=== PATIENT | male | born 1955 | race Caucasian/White ===

== ENCOUNTER 2017-02-07 09:54 | Emergency (ER) | payer OTHER ==
[2017-02-07 10:11] VITALS: BP 131/81; PULSE 57; TEMP 98.5; BMI 36.8
--- NOTE | 2017-02-07 11:38 | PDOC ---
History of Present Illness - General Chief Complaint: Ear Problem Stated Complaint: EAR PROBLEM, ABSCESS BOIL Time Seen by Provider: 02/07/17 11:00 History Source: Patient Exam Limitations: No Limitations - History of Present Illness Initial Comments: 02/07/17 11:31 Patient is a [61-year-old male with history of hypertension and high cholesterol presents for evaluation of left ear pain and abscess to upper back. Patient reports pain to the left ear for 1 week. No fever. Attempted to get appointment with his PMD but states they could not fit him in and told him to come to ER.] Past Medical History: [Denies]. Allergies: No known allergies Medications: [See medication list.] Family History: Non-contributory Social History: Denies smoking, alcohol use, or IVDU Review of Systems GENERAL/CONSTITUTIONAL: [No fever or chills. No weakness. No weight change.] HEAD, EYES, EARS, NOSE AND THROAT: [No change in vision. Left ear pain. No sore throat. ] CARDIOVASCULAR: [No chest pain or shortness of breath.] RESPIRATORY: [No cough, wheezing, or hemoptysis.] GASTROINTESTINAL: [No nausea, vomiting, diarrhea or constipation. No rectal bleeding.] GENITOURINARY: [No dysuria, frequency, or change in urination.] MUSCULOSKELETAL: [No joint or muscle swelling or pain. No neck or back pain.] SKIN : [Spontaneously draining lesion to upper right back] NEUROLOGIC: [No headache, vertigo, loss of consciousness, or loss of sensation.] PSYCHIATRIC: [No depression or anxiety.] ENDOCRINE: [No increased thirst. No abnormal weight change.] HEMATOLOGIC/LYMPHATIC: [No anemia, easy bleeding, or history of blood clots.] ALLERGIC/IMMUNOLOGIC: [No hives or skin allergy. No latex allergy.] Physical Exam: GENERAL: [The patient is awake, alert, and fully oriented, in no acute distress. ] HEAD: [Normal with no signs of trauma.] EYES: [Pupils equal, round and reactive to light, extraocular movements intact, sclera anicteric, conjunctiva clear.] ENT: [Left ear inflamed with cloudy white drainage right TM is normal, nares patent, oropharynx clear without exudates. Moist mucous membranes. No uvula deviation] NECK: [Normal range of motion, supple without lymphadenopathy, JVD, or masses.] LUNGS: [Breath sounds equal, clear to auscultation bilaterally. No wheezes, and no crackles.] HEART: [Regular rate and rhythm, normal S1 and S2 without murmur, rub or gallop. ] ABDOMEN: [Soft, nontender, normoactive bowel sounds. No guarding, no rebound. No masses. No bruising or abrasions] MUSCULOSKELETAL: [Normal range of motion, no edema. No clubbing or cyanosis. No cords, erythema, or tenderness. No CVA Tenderness with fist.] NEUROLOGICAL: [Cranial nerves II through XII grossly intact. Normal speech, normal gait.] SKIN: [Draining lesion to right upper back, area is erythematous with multiple opening spontaneously draining pustulant drainage] Past History - Past Medical History Allergies/Adverse Reactions: Allergies Allergy/AdvReac Type Severity Reaction Status Date / Time No Known Allergies Allergy Verified 02/07/17 10:08 Home Medications: Ambulatory Orders Ranitidine [Zantac -] 150 mg PO DAILY 07/06/12 Atorvastatin Ca [Lipitor] 20 mg PO HS 10/10/13 Amlodipine Besylate [Norvasc -] 5 mg PO DAILY #30 tablet 10/14/13 Lisinopril [Prinivil] 40 mg PO DAILY #60 tablet 10/14/13 Warfarin Na [Coumadin -] 5 mg PO DAILY@1800 #10 tablet 12/09/13 Metoprolol Succinate [Toprol XL -] 100 mg PO DAILY 10/09/15 Thiamine HCl [Vitamin B1 -] 100 mg PO DAILY tablet 10/13/15 Aspirin [ASA -] 81 mg PO DAILY 02/07/17 Clindamycin [Cleocin -] 300 mg PO Q8H #30 capsule 02/07/17 Gabapentin 100 mg PO ASDIR 02/07/17 Hydroxyzine HCl [Atarax -] 25 mg PO TID 02/07/17 Neomycin/Polymyxin B Sulf/Hc [Ffsdswri-Qpysxxwws-Cr Ear Susp] 4 ml OS QID #1 drops.susp 02/07/17 Anemia: No Asthma: No Cancer: No Cardiac Disorders: Yes (A-FIB) CVA: No COPD: No CHF: No DVT: No Dementia: No Diabetes: No GI Disorders: Yes (GERD) Disorders: No HTN: Yes Hypercholesterolemia: Yes Liver Disease: No Seizures: No Thyroid Disease: No - Surgical History Abdominal Surgery: No Appendectomy: No Cardiac Surgery: Yes (CABG,ICD) Cholecystectomy: No Lung Surgery: No Neurologic Surgery: No Orthopedic Surgery: No - Immunization History Immunization Up to Date: Yes - Suicide/Smoking/Psychosocial Hx Smoking Status: No Smoking History: Never smoked Have you smoked in the past 12 months: No Number of Cigarettes Smoked Daily: 0 Information on smoking cessation initiated: No Hx Alcohol Use: Yes (10/10/15) Drug/Substance Use Hx: No Substance Use Type: None Hx Substance Use Treatment: No *Physical Exam - Vital Signs Last Vital Signs Temp Pulse Resp BP Pulse Ox 98.5 F 57 L 18 131/81 100 02/07/17 10:08 02/07/17 10:08 02/07/17 10:08 02/07/17 10:08 02/07/17 10:08 Medical Decision Making - Medical Decision Making 02/07/17 11:33 A/P: Patient here for evaluation of abscess to back which is spontaneously draining with no fluctuance mild surrounding erythema, also with left otitis media. We'll DC patient on clindamycin and polymyxin, follow-up with PMD. Recommend follow-up with dermatology for back wound I discussed the physical exam findings, ancillary test results and final diagnoses with the patient. I answered all of the patient's questions. The patient was satisfied with the care received and felt comfortable with the discharge plan and treatment plan. The patient will call to arrange follow-up and will return to the Emergency Department with any new, persistant or worsening symptoms. *DC/Admit/Observation/Transfer Diagnosis at time of Disposition: Abscess Otitis media Qualifiers: Otitis media type: suppurative Chronicity: acute Laterality: left Recurrence: not specified as recurrent Spontaneous tympanic membrane rupture: without spontaneous rupture Qualified Code(s): H66.002 - Acute suppurative otitis media without spontaneous rupture of ear drum, left ear - Discharge Dispostion Disposition: HOME Condition at time of disposition: Good Admit: No - Prescriptions Prescriptions: Clindamycin [Cleocin -] 300 mg PO Q8H #30 capsule Neomycin/Polymyxin B Sulf/Hc [Abfafxjf-Pdpkxjxkt-Vz Ear Susp] 4 ml OS QID #1 drops.susp - Referrals Referrals: Tripp Tapia [Primary Care Provider] - Diego Modi [Non Staff, Medical] - - Patient Instructions Printed Discharge Instructions: Middle Ear Infection, DI for Skin Abscess Additional Instructions: recommend follow up with dermatology. Warm soaks to the back Antibiotics as ordered Follow up with PMD if pain persists to the left ear. Tylenol for pain - Post Discharge Activity
--- NOTE | 2017-02-09 08:57 | PDOC ---
Patient Follow-up (Call Back) - Post ED Follow - Up Chief Complaint: abscess Condition at time of discharge: Good Disposition at time of original discharge: HOME Reason for Call Back: Abnwl. Microbiology (wound culture preliminary, need to follow up sensitivity)
== END 2017-02-07 11:46 | disposition home or self-care (01) ==
LOC: JERFT 09:54
DX: H66.002 Acute suppurative otitis media without spontaneous rupture of ear drum, left ear (principal); L02.212 Cutaneous abscess of back [any part, except buttock and flank]; I10 Essential (primary) hypertension; E78.00 Pure hypercholesterolemia, unspecified
CPT/HCPCS: 87070; 87186; 87205; 99281-25

== ENCOUNTER 2017-05-29 09:10 | Observation (INO) | payer OTHER ==
--- NOTE | 2017-05-29 09:22 | PDOC ---
History of Present Illness - General History Source: Patient, Family Exam Limitations: No Limitations <Rigo Nayak - Last Filed: 05/29/17 12:12> - General History Source: Patient Exam Limitations: No Limitations <Evelina Quick - Last Filed: 05/29/17 14:12> - General Chief Complaint: Chest Pain Stated Complaint: CHEST PAIN Time Seen by Provider: 05/29/17 09:21 - History of Present Illness Initial Comments: 05/29/17 10:22 The patient is a 61 year old male with a past medical history of acute/chronic ETOH abuse, A-Fib, CABG(x3, 2005), diastolic CHF ( s/p ICD 2010 for [place]), hypertension, hyperlipidemia, and constipation, presents to the emergency department with a complaint of chest pain since earlier today. As per son, patient woke up feeling fine this morning. Patient states he took his medications at 06:00 today, and at 07:00 he felt a shock from his defibrillator. Son reports taking the patients pressure, and states it was 200/ 160 at the time. Patient reports he has been shocked, several times over the past month before going to bed, but not as bad as this time. Patient reports associated chest pain and tingling in his face, but denies any shortness of breath, diaphoresis, palpitations, or lower extremity edema. He denies any headache, dizziness, LOC, lightheadedness, weakness, neck or back pain. He denies any abdominal pain, nausea, or vomiting. He denies any fever or chills. Patient states he returned from [place] 1 week ago. Patient states his last drink was about 1 month ago. Allergies: NKDA Past surgical history: AICD(2009), CABG(2005) Social history: He reports alcohol use (1/2 liter of vodka). 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 Carlos Retana (Rigo Nayak) Past History <Rigo Nayak - Last Filed: 05/29/17 12:12> - Past Medical History Anemia: No Asthma: No Cancer: No Cardiac Disorders: Yes (CAD, afib) CVA: No COPD: No CHF: No DVT: No Dementia: No Diabetes: No GI Disorders: Yes (GERD) Disorders: No HTN: Yes Hypercholesterolemia: Yes Liver Disease: No Seizures: No Thyroid Disease: No - Surgical History Abdominal Surgery: No Appendectomy: No Cardiac Surgery: Yes (CABG X3, AICD/PPM) Cholecystectomy: No Lung Surgery: No Neurologic Surgery: No Orthopedic Surgery: No - Immunization History Immunization Up to Date: Yes - Suicide/Smoking/Psychosocial Hx Smoking Status: No Smoking History: Never smoked Have you smoked in the past 12 months: No Number of Cigarettes Smoked Daily: 0 Information on smoking cessation initiated: No Hx Alcohol Use: Yes (social) Drug/Substance Use Hx: No Substance Use Type: None, Alcohol Hx Substance Use Treatment: No <Evelina Quick - Last Filed: 05/29/17 14:12> - Past Medical History Allergies/Adverse Reactions: Allergies Allergy/AdvReac Type Severity Reaction Status Date / Time No Known Allergies Allergy Verified 05/29/17 09:18 Home Medications: Ambulatory Orders Atorvastatin Ca [Lipitor] 20 mg PO HS 10/10/13 Warfarin Na [Coumadin -] 5 mg PO DAILY@1800 #10 tablet 12/09/13 Metoprolol Succinate [Toprol XL -] 100 mg PO DAILY 10/09/15 Amlodipine Besylate 5 mg PO DAILY 11/23/16 Aspirin [ASA -] 81 mg PO DAILY 11/23/16 Folic Acid 1 mg PO DAILY 11/23/16 Gabapentin 100 mg PO BID 11/23/16 Lisinopril [Prinivil -] 40 mg PO DAILY 11/23/16 Ranitidine [Zantac -] 150 mg PO BID 11/23/16 Thiamine HCl [Vitamin B1 -] 100 mg PO DAILY tablet 11/25/16 Cardiac Specific PMH - Complaint Specific PMHX Pacemaker: Yes <Evelina Quick - Last Filed: 05/29/17 14:12> Review of Systems - Review of Systems Able to Perform ROS?: Yes <Rigo Nayak - Last Filed: 05/29/17 12:12> <Evelina Quick - Last Filed: 05/29/17 14:12> - Review of Systems Comments:: 05/29/17 10:22 GENERAL/CONSTITUTIONAL: No: fever, chills, weakness, loss of appetite. HEAD, EYES, EARS, NOSE AND THROAT: Yes: facial tingling. No: change in vision, ear pain, discharge, sore throat, throat swelling. CARDIOVASCULAR: Yes chest pain, defibrillator shock. No: lightheadedness, palpitations, syncope RESPIRATORY: No: cough, shortness of breath, wheezing, hemoptysis, stridor. GASTROINTESTINAL: No: nausea, vomiting, abdominal cramping, diarrhea, rectal bleeding, constipation. GENITOURINARY: No: dysuria, hematuria, frequency, urgency, flank pain. MUSCULOSKELETAL: No: back pain, neck pain, joint pain, muscle swelling or pain SKIN AND BREASTS: No: lesions, pallor, rash or easy bruising. NEUROLOGIC: No: headache, vertigo, paresthesias, weakness ENDOCRINE: No: unexplained weight gain or loss HEMATOLOGIC/LYMPHATIC: No: anemia, easy bleeding, swelling nodes (Nayak,Giomilsy) *Physical Exam <Nael,Giomilsy - Last Filed: 05/29/17 12:12> <Evelina Quick - Last Filed: 05/29/17 14:12> - Vital Signs Last Vital Signs Temp Pulse Resp BP Pulse Ox 98.3 F 50 L 17 128/71 97 05/29/17 09:14 05/29/17 11:49 05/29/17 11:49 05/29/17 11:49 05/29/17 11:49 - Physical Exam Comments: 05/29/17 10:22 GENERAL: The patient is in no acute distress. HEAD: Normal with no signs of trauma. EYES: PERRLA, EOMI, sclera anicteric, conjunctiva clear. ENT: Ears normal, nares patent, oropharynx clear without exudates. Moist mucous membranes. NECK: Normal range of motion, supple without lymphadenopathy, JVD, or masses. LUNGS: Breath sounds equal, clear to auscultation bilaterally. No wheezes, and no crackles. HEART: Paced. Regular rate and rhythm, normal S1 and S2 without murmur, rub or gallop. ABDOMEN: Obese. Soft, nontender, normoactive bowel sounds. No guarding, no rebound. EXTREMITIES: Normal range of motion, no edema. No clubbing or cyanosis. No erythema, or tenderness. NEUROLOGICAL: Cranial nerves II through XII grossly intact. Normal speech. No focal neurological deficits. MUSCULOSKELETAL: Back non-tender to palpation, no CVA tenderness SKIN: Warm, Dry, normal turgor, no rashes or lesions noted. (Nayak,Giomilsy) ED Treatment Course - LABORATORY CBC & Chemistry Diagram: 05/29/17 09:43 05/29/17 09:43 <Rigo Nayak - Last Filed: 05/29/17 12:12> - LABORATORY CBC & Chemistry Diagram: 05/29/17 09:43 05/29/17 09:43 <Evelina Quick - Last Filed: 05/29/17 14:12> - ADDITIONAL ORDERS Additional order review: Laboratory Results 05/29/17 05/29/17 09:43 09:43 PT with INR 12.30 H INR 1.09 Sodium 141 Potassium 4.8 D Chloride 105 Carbon Dioxide 28 Anion Gap 8 BUN 16 Creatinine 0.9 Creat Clearance w eGFR > 60 Random Glucose 109 H Calcium 8.9 Magnesium 2.1 Total Bilirubin 0.6 D AST 48 H ALT 105 H D Alkaline Phosphatase 79 Creatine Kinase 88 Troponin I < 0.02 D B-Natriuretic Peptide 452 H Total Protein 7.4 Albumin 3.9 D 05/29/17 09:43 RBC 4.32 MCV 94.0 MCHC 33.9 RDW 14.9 MPV 7.6 Neutrophils % 53.6 Lymphocytes % 30.2 D Monocytes % 14.2 H Eosinophils % 1.1 Basophils % 0.9 - RADIOLOGY Radiology Studies Ordered: Category Date Time Status CHEST X-RAY PORTABLE* [RAD] Stat Radiology 05/29/17 09:22 Completed Radiograph Interpretation: 05/29/17 11:19 EXAM: CXR INTERPRETED BY: Dr. Parson REVIEWED BY: Dr. Quick IMPRESSION: No evidence of active pulmonary disease. (Rigo Nayak) Medical Decision Making <Rigo Nayak - Last Filed: 05/29/17 12:12> <Evelina Quick - Last Filed: 05/29/17 14:12> - Medical Decision Making 05/29/17 12:12 First call placed to Dr. Retana at 12:18. Awaiting call back from Dr. Maurer (Rigo Nayak) 05/29/17 09:35 Mr Gerardo is a 61 yo M who presents to the ER with a complaint of Chest pain. Patient's has a history of atrial fibrillation on Coumadin, hypertension, hyperlipidemia, coronary artery disease status post 3 vessel CABG. Patient presents emergency department stating he was in his usual state of health. Awoke at approximately 6 AM. Possibly one hour later, at 7 AM he felt a very painful shock in his left chest. This was his defibrillator firing. Denies short of breath. Denies current chest pain. No nausea, vomiting, diphoresis EKG: Sinus rhythm rate of 54 bpm, axis is normal, intervals are normal, no ST elevations or depressions, T-wave inversion V4- V6 05/29/17 10:47 Laboratory Tests 05/29/17 05/29/17 05/29/17 09:43 09:43 09:43 WBC 4.8 Hgb 13.7 Hct 40.6 Plt Count 250 D PT with INR 12.30 H INR 1.09 Sodium 141 Potassium 4.8 D Chloride 105 Carbon Dioxide 28 BUN 16 Creatinine 0.9 Random Glucose 109 H Creatine Kinase 88 Troponin I < 0.02 D 05/29/17 10:47 Call placed to [facility] 05/29/17 10:57 Interrogation performed Demonstrates NSVT and AICD firing on May 07 Nothing today 05/29/17 14:10 Case reviewed with [facility] Will place on Tele Obs (Evelina Quick) *DC/Admit/Observation/Transfer <Rigo Nayak - Last Filed: 05/29/17 12:12> - Discharge Dispostion Admit: Yes <Evelina Quick - Last Filed: 05/29/17 14:12> Diagnosis at time of Disposition: Chest pain Qualifiers: Chest pain type: unspecified Qualified Code(s): R07.9 - Chest pain, unspecified - Discharge Dispostion Condition at time of disposition: Stable - Referrals Referrals: Tripp Tapia [Primary Care Provider] - - Patient Instructions - Post Discharge Activity - Attestations Scribe Attestion: 05/29/17 10:22 Documentation prepared by Rigo Nayak, acting as medical assisting instructor for Evelina Quick MD. (Rigo Nayak)
[2017-05-29 09:53] LABS: BASO % 0.9 % (0-2.0); EOS % 1.1 % (0-4.5); HEMATOCRIT 40.6 % (35.4-49); HEMOGLOBIN 13.7 GM/dL (11.7-16.9); LYMPH % 30.2 % (8-40); MCH 31.8 pg (25.7-33.7); MCHC 33.9 g/dl (32.0-35.9); MEAN PLT VOLUME 7.6 fl (7.5-11.1); MONO % 14.2 % (3.8-10.2); NEUT % 53.6 % (42.8-82.8); PLATELET COUNT 250 K/MM3 (134-434); RBC 4.32 M/mm3 (4.00-5.60); RDW 14.9 % (11.9-15.9); WHITE BLOOD COUNT 4.8 K/mm3 (4.0-10.0)
[2017-05-29 10:15] LABS: INR 1.09 (0.82-1.09); PROTHROMBIN TIME (PATIENT) 12.3 SEC (9.98-11.88)
[2017-05-29 10:16] LABS: ALBUMIN 3.9 g/dl (3.4-5.0); ANION GAP 8 (8-16); BLOOD UREA NITROGEN 16 mg/dL (7-18); CALCIUM 8.9 mg/dL (8.5-10.1); CHLORIDE 105 mmol/L (98-107); CO2 28 mmol/L (21-32); CREATININE 0.9 mg/dL (0.7-1.3); GLUCOSE,RANDOM 109 mg/dL (74-106); MAGNESIUM 2.1 mg/dL (1.8-2.4); POTASSIUM 4.8 mmol/L (3.5-5.1); SGOT/AST 48 U/L (15-37); SGPT/ALT 105 U/L (12-78); SODIUM 141 mmol/L (136-145)
[2017-05-29 10:20] LABS: ALK PHOS 79 U/L (45-117); BILIRUBIN,TOTAL 0.6 mg/dL (0.2-1.0); TOT PROT 7.4 g/dl (6.4-8.2)
[2017-05-29 10:57] LABS: N-TERMINAL BNP 452 pg/ml (5-125)
--- NOTE | 2017-05-29 12:21 | CON.CARD ---
Consult - History of Present Illness History of Present Illness: The patient is a 61 year old male with a past medical history of acute/chronic ETOH abuse, A-Fib, CABG(x3, 2005), diastolic CHF ( s/p ICD 2009 for [place]), hypertension, hyperlipidemia, and constipation, presents to the emergency department with a complaint of chest pain since earlier today. As per son, patient woke up feeling fine this morning. Patient states he took his medications at 06:00 today, and at 07:00 he felt a shock from his defibrillator. Son reports taking the patients pressure, and states it was 200/ 160 at the time. Patient reports he has been shocked, several times over the past month before going to bed, but not as bad as this time. Patient reports associated chest pain and tingling in his face, but denies any shortness of breath, diaphoresis, palpitations, or lower extremity edema. He denies any headache, dizziness, LOC, lightheadedness, weakness, neck or back pain. He denies any abdominal pain, nausea, or vomiting. He denies any fever or chills. Patient states he returned from [place] 1 week ago. Patient states his last drink was about 1 month ago. Allergies: NKDA Past surgical history: AICD(2009), CABG(2005) Social history: He reports alcohol use (1/2 liter of vodka). 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 [facility] CABG 2005 2006 s/p ICD Ongoing medical problems ASHD; CABG (no hx AR) CHF: diastolic (was systolic, leading to ICD; most recent ECHO showed normal LVEF) Paroxysmal AF CMP hyperlipidemia s/p ICD 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 History of Recent Travel: No Home Medications - Allergies Allergies/Adverse Reactions: Allergies Allergy/AdvReac Type Severity Reaction Status Date / Time No Known Allergies Allergy Verified 05/29/17 09:18 - Home Medications Home Medications: Ambulatory Orders Atorvastatin Ca [Lipitor] 20 mg PO HS 10/10/13 Warfarin Na [Coumadin -] 5 mg PO DAILY@1800 #10 tablet 12/09/13 Metoprolol Succinate [Toprol XL -] 100 mg PO DAILY 10/09/15 Amlodipine Besylate 5 mg PO DAILY 11/23/16 Aspirin [ASA -] 81 mg PO DAILY 11/23/16 Folic Acid 1 mg PO DAILY 11/23/16 Gabapentin 100 mg PO BID 11/23/16 Lisinopril [Prinivil -] 40 mg PO DAILY 11/23/16 Ranitidine [Zantac -] 150 mg PO BID 11/23/16 Thiamine HCl [Vitamin B1 -] 100 mg PO DAILY tablet 11/25/16 Review of Systems - Review of Systems Constitutional: reports: No Symptoms Eyes: reports: No Symptoms HENT: reports: No Symptoms Neck: reports: No Symptoms Cardiovascular: reports: Chest Pain Gastrointestinal: reports: No Symptoms Genitourinary: reports: No Symptoms Breasts: reports: No Symptoms Reported Musculoskeletal: reports: No Symptoms Integumentary: reports: No Symptoms Neurological: reports: No Symptoms Endocrine: reports: No Symptoms Hematology/Lymphatic: reports: No Symptoms Psychiatric: reports: No Symptoms Vital Signs: Vital Signs Temperature 98.3 F 05/29/17 09:14 Pulse Rate 50 L 05/29/17 11:49 Respiratory Rate 17 05/29/17 11:49 Blood Pressure 128/71 05/29/17 11:49 O2 Sat by Pulse Oximetry (%) 97 05/29/17 11:49 Constitutional: Yes: Well Nourished, No Distress, Calm Eyes: Yes: WNL, Conjunctiva Clear, EOM Intact HENT: Yes: WNL, Atraumatic, Normocephalic Neck: Yes: WNL, Supple, Trachea Midline Respiratory: Yes: WNL, Regular, CTA Bilaterally Gastrointestinal: Yes: WNL, Normal Bowel Sounds Renal/: Yes: WNL Cardiovascular: Yes: WNL, Regular Rate and Rhythm Musculoskeletal: Yes: WNL Extremities: Yes: WNL Integumentary: Yes: WNL Neurological: Yes: WNL, Alert, Oriented ...Motor Strength: WNL Psychiatric: Yes: WNL, Alert, Oriented - Other Data Labs, Other Data: CBC, BMP 05/29/17 09:43 05/29/17 09:43 INR, PTT INR 1.09 (0.82-1.09) 05/29/17 09:43 Troponin, BNP 05/29/17 09:43 Troponin I < 0.02 D B-Natriuretic Peptide 452 H Troponin, BNP 05/29/17 09:43 Troponin I < 0.02 D B-Natriuretic Peptide 452 H Laboratory Tests 05/29/17 05/29/17 05/29/17 09:43 09:43 09:43 WBC 4.8 RBC 4.32 Hgb 13.7 Hct 40.6 MCV 94.0 MCH 31.8 MCHC 33.9 RDW 14.9 Plt Count 250 D MPV 7.6 Neutrophils % 53.6 Lymphocytes % 30.2 D Monocytes % 14.2 H Eosinophils % 1.1 Basophils % 0.9 PT with INR 12.30 H INR 1.09 Sodium 141 Potassium 4.8 D Chloride 105 Carbon Dioxide 28 Anion Gap 8 BUN 16 Creatinine 0.9 Creat Clearance w eGFR > 60 Random Glucose 109 H Calcium 8.9 Magnesium 2.1 Total Bilirubin 0.6 D AST 48 H ALT 105 H D Alkaline Phosphatase 79 Creatine Kinase 88 Troponin I < 0.02 D B-Natriuretic Peptide 452 H Total Protein 7.4 Albumin 3.9 D Imaging - Results Chest X-ray: Image Reviewed (no i/e) EKG: Image Reviewed (s shin rep abn) Problem List - Problems (1) AICD discharge Code(s): Z45.02 - ENCNTR FOR ADJUST AND MGMT OF AUTOMATIC IMPLNTBL CARD DEFIB (2) AICD discharge Code(s): Z45.02 - ENCNTR FOR ADJUST AND MGMT OF AUTOMATIC IMPLNTBL CARD DEFIB (3) ASHD (arteriosclerotic heart disease) Code(s): I25.10 - ATHSCL HEART DISEASE OF [place] CORONARY ARTERY W/O ANG PCTRS (4) Abscess Code(s): L02.91 - CUTANEOUS ABSCESS, UNSPECIFIED (5) Alcohol abuse Code(s): F10.10 - ALCOHOL ABUSE, UNCOMPLICATED (6) Alcohol abuse counseling and surveillance Code(s): Z71.41 - ALCOHOL ABUSE COUNSELING AND SURVEILLANCE OF ALCOHOLIC (7) Alcohol dependence Code(s): F10.20 - ALCOHOL DEPENDENCE, UNCOMPLICATED Qualifiers: Substance use status: with intoxication (8) Alcohol withdrawal Code(s): F10.239 - ALCOHOL DEPENDENCE WITH WITHDRAWAL, UNSPECIFIED (9) Alcoholism /alcohol abuse Code(s): F10.20 - ALCOHOL DEPENDENCE, UNCOMPLICATED (10) Atrial fibrillation Code(s): I48.91 - UNSPECIFIED ATRIAL FIBRILLATION (11) Chest pain at rest Code(s): R07.9 - CHEST PAIN, UNSPECIFIED (12) DVT prophylaxis Code(s): [id number] - (13) Dyspnea Code(s): R06.00 - DYSPNEA, UNSPECIFIED (14) GERD (gastroesophageal reflux disease) Code(s): K21.9 - GASTRO-ESOPHAGEAL REFLUX DISEASE WITHOUT ESOPHAGITIS (15) Hx of CABG Code(s): Z95.1 - PRESENCE OF AORTOCORONARY BYPASS GRAFT (16) Hypertension Code(s): I10 - ESSENTIAL (PRIMARY) HYPERTENSION (17) Hypomagnesemia Code(s): E83.42 - HYPOMAGNESEMIA (18) Nasal bone fracture Code(s): S02.2XXA - FRACTURE OF NASAL BONES, INIT ENCNTR FOR CLOSED FRACTURE (19) Nontraumatic subdural hygroma Code(s): D18.1 - LYMPHANGIOMA, ANY SITE (20) Otitis media Code(s): H66.90 - OTITIS MEDIA, UNSPECIFIED, UNSPECIFIED EAR Qualifiers: Otitis media type: suppurative Chronicity: acute Laterality: left Recurrence: not specified as recurrent Spontaneous tympanic membrane rupture: without spontaneous rupture Qualified Code(s): H66.002 - Acute suppurative otitis media without spontaneous rupture of ear drum, left ear (21) Palpitations Code(s): R00.2 - PALPITATIONS (22) Pneumonia Code(s): J18.9 - PNEUMONIA, UNSPECIFIED ORGANISM (23) Preseptal cellulitis of right eye Code(s): H00.033 - ABSCESS OF EYELID RIGHT EYE, UNSPECIFIED EYELID (25) Status post fall Code(s): Z91.81 - HISTORY OF FALLING (26) Subtherapeutic international normalized ratio (INR) Code(s): R79.1 - ABNORMAL COAGULATION PROFILE (27) Systolic CHF Code(s): I50.20 - UNSPECIFIED SYSTOLIC (CONGESTIVE) HEART FAILURE (28) Ventricular tachycardia Code(s): I47.2 - VENTRICULAR TACHYCARDIA (29) Ventricular tachycardia Code(s): I47.2 - VENTRICULAR TACHYCARDIA (30) Alcohol abuse Code(s): F10.10 - ALCOHOL ABUSE, UNCOMPLICATED (31) HTN (hypertension) Code(s): I10 - ESSENTIAL (PRIMARY) HYPERTENSION (32) Hyperlipidemia Code(s): E78.5 - HYPERLIPIDEMIA, UNSPECIFIED (33) ICD (implantable cardioverter-defibrillator) in place Code(s): Z95.810 - PRESENCE OF AUTOMATIC (IMPLANTABLE) CARDIAC DEFIBRILLATOR (34) Obesity (BMI 30-39.9) Code(s): E66.9 - OBESITY, UNSPECIFIED Assessment/Plan ASHD; CABG (no hx AR) CHF: diastolic (was systolic, leading to ICD; most recent ECHO showed normal LVEF) Paroxysmal AF CMP hyperlipidemia ETOH abuse noncomplience s/p ICD s/p ICD interrogation no schocks today last ICD francois May 06, 2017 Plan r/o mi telemerty restart meds
--- NOTE | 2017-05-29 12:22 | EKG ---
Test Reason : Blood Pressure : / mmHG Vent. Rate : 054 BPM Atrial Rate : 054 BPM P-R Int : 166 ms QRS Dur : 098 ms QT Int : 408 ms P-R-T Axes : 048 037 056 degrees QTc Int : 386 ms SINUS BRADYCARDIA NONSPECIFIC T WAVE ABNORMALITY ABNORMAL ECG WHEN COMPARED WITH ECG OF 10-OCT-2015 02:27, NONSPECIFIC T WAVE ABNORMALITY NOW EVIDENT IN INFERIOR LEADS T WAVE INVERSION NO LONGER EVIDENT IN ANTERIOR LEADS QT HAS SHORTENED Confirmed by PAPITO MCCARTY, DENISE ([id number]) on 05/29/2017 12:21:42 PM Referred By: Confirmed By:DENISE COBOS MD
--- NOTE | 2017-05-29 14:10 | HP ---
CHIEF COMPLAINT: Chest pain Director Of Casework Department: Dr. Retana HISTORY OF PRESENT ILLNESS: 61 year-old male with a PMH significant for HTN, HLD, CAD s/p CABG x 3 s/p PPM s /p AICD, afib, diastolic heart failure and ETOH abuse. Presented to the ED today with a complaint that his AICD fired this morning. Patient woke up at 6: 00am and at 7:00am he felt a shock from his AICD. He felt chest pain and tingling in his face. His BP at home was reportedly 200/160. Patient's son brought him to the hospital. By the time he arrived, patient's symptoms had resolved. Patient denies any shortness of breath, diaphoresis, palpitations, or lower extremity edema. He denies any headache, dizziness, LOC, lightheadedness, weakness, neck or back pain. He denies any abdominal pain, nausea, or vomiting. He denies any fever or chills. ER course was notable for: (1) BP 180/95, p58 (2) INR 1.09 (3) AICD interrogation: NSVT and most recent AICD firing 05/07/17 (3) 05/29 Echo: LV function grossly normal; BLAE; trace to mild MR; mild to moderate TR; mild pHTN; mild PI Recent Travel: [place], returned one week ago PAST MEDICAL HISTORY: Hypertension Hyperlipidemia Coronary artery disease Atrial fibrillation Diastolic heart failure ETOH abuse PAST SURGICAL HISTORY: CABG x 3 PPM/AICD Social History: Smoking: no Alcohol: last drink one month ago Drugs: no Family History: Allergies No Known Allergies Allergy (Verified 05/29/17 09:18) HOME MEDICATIONS: Home Medications Medication Instructions Recorded Atorvastatin Ca [Lipitor] 20 mg PO HS 10/10/13 Warfarin Na [Coumadin -] 5 mg PO DAILY@1800 #10 tablet 12/09/13 Metoprolol Succinate [Toprol XL -] 100 mg PO DAILY 10/09/15 Amlodipine Besylate 5 mg PO DAILY 11/23/16 Aspirin [ASA -] 81 mg PO DAILY 11/23/16 Folic Acid 1 mg PO DAILY 11/23/16 Gabapentin 100 mg PO BID 11/23/16 Lisinopril [Prinivil -] 40 mg PO DAILY 11/23/16 Ranitidine [Zantac -] 150 mg PO BID 11/23/16 Thiamine HCl [Vitamin B1 -] 100 mg PO DAILY tablet 11/25/16 REVIEW OF SYSTEMS CONSTITUTIONAL: Absent: fever, chills, diaphoresis, generalized weakness, malaise, loss of appetite, weight change HEENT: Absent: rhinorrhea, nasal congestion, throat pain, throat swelling, difficulty swallowing, mouth swelling, ear pain, eye pain, visual changes CARDIOVASCULAR: +one shock from AICD with associated chest pain and face tingling x 1 episode Absent: chest pain, syncope, palpitations, irregular heart rate, lightheadedness , peripheral edema RESPIRATORY: Absent: cough, shortness of breath, dyspnea with exertion, orthopnea, wheezing, stridor, hemoptysis GASTROINTESTINAL: Absent: abdominal pain, abdominal distension, nausea, vomiting, diarrhea, constipation, melena, hematochezia GENITOURINARY: Absent: dysuria, frequency, urgency, hesitancy, hematuria, flank pain, genital pain MUSCULOSKELETAL: Absent: myalgia, arthralgia, joint swelling, back pain, neck pain SKIN: Absent: rash, itching, pallor HEMATOLOGIC/IMMUNOLOGIC: Absent: easy bleeding, easy bruising, lymphadenopathy, frequent infections ENDOCRINE: Absent: unexplained weight gain, unexplained weight loss, heat intolerance, cold intolerance NEUROLOGIC: Absent: headache, focal weakness or paresthesias, dizziness, unsteady gait, seizure, mental status changes, bladder or bowel incontinence PSYCHIATRIC: Absent: anxiety, depression, suicidal or homicidal ideation, hallucinations. PHYSICAL EXAMINATION Vital Signs - 24 hr 05/29/17 05/29/17 05/29/17 09:14 09:43 09:48 Temperature 98.3 F Pulse Rate 56 L Pulse Rate [ 58 L Apical] Respiratory 20 17 Rate Blood Pressure 180/95 Blood Pressure 146/91 [Right Arm] O2 Sat by Pulse 98 100 100 Oximetry (%) 05/29/17 11:49 Temperature Pulse Rate Pulse Rate [ 50 L Apical] Respiratory 17 Rate Blood Pressure Blood Pressure 128/71 [Right Arm] O2 Sat by Pulse 97 Oximetry (%) GENERAL: Awake, alert, and fully oriented, in no acute distress. HEAD: Normal with no signs of trauma. EYES: Pupils equal, round and reactive to light, extraocular movements intact, sclera anicteric, conjunctiva clear. No lid lag. EARS, NOSE, THROAT: Ears normal, nares patent, oropharynx clear without exudates. Moist mucous membranes. NECK: Normal range of motion, supple without lymphadenopathy, JVD, or masses. LUNGS: Breath sounds equal, clear to auscultation bilaterally. No wheezes, and no crackles. No accessory muscle use. HEART: Regular rate and rhythm, normal S1 and S2 ABDOMEN: Soft, nontender, not distended, normoactive bowel sounds, no guarding, no rebound, no masses. MUSCULOSKELETAL: Normal range of motion at all joints. No bony deformities or tenderness. No CVA tenderness. UPPER EXTREMITIES: 2+ pulses, warm, well-perfused. No cyanosis. No clubbing. No peripheral edema. LOWER EXTREMITIES: 2+ pulses, warm, well-perfused. No calf tenderness. No peripheral edema. NEUROLOGICAL: Cranial nerves II-XII intact. Normal speech. Normal gait. SKIN: Warm, dry, normal turgor, no rashes or lesions noted, normal capillary refill. Laboratory Results - last 24 hr 05/29/17 05/29/17 05/29/17 09:43 09:43 09:43 WBC 4.8 RBC 4.32 Hgb 13.7 Hct 40.6 MCV 94.0 MCH 31.8 MCHC 33.9 RDW 14.9 Plt Count 250 D MPV 7.6 Neutrophils % 53.6 Lymphocytes % 30.2 D Monocytes % 14.2 H Eosinophils % 1.1 Basophils % 0.9 PT with INR 12.30 H INR 1.09 Sodium 141 Potassium 4.8 D Chloride 105 Carbon Dioxide 28 Anion Gap 8 BUN 16 Creatinine 0.9 Creat Clearance w eGFR > 60 Random Glucose 109 H Calcium 8.9 Magnesium 2.1 Total Bilirubin 0.6 D AST 48 H ALT 105 H D Alkaline Phosphatase 79 Creatine Kinase 88 Troponin I < 0.02 D B-Natriuretic Peptide 452 H Total Protein 7.4 Albumin 3.9 D ASSESSMENT/PLAN: 61 year-old male with a PMH significant for HTN, HLD, CAD s/p CABG x 3 s/p PPM s /p AICD, afib, diastolic heart failure and ETOH abuse. Presented to the ED today with a complaint that his AICD fired this morning. Coronary artery disease Diastolic heart failure s/p AICD --AICD interrogated in ED, last time fired was 05/07/17; did not fire today --electrolytes normal; keep K>5, Mg >2 --seen and evaluated by cardiology, will r/o ACS --ECG sinus shin @ 54bpm; not suggestive of acute ischemic event --first troponin negative; two pending --Echo: LV function grossly normal; BLAE; trace to mild MR; mild to moderate TR; mild pHTN; mild PI --continue ASA, Lipitor, metoprolol, lisinopril Atrial fibrillation --checked with Dr. Retana's office, patient is supposed to be taking coumadin and INR goal is 2-3 --INR today 1.09 --start lovenox 120mg BID --dose coumadin 5mg tonight --HR 50s'; lower metoprolol from 100mg daily to 37.5 mg BID Hypertension --initial BP 180/95, improved in ED 128/83 --continue amlodipine, lisinopril, lower metoprolol dose Hyperlipidemia --continue Lipitor ETOH abuse --monitor for s/s of withdrawal; last drink reportedly a month ago --continue folic acid and thiamine FEN Fluids: PO intake adequate Electrolytes: replete as indicated Nutrition: low sodium DVT prophylaxis: on therapeutic lovenox, oob, ambulation Dispo: continues to require observation. Full code. Visit type - Emergency Visit Emergency Visit: Yes ED Registration Date: 05/29/17 Care time: The patient presented to the Emergency Department on the above date and was hospitalized for further evaluation of their emergent condition. - New Patient This patient is new to me today: Yes Date on this admission: 05/29/17 - Critical Care Critical Care patient: No Hospitalist Screening - Colonoscopy Questionnaire Colonoscopy Questionnaire: Colonoscopy Questionnaire - Patient: 50 - 75 years old and never had a screening colonoscopy: Unknown History of colon or rectal polyps, or CA: Unknown History of IBD, Crohn's disease or UC: Unknown History of abdominal radiation therapy as a child: Unknown - Relative: 1 with colon or rectal CA, or polyps at age 60 or younger: Unknown Colon or rectal CA diagnosed at age 45 or younger: Unknown Multiple relatives with colon or rectal CA: Unknown - Outcome: Screening Result: Negative Screen
[2017-05-29 16:49] VITALS: BMI 38.4
[2017-05-29] MEDS ORDERED: WARFARIN NA 5 MG TABLET (UD) PO SCH (18:00)
[2017-05-29] MEDS ORDERED: WARFARIN NA 5 MG TABLET (UD) ONE (18:16)
[2017-05-29] MEDS ORDERED: ENOXAPARIN NA (PORCINE) 40 MG/0.4 ML DISP.SYRIN SQ ONE (18:17)
[2017-05-29] MEDS ORDERED: ENOXAPARIN NA (PORCINE) 80 MG/0.8 ML DISP.SYRIN SQ ONE (18:17)
[2017-05-29] MEDS: ENOXAPARIN NA (PORCINE) 120 MG/0.8 ML DISP.SYRIN SQ SCH ×2 (18:26→21:57)
[2017-05-29] MEDS: RANITIDINE HCL 150 MG TABLET (FP) PO SCH (21:56)
[2017-05-29] MEDS: GABAPENTIN 100 MG CAPSULE (FP) PO SCH (21:57)
[2017-05-29] MEDS ORDERED: ATORVASTATIN CA 20 MG TABLET (FP) PO SCH (22:00)
[2017-05-30] MEDS: metoPROLOL SUCCINATE 25 MG TAB.SR.24H (FP) PO SCH ×2 (04:05→11:15)
[2017-05-30 06:35] LABS: BASO % 0.7 % (0-2.0); HEMATOCRIT 39.6 % (35.4-49); HEMOGLOBIN 13.7 GM/dL (11.7-16.9); LYMPH % 35.7 % (8-40); MCH 32.4 pg (25.7-33.7); MCHC 34.6 g/dl (32.0-35.9); MEAN CELL VOLUME 93.6 fl (80-96); MONO % 15.4 % (3.8-10.2); NEUT % 47.2 % (42.8-82.8); PLATELET COUNT 267 K/MM3 (134-434); RBC 4.22 M/mm3 (4.00-5.60); RDW 15.2 % (11.9-15.9); WHITE BLOOD COUNT 5.9 K/mm3 (4.0-10.0)
[2017-05-30 06:43] VITALS: TEMP 98.4
[2017-05-30 06:58] LABS: INR 1.11 (0.82-1.09); PROTHROMBIN TIME (PATIENT) 12.5 SEC (9.98-11.88)
[2017-05-30 07:15] LABS: ALBUMIN 3.5 g/dl (3.4-5.0); ANION GAP 9 (8-16); BILIRUBIN,TOTAL 0.6 mg/dL (0.2-1.0); BLOOD UREA NITROGEN 15 mg/dL (7-18); CALCIUM 8.6 mg/dL (8.5-10.1); CHLORIDE 103 mmol/L (98-107); CO2 29 mmol/L (21-32); CREATININE 0.8 mg/dL (0.7-1.3); GLUCOSE,RANDOM 99 mg/dL (74-106); MAGNESIUM 2.1 mg/dL (1.8-2.4); POTASSIUM 4.3 mmol/L (3.5-5.1); SGOT/AST 43 U/L (15-37); SGPT/ALT 105 U/L (12-78); SODIUM 141 mmol/L (136-145); TOT PROT 6.9 g/dl (6.4-8.2)
[2017-05-30 07:16] LABS: ALK PHOS 71 U/L (45-117)
[2017-05-30] MEDS ORDERED: amLODIPine BESYLATE 5 MG TABLET (FP) PO SCH (10:00)
[2017-05-30] MEDS ORDERED: PATIENT'S OWN MEDICATION (NON-FORMULARY) (Lisinopril [Prinivil -] 40 MG) PO SCH (10:00)
[2017-05-30] MEDS ORDERED: LISINOPRIL 20 MG TABLET (FP) PO SCH (10:00)
[2017-05-30] MEDS ORDERED: FOLIC ACID 1 MG TABLET (FP) PO SCH (10:00)
[2017-05-30] MEDS ORDERED: THIAMINE HCL 100 MG TABLET (FP) PO SCH (10:00)
[2017-05-30] MEDS ORDERED: ASPIRIN 81 MG CHEWABLE TABLETS PO SCH (10:00)
[2017-05-30] MEDS: ENOXAPARIN NA (PORCINE) 120 MG/0.8 ML DISP.SYRIN SQ SCH (11:16)
[2017-05-30] MEDS: GABAPENTIN 100 MG CAPSULE (FP) PO SCH (11:16)
[2017-05-30] MEDS: RANITIDINE HCL 150 MG TABLET (FP) PO SCH (11:18)
--- NOTE | 2017-05-30 13:08 | PN ---
Progress Note, Physician Chief Complaint: Pt Alert; ambulatory. History of Present Illness: The patient is a 61 year old male with a past medical history of acute/chronic ETOH abuse, A-Fib, CABG(x3, 2006), diastolic CHF ( s/p ICD 2010 for [place]), hypertension, hyperlipidemia, and constipation, presents to the emergency department with a complaint of chest pain since earlier today. As per son, patient woke up feeling fine this morning. Patient states he took his medications at 06:00 today, and at 07:00 he felt a shock from his defibrillator. Son reports taking the patients pressure, and states it was 200/ 160 at the time. Patient reports he has been shocked, several times over the past month before going to bed, but not as bad as this time. Patient reports associated chest pain and tingling in his face, but denies any shortness of breath, diaphoresis, palpitations, or lower extremity edema. He denies any headache, dizziness, LOC, lightheadedness, weakness, neck or back pain. He denies any abdominal pain, nausea, or vomiting. He denies any fever or chills. Patient states he returned from [place] 1 week ago. Patient states his last drink was about 1 month ago. 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 - Current Medication List Current Medications: Active Medications Amlodipine Besylate (Norvasc -) 5 mg PO DAILY [facility] Last Admin: 05/30/17 11:15 Dose: 5 mg Aspirin (Asa -) 81 mg PO DAILY [facility] Last Admin: 05/30/17 11:15 Dose: 81 mg Atorvastatin Calcium (Lipitor -) 20 mg PO HS [facility] Last Admin: 05/29/17 21:56 Dose: 20 mg Enoxaparin Sodium (Lovenox -) 120 mg SQ BID [facility] Last Admin: 05/30/17 11:16 Dose: 120 mg Folic Acid (Folic Acid -) 1 mg PO DAILY [facility] Last Admin: 05/30/17 11:16 Dose: 1 mg Gabapentin (Neurontin -) 100 mg PO BID [facility] Last Admin: 05/30/17 11:16 Dose: 100 mg Lisinopril (Prinivil) 40 mg PO DAILY [facility] Last Admin: 05/30/17 11:16 Dose: 40 mg Metoprolol Succinate (Toprol Xl -) 37.5 mg PO BID [facility] Last Admin: 05/30/17 11:15 Dose: 37.5 mg Ranitidine HCl (Zantac -) 150 mg PO BID [facility] Last Admin: 05/30/17 11:18 Dose: 150 mg Thiamine HCl (Vitamin B1 -) 100 mg PO DAILY [facility] Last Admin: 05/30/17 11:16 Dose: 100 mg Warfarin Sodium (Coumadin -) 5 mg PO DAILY@1800 [facility] Last Admin: 05/29/17 18:26 Dose: 5 mg - Objective Vital Signs: Vital Signs Temperature 98.4 F 05/30/17 06:00 Pulse Rate 51 L 05/30/17 10:00 Respiratory Rate 20 05/30/17 11:52 Blood Pressure 132/79 05/30/17 10:00 O2 Sat by Pulse Oximetry (%) 95 05/30/17 11:52 Constitutional: Yes: Calm Eyes: Yes: WNL HENT: Yes: WNL Neck: Yes: WNL Cardiovascular: Yes: Regular Rate and Rhythm. No: JVD Respiratory: Yes: WNL Gastrointestinal: Yes: Soft, Abdomen, Obese ...Rectal Exam: Yes: Deferred Genitourinary: No: Anuria Musculoskeletal: Yes: WNL Extremities: Yes: WNL Edema: No Peripheral Pulses WNL: Yes Integumentary: Yes: WNL Neurological: Yes: WNL Psychiatric: Yes: Other (alcoholism) Labs: CBC, BMP 05/30/17 05:55 05/30/17 05:55 INR, PTT INR 1.11 (0.82-1.09) 05/30/17 05:55 Problem List - Problems (1) AICD discharge Assessment/Plan: AICK interrogation: no shocks since early April. No prolonged VT. For metoprolol ER 100 mg mishalhy for easier compliance. His daughter is frustrated that he has little or no control over alcohol. Code(s): Z45.02 - ENCNTR FOR ADJUST AND MGMT OF AUTOMATIC IMPLNTBL CARD DEFIB (2) Alcohol abuse Code(s): F10.10 - ALCOHOL ABUSE, UNCOMPLICATED (3) Status post fall Code(s): Z91.81 - HISTORY OF FALLING (4) Ventricular tachycardia Code(s): I47.2 - VENTRICULAR TACHYCARDIA (5) ICD (implantable cardioverter-defibrillator) in place Code(s): Z95.810 - PRESENCE OF AUTOMATIC (IMPLANTABLE) CARDIAC DEFIBRILLATOR (6) Obesity (BMI 30-39.9) Code(s): E66.9 - OBESITY, UNSPECIFIED (7) Diastolic CHF Code(s): I50.30 - UNSPECIFIED DIASTOLIC (CONGESTIVE) HEART FAILURE (8) Hx of CABG Code(s): Z95.1 - PRESENCE OF AORTOCORONARY BYPASS GRAFT (9) Hypertension Code(s): I10 - ESSENTIAL (PRIMARY) HYPERTENSION (10) Subdural hematoma Assessment/Plan: 10/10 CT head: no acute pahtlolgy; lesion: ?subdural hematoma; MRI suggested ( if not done by his PMD, it will be ordered as outpatient). As discussed with daughter today, pt was on warfarin years ago for ?DVT/PAF, but this was discontinued due to falls when he drinks (as recently as last month he was visting [place], and drank heavily for 2 weeks straight; he has reportedly not had a drink for over a week). He has been on ASA 81 mg dailoy since. Code(s): I62.00 - NONTRAUMATIC SUBDURAL HEMORRHAGE, UNSPECIFIED (11) AICD discharge Assessment/Plan: no discharges or prolonged arrhytymias on AICD interrogation; last shock was 2017. Code(s): Z45.02 - ENCNTR FOR ADJUST AND MGMT OF AUTOMATIC IMPLNTBL CARD DEFIB (12) Alcoholism /alcohol abuse Code(s): F10.20 - ALCOHOL DEPENDENCE, UNCOMPLICATED (13) HTN (hypertension) Code(s): I10 - ESSENTIAL (PRIMARY) HYPERTENSION (14) Hyperlipidemia Code(s): E78.5 - HYPERLIPIDEMIA, UNSPECIFIED
--- NOTE | 2017-05-30 13:50 | DS ---
Physical Exam: SUBJECTIVE: Patient seen and examined. Armenian speaking. States no pain, no palpitations. Per daughter stopped drinking over a week ago. OBJECTIVE: Vital Signs Period Temp Pulse Resp BP Sys/Peterson Pulse Ox Last 24 Hr 98 F-98.4 F 48-56 17-20 109-136/55-83 95-99 PE Neuro: alert, awake, cn 2-12intact Pulm: CTAB CV: s1 s2 rrr no mrg Abd: s nt nd + bs Ext: warm, no le edema Laboratory Results - last 24 hr 05/29/17 05/29/17 05/30/17 18:00 23:30 05:55 WBC 5.9 RBC 4.22 Hgb 13.7 Hct 39.6 MCV 93.6 MCH 32.4 MCHC 34.6 RDW 15.2 Plt Count 267 MPV 8.0 Neutrophils % 47.2 Lymphocytes % 35.7 Monocytes % 15.4 H Eosinophils % 1.0 Basophils % 0.7 PT with INR INR Sodium Potassium Chloride Carbon Dioxide Anion Gap BUN Creatinine Creat Clearance w eGFR Random Glucose Calcium Magnesium Total Bilirubin AST ALT Alkaline Phosphatase Troponin I < 0.02 < 0.02 Total Protein Albumin 05/30/17 05/30/17 05:55 05:55 WBC RBC Hgb Hct MCV MCH MCHC RDW Plt Count MPV Neutrophils % Lymphocytes % Monocytes % Eosinophils % Basophils % PT with INR 12.50 H INR 1.11 Sodium 141 Potassium 4.3 Chloride 103 Carbon Dioxide 29 Anion Gap 9 BUN 15 Creatinine 0.8 Creat Clearance w eGFR > 60 Random Glucose 99 Calcium 8.6 Magnesium 2.1 Total Bilirubin 0.6 AST 43 H ALT 105 H Alkaline Phosphatase 71 Troponin I Total Protein 6.9 Albumin 3.5 HOSPITAL COURSE: Date of Admission:05/29/17 Date of Discharge: 05/30/17 Minutes to complete discharge: 37 Discharge Summary Reason For Visit: CHEST PAIN AT REST Current Active Problems Chest pain (Acute) Hospital Course: Hospital Course: Briefly, this 61 year old male with a PMH significant for HTN, HLD, CAD s/p CABG x 3 s/p PPM s/p AICD, afib, diastolic heart failure and ETOH abuse presented with c/o AICD fired in the morning. He awoke at 6:00am and 7:00am feeling a shock from his AICD. He felt chest pain and tingling in his face. His BP at home was reportedly 200/160. Patient's son brought him to the hospital. By the time he arrived, patient's symptoms had resolved. Plan: 1. CAD - ASA 2. 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 Retana will f/u with daughter - Will stop coumadin/ lovenox - Home with ASA - Pt for office follow up 3. Palpitations, Diastolic heart failure s/p AICD - AICD interrogation: NSVT and most recent AICD firing 05/07/17 - 05/29 Echo: LV function grossly normal; BLAE; trace to mild MR; mild to moderate TR; mild pHTN; mild PI - Trops x3 neg 4. HTN - Controlled on home meds - Restarted home meds 5. ETOH abuse - Has not had ad drink in 1 week per daughter, did drink heavily while visiting [place] - Home with cessation counseling Dispo: -Home with above meds and follow up Condition: Stable - Instructions Diet, Activity, Other Instructions: Please return the ED for any new, persistent, or worsening symptoms. Follow up with your PCP in 1 week Take home medications as directed on discharge home med list Referrals: Tripp Tapia [Primary Care Provider] - Carlos Retana MD [Staff Physician] - 2 Weeks Disposition: HOME - Home Medications Comprehensive Discharge Medication List: Ambulatory Orders Atorvastatin Ca [Lipitor] 20 mg PO HS 10/10/13 Amlodipine Besylate 5 mg PO DAILY 11/23/16 Aspirin [ASA -] 81 mg PO DAILY 11/23/16 Folic Acid 1 mg PO DAILY 11/23/16 Gabapentin 100 mg PO BID 11/23/16 Lisinopril [Prinivil -] 40 mg PO DAILY 11/23/16 Ranitidine [Zantac -] 150 mg PO BID 11/23/16 Thiamine HCl [Vitamin B1 -] 100 mg PO DAILY tablet 11/25/16 Metoprolol Succinate [Toprol XL -] 100 mg PO DAILY #30 tab.sr.24h 05/30/17 This patient is new to me today: Yes Date on this admission: 05/30/17 Emergency Visit: Yes ED Registration Date: 05/29/17 Care time: The patient presented to the Emergency Department on the above date and was hospitalized for further evaluation of their emergent condition. Critical Care patient: No - Discharge Referral Referred to [facility] No
[2017-05-30 14:02] VITALS: BP 130/81; PULSE 61
[2017-05-30 16:44] LABS: CHOLESTEROL 128 mg/dL (50-200); HDL CHOLESTEROL 47 mg/dL (40-60); LDL CHOLESTEROL (ONLY SJRH) 69 mg/dL (5-100); TRIGLYCERIDES 147 mg/dL (35-160)
== END 2017-05-30 14:24 | disposition home or self-care (01) ==
LOC: JER 09:10 → JERBED 14:12 → J2W 18:37
PROVIDERS: ADMIT Hospitalist; ATTEND Nurse Practitioner Acute Care
PROC: 3E033GC Introduction of Other Therapeutic Substance into Peripheral Vein, Percutaneous Approach (ICD-10-PCS; principal; 2017-05-29)
DX: R07.9 Chest pain, unspecified (principal); I10 Essential (primary) hypertension; I25.10 Atherosclerotic heart disease of native coronary artery without angina pectoris; I48.91 Unspecified atrial fibrillation; I50.30 Unspecified diastolic (congestive) heart failure; R00.2 Palpitations; F10.20 Alcohol dependence, uncomplicated; E78.5 Hyperlipidemia, unspecified; K21.9 Gastro-esophageal reflux disease without esophagitis; Z95.1 Presence of aortocoronary bypass graft; Z95.810 Presence of automatic (implantable) cardiac defibrillator; Z45.02 Encounter for adjustment and management of automatic implantable cardiac defibrillator; Z91.81 History of falling; E66.9 Obesity, unspecified; Z68.41 Body mass index [BMI] 40.0-44.9, adult
CPT/HCPCS: 36415; 71045-TC-FY; 80053; 80061; 82550; 83721; 83735; 83880; 84484; 85025; 85610; 93005; 93010; 93306-TC; 99285-25; G0378

== ENCOUNTER 2017-06-20 09:51 | Inpatient (IN) | payer OTHER ==
--- NOTE | 2017-06-20 10:01 | PDOC ---
History of Present Illness - General Chief Complaint: Irregular Heart Beat Stated Complaint: DEFIBRILLATOR SHOCK History Source: Family, Unavil. due to pt. cond. (Confused (drunk) with imited Korean proficiency) Exam Limitations: No Limitations - History of Present Illness Initial Comments: 06/20/17 10:30 Pt is a 61 yo M with a PMHx significant for HTN, HLD, CAD s/p CABG x 3 s/p PPM s /p AICD, afib, diastolic heart failure and ETOH abuse presented with c/o AICD fired in the morning. Patient was BIBEMS this am, after he called his son at work to let him know about is AICD firing. He had 4-5 episodes of the firing within a 2 hour period. The daughter by his side does not live with him, so did not have a lot of details, but pt was confused and unreliable. Pt denies chest pain (just the firing sensation), no fevers, cough. No dysuria, no abdominal pain. Said to have had up to one pint of Vodka yesterday and up to 5 beers today. It is not known what he was doing before the shock, but no hx of falls or traumas. 06/20/17 11:06 Timing/Duration: 4-6 hours Severity: moderate Associated Symptoms: denies: chest pain, cough, diaphoresis, fever/chills, nausea/vomiting, seizure, shortness of breath, syncope Past History - Past Medical History Allergies/Adverse Reactions: Allergies Allergy/AdvReac Type Severity Reaction Status Date / Time No Known Allergies Allergy Verified 06/20/17 09:56 Home Medications: Ambulatory Orders Atorvastatin Ca [Lipitor] 20 mg PO HS 10/10/13 Amlodipine Besylate 5 mg PO DAILY 11/23/16 Aspirin [ASA -] 81 mg PO DAILY 11/23/16 Folic Acid 1 mg PO DAILY 11/23/16 Gabapentin 100 mg PO BID 11/23/16 Lisinopril [Prinivil -] 40 mg PO DAILY 11/23/16 Ranitidine [Zantac -] 150 mg PO BID 11/23/16 Thiamine HCl [Vitamin B1 -] 100 mg PO DAILY tablet 11/25/16 Metoprolol Succinate [Toprol XL -] 100 mg PO DAILY #30 tab.sr.24h 05/30/17 Anemia: No Asthma: No Cancer: No Cardiac Disorders: Yes (CAD, afib) CVA: No COPD: No CHF: No DVT: No Dementia: No Diabetes: No GI Disorders: Yes (GERD) Disorders: No HTN: Yes Hypercholesterolemia: Yes Liver Disease: No Seizures: No Thyroid Disease: No - Surgical History Abdominal Surgery: No Appendectomy: No Cardiac Surgery: Yes (CABG X3, AICD/PPM) Cholecystectomy: No Lung Surgery: No Neurologic Surgery: No Orthopedic Surgery: No - Immunization History Immunization Up to Date: Yes - Suicide/Smoking/Psychosocial Hx Smoking Status: No Smoking History: Never smoked Have you smoked in the past 12 months: No Number of Cigarettes Smoked Daily: 0 Hx Alcohol Use: Yes (social) Drug/Substance Use Hx: No Substance Use Type: None, Alcohol Hx Substance Use Treatment: No Review of Systems - Review of Systems Able to Perform ROS?: Yes (Not sure of reliability) Is the patient limited Korean proficient: No Constitutional: No: Chills, Diaphoresis, Fever HEENTM: No: Double Vision, Nose Congestion, Throat Pain Respiratory: No: Cough, Orthopnea, Shortness of Breath, SOB with Exertion, SOB at Rest, Stridor, Wheezing, Productive cough Cardiac (ROS): No: Chest Pain, Edema, Palpitations, Syncope, Chest Tightness ABD/GI: No: Abdominal Distended, Vomiting : No: Burning, Dysuria Musculoskeletal: No: Muscle Weakness Neurological: No: Numbness, Paresthesia, Seizure, Tremors Hematologic/Lymphatic: No: Easy Bleeding *Physical Exam - Physical Exam General Appearance: Yes: Obese. No: Apparent Distress HEENT: positive: EOMI, ROXANE (appear misosed bilaterally), Other (dry mucus mebrane). negative: Scleral Icterus (L) Neck: positive: Supple Respiratory/Chest: positive: Lungs Clear, Normal Breath Sounds Cardiovascular: positive: S1, S2, Tachycardia. negative: JVD, Murmur Gastrointestinal/Abdominal: positive: Soft. negative: Tender Musculoskeletal: negative: CVA Tenderness Extremity: positive: Normal Inspection. negative: Coldness, Cyanosis Integumentary: positive: Dry, Warm Neurologic: positive: Motor Strength 5/5, Confused. negative: EOM Palsy, Facial Droop Heart Score/ECG Review - Age Age: 45-65 - Risk Factors Risk Factors Heart Score: Yes Hx Hypertension Based on the list above the patient has:: >/=3 risk factors or Hx atherosclerotic disease - ECG Intrepretation Rhythm: Regular Rhythm - [place] Brid[place]: Normal - P and FL Delta Wave(s) Present: No WPW: No - ST and T Early Repolarization: No Non Specific ST-T Wave changes: No Flattened T Waves: No Prolonged Q-T Interval: No - ECG Impressions Non-specific ST Elevation: No Ischemic Changes: No Tachycardia: Sinus Torsades karl Pointes: No WPW: No Comment:: 06/20/17 11:14 Sinus tachycardia Non specific T wave abnormality, Ventricular rate 112/min QT/QTc- 334/455 ED Treatment Course - LABORATORY CBC & Chemistry Diagram: 06/20/17 10:54 06/20/17 10:54 Medical Decision Making - Medical Decision Making 06/20/17 11:15 CBC, CMP, Mg, Trops, EKG, BNP, alcohol level, CXR Interrogation of the AICD using [employer] Mobile interrogator in the ED was done Pending fax of report from the office 06/20/17 11:17 CBC-no anemia, no leucocytosis, platelets wnl 06/20/17 11:18 CXR- no evidence of acute pathology 06/20/17 11:19 Pt received up to 11 shocks between 7.42am and 8.31am for Vfib today The longest episode lasted 1.07mins most on average lasted in the 40s. Plan is that we are pending electrolytes, following which we will consult cardiology and at least observe the patient for a while to identify etiology for multiple Vfibs today 06/20/17 11:33 Alcohol level 231mg/dl Banana bag given 06/20/17 11:44 Spoke with the rep for [employer] who confirmed the defibrillator is working appropriately. Patient was signed out to Dr Zayas for continuation of care. Hospitalist was microblogged and mid level business analyst call back was pending *DC/Admit/Observation/Transfer Diagnosis at time of Disposition: AICD discharge - Referrals Referrals: Tripp Tapia [Primary Care Provider] - - Patient Instructions - Post Discharge Activity
--- NOTE | 2017-06-20 10:13 | PDOC ---
Attending Attestation - Resident Resident Name: AlexusLilia I - ED Attending Attestation I have performed the following: I have examined & evaluated the patient, The case was reviewed & discussed with the resident, I agree w/resident's findings & plan, Exceptions are as noted - HPI HPI: 06/20/17 10:16 61y M hx of htn, cad s[p cabg, afib s/p AICD, ETOH abuse, presents with feeling like his defibrillator discharged 4-5x this morning. denies any cp, sob, dizziness, palpitation. history limtied due to pts intoxication, history attempted with pts daugther in south korean. GENERAL: The patient is awake, alert, and oriented, Nontoxic - in no acute distress. obese HEAD: Normocephalic, atraumatic. EYES: extraocular movements intact, sclera anicteric, conjunctiva clear. ENT: Normal voice, Moist mucous membranes. NECK: Normal range of motion, supple LUNGS/THORAX: PM in L chest, Breath sounds equal, clear to auscultation bilaterally. No wheezes, no rhonchi, no rales. HEART: Regular rate and rhythm, normal S1 and S2 without murmur, rub or gallop. ABDOMEN: Soft, nontender, normoactive bowel sounds. No guarding, no rebound. . No CVA tenderness EXTREMITIES: Normal range of motion, no edema. No clubbing or cyanosis. No cords, erythema, or tenderness. NEUROLOGICAL: No facial assymetry, Normal speech, PSYCH: Normal mood, normal affect. SKIN: Warm, Dry, normal turgor - Physicial Exam PE: 06/20/17 13:43 see above - Medical Decision Making 06/20/17 13:42 the pt was interrogated here [facility] ED noted for multiple runs of VF/VT, longest was 1:07, but multiple episodes in the 40 second range with appropitate firing of AICD will place in observation status for cardiology consult pt also noted intoxicated wtih etoh level in the 200s will admit to hospitalist service Heart Score/ECG Review - ECG Impressions Comment:: 06/20/17 10:15 Twelve-lead EKG was performed and reviewed by me. There is normal sinus rhythm with a rate of 112 axis normal normal r wave progression q wave in III tw flatening in lateral leads
[2017-06-20 11:00] LABS: BASO % 0.9 % (0-2.0); EOS % 0.4 % (0-4.5); HEMATOCRIT 41.4 % (35.4-49); HEMOGLOBIN 14.5 GM/dL (11.7-16.9); LYMPH % 20.7 % (8-40); MCH 32.1 pg (25.7-33.7); MCHC 35.1 g/dl (32.0-35.9); MEAN CELL VOLUME 91.5 fl (80-96); MEAN PLT VOLUME 7.3 fl (7.5-11.1); MONO % 7.1 % (3.8-10.2); NEUT % 70.9 % (42.8-82.8); PLATELET COUNT 153 K/MM3 (134-434); RBC 4.53 M/mm3 (4.00-5.60); RDW 14.9 % (11.9-15.9); WHITE BLOOD COUNT 5.2 K/mm3 (4.0-10.0)
[2017-06-20] MEDS ORDERED: FOLIC ACID INJECTION - 1 MG, THIAMINE HCL 100 MG, MULTIVIT INJECTION ADULT 10 ML in SOD... IVPB ONE (11:40)
[2017-06-20 11:42] LABS: ALBUMIN 3.7 g/dl (3.4-5.0); ANION GAP 17 (8-16); BILIRUBIN,TOTAL 1.3 mg/dL (0.2-1.0); BLOOD UREA NITROGEN 15 mg/dL (7-18); CALCIUM 7.6 mg/dL (8.5-10.1); CHLORIDE 100 mmol/L (98-107); CO2 22 mmol/L (21-32); CREATININE 0.9 mg/dL (0.7-1.3); GLUCOSE,RANDOM 109 mg/dL (74-106); POTASSIUM 3.6 mmol/L (3.5-5.1); SGOT/AST 57 U/L (15-37); SGPT/ALT 83 U/L (12-78); SODIUM 139 mmol/L (136-145); TOT PROT 7.2 g/dl (6.4-8.2)
[2017-06-20 11:45] LABS: ALK PHOS 84 U/L (45-117)
--- NOTE | 2017-06-20 12:13 | PDOC ---
*Physical Exam - Vital Signs Last Vital Signs Temp Pulse Resp BP Pulse Ox 98.1 F 102 H 24 134/96 96 06/20/17 09:57 06/20/17 10:41 06/20/17 10:41 06/20/17 10:41 06/20/17 10:41 - Physical Exam Comments: 06/20/17 12:[address] Vaughan. 61yo M with cardiac history not only limited to CAD s/ p CABG x3 and AICD/PPM placement. Pt received multiple shocks this morning with interrogation showing multiple episodes of VT, VF, and nonsustained VTach with max run of 50seconds. Pt also found to be acutely intoxicated with a 232 level of alcohol and in some pre-renal KENNETH at Cr 1.4 ED Treatment Course - LABORATORY CBC & Chemistry Diagram: 06/21/17 05:00 06/21/17 05:00 - ADDITIONAL ORDERS Additional order review: Laboratory Results 06/20/17 06/20/17 06/20/17 10:54 10:54 10:54 Sodium 139 Potassium 3.6 Chloride 100 Carbon Dioxide 22 D Anion Gap 17 H BUN 15 Creatinine 0.9 Creat Clearance w eGFR > 60 Random Glucose 109 H Calcium 7.6 L Magnesium 2.0 Total Bilirubin 1.3 H D AST 57 H D ALT 83 H D Alkaline Phosphatase 84 Creatine Kinase 292 Troponin I 0.04 0.04 D B-Natriuretic Peptide 53.00 Total Protein 7.2 Albumin 3.7 Alcohol, Quantitative 231.71 H* 06/20/17 10:54 RBC 4.53 MCV 91.5 MCHC 35.1 RDW 14.9 MPV 7.3 L Neutrophils % 70.9 D Lymphocytes % 20.7 D Monocytes % 7.1 Eosinophils % 0.4 Basophils % 0.9 Medical Decision Making - Medical Decision Making 06/20/17 12:[address] Maurer and STORM [place] --Tele obs --Banana bag, librium protocol --After banana bag will run gentle fluids --Pt without complaints currently *DC/Admit/Observation/Transfer Diagnosis at time of Disposition: AICD discharge - Discharge Dispostion Condition at time of disposition: Stable Decision to Admit order: Yes - Prescriptions - Referrals - Patient Instructions - Post Discharge Activity
--- NOTE | 2017-06-20 12:14 | CON.CARD ---
Consult Reason for Consultation:: multiple icd shocks - History of Present Illness History of Present Illness: 61y M hx of htn, cad s[p cabg, afib s/p AICD, ETOH abuse, presents with feeling like his defibrillator discharged 4-5x this morning. denies any cp, sob, dizziness, palpitation The patient is a 61 year old male, with a significant past medical history of ETOH abuse, A-Fib, CABG(x3, 2005), CAD( s/p pacemaker 2009), hypertension, hyperlipidemia, and constipation, who presents to the emergency department s/p 4 episodes of defibrillator schocks. The patient reports he was sitting on the toilet when he felt his defibrillator shock him. Patient reports getting up and walking, and then feeling his defibrillator shock him several more times within an hour. Patient denies any chest pain, shortness of breath, diaphoresis, or palpitations. Patient admits to intermittent ETOH abuse. Patient states during his episodes of consuming ETOH he does not take any medications. Patient reports his last drink was at approximately 16:00 today. As per family, the patient has been drinking liters of vodka in the past couple of days. Patient reports some tingling to his fingers, nausea, and vomiting but denies any abdominal pain, diarrhea, or constipation. He denies any dysuria, hematuria, frequency, or urgency. Patient reports his pacemaker has malfunctioned in the past and he has followed up with his cathead operator. He denies any fever, chills, recent travel or sick contacts. pmh CABG 2005 2005 s/p ICD Ongoing medical problems ASHD; CABG (no hx [place]) CHF: diastolic (was systolic, leading to ICD; most recent ECHO showed normal LVEF) Paroxysmal AF CMP hyperlipidemia s/p ICD 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 History of Recent Travel: No Home Medications - Allergies Allergies/Adverse Reactions: Allergies Allergy/AdvReac Type Severity Reaction Status Date / Time No Known Allergies Allergy Verified 06/20/17 09:56 - Home Medications Home Medications: Ambulatory Orders Atorvastatin Ca [Lipitor] 20 mg PO HS 10/10/13 Amlodipine Besylate 5 mg PO DAILY 11/23/16 Aspirin [ASA -] 81 mg PO DAILY 11/23/16 Folic Acid 1 mg PO DAILY 11/23/16 Gabapentin 100 mg PO BID 11/23/16 Lisinopril [Prinivil -] 40 mg PO DAILY 11/23/16 Ranitidine [Zantac -] 150 mg PO BID 11/23/16 Thiamine HCl [Vitamin B1 -] 100 mg PO DAILY tablet 11/25/16 Metoprolol Succinate [Toprol XL -] 100 mg PO DAILY #30 tab.sr.24h 05/30/17 Review of Systems Findings/Remarks: aicd shocks - Review of Systems Constitutional: reports: No Symptoms Eyes: reports: No Symptoms HENT: reports: No Symptoms Neck: reports: No Symptoms Cardiovascular: reports: No Symptoms Gastrointestinal: reports: No Symptoms Genitourinary: reports: No Symptoms Breasts: reports: No Symptoms Reported Musculoskeletal: reports: No Symptoms Integumentary: reports: No Symptoms Neurological: reports: No Symptoms Endocrine: reports: No Symptoms Hematology/Lymphatic: reports: No Symptoms Psychiatric: reports: No Symptoms Vital Signs: Vital Signs Temperature 98.1 F 06/20/17 09:57 Pulse Rate 102 H 06/20/17 10:41 Respiratory Rate 24 06/20/17 10:41 Blood Pressure 134/96 06/20/17 10:41 O2 Sat by Pulse Oximetry (%) 96 06/20/17 10:41 Constitutional: Yes: Well Nourished, No Distress, Calm Eyes: Yes: WNL, Conjunctiva Clear, EOM Intact HENT: Yes: WNL, Atraumatic, Normocephalic Neck: Yes: WNL, Supple, Trachea Midline Respiratory: Yes: WNL, Regular, CTA Bilaterally Gastrointestinal: Yes: WNL, Normal Bowel Sounds Renal/: Yes: WNL Cardiovascular: Yes: WNL, Regular Rate and Rhythm Musculoskeletal: Yes: WNL Extremities: Yes: WNL Integumentary: Yes: WNL Neurological: Yes: WNL, Alert, Oriented ...Motor Strength: WNL Psychiatric: Yes: WNL, Alert, Oriented - Other Data Labs, Other Data: CBC, BMP 06/20/17 10:54 06/20/17 10:54 Troponin, BNP 06/20/17 06/20/17 10:54 10:54 Troponin I 0.04 D 0.04 B-Natriuretic Peptide 53.00 Troponin, BNP 06/20/17 06/20/17 10:54 10:54 Troponin I 0.04 D 0.04 B-Natriuretic Peptide 53.00 Imaging - Results Chest X-ray: Image Reviewed (prominent mediastinum icd s/p ohs) Problem List - Problems (1) AICD discharge Code(s): Z45.02 - ENCNTR FOR ADJUST AND MGMT OF AUTOMATIC IMPLNTBL CARD DEFIB (2) AICD discharge Code(s): Z45.02 - ENCNTR FOR ADJUST AND MGMT OF AUTOMATIC IMPLNTBL CARD DEFIB (3) ASHD (arteriosclerotic heart disease) Code(s): I25.10 - ATHSCL HEART DISEASE OF [place] CORONARY ARTERY W/O ANG PCTRS (4) Abscess Code(s): L02.91 - CUTANEOUS ABSCESS, UNSPECIFIED (5) Alcohol abuse Code(s): F10.10 - ALCOHOL ABUSE, UNCOMPLICATED (6) Alcohol abuse counseling and surveillance Code(s): Z71.41 - ALCOHOL ABUSE COUNSELING AND SURVEILLANCE OF ALCOHOLIC (7) Alcohol dependence Code(s): F10.20 - ALCOHOL DEPENDENCE, UNCOMPLICATED Qualifiers: Substance use status: with intoxication (8) Alcohol withdrawal Code(s): F10.239 - ALCOHOL DEPENDENCE WITH WITHDRAWAL, UNSPECIFIED (9) Alcoholism /alcohol abuse Code(s): F10.20 - ALCOHOL DEPENDENCE, UNCOMPLICATED (10) Atrial fibrillation Code(s): I48.91 - UNSPECIFIED ATRIAL FIBRILLATION (11) Chest pain Code(s): R07.9 - CHEST PAIN, UNSPECIFIED Qualifiers: Chest pain type: unspecified Qualified Code(s): R07.9 - Chest pain, unspecified (12) Chest pain at rest Code(s): R07.9 - CHEST PAIN, UNSPECIFIED (13) DVT prophylaxis Code(s): [id number] - (14) Diastolic CHF Code(s): I50.30 - UNSPECIFIED DIASTOLIC (CONGESTIVE) HEART FAILURE (15) Dyspnea Code(s): R06.00 - DYSPNEA, UNSPECIFIED (16) GERD (gastroesophageal reflux disease) Code(s): K21.9 - GASTRO-ESOPHAGEAL REFLUX DISEASE WITHOUT ESOPHAGITIS (17) Hx of CABG Code(s): Z95.1 - PRESENCE OF AORTOCORONARY BYPASS GRAFT (18) Hypertension Code(s): I10 - ESSENTIAL (PRIMARY) HYPERTENSION (19) Hypomagnesemia Code(s): E83.42 - HYPOMAGNESEMIA (20) Nasal bone fracture Code(s): S02.2XXA - FRACTURE OF NASAL BONES, INIT ENCNTR FOR CLOSED FRACTURE (21) Nontraumatic subdural hygroma Code(s): D18.1 - LYMPHANGIOMA, ANY SITE (22) Otitis media Code(s): H66.90 - OTITIS MEDIA, UNSPECIFIED, UNSPECIFIED EAR Qualifiers: Otitis media type: suppurative Chronicity: acute Laterality: left Recurrence: not specified as recurrent Spontaneous tympanic membrane rupture: without spontaneous rupture Qualified Code(s): H66.002 - Acute suppurative otitis media without spontaneous rupture of ear drum, left ear (23) Palpitations Code(s): R00.2 - PALPITATIONS (24) Pneumonia Code(s): J18.9 - PNEUMONIA, UNSPECIFIED ORGANISM (25) Preseptal cellulitis of right eye Code(s): H00.033 - ABSCESS OF EYELID RIGHT EYE, UNSPECIFIED EYELID (27) Status post fall Code(s): Z91.81 - HISTORY OF FALLING (28) Subdural hematoma Code(s): I62.00 - NONTRAUMATIC SUBDURAL HEMORRHAGE, UNSPECIFIED (29) Subtherapeutic international normalized ratio (INR) Code(s): R79.1 - ABNORMAL COAGULATION PROFILE (30) Systolic CHF Code(s): I50.20 - UNSPECIFIED SYSTOLIC (CONGESTIVE) HEART FAILURE (31) Ventricular tachycardia Code(s): I47.2 - VENTRICULAR TACHYCARDIA (32) Ventricular tachycardia Code(s): I47.2 - VENTRICULAR TACHYCARDIA (33) Alcohol abuse Code(s): F10.10 - ALCOHOL ABUSE, UNCOMPLICATED (34) HTN (hypertension) Code(s): I10 - ESSENTIAL (PRIMARY) HYPERTENSION (35) Hyperlipidemia Code(s): E78.5 - HYPERLIPIDEMIA, UNSPECIFIED (36) ICD (implantable cardioverter-defibrillator) in place Code(s): Z95.810 - PRESENCE OF AUTOMATIC (IMPLANTABLE) CARDIAC DEFIBRILLATOR (37) Obesity (BMI 30-39.9) Code(s): E66.9 - OBESITY, UNSPECIFIED Assessment/Plan s/p appropriate icd shocks ? VT/AF CABG 2006 s/p ICD ASHD; CABG (no hx [place]) CHF: diastolic (was systolic, leading to ICD; most recent ECHO showed normal LVEF) Paroxysmal AF CMP hyperlipidemia etoh abuse noncomplience Plan bb telemetry will increase VF zone in aicd from 185 to 200 detox
[2017-06-20] MEDS ORDERED: chlordiazePOXIDE HCL 25 MG CAPSULE PO PRN (12:26)
[2017-06-20] MEDS ORDERED: chlordiazePOXIDE HCL 25 MG CAPSULE ONE ×2 (12:39→18:51)
--- NOTE | 2017-06-20 12:41 | HP ---
Admitting History and Physical - Admission Chief Complaint: AICD firing History of Present Illness: HPI: 61 year old male with a PMHx significant for HTN, HLD, CAD s/p CABG x 3 s/p PPM s/p AICD, A -fib, diastolic heart failure and ETOH abuse presented with c/o AICD fired in the morning after 4-5 episodes in 2 hour period. Per ED record pt had 1 pint of vodka and 5 beers today. Pt denies chest pain, sob, dizziness, COUCH. 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 History of Recent Travel: No Home Medications - Allergies Allergies/Adverse Reactions: Allergies Allergy/AdvReac Type Severity Reaction Status Date / Time No Known Allergies Allergy Verified 06/20/17 09:56 - Home Medications Home Medications: Ambulatory Orders Atorvastatin Ca [Lipitor] 20 mg PO HS 10/10/13 Amlodipine Besylate 5 mg PO DAILY 11/23/16 Aspirin [ASA -] 81 mg PO DAILY 11/23/16 Folic Acid 1 mg PO DAILY 11/23/16 Gabapentin 100 mg PO BID 11/23/16 Lisinopril [Prinivil -] 40 mg PO DAILY 11/23/16 Ranitidine [Zantac -] 150 mg PO BID 11/23/16 Thiamine HCl [Vitamin B1 -] 100 mg PO DAILY tablet 11/25/16 Metoprolol Succinate [Toprol XL -] 100 mg PO DAILY #30 tab.sr.24h 05/30/17 Physical Examination Vital Signs: Vital Signs Temperature 98.1 F 06/20/17 09:57 Pulse Rate 102 H 06/20/17 10:41 Respiratory Rate 24 06/20/17 10:41 Blood Pressure 134/96 06/20/17 10:41 O2 Sat by Pulse Oximetry (%) 96 06/20/17 10:41 Labs: CBC, BMP 06/20/17 10:54 06/20/17 10:54 Assessment/Plan Plan: 1. AICD firing - [employer] interrogation shows non sustained V tach 9 secs today - 05/29 Echo: LV function grossly normal; BLAE; trace to mild MR; mild to moderate TR; mild pHTN; mild PI - Telemetry monitoring - Cardiology aware, will see 2. A fib - During previous visit, coumadin was stopped in office after pt sustained fall with possible chronic sub dural hematoma 09/2015, pt was to follow up with Dr. Retana for outpt MRI - Off coumadin/ lovenox - Home with ASA 3. CAD - ASA daily 4. ETOH - Banana bag given in ED - Started librium taper - Start gentle fluids following banana bag 4. HTN - Amlodipine 5mg daily - Toprol 100mg daily 5. DVT - Heparin sq Visit type - Emergency Visit Emergency Visit: Yes ED Registration Date: 06/20/17 Care time: The patient presented to the Emergency Department on the above date and was hospitalized for further evaluation of their emergent condition. - New Patient This patient is new to me today: Yes Date on this admission: 06/20/17 - Critical Care Critical Care patient: No Hospitalist Screening - Colonoscopy Questionnaire Colonoscopy Questionnaire: Colonoscopy Questionnaire - Patient: 50 - 75 years old and never had a screening colonoscopy: Unknown History of colon or rectal polyps, or CA: Unknown History of IBD, Crohn's disease or UC: Unknown History of abdominal radiation therapy as a child: Unknown - Relative: 1 with colon or rectal CA, or polyps at age 60 or younger: Unknown Colon or rectal CA diagnosed at age 45 or younger: Unknown Multiple relatives with colon or rectal CA: Unknown - Outcome: Screening Result: Negative Screen
[2017-06-20] MEDS: chlordiazePOXIDE HCL 25 MG CAPSULE PO SCH ×3 (12:42→22:36)
--- NOTE | 2017-06-20 12:56 | EKG ---
Test Reason : Blood Pressure : / mmHG Vent. Rate : 112 BPM Atrial Rate : 112 BPM P-R Int : 156 ms QRS Dur : 104 ms QT Int : 334 ms P-R-T Axes : 059 029 052 degrees QTc Int : 455 ms SINUS TACHYCARDIA NONSPECIFIC T WAVE ABNORMALITY ABNORMAL ECG WHEN COMPARED WITH ECG OF 29-MAY-2017 09:19, VENT. RATE HAS INCREASED BY 58 BPM NONSPECIFIC T WAVE ABNORMALITY HAS REPLACED INVERTED T WAVES IN LATERAL LEADS Confirmed by LISA MCCARTY, ALEX ([id number]) on 06/20/2017 12:56:18 PM Referred By: Confirmed By:ALEX GONZALEZ MD
[2017-06-20] MEDS: HEPARIN NA (PORCINE) 5,000 UNITS/ML 1ML VIAL SQ SCH ×2 (18:52→22:35)
[2017-06-20 22:23] VITALS: BMI 40.5
[2017-06-20] MEDS: GABAPENTIN 100 MG CAPSULE (FP) PO SCH (22:36)
[2017-06-20] MEDS: RANITIDINE HCL 150 MG TABLET (FP) PO SCH (22:36)
[2017-06-20] MEDS: ATORVASTATIN CA 20 MG TABLET (FP) PO SCH (22:36)
[2017-06-21] MEDS: HEPARIN NA (PORCINE) 5,000 UNITS/ML 1ML VIAL SQ SCH ×3 (06:07→21:39)
[2017-06-21] MEDS: chlordiazePOXIDE HCL 25 MG CAPSULE PO SCH ×4 (06:07→22:14)
[2017-06-21 06:27] LABS: BASO % 0.5 % (0-2.0); HEMATOCRIT 40.9 % (35.4-49); HEMOGLOBIN 14.5 GM/dL (11.7-16.9); LYMPH % 32.5 % (8-40); MCH 32.4 pg (25.7-33.7); MCHC 35.4 g/dl (32.0-35.9); MEAN CELL VOLUME 91.7 fl (80-96); MEAN PLT VOLUME 8.6 fl (7.5-11.1); MONO % 10.1 % (3.8-10.2); NEUT % 53.9 % (42.8-82.8); PLATELET COUNT 138 K/MM3 (134-434); RBC 4.46 M/mm3 (4.00-5.60); RDW 14.7 % (11.9-15.9); WHITE BLOOD COUNT 5.6 K/mm3 (4.0-10.0)
[2017-06-21 06:57] LABS: ALBUMIN 3.4 g/dl (3.4-5.0); ANION GAP 7 (8-16); BLOOD UREA NITROGEN 16 mg/dL (7-18); CALCIUM 7.8 mg/dL (8.5-10.1); CHLORIDE 106 mmol/L (98-107); CO2 28 mmol/L (21-32); CREATININE 0.7 mg/dL (0.7-1.3); GLUCOSE,RANDOM 85 mg/dL (74-106); MAGNESIUM 2.2 mg/dL (1.8-2.4); PHOSPHOROUS 3.1 mg/dL (2.5-4.9); POTASSIUM 3.7 mmol/L (3.5-5.1); SGOT/AST 60 U/L (15-37); SGPT/ALT 77 U/L (12-78); SODIUM 141 mmol/L (136-145)
[2017-06-21 07:01] LABS: ALK PHOS 81 U/L (45-117); BILIRUBIN,TOTAL 2.2 mg/dL (0.2-1.0); TOT PROT 6.6 g/dl (6.4-8.2)
[2017-06-21] MEDS: GABAPENTIN 100 MG CAPSULE (FP) PO SCH ×2 (10:14→21:39)
[2017-06-21] MEDS: amLODIPine BESYLATE 5 MG TABLET (FP) PO SCH (10:14)
[2017-06-21] MEDS: ASPIRIN 81 MG CHEWABLE TABLETS PO SCH (10:14)
[2017-06-21] MEDS: FOLIC ACID 1 MG TABLET (FP) PO SCH (10:14)
[2017-06-21] MEDS: RANITIDINE HCL 150 MG TABLET (FP) PO SCH ×2 (10:15→21:39)
[2017-06-21] MEDS: LISINOPRIL 20 MG TABLET (FP) PO SCH (10:15)
[2017-06-21] MEDS: THIAMINE HCL 100 MG TABLET (FP) PO SCH (10:15)
--- NOTE | 2017-06-21 14:37 | PN ---
Progress Note, Physician History of Present Illness: 61y M hx of htn, cad s[p cabg, afib s/p AICD, ETOH abuse, presents with feeling like his defibrillator discharged 4-5x this morning. denies any cp, sob, dizziness, palpitation The patient is a 61 year old male, with a significant past medical history of ETOH abuse, A-Fib, CABG(x3, 2005), CAD( s/p pacemaker 2009), hypertension, hyperlipidemia, and constipation, who presents to the emergency department s/p 4 episodes of defibrillator schocks. The patient reports he was sitting on the toilet when he felt his defibrillator shock him. Patient reports getting up and walking, and then feeling his defibrillator shock him several more times within an hour. Patient denies any chest pain, shortness of breath, diaphoresis, or palpitations. Patient admits to intermittent ETOH abuse. Patient states during his episodes of consuming ETOH he does not take any medications. Patient reports his last drink was at approximately 16:00 today. As per family, the patient has been drinking liters of vodka in the past couple of days. Patient reports some tingling to his fingers, nausea, and vomiting but denies any abdominal pain, diarrhea, or constipation. He denies any dysuria, hematuria, frequency, or urgency. 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 He denies any fever, chills, recent travel or sick contacts. pmh CABG 2005 2005 s/p ICD Ongoing medical problems ASHD; CABG (no hx [place]) CHF: diastolic (was systolic, leading to ICD; most recent ECHO showed normal LVEF) Paroxysmal AF CMP hyperlipidemia s/p ICD - Current Medication List Current Medications: Active Medications Amlodipine Besylate (Norvasc -) 5 mg PO DAILY [facility] Last Admin: 06/21/17 10:14 Dose: 5 mg Aspirin (Asa -) 81 mg PO DAILY [facility] Last Admin: 06/21/17 10:14 Dose: 81 mg Atorvastatin Calcium (Lipitor -) 20 mg PO HS [facility] Last Admin: 06/20/17 22:36 Dose: 20 mg Chlordiazepoxide HCl (Librium -) 25 mg PO [id number] [facility] Stop: 06/22/17 05:01 Last Admin: 06/21/17 10:54 Dose: 25 mg Chlordiazepoxide HCl (Librium -) 15 mg PO [id number] [facility] Stop: 06/23/17 05:01 Chlordiazepoxide HCl (Librium -) 25 mg PO Q4H PRN PRN Reason: WITHDRAWAL(CONT SUBST) Stop: 06/23/17 12:25 Folic Acid (Folic Acid -) 1 mg PO DAILY [facility] Last Admin: 06/21/17 10:14 Dose: 1 mg Gabapentin (Neurontin -) 100 mg PO BID [facility] Last Admin: 06/21/17 10:14 Dose: 100 mg Heparin Sodium (Porcine) (Heparin -) 5,000 unit SQ TID [facility] Last Admin: 06/21/17 13:32 Dose: 5,000 unit Lisinopril (Prinivil) 40 mg PO DAILY [facility] Last Admin: 06/21/17 10:15 Dose: 40 mg Metoprolol Succinate (Toprol Xl -) 200 mg PO DAILY [facility] Ranitidine HCl (Zantac -) 150 mg PO BID [facility] Last Admin: 06/21/17 10:15 Dose: 150 mg Thiamine HCl (Vitamin B1 -) 100 mg PO DAILY [facility] Last Admin: 06/21/17 10:15 Dose: 100 mg - Objective Vital Signs: Vital Signs Temperature 98.5 F 06/21/17 12:05 Pulse Rate 77 06/21/17 12:05 Respiratory Rate 20 06/21/17 12:05 Blood Pressure 149/86 06/21/17 12:05 O2 Sat by Pulse Oximetry (%) 97 06/21/17 08:00 Eyes: Yes: WNL, Conjunctiva Clear, EOM Intact HENT: Yes: WNL, Atraumatic, Normocephalic Neck: Yes: WNL, Supple, Trachea Midline Cardiovascular: Yes: WNL, Regular Rate and Rhythm Respiratory: Yes: WNL, Regular, CTA Bilaterally Gastrointestinal: Yes: WNL, Normal Bowel Sounds Genitourinary: Yes: WNL Musculoskeletal: Yes: WNL Extremities: Yes: WNL Edema: No Integumentary: Yes: WNL Neurological: Yes: WNL, Alert, Oriented ...Motor Strength: WNL Psychiatric: Yes: WNL Labs: CBC, BMP 06/21/17 05:00 06/21/17 05:00 Problem List - Problems (1) AICD discharge Code(s): Z45.02 - ENCNTR FOR ADJUST AND MGMT OF AUTOMATIC IMPLNTBL CARD DEFIB (2) AICD discharge Code(s): Z45.02 - ENCNTR FOR ADJUST AND MGMT OF AUTOMATIC IMPLNTBL CARD DEFIB (3) ASHD (arteriosclerotic heart disease) Code(s): I25.10 - ATHSCL HEART DISEASE OF [place] CORONARY ARTERY W/O ANG PCTRS (4) Abscess Code(s): L02.91 - CUTANEOUS ABSCESS, UNSPECIFIED (5) Alcohol abuse Code(s): F10.10 - ALCOHOL ABUSE, UNCOMPLICATED (6) Alcohol abuse counseling and surveillance Code(s): Z71.41 - ALCOHOL ABUSE COUNSELING AND SURVEILLANCE OF ALCOHOLIC (7) Alcohol dependence Code(s): F10.20 - ALCOHOL DEPENDENCE, UNCOMPLICATED Qualifiers: Substance use status: with intoxication (8) Alcohol withdrawal Code(s): F10.239 - ALCOHOL DEPENDENCE WITH WITHDRAWAL, UNSPECIFIED (9) Alcoholism /alcohol abuse Code(s): F10.20 - ALCOHOL DEPENDENCE, UNCOMPLICATED (10) Atrial fibrillation Code(s): I48.91 - UNSPECIFIED ATRIAL FIBRILLATION (11) Chest pain Code(s): R07.9 - CHEST PAIN, UNSPECIFIED Qualifiers: Chest pain type: unspecified Qualified Code(s): R07.9 - Chest pain, unspecified (12) Chest pain at rest Code(s): R07.9 - CHEST PAIN, UNSPECIFIED (13) DVT prophylaxis Code(s): QMM5617 - (14) Diastolic CHF Code(s): I50.30 - UNSPECIFIED DIASTOLIC (CONGESTIVE) HEART FAILURE (15) Dyspnea Code(s): R06.00 - DYSPNEA, UNSPECIFIED (16) GERD (gastroesophageal reflux disease) Code(s): K21.9 - GASTRO-ESOPHAGEAL REFLUX DISEASE WITHOUT ESOPHAGITIS (17) Hx of CABG Code(s): Z95.1 - PRESENCE OF AORTOCORONARY BYPASS GRAFT (18) Hypertension Code(s): I10 - ESSENTIAL (PRIMARY) HYPERTENSION (19) Hypomagnesemia Code(s): E83.42 - HYPOMAGNESEMIA (20) Nasal bone fracture Code(s): S02.2XXA - FRACTURE OF NASAL BONES, INIT ENCNTR FOR CLOSED FRACTURE (21) Nontraumatic subdural hygroma Code(s): D18.1 - LYMPHANGIOMA, ANY SITE (22) Otitis media Code(s): H66.90 - OTITIS MEDIA, UNSPECIFIED, UNSPECIFIED EAR Qualifiers: Otitis media type: suppurative Chronicity: acute Laterality: left Recurrence: not specified as recurrent Spontaneous tympanic membrane rupture: without spontaneous rupture Qualified Code(s): H66.002 - Acute suppurative otitis media without spontaneous rupture of ear drum, left ear (23) Palpitations Code(s): R00.2 - PALPITATIONS (24) Pneumonia Code(s): J18.9 - PNEUMONIA, UNSPECIFIED ORGANISM (25) Preseptal cellulitis of right eye Code(s): H00.033 - ABSCESS OF EYELID RIGHT EYE, UNSPECIFIED EYELID (27) Status post fall Code(s): Z91.81 - HISTORY OF FALLING (28) Subdural hematoma Code(s): I62.00 - NONTRAUMATIC SUBDURAL HEMORRHAGE, UNSPECIFIED (29) Subtherapeutic international normalized ratio (INR) Code(s): R79.1 - ABNORMAL COAGULATION PROFILE (30) Systolic CHF Code(s): I50.20 - UNSPECIFIED SYSTOLIC (CONGESTIVE) HEART FAILURE (31) Ventricular tachycardia Code(s): I47.2 - VENTRICULAR TACHYCARDIA (32) Ventricular tachycardia Code(s): I47.2 - VENTRICULAR TACHYCARDIA (33) Alcohol abuse Code(s): F10.10 - ALCOHOL ABUSE, UNCOMPLICATED (34) HTN (hypertension) Code(s): I10 - ESSENTIAL (PRIMARY) HYPERTENSION (35) Hyperlipidemia Code(s): E78.5 - HYPERLIPIDEMIA, UNSPECIFIED (36) ICD (implantable cardioverter-defibrillator) in place Code(s): Z95.810 - PRESENCE OF AUTOMATIC (IMPLANTABLE) CARDIAC DEFIBRILLATOR (37) Obesity (BMI 30-39.9) Code(s): E66.9 - OBESITY, UNSPECIFIED Assessment/Plan s/p appropriate icd shocks ? VT/AF - patient says he had seizures /DT and got schocked CABG 2006 s/p ICD ASHD; CABG (no hx [place]) CHF: diastolic (was systolic, leading to ICD; most recent ECHO showed normal LVEF) Paroxysmal AF CMP hyperlipidemia etoh abuse noncomplience was taking med every other day or less often... [facility] Plan increase bb telemetry VF zone increased in aicd from 185 to 200 detox May be d/c from cardiac point of view and f/u as outpatient importance of compliance discussed. MRI brain to f/u [facility]H as the outpatient cc time spent 37 min
--- NOTE | 2017-06-21 15:26 | PN ---
Physical Exam: SUBJECTIVE: Patient seen and examined. He told cardiology his bp was high, he also is does not always take his meds. He denies further shocks. Unclear if shocks from day before were from AICD or tremors from ETOH. OBJECTIVE: Vital Signs Period Temp Pulse Resp BP Sys/Peterson Pulse Ox Last 24 Hr 98 F-98.8 F 64-84 16-21 128-172/62-103 97-98 PE Gen: clammy Neuro: alert, awake, cn 2-12intact, no termors, no tongue fasciculation Pulm:CTAB CV: s1 s2 irregular rhythm rate regular Abd: s nd nd + bs Ext: Warm, no le edema Laboratory Results - last 24 hr 06/21/17 06/21/17 05:00 05:00 WBC 5.6 RBC 4.46 Hgb 14.5 Hct 40.9 MCV 91.7 MCH 32.4 MCHC 35.4 RDW 14.7 Plt Count 138 MPV 8.6 D Neutrophils % 53.9 D Lymphocytes % 32.5 D Monocytes % 10.1 Eosinophils % 3.0 D Basophils % 0.5 Sodium 141 Potassium 3.7 Chloride 106 Carbon Dioxide 28 D Anion Gap 7 L BUN 16 Creatinine 0.7 D Creat Clearance w eGFR > 60 Random Glucose 85 D Calcium 7.8 L Phosphorus 3.1 Magnesium 2.2 Total Bilirubin 2.2 H D AST 60 H ALT 77 Alkaline Phosphatase 81 Total Protein 6.6 Albumin 3.4 Active Medications Generic Name Dose Route Start Last Admin Trade Name Freq PRN Reason Stop Dose Admin Amlodipine Besylate 5 mg 06/21/17 10:00 06/21/17 10:14 Norvasc - PO 5 mg DAILY [facility] Administration Aspirin 81 mg 06/21/17 10:00 06/21/17 10:14 Asa - PO 81 mg DAILY [facility] Administration Atorvastatin Calcium 20 mg 06/20/17 22:00 06/20/17 22:36 Lipitor - PO 20 mg HS [facility] Administration Chlordiazepoxide HCl 25 mg 06/21/17 11:00 06/21/17 10:54 Librium - PO 06/22/17 05:01 25 mg [id number] [facility] Administration Chlordiazepoxide HCl 15 mg 06/22/17 11:00 Librium - PO 06/23/17 05:01 [id number] [facility]IAN Chlordiazepoxide HCl 25 mg 06/20/17 12:26 Librium - PO 06/23/17 12:25 Q4H PRN WITHDRAWAL(CONT SUBST) Folic Acid 1 mg 06/21/17 10:00 06/21/17 10:14 Folic Acid - PO 1 mg DAILY [facility] Administration Gabapentin 100 mg 06/20/17 22:00 06/21/17 10:14 Neurontin - PO 100 mg BID [facility] Administration Heparin Sodium (Porcine) 5,000 unit 06/20/17 14:00 06/21/17 13:32 Heparin - SQ 5,000 unit TID [facility] Administration Lisinopril 40 mg 06/21/17 10:00 06/21/17 10:15 Prinivil PO 40 mg DAILY [facility] Administration Metoprolol Succinate 200 mg 06/22/17 10:00 Toprol Xl - PO DAILY [facility] Ranitidine HCl 150 mg 06/20/17 22:00 06/21/17 10:15 Zantac - PO 150 mg BID [facility] Administration Thiamine HCl 100 mg 06/21/17 10:00 06/21/17 10:15 Vitamin B1 - PO 100 mg DAILY [facility] Administration Assessment: 61 year old male with a PMHx significant for HTN, HLD, CAD s/p CABG x 3 s/p PPM s/p AICD, A-fib, diastolic heart failure and ETOH abuse presented with c/o AICD fired in the morning after 4-5 episodes in 2 hour period. Plan: 1. AICD firing - [employer] interrogation shows non sustained V tach 9 secs today - [employer] scientific tech increased VF from 185 to 200. - 05/29 Echo: LV function grossly normal; BLAE; trace to mild MR; mild to moderate TR; mild pHTN; mild PI - D/w cardiology 2. A fib - Rate controlled - Increase toprol 200mg daily - During previous visit, coumadin was stopped in office after pt sustained fall with possible chronic sub dural hematoma 09/2015, pt was to follow up with Dr. Retana for outpt MRI - Off coumadin/ lovenox - Home with ASA 3. CAD - ASA daily 4. ETOH - Continue librium taper 4. HTN - Improved with increase bb - Amlodipine 5mg daily - Increase Toprol 200mg daily 5. DVT - Heparin sq Dispo: - Can DC home tomorrow pending detox status, meds sent to pharmacy, will need close cardiology follow up Visit type - Emergency Visit Emergency Visit: Yes ED Registration Date: 06/20/17 Care time: The patient presented to the Emergency Department on the above date and was hospitalized for further evaluation of their emergent condition. - New Patient This patient is new to me today: No - Critical Care Critical Care patient: No
[2017-06-21] MEDS: ATORVASTATIN CA 20 MG TABLET (FP) PO SCH (21:39)
[2017-06-22] MEDS: HEPARIN NA (PORCINE) 5,000 UNITS/ML 1ML VIAL SQ SCH (05:53)
[2017-06-22] MEDS: chlordiazePOXIDE HCL 25 MG CAPSULE PO SCH (05:53)
[2017-06-22] MEDS: amLODIPine BESYLATE 5 MG TABLET (FP) PO SCH (09:25)
[2017-06-22] MEDS: THIAMINE HCL 100 MG TABLET (FP) PO SCH (09:25)
[2017-06-22] MEDS: RANITIDINE HCL 150 MG TABLET (FP) PO SCH (09:25)
[2017-06-22] MEDS: GABAPENTIN 100 MG CAPSULE (FP) PO SCH (09:25)
[2017-06-22] MEDS: LISINOPRIL 20 MG TABLET (FP) PO SCH (09:25)
[2017-06-22] MEDS: FOLIC ACID 1 MG TABLET (FP) PO SCH (09:25)
[2017-06-22] MEDS: ASPIRIN 81 MG CHEWABLE TABLETS PO SCH (09:25)
[2017-06-22] MEDS ORDERED: chlordiazePOXIDE 5 MG CAPSULE PO SCH (11:00)
--- NOTE | 2017-06-22 11:38 | PN ---
Progress Note (short form) - Note Progress Note: SUBJECTIVE: The patient was seen at the bedside, he does not want to stay in the hospital. He is threatening to leave AMA. F/u liver function Current Medications Generic Name Dose Route Start Last Admin Trade Name Freq PRN Reason Stop Dose Admin Amlodipine Besylate 5 mg 06/21/17 10:00 06/22/17 09:25 Norvasc - PO 5 mg DAILY [facility] Administration Aspirin 81 mg 06/21/17 10:00 06/22/17 09:25 Asa - PO 81 mg DAILY [facility] Administration Atorvastatin Calcium 20 mg 06/20/17 22:00 06/21/17 21:39 Lipitor - PO 20 mg HS [facility] Administration Chlordiazepoxide HCl 15 mg 06/22/17 11:00 06/22/17 10:52 Librium - PO 06/23/17 05:01 15 mg [id number] [facility] Administration Chlordiazepoxide HCl 25 mg 06/20/17 12:26 Librium - PO 06/23/17 12:25 Q4H PRN WITHDRAWAL(CONT SUBST) Folic Acid 1 mg 06/21/17 10:00 06/22/17 09:25 Folic Acid - PO 1 mg DAILY [facility] Administration Gabapentin 100 mg 06/20/17 22:00 06/22/17 09:25 Neurontin - PO 100 mg BID [facility] Administration Heparin Sodium (Porcine) 5,000 unit 06/20/17 14:00 06/22/17 05:53 Heparin - SQ 5,000 unit TID [facility] Administration Lisinopril 40 mg 06/21/17 10:00 06/22/17 09:25 Prinivil PO 40 mg DAILY [facility] Administration Metoprolol Succinate 200 mg 06/22/17 10:00 06/22/17 09:29 Toprol Xl - PO 200 mg DAILY [facility] Administration Ranitidine HCl 150 mg 06/20/17 22:00 06/22/17 09:25 Zantac - PO 150 mg BID [facility] Administration Thiamine HCl 100 mg 06/21/17 10:00 06/22/17 09:25 Vitamin B1 - PO 100 mg DAILY [facility] Administration OBJECTIVE: Vital Signs Period Temp Pulse Resp BP Sys/Peterson Pulse Ox Last 24 Hr 98.1 F-99.3 F 64-83 16-20 121-167/58-97 97-97 Physical Exam: Patient refused, appears agitated CBCD WBC 5.6 K/mm3 (4.0-10.0) 06/21/17 05:00 RBC 4.46 M/mm3 (4.00-5.60) 06/21/17 05:00 Hgb 14.5 GM/dL (11.7-16.9) 06/21/17 05:00 Hct 40.9 % (35.4-49) 06/21/17 05:00 MCV 91.7 fl (80-96) 06/21/17 05:00 MCHC 35.4 g/dl (32.0-35.9) 06/21/17 05:00 RDW 14.7 % (11.9-15.9) 06/21/17 05:00 Plt Count 138 K/MM3 (134-434) 06/21/17 05:00 MPV 8.6 fl (7.5-11.1) D 06/21/17 05:00 CMP Sodium 141 mmol/L (136-145) 06/21/17 05:00 Potassium 3.7 mmol/L (3.5-5.1) 06/21/17 05:00 Chloride 106 mmol/L (98-107) 06/21/17 05:00 Carbon Dioxide 28 mmol/L (21-32) D 06/21/17 05:00 Anion Gap 7 (8-16) L 06/21/17 05:00 BUN 16 mg/dL (7-18) 06/21/17 05:00 Creatinine 0.7 mg/dL (0.7-1.3) D 06/21/17 05:00 Creat Clearance w eGFR > 60 (>60) 06/21/17 05:00 Random Glucose 85 mg/dL (74-106) D 06/21/17 05:00 Calcium 7.8 mg/dL (8.5-10.1) L 06/21/17 05:00 Total Bilirubin 2.2 mg/dL (0.2-1.0) H D 06/21/17 05:00 AST 60 U/L (15-37) H 06/21/17 05:00 ALT 77 U/L (12-78) 06/21/17 05:00 Alkaline Phosphatase 81 U/L (45-117) 06/21/17 05:00 Total Protein 6.6 g/dl (6.4-8.2) 06/21/17 05:00 Albumin 3.4 g/dl (3.4-5.0) 06/21/17 05:00 CARDIAC ENZYMES Creatine Kinase 292 IU/L (39-308) 06/20/17 10:54 Troponin I 0.04 ng/ml (0.00-0.05) D 06/20/17 10:54 Assessment: 61 year old male with a PMHx significant for HTN, HLD, CAD s/p CABG x 3 s/p PPM s/p AICD, A-fib, diastolic heart failure and ETOH abuse presented with c/o AICD fired in the morning after 4-5 episodes in 2 hour period. Plan: 1. AICD firing - [employer] interrogation shows non sustained V tach 9 secs today - [employer] scientific tech increased VF from 185 to 200. - 05/29 Echo: LV function grossly normal; BLAE; trace to mild MR; mild to moderate TR; mild pHTN; mild PI - Appreciate cardiology consult 2. Elevated total bilirubin - F/u liver profile today - F/u liver ultrasound 3. A fib - Rate controlled - Increase toprol 200mg daily - During previous visit, coumadin was stopped in office after pt sustained fall with possible chronic sub dural hematoma 09/2015, pt was to follow up with Dr. Retana for outpt MRI - Off coumadin/ lovenox - Home with ASA 4. CAD - ASA daily 5. ETOH - Continue librium taper, will finish tomorrow AM 6. HTN - Improved with increase bb - Amlodipine 5mg daily - Increase Toprol 200mg daily 7. DVT - Heparin sq Dispo: - Patient is threatening to sign out AMA. Informed patient that we need to check his liver function and ultrasound, he will think about staying Visit type - Emergency Visit Emergency Visit: Yes ED Registration Date: 06/20/17 Care time: The patient presented to the Emergency Department on the above date and was hospitalized for further evaluation of their emergent condition. - New Patient This patient is new to me today: Yes Date on this admission: 06/22/17 - Critical Care Critical Care patient: No
[2017-06-22 12:03] VITALS: BP 134/77; PULSE 72; TEMP 98.6
== END 2017-06-22 12:20 | disposition left against medical advice (07) | DRG 315 ==
LOC: JER 09:51 → JERBED 13:22 → OBSVTOIN 15:18 → J2W 21:20
PROVIDERS: ADMIT Hospitalist; ATTEND Registered Nurse
DX: Z45.02 Encounter for adjustment and management of automatic implantable cardiac defibrillator (principal); I50.30 Unspecified diastolic (congestive) heart failure; I47.2 Ventricular tachycardia; Z68.41 Body mass index [BMI] 40.0-44.9, adult; I11.0 Hypertensive heart disease with heart failure; I25.10 Atherosclerotic heart disease of native coronary artery without angina pectoris; Z95.1 Presence of aortocoronary bypass graft; E78.5 Hyperlipidemia, unspecified; I48.0 Paroxysmal atrial fibrillation; K21.9 Gastro-esophageal reflux disease without esophagitis; E66.9 Obesity, unspecified; F10.10 Alcohol abuse, uncomplicated
CPT/HCPCS: 36415; 71045-TC-FY; 80053; 80307; 82550; 82553; 83735; 83880; 84100; 84484; 85025; 93005; 93010; 99285-25; G0378; J1644; J7030

== ENCOUNTER 2018-01-18 21:31 | Observation (INO) | payer OTHER ==
[2018-01-18 21:43] VITALS: BMI 36.9
[2018-01-18] MEDS ORDERED: ASPIRIN 81 MG CHEWABLE TABLETS PO ONE ×2 (21:54→22:05)
--- NOTE | 2018-01-18 21:59 | PDOC ---
History of Present Illness - General Chief Complaint: Weakness Stated Complaint: left arm weakness Time Seen by Provider: 01/18/18 21:43 History Source: Patient, Family Exam Limitations: No Limitations - History of Present Illness Initial Comments: 01/18/18 21:53 This is a 62 YOM with h/o HTN, HLD, CAD s/p CABG x 3 s/p PPM s/p AICD, A-fib, diastolic heart failure and ETOH abuse who p/w sudden onset of diaphoresis, impending doom sensation, SOB, left arm discomfort and weakness and tingling, all onset just DOGMAN/WOMAN at his home and witnessed by his son who is at bedside helping to translate. The patient states has not been feeling 100% well for weeks, has additionally had headaches, has not had these symptoms before. He explains there was about a 1 minute period in which his left arm felt weak and he was not able to use it as well as normal. This happened at about 9:30 pm and resolved quickly. Has been having mild headaches over the past few weeks but nothing he states is out of the ordinary. tPA Exclusion Checklist 0-3hr - Time Elapsed Date last known well: 01/18/18 Time last known well: 21:30 Elaspsed time: Day(s) and 7 Hour(s) and 16 Minutes - Thrombolytic Therapy Candidate Is the patient eligible for Thrombolytic Therapy?: No - Exclusion Criteria 0-3hr SBP greater than 185 or DBP greater than 110mmHg despite tx: No Recent IC/spinal surgery,head trauma or stroke w/in last 3mo: No Hx of previous IC hemorrhage, IC neoplasm, AVM or aneurysm: No Active internal bleeding: No Blding diathesis(low plt ct, inc PTT,INR>1.7 or use of NOAC): No Symptoms suggest subarachnoid hemorrhage: No CT demonstrates multilobar infarct(>1/3 cerebral hemiphere): No Arterial puncture at noncompressible site in previous 7 days: No Blood glucose concentration less than 50mg/dL (2.7mmol/L): No - Relative Exclusion Criteria 0-3h Life expectancy <1yr/severe co-morbid illness/CAREER DEVELOPMENT COUNSELOR on admit: No : No Patient/family refused: No Rapid improvement: Yes Stroke severity too mild: Yes Recent acute ID (w/in previous 3 months): No Seizure at onset with postictal residual neuro impairments: No Major surgery or serious trauma w/in previous 14 days: No Recent GI or hemorrhage (w/in previous 21 days): No - Ineligibility reason(s) Reasons No tPA given: See reason(s) noted above NIH Stroke Scale - Last Known Well Date/Time & Onset Date Last Known Well: 01/18/18 Time Last Known Well: 21:30 - Initial Evaluation Level of consciousness: Alert Ask patient the month and their age: Answers both correctly Ask patient to open & close eyes; make fist and let go: Obeys both correctly Best gaze (horizontal eye movement): Normal Visual field testing: No visual field loss Facial paresis (Show teeth/raise eyebrows/close eyes tight): Normal symmetrical movement Motor Function: Left Arm: Normal Motor Function: Right Arm: Normal (extends arm 90 (or 45) degrees for 10 seconds without drift Motor Function: Left Leg: Normal (extends leg 30 degrees for 5 seconds without drift) Motor Function: Right Leg: Normal (extends leg 30 degrees for 5 seconds without drift) Limb Ataxia: No ataxia Sensory(Use pinprick test arms,legs,trunk,face/side to side): Normal Best language (Describe picture, name items, read sentences): No Aphasia Dysarthria (read several words): Normal articulation Extinction and Inattention: No abnormality - Total Score NIH Stroke Scale Score: 0 Past History - Past Medical History Allergies/Adverse Reactions: Allergies Allergy/AdvReac Type Severity Reaction Status Date / Time No Known Allergies Allergy Verified 01/18/18 21:43 Home Medications: Ambulatory Orders Atorvastatin Ca [Lipitor] 20 mg PO HS 10/10/13 Amlodipine Besylate 5 mg PO DAILY 11/23/16 Aspirin [ASA -] 81 mg PO DAILY 11/23/16 Folic Acid 1 mg PO DAILY 11/23/16 Gabapentin 100 mg PO BID 11/23/16 Lisinopril [Prinivil -] 40 mg PO DAILY 11/23/16 Ranitidine [Zantac -] 150 mg PO HS 11/23/16 Diclofenac Sodium 50 mg PO BID PRN 01/18/18 Ergocalciferol [Vitamin D2] 50,000 unit PO Q7D@1000 01/18/18 Hydroxyzine HCl 25 mg PO BID 01/18/18 Metoprolol Succinate 100 mg PO DAILY 01/18/18 Vitamin B Complex [B Complex] 1 each PO DAILY 01/18/18 Anemia: No Asthma: No Cancer: No Cardiac Disorders: Yes (CAD, afib) CVA: No COPD: No CHF: No DVT: No Dementia: No Diabetes: No GI Disorders: Yes (GERD) Disorders: No HTN: Yes Hypercholesterolemia: Yes Liver Disease: No Seizures: No Thyroid Disease: No - Surgical History Abdominal Surgery: No Appendectomy: No Cardiac Surgery: Yes (CABG X3, AICD/PPM) Cholecystectomy: No Lung Surgery: No Neurologic Surgery: No Orthopedic Surgery: No - Immunization History Immunization Up to Date: Yes - Suicide/Smoking/Psychosocial Hx Smoking Status: No Smoking History: Never smoked Have you smoked in the past 12 months: No Number of Cigarettes Smoked Daily: 0 Information on smoking cessation initiated: No Hx Alcohol Use: No Drug/Substance Use Hx: No Substance Use Type: Alcohol Hx Substance Use Treatment: No Review of Systems - Review of Systems Able to Perform ROS?: Yes Comments:: GEN: sweats, no fever, chills, malaise, generalized weakness, or weight change HEENT: no ear pain, sore throat, vision change, or eye pain CV: chest pain, no palpitations, lightheadedness, syncope, or edema RESP: SOB, no cough, no wheezing GI: no abdominal pain, nausea, vomiting, diarrhea, constipation, or white/black/ bloody stool : no dysuria, hematuria, incontinence, retention, bleeding, or discharge MSK: LUE pain, LUE weakness/tingling (resolved), no neck/back pain, or joint swelling/pain NEURO: headache, no seizure, vertigo, numbness, tingling, or focal weakness PSYCH: no substance use, no behavior change SKIN: no jaundice, no rash ROS otherwise negative except as noted in HPI *Physical Exam - Vital Signs Last Vital Signs Temp Pulse Resp BP Pulse Ox 98.0 F 56 L 16 149/70 100 01/18/18 21:40 01/18/18 21:40 01/18/18 21:40 01/18/18 21:40 01/18/18 21:40 01/18/18 22:39 GENERAL: nontoxic and well-appearing adult male accompanied by son at bedside who aids in translation, A/Ox4, no distress, answers questions appropriately, appears comfortable, obese HEENT: PERRLA, EOMI, moist mucous membranes, strabismus noted to be chronic NECK/BACK: no midline ttp, no spinal stepoff or deformity, no hematoma, full ROM , neck supple CHEST WALL: pacemaker palpated in left upper chest wall with well-healed scar CARDIOVASCULAR: regular rate/rhythm, normal S1S2, no MGR, strong peripheral pulses, capillary refill <2 seconds, extremities wwp, no edema LUNGS/RESPIRATORY: no respiratory distress, CTAB GI/ABDOMEN: symmetric [id number], normoactive BS, soft, no ttp, no midline pulsatile masses : no CVA tenderness EXTREMITIES: no muscle atrophy, no acute deformity, no edema SKIN: warm and dry, no pallor, no jaundice, no rash, no bruising, no skin breakdown, no cuts, no lesions, LUE forearm scar which is well healed NEUROLOGICAL: NIHSS is 0, GCS 15, CN II-XII grossly intact, 5/5 strength proximally and distally, no facial droop, gait not tested Heart Score/ECG Review - History History: Moderately suspicious - Electrocardiogram EKG: Non specific repolarization disturbance - Age Age: 45-65 - Risk Factors Risk Factors Heart Score: Yes Hx Hypercholesterolemia, Yes Hx Hypertension, Yes Hx Obesity Based on the list above the patient has:: >/=3 risk factors or Hx atherosclerotic disease - Troponin Troponin: </= normal limit - Score Heart Score - Total: 5 #1 01/18/18 21:48 Sinus shin, rate of 56, normal axis/intervals, TWI in II, III, aVF, [id number]. These TWI do appear worse and more diffuse than his 05/2017 EKG. #2 01/19/18 03:32 Pacer spikes are now present, rate of 50, Sgarbossa negative ED Treatment Course - LABORATORY CBC & Chemistry Diagram: 01/18/18 22:00 01/18/18 22:00 Medical Decision Making - Medical Decision Making 01/18/18 22:35 Adult Pt p/w chest and LUE pain, SOB, LUE tingling. Initial Vital Signs Temp Pulse Resp BP Pulse Ox 98.0 F 56 L 16 149/70 100 01/18/18 21:40 01/18/18 21:40 01/18/18 21:40 01/18/18 21:40 01/18/18 21:40 Exam: As noted in Physical Exam section. DDX IBNLT: ACS, pericarditis, tamponade, aortic dissection, AAA, PTX, PE, esophageal tear, esophagitis (e.g. pill, infectious), esophageal stricture, esophageal FB, gastritis, PUD, pancreatitis, cholecystitis, cholangitis, colitis , bowel perforation, PNA/bronchitis, pleurisy, pleuritis, MVP, pulmonary HTN, musculoskeletal, panic/anxiety, etc. W/U ordered: CBCD CMP Mg Phos Lipase Troponin CK CKMB Coags T&S Blood gas UA UCx EKG CXR. TX ordered: monitor, ASA 324, NTG, O2 via NC if needed, statin, maybe metoprolol. EKG: Reviewed; results as noted in ECG Review section. CXR: Cardiomegaly unchanged from prior portable CXR, sternal wires, pacer in place Laboratory Tests 01/18/18 01/18/18 01/18/18 21:53 22:00 22:00 WBC 6.9 RBC 4.44 Hgb 14.7 Hct 40.8 MCV 92.0 MCH 33.1 MCHC 36.0 H RDW 14.0 Plt Count 202 D MPV 8.6 Absolute Neuts (auto) 3.3 Neutrophils % 48.0 Lymphocytes % 37.6 Monocytes % 12.1 H Eosinophils % 1.8 Basophils % 0.5 Nucleated RBC % 0 PT with INR 11.60 INR 0.98 PTT (Actin FS) 26.9 Sodium Potassium Chloride Carbon Dioxide Anion Gap BUN Creatinine Creat Clearance w eGFR POC Glucometer [id number] Random Glucose Calcium Magnesium Total Bilirubin AST ALT Alkaline Phosphatase Creatine Kinase Troponin I Total Protein Albumin Blood Type Antibody Screen 01/18/18 01/18/18 22:00 22:00 WBC RBC Hgb Hct MCV MCH MCHC RDW Plt Count MPV Absolute Neuts (auto) Neutrophils % Lymphocytes % Monocytes % Eosinophils % Basophils % Nucleated RBC % PT with INR INR PTT (Actin FS) Sodium 141 Potassium 4.7 Chloride 108 H Carbon Dioxide 23 Anion Gap 9 BUN 24 H Creatinine 1.1 Creat Clearance w eGFR > 60 POC Glucometer Random Glucose 102 Calcium 8.2 L Magnesium 1.9 Total Bilirubin 0.6 AST 27 ALT 39 Alkaline Phosphatase 86 Creatine Kinase 117 Troponin I < 0.02 Total Protein 7.3 Albumin 3.7 Blood Type A POSITIVE Antibody Screen Negative Reassessment: Patient appears comfortable, no repeat episodes of symptoms. Vital Signs Temperature 99.0 F 01/18/18 22:24 Pulse Rate 54 L 01/18/18 22:24 Respiratory Rate 16 01/18/18 22:24 Blood Pressure 133/69 01/18/18 22:24 O2 Sat by Pulse Oximetry (%) 100 01/18/18 22:[address]: encephalomalacia in cerebellum suggests prior infarct, but nothing acute. 01/18/18 22:36 Repeat cardiac enzymes ordered. HEART score indicated Pt is higher risk and should be managed in hospital with cardiology consult. The Pt is unsafe for discharge at this time. They require further hospital observation, workup, and treatment. Microblog sent to [facility] for admission. Blank Decision to Admit order is placed per ED protocol. 01/18/18 23:36 I spoke with Zana Aguilar, patient going to Tele Obs. Dr. Rangel's name added to Decision to Admit order. I have placed consult order to Dr. Retana. Vital Signs Temperature 99.0 F 01/18/18 22:24 Pulse Rate 54 L 01/18/18 22:24 Respiratory Rate 16 01/18/18 22:24 Blood Pressure 133/69 01/18/18 22:24 O2 Sat by Pulse Oximetry (%) 100 01/18/18 23:41 01/19/18 02:40 Repeat troponin is negative. 01/19/18 03:40 Repeat EKG has been done and documented in HEART Score/ECG section. *DC/Admit/Observation/Transfer Diagnosis at time of Disposition: Arm pain, left Chest pain Qualifiers: Chest pain type: unspecified Qualified Code(s): R07.9 - Chest pain, unspecified - Discharge Dispostion Condition at time of disposition: Guarded Decision to Admit order: Yes - Referrals - Patient Instructions - Post Discharge Activity
[2018-01-18 22:07] LABS: BASO % 0.5 % (0-2.0); EOS % 1.8 % (0-4.5); HEMATOCRIT 40.8 % (35.4-49); HEMOGLOBIN 14.7 GM/dL (11.7-16.9); LYMPH % 37.6 % (8-40); MCH 33.1 pg (25.7-33.7); MEAN PLT VOLUME 8.6 fl (7.5-11.1); MONO % 12.1 % (3.8-10.2); PLATELET COUNT 202 K/MM3 (134-434); RBC 4.44 M/mm3 (4.00-5.60); WHITE BLOOD COUNT 6.9 K/mm3 (4.0-10.0)
[2018-01-18] MEDS ORDERED: ASPIRIN 81 MG CHEWABLE TABLETS ONE (22:08)
--- NOTE | 2018-01-18 22:18 | PDOC ---
Attending Attestation - HPI HPI: 01/18/18 23:06 The patient is a 62-year-old male with past medical history significant for CAD stented coronary artery, HTN, Cardiac pacemaker, automatic (implantable) cardiac defibrillator, degenerative arthritis of the Lumbar Spine, Obesity (BMI 30-39.9), AFib, Pre-DM presents to the emergency department accompanied with son with chest tightness, shortness of breath and with left arm tingling. Per son, who assisted with translating, the patients been having 2 weeks of malaise and feeling unwell, thats been progressively worsening. The son reports earlier today, the patient had an episode of chest tightness with L. arm weakness and tingling, with diaphoresis. The son stats the patients been having a nonproductive cough for a week, thats been worsening. Denies fever, chills, urinary symptoms or changes in bowel habits. Allergies: NKA PCP: Dr. Allyson Swanson. Park Interpretive Ranger: Dr. Retana - Physicial Exam PE: 01/18/18 23:09 GENERAL: +Morbid Obese. Awake, alert, and fully oriented, in no acute distress HEAD: No signs of trauma EYES: PERRLA, EOMI, sclera anicteric, conjunctiva clear ENT: Auricles normal inspection, hearing grossly normal, nares patent, oropharynx clear without exudates. Moist mucosa NECK: Normal ROM, supple, no lymphadenopathy, JVD, or masses LUNGS: Breath sounds equal, clear to auscultation bilaterally. No wheezes, and no crackles HEART: Regular rate and rhythm, normal S1 and S2, no murmurs, rubs or gallops ABDOMEN: Soft, nontender. No guarding, no rebound. No masses EXTREMITIES: No pitting edema of the legs. Normal range of motion, no edema. No clubbing or cyanosis. No cords, erythema, or tenderness NEUROLOGICAL: Following all commands, answering questions appropriately. Cranial nerves II through XII grossly intact. Normal speech. SKIN: Warm, Dry, normal turgor, no rashes or lesions noted. - Medical Decision Making 01/18/18 23:07 Documentation prepared by Rosemarie Lincoln, acting as hospital medical assistant for Ashlee Barry MD. <Rosemarie Lincoln - Last Filed: 01/18/18 23:38> - Resident Resident Name: Marrufo,Sara - ED Attending Attestation I have performed the following: I have examined & evaluated the patient, The case was reviewed & discussed with the resident, I agree w/resident's findings & plan - HPI HPI: 01/18/18 22:15 Pt comes with malaise and feeling unwell x 2 weeks. Twinges of left sided arm pain. SOB and cough. Pt is complaint with all DM and HTN meds. He has a new PMD , Dr. Swanson. Pt sees Dr. Retana for cardiology. He has a pacemaker defbrillator and he has a hx of afib. Currently not in afib. He has no fever and no chills. - Physicial Exam PE: 01/18/18 22:18 Agree with resident exam. Pt's lungs are clear; HR normal, RRR. Abd soft NT ND No flank pain. - Medical Decision Making 01/18/18 22:29 Pt will be admitted as he has new EKG changes with flipped t waves throughout inferior anterior and lateral leads. 01/18/18 22:59 All of patient's labs are normal. Cardiomegaly on portable CXR; he has an AICD in the left chest. 01/18/18 23:00 Pt will be admitted to the telemetry unit. 01/19/18 00:56 Patient Name: BERNARDINO BARCENAS THIS IS A PRELIMINARY REPORT FROM [facility] [employer] [facility]AFET[employer] INSPECT[facility] DATE OF SERVICE: 2018-01-18 23:02:22 IMAGES: 156 EXAM: HEAD CT WITHOUT CONTRAST HISTORY: Left upper extremity tingling and headaches COMPARISON: None. FINDINGS: Brain parenchyma is normal in attenuation with no mass or hematoma. There is some focal encephalomalacia in the left cerebellum Ventricles are normal. Sulci and extra-axial CSF spaces are normal. Intracranial vascular structures are normal in attenuation. There is no calvarial fracture. There is a cortical step-off in the contour of the left nasal bone without overlying soft tissue edema Paranasal sinuses are normally aerated. 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 Age-indeterminate left nasal bone fracture THIS DOCUMENT HAS BEEN ELECTRONICALLY SIGNED <Ashlee Barry - Last Filed: 01/19/18 00:56>
[2018-01-18 22:24] LABS: INR 0.98 (0.83-1.09); PROTHROMBIN TIME (PATIENT) 11.6 SEC (9.7-13.0)
[2018-01-18 22:26] LABS: ACTIVATED PTT 26.9 SECONDS (25.2-36.5)
[2018-01-18 22:43] LABS: ALBUMIN 3.7 g/dl (3.4-5.0); ALK PHOS 86 U/L (45-117); ANION GAP 9 MMOL/L (8-16); BILIRUBIN,TOTAL 0.6 mg/dL (0.2-1); BLOOD UREA NITROGEN 24 mg/dL (7-18); CALCIUM 8.2 mg/dL (8.5-10.1); CHLORIDE 108 mmol/L (98-107); CO2 23 mmol/L (21-32); CREATININE 1.1 mg/dL (0.55-1.3); GLUCOSE,RANDOM 102 mg/dL (74-106); MAGNESIUM 1.9 mg/dL (1.8-2.4); POTASSIUM 4.7 mmol/L (3.5-5.1); SGOT/AST 27 U/L (15-37); SGPT/ALT 39 U/L (13-61); SODIUM 141 mmol/L (136-145); TOT PROT 7.3 g/dl (6.4-8.2)
--- NOTE | 2018-01-18 23:29 | PN ---
Teaching Attending Note Name of Resident: Zana Aguilar ATTENDING PHYSICIAN STATEMENT I saw and evaluated the patient. I reviewed the resident's note and discussed the case with the resident. I agree with the resident's findings and plan as documented. SUBJECTIVE: Patient is a 62 year old man with history of HTN, HLD, CAD s/p CABG x 3 s/p PPM s/p AICD, A-fib, diastolic heart failure and ETOH abuse who presents with sudden onset of diaphoresis, impending doom sensation, SOB, left arm discomfort and weakness and tingling, all onset just MEAT CARRIER at his home and witnessed by his son who is at bedside helping to translate. The patient states has not been feeling 100% well for weeks, has additionally had headaches, has not had these symptoms before. He explains there was about a 1 minute period in which his left arm felt weak and he was not able to use it as well as normal. This happened at about 9:30 pm and resolved quickly. Has been having mild headaches over the past few weeks but nothing he states is out of the ordinary. OBJECTIVE: Alert Vital Signs Period Temp Pulse Resp BP Sys/Peterson Pulse Ox Last 24 Hr 98.0 F-99.0 F 54-56 16-16 133-149/69-70 98-100 HEENT: No Jaundice, eye redness or discharge, PERRLA, EOMI. Normocephalic, atraumatic. External ears are normal and hearing is grossly intact. No nasal discharge. Neck: Supple, nontender. No palpable adenopathy or thyromegaly. No JVD Chest: Good effort. Clear to auscultation and percussion. Heart: Bradycardia. No S3, rub or murmur Abdomen: Not distended, soft, nontender and no HSM. No rebound or guarding. Normoactive bowel sounds. Ext: Peripheral pulses intact. No leg edema. Skin: Warm and dry. No petechiae, rash or ecchymosis. Neuro: Alert. Oriented x3. CN 2-12 grossly intact. Sensation grossly intact in all four extremities and DTR are symmetric. Home Medications Medication Instructions Recorded Atorvastatin Ca [Lipitor] 20 mg PO HS 10/10/13 Amlodipine Besylate 5 mg PO DAILY 11/23/16 Aspirin [ASA -] 81 mg PO DAILY 11/23/16 Folic Acid 1 mg PO DAILY 11/23/16 Gabapentin 100 mg PO BID 11/23/16 Lisinopril [Prinivil -] 40 mg PO DAILY 11/23/16 Ranitidine [Zantac -] 150 mg PO BID 11/23/16 Diclofenac Sodium 50 mg PO BID PRN 01/18/18 Ergocalciferol [Vitamin D2] 50,000 unit PO Q7D@1000 01/18/18 Hydroxyzine HCl 25 mg PO BID 01/18/18 Metoprolol Succinate 100 mg PO DAILY 01/18/18 Vitamin B Complex [B Complex] 1 each PO DAILY 01/18/18 Abnormal Lab Results 01/18/18 01/18/18 22:00 22:00 MCHC 36.0 H Monocytes % 12.1 H Chloride 108 H BUN 24 H Calcium 8.2 L ASSESSMENT AND PLAN: 1. Chest pain - Patient has CAD. Is now pain free. Initial troponin is negative but EKG shows bradycardia and T wave inversions in V4-6. Admit to telemetry to rule out ACS. Got Aspirin in the ER. Get ECHO, fasting lipids and consult cardiology. Head CT did not show any acute pathology - done because of left arm discomfort. As per patient, AICD was interrogated 2 weeks ago and it was okay. 2. Obesity - Will provide patient all the necessary assistance, counseling and positive reinforcement to facilitate weight loss. Consult pillowcase cleaner. 3. Alcohol abuse - He says he has not had a drink since May 2017. However, we will still monitor him closely and implement [facility] alcohol withdrawal protocol, fall and aspiration precautions. Treat with thiamine and folic acid and monitor electrolytes (Ca,Mg,K,P). Closing Machine Operator patient about abstaining from alcohol and refer to alcohol detox upon discharge. 4. DVT prophylaxis - Lovenox 40 mg SQ q 24 hours. 5. Advance directives - Full code
[2018-01-19] MEDS ORDERED: GABAPENTIN 100 MG CAPSULE (FP) PO PRN (02:11)
--- NOTE | 2018-01-19 02:40 | HP ---
CHIEF COMPLAINT: L arm tingling PCP: Lainey Swanson cardio HISTORY OF PRESENT ILLNESS: Note that sone was at bedside to help translate and provide history. Pt is a 62 y/o M with PMH HTN, HLD, CAD s/p CABG x 3, s/p AICD ([employer]), AF, dCHF, EtOH, GERD who presented to ED with complaint of L arm pain/tingling associated with sense of impending doom lasting 1 minute. Sensation has completely resolved at the time of my interview. Son witnessed pt during episode and states pt was diaphoretic. Denies CP, SOB, n/v/d. Pt states he can walk 5-10 blocks without any symptoms. ER course was notable for: (1) 56bpm (2)Trop neg, EKG with lat twi age unknown (3) Recent Travel: PAST MEDICAL HISTORY: HTN, HLD, CAD s/p CABG x 3, s/p AICD ([employer]), AF, dCHF, EtOH, GERD PAST SURGICAL HISTORY: CABG Social History: Smoking: former. quit 27 years ago Alcohol: stopped drinking in May. Was a "heavy" drinker Drugs: denies Family History: denies Allergies No Known Allergies Allergy (Verified 01/18/18 21:43) HOME MEDICATIONS: Home Medications Medication Instructions Recorded Atorvastatin Ca [Lipitor] 20 mg PO HS 10/10/13 Amlodipine Besylate 5 mg PO DAILY 11/23/16 Aspirin [ASA -] 81 mg PO DAILY 11/23/16 Folic Acid 1 mg PO DAILY 11/23/16 Gabapentin 100 mg PO BID 11/23/16 Lisinopril [Prinivil -] 40 mg PO DAILY 11/23/16 Ranitidine [Zantac -] 150 mg PO HS 11/23/16 Diclofenac Sodium 50 mg PO BID PRN 01/18/18 Ergocalciferol [Vitamin D2] 50,000 unit PO Q7D@1000 01/18/18 Hydroxyzine HCl 25 mg PO BID 01/18/18 Metoprolol Succinate 100 mg PO DAILY 01/18/18 Vitamin B Complex [B Complex] 1 each PO DAILY 01/18/18 REVIEW OF SYSTEMS CONSTITUTIONAL: Absent: fever, chills, diaphoresis, generalized weakness, malaise, loss of appetite, weight change HEENT: Absent: rhinorrhea, nasal congestion, throat pain, throat swelling, difficulty swallowing, mouth swelling, ear pain, eye pain, visual changes CARDIOVASCULAR: L arm pain/numbness/tingling Absent: chest pain, syncope, palpitations, irregular heart rate, lightheadedness , peripheral edema RESPIRATORY: Absent: cough, shortness of breath, dyspnea with exertion, orthopnea, wheezing, stridor, hemoptysis GASTROINTESTINAL: Absent: abdominal pain, abdominal distension, nausea, vomiting, diarrhea, constipation, melena, hematochezia GENITOURINARY: Absent: dysuria, frequency, urgency, hesitancy, hematuria, flank pain, genital pain MUSCULOSKELETAL: Absent: myalgia, arthralgia, joint swelling, back pain, neck pain SKIN: Absent: rash, itching, pallor HEMATOLOGIC/IMMUNOLOGIC: Absent: easy bleeding, easy bruising, lymphadenopathy, frequent infections ENDOCRINE: Absent: unexplained weight gain, unexplained weight loss, heat intolerance, cold intolerance NEUROLOGIC: Absent: headache, focal weakness or paresthesias, dizziness, unsteady gait, seizure, mental status changes, bladder or bowel incontinence PSYCHIATRIC: Absent: anxiety, depression, suicidal or homicidal ideation, hallucinations. PHYSICAL EXAMINATION Vital Signs - 24 hr 01/18/18 01/18/18 01/18/18 21:40 22:24 23:41 Temperature 98.0 F 99.0 F Pulse Rate 56 L 56 L Pulse Rate [ 54 L Right Radial] Respiratory 16 16 Rate Blood Pressure 149/70 Blood Pressure 133/69 [Right Arm] O2 Sat by Pulse 100 100 100 Oximetry (%) Gen: NAD, AAOx3 HEENT: NCAT, PERRL, EOMI, converg strabismus Neck: supple no jvd, no bruits Cardio: rrr, norm s1s2, no mrg appreciated Pulm: cta b/l Abd: obese, nondistended, soft, nontender Ext: 2+ pulses, no edema Neuro: CN2-12 intact, sensation/strength intact throughout Laboratory Results - last 24 hr 01/18/18 01/18/18 01/18/18 21:53 22:00 22:00 WBC 6.9 RBC 4.44 Hgb 14.7 Hct 40.8 MCV 92.0 MCH 33.1 MCHC 36.0 H RDW 14.0 Plt Count 202 D MPV 8.6 Absolute Neuts (auto) 3.3 Neutrophils % 48.0 Lymphocytes % 37.6 Monocytes % 12.1 H Eosinophils % 1.8 Basophils % 0.5 Nucleated RBC % 0 PT with INR 11.60 INR 0.98 PTT (Actin FS) 26.9 Sodium Potassium Chloride Carbon Dioxide Anion Gap BUN Creatinine Creat Clearance w eGFR POC Glucometer 114.58272 Random Glucose Calcium Magnesium Total Bilirubin AST ALT Alkaline Phosphatase Creatine Kinase Troponin I Total Protein Albumin Blood Type Antibody Screen 01/18/18 01/18/18 22:00 22:00 WBC RBC Hgb Hct MCV MCH MCHC RDW Plt Count MPV Absolute Neuts (auto) Neutrophils % Lymphocytes % Monocytes % Eosinophils % Basophils % Nucleated RBC % PT with INR INR PTT (Actin FS) Sodium 141 Potassium 4.7 Chloride 108 H Carbon Dioxide 23 Anion Gap 9 BUN 24 H Creatinine 1.1 Creat Clearance w eGFR > 60 POC Glucometer Random Glucose 102 Calcium 8.2 L Magnesium 1.9 Total Bilirubin 0.6 AST 27 ALT 39 Alkaline Phosphatase 86 Creatine Kinase 117 Troponin I < 0.02 Total Protein 7.3 Albumin 3.7 Blood Type A POSITIVE Antibody Screen Negative ASSESSMENT/PLAN: Pt is a 62 y/o gentleman with extensive cardiac history including CABG, CHF, AICD, HTN, HLD who presented to ED with complaint of L arm pain/numbness. Pt placed on tele obs for monitoring. #ACS r/o -symptoms resolved -trop neg x 1, EKG with lat twi age undetermined -Cardio consulted -ASA given in ED -note that pt had an appointment with Cardio 2 weeks ago and states everything was ok #HTN -c/w home Norvasc, Lisinopril, Toprol #HLD -c/w home lipitor #CAD -c/w lipitor #pAF -currently in sinus -f/u with cardio concerning AC #dCHF -currently stable. No exacerbation at this time -c/w Lisinopril, Toprol -AICD #FEN -not on fluids -lytes wnl -Na controlled diet #PPx -Hep SubQ #Dispo -Tele/Obs Zana Aguilar MD PGY-2 IM Son: Aron [phone] Visit type - Emergency Visit Emergency Visit: Yes ED Registration Date: 01/18/18 Care time: The patient presented to the Emergency Department on the above date and was hospitalized for further evaluation of their emergent condition. - New Patient This patient is new to me today: Yes Date on this admission: 01/19/18 - Critical Care Critical Care patient: No
[2018-01-19] MEDS ORDERED: HEPARIN NA (PORCINE) 5,000 UNITS/ML 1ML VIAL SQ SCH (06:00)
[2018-01-19 07:56] LABS: ANION GAP 9 MMOL/L (8-16); BLOOD UREA NITROGEN 22 mg/dL (7-18); CALCIUM 8.3 mg/dL (8.5-10.1); CHLORIDE 106 mmol/L (98-107); CO2 27 mmol/L (21-32); CREATININE 0.9 mg/dL (0.55-1.3); GLUCOSE,RANDOM 97 mg/dL (74-106); POTASSIUM 4.2 mmol/L (3.5-5.1); SODIUM 142 mmol/L (136-145)
[2018-01-19 08:20] LABS: HEMATOCRIT 42.2 % (35.4-49); HEMOGLOBIN 13.9 GM/dL (11.7-16.9); MCH 30.7 pg (25.7-33.7); MEAN PLT VOLUME 8.4 fl (7.5-11.1); PLATELET COUNT 165 K/MM3 (134-434); RBC 4.54 M/mm3 (4.00-5.60); RDW 13.9 % (11.9-15.9); WHITE BLOOD COUNT 6.2 K/mm3 (4.0-10.0)
--- NOTE | 2018-01-19 09:29 | PN ---
Progress Note, Physician Chief Complaint: Left arm pain History obtained with assistance of Indonesian psychologist social- Dr. Maurer assisted in obtaining history The patient is a 61 year old male with a past medical history of acute/chronic ETOH abuse, A-Fib, CABG(x3, 2005), diastolic CHF ( s/p ICD 2009 for [place]), hypertension, hyperlipidemia, bilateral carotid artery stenosis and constipation , presents to the emergency with left arm discomfort that he describes as " water moving down his arm." He denies SOB, palpitations, ICD discharges. Denies PND or orthopnea. No edema. Allergies: NKDA Past surgical history: AICD(2009), CABG(2005) Social history: He reports alcohol use (1/2 liter of vodka). He denies tobacco and drug use Power Checker: Dr. Carlos Retana [facility] CABG 2005 2005 s/p ICD Ongoing medical problems ASHD; CABG (no hx IA) CHF: diastolic (was systolic, leading to ICD; most recent ECHO showed normal LVEF) Paroxysmal AF CMP hyperlipidemia s/p ICD Bilateral carotid artery stenosis. 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 History of Recent Travel: No History of Present Illness: TELE: Sinus shin ECG: V-pacing 50bpm - Current Medication List Current Medications: Active Medications Amlodipine Besylate (Norvasc -) 5 mg PO DAILY [facility] Aspirin (Asa -) 81 mg PO DAILY [facility] Atorvastatin Calcium (Lipitor -) 20 mg PO HS [facility] Folic Acid (Folic Acid -) 1 mg PO DAILY [facility] Gabapentin (Neurontin -) 100 mg PO BID PRN PRN Reason: NEUROPATHIC PAIN 1-5 Heparin Sodium (Porcine) (Heparin -) 5,000 unit SQ TID [facility] Lisinopril (Prinivil) 40 mg PO DAILY [facility] Metoprolol Succinate (Toprol Xl -) 100 mg PO DAILY [facility] Multivitamins (Total B With C -) 1 each PO DAILY [facility] Ranitidine HCl (Zantac -) 150 mg PO HS [facility] - Objective Vital Signs: Vital Signs Temperature 98.4 F 01/19/18 07:09 Pulse Rate 56 L 01/19/18 07:09 Respiratory Rate 20 01/19/18 07:09 Blood Pressure 108/75 01/19/18 07:09 O2 Sat by Pulse Oximetry (%) 99 01/19/18 04:48 Constitutional: Yes: No Distress, Calm Eyes: Yes: Conjunctiva Clear Cardiovascular: Yes: Regular Rate and Rhythm Respiratory: Yes: CTA Bilaterally Gastrointestinal: Yes: Soft Edema: No Neurological: Yes: Alert, Oriented ...Motor Strength: WNL Labs: CBC, BMP 01/19/18 06:40 01/19/18 06:40 INR, PTT INR 0.98 (0.83-1.09) 01/18/18 22:00 Laboratory Tests 01/18/18 01/19/18 22:00 02:31 Creatine Kinase 117 Troponin I < 0.02 < 0.02 - ....Imaging Chest X-ray: Image Reviewed EKG: Image Reviewed Assessment/Plan IMP: Ischemic CM s/p ICD ASHD Bilateral carotid stenosis PAF History of alcohol abuse Atypical CP REC: 1. Continue home meds 2. Echo 3. Cardiac enzymes negative: doubt ACS. To consider repeating stress test, can be done as outpatient 4. Routine ICD interrogations can also be done in office. 5. To clarify with Dr. Retana previous history re AF and use of full AC- seems to be poor candidate for full AC due to ETOH and compliance issues. Continue ASA for now
[2018-01-19] MEDS ORDERED: LISINOPRIL 20 MG TABLET (FP) PO SCH (10:00)
[2018-01-19] MEDS ORDERED: FOLIC ACID 1 MG TABLET (FP) PO SCH (10:00)
[2018-01-19] MEDS ORDERED: amLODIPine BESYLATE 5 MG TABLET (FP) PO SCH (10:00)
[2018-01-19] MEDS ORDERED: ASPIRIN 81 MG CHEWABLE TABLETS PO SCH (10:00)
[2018-01-19] MEDS ORDERED: VITAMIN B COMPLEX W/C COMBO TABLET (FP) PO SCH (10:00)
[2018-01-19 10:52] VITALS: BP 115/68; PULSE 58; TEMP 98
--- NOTE | 2018-01-19 11:19 | DS ---
Physical Exam: SUBJECTIVE: Patient seen and examined, no complaints, denies any pain, dyspnea, tingling/numbness or concerns. Feel good and eager to go home. OBJECTIVE: Vital Signs Period Temp Pulse Resp BP Sys/Peterson Pulse Ox Last 24 Hr 98 F-99.0 F 50-58 16-20 108-149/68-75 98-100 PHYSICAL EXAM GENERAL: sitting in bed in no acute distress neck: soft, supple, no JVD Chest: CTAB, no rales or wheezing Abdomen:Soft, obese, NT throughout Extremities: no edema Neuro: AAOx3, power 5/5, sensation intact and symmetric to light touch, facial symmetry, tongue midline, EOMI, DTR bilaterally symmetric, toes downgoing, PERRL , non focal exam LABS Laboratory Results - last 24 hr 01/18/18 01/18/18 01/18/18 21:53 22:00 22:00 WBC 6.9 RBC 4.44 Hgb 14.7 Hct 40.8 MCV 92.0 MCH 33.1 MCHC 36.0 H RDW 14.0 Plt Count 202 D MPV 8.6 Absolute Neuts (auto) 3.3 Neutrophils % 48.0 Lymphocytes % 37.6 Monocytes % 12.1 H Eosinophils % 1.8 Basophils % 0.5 Nucleated RBC % 0 PT with INR 11.60 INR 0.98 PTT (Actin FS) 26.9 Sodium Potassium Chloride Carbon Dioxide Anion Gap BUN Creatinine Creat Clearance w eGFR POC Glucometer 114.87859 Random Glucose Calcium Magnesium Total Bilirubin AST ALT Alkaline Phosphatase Creatine Kinase Troponin I Total Protein Albumin Blood Type Antibody Screen 01/18/18 01/18/18 01/19/18 22:00 22:00 02:31 WBC RBC Hgb Hct MCV MCH MCHC RDW Plt Count MPV Absolute Neuts (auto) Neutrophils % Lymphocytes % Monocytes % Eosinophils % Basophils % Nucleated RBC % PT with INR INR PTT (Actin FS) Sodium 141 Potassium 4.7 Chloride 108 H Carbon Dioxide 23 Anion Gap 9 BUN 24 H Creatinine 1.1 Creat Clearance w eGFR > 60 POC Glucometer Random Glucose 102 Calcium 8.2 L Magnesium 1.9 Total Bilirubin 0.6 AST 27 ALT 39 Alkaline Phosphatase 86 Creatine Kinase 117 Troponin I < 0.02 < 0.02 Total Protein 7.3 Albumin 3.7 Blood Type A POSITIVE Antibody Screen Negative 01/19/18 01/19/18 06:40 06:40 WBC 6.2 RBC 4.54 Hgb 13.9 Hct 42.2 MCV 93.0 MCH 30.7 MCHC 33.0 RDW 13.9 Plt Count 165 MPV 8.4 Absolute Neuts (auto) Neutrophils % Lymphocytes % Monocytes % Eosinophils % Basophils % Nucleated RBC % PT with INR INR PTT (Actin FS) Sodium 142 Potassium 4.2 Chloride 106 Carbon Dioxide 27 Anion Gap 9 BUN 22 H Creatinine 0.9 Creat Clearance w eGFR > 60 POC Glucometer Random Glucose 97 Calcium 8.3 L Magnesium Total Bilirubin AST ALT Alkaline Phosphatase Creatine Kinase Troponin I Total Protein Albumin Blood Type Antibody Screen HOSPITAL COURSE: Date of Admission:01/18/18 Date of Discharge: 01/19/18 Minutes to complete discharge: 35 Discharge Summary Reason For Visit: PAIN OF LEFT UPPER EXTREMITY/CHEST PAIN AT REST Current Active Problems Arm pain, left (Acute) Chest pain (Acute) Hospital Course: Patient was watched on telemetry, with no events. ACS was ruled out. His CT brain was negative for acute concerns. He was completely asymptomatic since his admission with no concerns or symptoms. He was seen by cardiology and deemed stable for discharge with outpatient follow up with Dr. Retana to discuss outpatient stress test, ICD interrogation and further testing. Condition: Good - Instructions Diet, Activity, Other Instructions: Please follow up with your insurance policy issue clerk Dr. Retana in 1 week. You are advised to discuss outpatient stress test and ICD interrogation with him. FOllow up with your primary doctor in 1 week. Continue all your home medications as before. Call 911 or come to ED if any new chest pain, trouble breathing, weakness, tingling/numbness or new concerns noted. Referrals: Tripp Tapia [Primary Care Provider] - 1 Week Matti Maurer MD [Staff Physician] - 1 Week Disposition: HOME - Home Medications Comprehensive Discharge Medication List: Ambulatory Orders Atorvastatin Ca [Lipitor] 20 mg PO HS 10/10/13 Amlodipine Besylate 5 mg PO DAILY 11/23/16 Aspirin [ASA -] 81 mg PO DAILY 11/23/16 Folic Acid 1 mg PO DAILY 11/23/16 Gabapentin 100 mg PO BID 11/23/16 Lisinopril [Prinivil -] 40 mg PO DAILY 11/23/16 Ranitidine [Zantac -] 150 mg PO HS 11/23/16 Diclofenac Sodium 50 mg PO BID PRN 01/18/18 Ergocalciferol [Vitamin D2] 50,000 unit PO Q7D@1000 01/18/18 Hydroxyzine HCl 25 mg PO BID 01/18/18 Metoprolol Succinate 100 mg PO DAILY 01/18/18 Vitamin B Complex [B Complex] 1 each PO DAILY 01/18/18 This patient is new to me today: Yes Date on this admission: 01/19/18 Emergency Visit: Yes ED Registration Date: 01/18/18 Care time: The patient presented to the Emergency Department on the above date and was hospitalized for further evaluation of their emergent condition. Critical Care patient: No - Discharge Referral Referred to [facility] Med P.C.: No
--- NOTE | 2018-01-19 13:34 | EKG ---
Test Reason : Blood Pressure : / mmHG Vent. Rate : 050 BPM Atrial Rate : 036 BPM P-R Int : 000 ms QRS Dur : 194 ms QT Int : 552 ms P-R-T Axes : 000 -55 106 degrees QTc Int : 503 ms Ventricular-paced rhythm ABNORMAL ECG WHEN COMPARED WITH ECG OF 18-JAN-2018 21:48, ELECTRONIC VENTRICULAR PACEMAKER HAS REPLACED SINUS RHYTHM Confirmed by GOLDIE DE SANTIAGO MD ([id number]) on 01/19/2018 1:34:08 PM Referred By: Confirmed By:GOLDIE DE SANTIAGO MD
--- NOTE | 2018-01-19 13:38 | EKG ---
Test Reason : Blood Pressure : / mmHG Vent. Rate : 056 BPM Atrial Rate : 056 BPM P-R Int : 162 ms QRS Dur : 096 ms QT Int : 412 ms P-R-T Axes : 061 047 -05 degrees QTc Int : 397 ms SINUS BRADYCARDIA ABNORMAL ECG WHEN COMPARED WITH ECG OF 20-JUN-2017 10:01, VENT. RATE HAS DECREASED BY 56 BPM Confirmed by GOLDIE DE SANTIAGO MD ([id number]) on 01/19/2018 1:37:52 PM Referred By: Confirmed By:GOLDIE DE SANTIAGO MD
[2018-01-19] MEDS ORDERED: ATORVASTATIN CA 20 MG TABLET (FP) PO SCH (22:00)
[2018-01-19] MEDS ORDERED: RANITIDINE HCL 150 MG TABLET (FP) PO SCH (22:00)
== END 2018-01-19 13:05 | disposition home or self-care (01) ==
LOC: JER 21:31 → JERBED 23:14 → J4W 01-19 07:00
PROVIDERS: ADMIT Internal Medicine; ATTEND Hospitalist
DX: R07.9 Chest pain, unspecified (principal); M79.602 Pain in left arm; I11.0 Hypertensive heart disease with heart failure; E78.5 Hyperlipidemia, unspecified; I25.10 Atherosclerotic heart disease of native coronary artery without angina pectoris; I50.30 Unspecified diastolic (congestive) heart failure; F10.10 Alcohol abuse, uncomplicated; I48.0 Paroxysmal atrial fibrillation; K21.9 Gastro-esophageal reflux disease without esophagitis; R73.03 Prediabetes; M46.86 Other specified inflammatory spondylopathies, lumbar region; E66.9 Obesity, unspecified; Z68.37 Body mass index [BMI] 37.0-37.9, adult; Z95.810 Presence of automatic (implantable) cardiac defibrillator; Z95.1 Presence of aortocoronary bypass graft
CPT/HCPCS: 36415; 70450-TC; 71045-TC-FY; 80048; 80053; 82550; 82962; 83735; 84484; 85025; 85027; 85610; 85730; 86850; 86900; 86901; 93005; 93010; 99285-25; G0378

== ENCOUNTER 2018-02-12 07:44 | Inpatient (IN) | payer OTHER ==
[2018-02-12 07:52] VITALS: BMI 36.2
[2018-02-12] MEDS ORDERED: SODIUM CHLORIDE 1,000 ML IV SCH (09:15)
[2018-02-12 09:40] LABS: INR 1.01 (0.83-1.09); PROTHROMBIN TIME (PATIENT) 11.9 SEC (9.7-13.0)
--- NOTE | 2018-02-12 09:45 | EKG ---
Test Reason : Blood Pressure : / mmHG Vent. Rate : 052 BPM Atrial Rate : 052 BPM P-R Int : 164 ms QRS Dur : 098 ms QT Int : 444 ms P-R-T Axes : 043 028 041 degrees QTc Int : 412 ms SINUS BRADYCARDIA T WAVE ABNORMALITY, CONSIDER ANTEROLATERAL ISCHEMIA ABNORMAL ECG WHEN COMPARED WITH ECG OF 19-JAN-2018 03:32, SINUS RHYTHM HAS REPLACED ELECTRONIC VENTRICULAR PACEMAKER Confirmed by PAPITO MCCARTY, DENISE ([id number]) on 02/12/2018 9:45:04 AM Referred By: Confirmed By:DENISE COBOS MD
[2018-02-12 09:54] LABS: ALBUMIN 3.9 g/dl (3.4-5.0); ALK PHOS 85 U/L (45-117); ANION GAP 7 MMOL/L (8-16); BILIRUBIN,TOTAL 0.8 mg/dL (0.2-1); BLOOD UREA NITROGEN 18 mg/dL (7-18); CALCIUM 8.4 mg/dL (8.5-10.1); CHLORIDE 105 mmol/L (98-107); CHOLESTEROL 179 mg/dL (50-200); CO2 28 mmol/L (21-32); GLUCOSE,RANDOM 109 mg/dL (74-106); HDL CHOLESTEROL 36 mg/dL (40-60); POTASSIUM 4.3 mmol/L (3.5-5.1); SGOT/AST 19 U/L (15-37); SGPT/ALT 33 U/L (13-61); SODIUM 139 mmol/L (136-145); TOT PROT 7.4 g/dl (6.4-8.2); TRIGLYCERIDES 192 mg/dL (0-150)
--- NOTE | 2018-02-12 09:55 | PDOC ---
History of Present Illness - History of Present Illness Initial Comments: 02/12/18 10:34 According to Cardiology, The patient needs to be on Coumadin due to paroxysmal Atrial Fibrillation <Rosemarie Lincoln - Last Filed: 02/12/18 10:34> - General History Source: Patient, Family Exam Limitations: Language Barrier - History of Present Illness Initial Comments: 02/12/18 10:04 Patient is a 62-year-old male with history of hypertension, CAD (status post CABG 3 vessels), former smoker, presents to the ER with worsening left upper extremity weakness. Patient endorses that for the past month intermittently experienced weakness of the left upper extremity and to the lesser degree left lower extremity; however, the night prior to arrival, patient reports that his left upper extremity weakness has worsened significantly. Patient denies facial/ visual/speech disturbances; patient also reports that his gait has been affected by the left lower extremity weakness. Patient is poorly compliant with his medication regimen as per his house calls nurse practitioner. REVIEW OF SYSTEMS CONSTITUTIONAL: No fever, no chills, no fatigue EYES: No visual changes ENT: No ear pain, no sore throat CARDIOVASCULAR: No chest pain, no palpitations RESPIRATORY: No cough, no SOB GI: No abdominal pain, no nausea, no vomiting, no constipation, no diarrhea GENITOURINARY: No dysuria, no frequency, no hematuria MUSKULOSKELETAL: No backpain, no joint pain, no myalgias SKIN: No rash NEURO: Left upper/left lower extremity weakness EXAMINATION CONSTITUTIONAL: Awake and alert, obese, in no distress HEAD: Normocephalic; atraumatic EYES: PERRL; + strabismus on the right; limited abduction of the right eye ENMT: External appears normal; normal oropharynx NECK: Supple; non-tender; CARD: Normal S1, S2; no murmurs, rubs, or gallops RESP: Normal chest excursion with respiration; breath sounds clear and equal bilaterally; no wheezes, rhonchi, or rales ABD: Soft, non-distended; non-tender; no palpable organomegaly, no palpable hernias EXT: Normal ROM in all four extremities; non-tender to palpation; distal pulses intact SKIN: Warm, dry, no rash NEURO: Cranial nerves II through XII are grossly intact; + drift of the left upper extremity and weakness while shrugging on the left; Babinski is negative; gait is stable; motor is 5 of 5x4; <Al Loomis - Last Filed: 02/12/18 11:19> - General Chief Complaint: Head/Neck problem Stated Complaint: L SIDED NUMBNESS/HIGH BP Time Seen by Provider: 02/12/18 08:50 Past History <Rosemarie Lincoln - Last Filed: 02/12/18 10:34> - Past Medical History Anemia: No Asthma: No Cancer: No Cardiac Disorders: Yes (CAD, afib) CVA: No COPD: No CHF: No DVT: No Dementia: No Diabetes: No GI Disorders: Yes (GERD) Disorders: No HTN: Yes Hypercholesterolemia: Yes Liver Disease: No Seizures: No Thyroid Disease: No - Surgical History Abdominal Surgery: No Appendectomy: No Cardiac Surgery: Yes (CABG X3, AICD/PPM) Cholecystectomy: No Lung Surgery: No Neurologic Surgery: No Orthopedic Surgery: No - Immunization History Immunization Up to Date: Yes - Suicide/Smoking/Psychosocial Hx Smoking Status: No Smoking History: Never smoked Have you smoked in the past 12 months: No Number of Cigarettes Smoked Daily: 0 Information on smoking cessation initiated: No Hx Alcohol Use: No Drug/Substance Use Hx: No Substance Use Type: Alcohol Hx Substance Use Treatment: No <Al Loomis - Last Filed: 02/12/18 11:19> - Past Medical History Allergies/Adverse Reactions: Allergies Allergy/AdvReac Type Severity Reaction Status Date / Time No Known Allergies Allergy Verified 02/12/18 07:53 Home Medications: Ambulatory Orders Atorvastatin Ca [Lipitor] 20 mg PO HS 10/10/13 Amlodipine Besylate 5 mg PO DAILY 11/23/16 Aspirin [ASA -] 81 mg PO DAILY 11/23/16 Folic Acid 1 mg PO DAILY 11/23/16 Gabapentin 100 mg PO BID 11/23/16 Lisinopril [Prinivil -] 40 mg PO DAILY 11/23/16 Ranitidine [Zantac -] 150 mg PO HS 11/23/16 Diclofenac Sodium 50 mg PO BID PRN 01/18/18 Ergocalciferol [Vitamin D2] 50,000 unit PO Q7D@1000 01/18/18 Hydroxyzine HCl 25 mg PO BID 01/18/18 Metoprolol Succinate 100 mg PO DAILY 01/18/18 Vitamin B Complex [B Complex] 1 each PO DAILY 01/18/18 *Physical Exam - Vital Signs Last Vital Signs Temp Pulse Resp BP Pulse Ox 97.6 F 55 L 19 148/70 97 02/12/18 07:50 02/12/18 07:50 02/12/18 07:50 02/12/18 07:50 02/12/18 07:50 <Rosemarie Lincoln - Last Filed: 02/12/18 10:34> - Vital Signs Last Vital Signs Temp Pulse Resp BP Pulse Ox 97.6 F 55 L 19 148/70 97 02/12/18 07:50 02/12/18 07:50 02/12/18 07:50 02/12/18 07:50 02/12/18 07:50 <Al Loomis - Last Filed: 02/12/18 11:19> NIH Stroke Scale - Last Known Well Date/Time & Onset Date Last Known Well: 02/11/18 Time Last Known Well: 21:00 - Initial Evaluation Level of consciousness: Alert Ask patient the month and their age: Answers both correctly Ask patient to open & close eyes; make fist and let go: Obeys both correctly Best gaze (horizontal eye movement): Normal Visual field testing: No visual field loss Facial paresis (Show teeth/raise eyebrows/close eyes tight): Normal symmetrical movement Motor Function: Left Arm: Drift Motor Function: Right Arm: Normal (extends arm 90 (or 45) degrees for 10 seconds without drift Motor Function: Left Leg: Normal (extends leg 30 degrees for 5 seconds without drift) Motor Function: Right Leg: Normal (extends leg 30 degrees for 5 seconds without drift) Limb Ataxia: No ataxia Sensory(Use pinprick test arms,legs,trunk,face/side to side): Normal Best language (Describe picture, name items, read sentences): No Aphasia Dysarthria (read several words): Normal articulation Extinction and Inattention: No abnormality - Total Score NIH Stroke Scale Score: 1 <Al Loomis - Last Filed: 02/12/18 11:19> tPA Exclusion Checklist 0-3hr - Time Elapsed Date last known well: 02/11/18 Time last known well: 21:00 Elaspsed time: Day(s) and 14 Hour(s) and 19 Minutes - Thrombolytic Therapy Candidate Is the patient eligible for Thrombolytic Therapy?: No - Exclusion Criteria 0-3hr SBP greater than 185 or DBP greater than 110mmHg despite tx: No Recent IC/spinal surgery,head trauma or stroke w/in last 3mo: No Hx of previous IC hemorrhage, IC neoplasm, AVM or aneurysm: No Active internal bleeding: No Blding diathesis(low plt ct, inc PTT,INR>1.7 or use of NOAC): No Symptoms suggest subarachnoid hemorrhage: No CT demonstrates multilobar infarct(>1/3 cerebral hemiphere): No Arterial puncture at noncompressible site in previous 7 days: No Blood glucose concentration less than 50mg/dL (2.7mmol/L): No - Relative Exclusion Criteria 0-3h Life expectancy <1yr/severe co-morbid illness/EDUCATION FACULTY MEMBER on admit: No : No Patient/family refused: No Rapid improvement: No Stroke severity too mild: Yes Recent acute CA (w/in previous 3 months): No Seizure at onset with postictal residual neuro impairments: No Major surgery or serious trauma w/in previous 14 days: No Recent GI or hemorrhage (w/in previous 21 days): No - Ineligibility reason(s) Reasons No tPA given: Outside of window - delayed arrival <Al Loomis - Last Filed: 02/12/18 11:19> Moderate Sedation - Procedure Monitoring Vital Signs: Procedure Monitoring Vital Signs Temperature 97.6 F 02/12/18 07:50 Pulse Rate 55 L 02/12/18 07:50 Respiratory Rate 02/12/18 07:50 Blood Pressure 148/70 02/12/18 07:50 O2 Sat by Pulse Oximetry (%) 97 02/12/18 07:50 <Rosemarie Lincoln - Last Filed: 02/12/18 10:34> - Procedure Monitoring Vital Signs: Procedure Monitoring Vital Signs Temperature 97.6 F 02/12/18 07:50 Pulse Rate 55 L 02/12/18 07:50 Respiratory Rate 02/12/18 07:50 Blood Pressure 148/70 02/12/18 07:50 O2 Sat by Pulse Oximetry (%) 97 02/12/18 07:50 <Al Loomis - Last Filed: 02/12/18 11:19> Critical Care Time/MDM Note - Medical Decision Making Note: 02/12/18 10:12 Patient is a 62-year-old male with history of hypertension, CAD who presents with signs and symptoms of subacute CVA. CT of head shows previously noted lip or infarct and cerebellar and's formal ACS without evidence of acute pathology. Patient is not a TPA candidate given presentation outside of on a lot of 3 hour window. We'll administer aspirin and Lipitor. We'll consult neurology and cardiology. Will admit to stroke/telemetry further evaluation and treatment. <Al Loomis - Last Filed: 02/12/18 11:19> *DC/Admit/Observation/Transfer <Rosemarie Lincoln - Last Filed: 02/12/18 10:34> - Discharge Dispostion Decision to Admit order: Yes <Al Loomis - Last Filed: 02/12/18 11:19> Diagnosis at time of Disposition: CVA (cerebral vascular accident) Qualifiers: CVA mechanism: unspecified Qualified Code(s): I63.9 - Cerebral infarction, unspecified - Discharge Dispostion Condition at time of disposition: Fair - Referrals Referrals: Mirna Swanson MD [Primary Care Provider] - - Patient Instructions - Post Discharge Activity
[2018-02-12] MEDS ORDERED: ATORVASTATIN CA 80 MG TABLET (FP) PO ONE (10:03)
[2018-02-12] MEDS ORDERED: ASPIRIN 325 MG TABLET PO ONE (10:03)
--- NOTE | 2018-02-12 10:13 | CON.CARD ---
Consult Consult Specialty:: Cardiology Reason for Consultation:: l arm weakness - History of Present Illness Chief Complaint: l arm weakness History of Present Illness: Patient is a 62-year-old male with history of hypertension, CAD (status post CABG 3 vessels), former smoker, presents to the ER with worsening left upper extremity weakness. Patient endorses that for the past month intermittently experienced weakness of the left upper extremity and to the lesser degree left lower extremity; however, the night prior to arrival, patient reports that his left upper extremity weakness has worsened significantly. Patient denies facial/ visual/speech disturbances; patient also reports that his gait has been affected by the left lower extremity weakness. Patient is poorly compliant with his medication regimen as per his instructor ground services. Major events CABG 2005 2005 s/p ICD Ongoing medical problems ASHD; CABG (no hx MO) CHF: diastolic (was systolic, leading to ICD; most recent ECHO showed normal LVEF) Paroxysmal AF CMP hyperlipidemia s/p ICD - Past Medical History Cardio/Vascular: Yes: CAD, CHF, HTN, Hyperlipdemia, Other Gastrointestinal: Yes: GERD Psych: Yes: Addictions, Other - Past Surgical History Past Surgical History: Yes: AICD, CABG - Alcohol/Substance Use Hx Alcohol Use: No History of Substance Use: reports: None - Smoking History Smoking history: Never smoked Have you smoked in the past 12 months: No Aproximately how many cigarettes per day: 0 - Social History Usual Living Arrangement: With Spouse ADL: 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 History of Recent Travel: No Home Medications - Allergies Allergies/Adverse Reactions: Allergies Allergy/AdvReac Type Severity Reaction Status Date / Time No Known Allergies Allergy Verified 02/12/18 07:53 - Home Medications Home Medications: Ambulatory Orders Atorvastatin Ca [Lipitor] 20 mg PO HS 10/10/13 Amlodipine Besylate 5 mg PO DAILY 11/23/16 Aspirin [ASA -] 81 mg PO DAILY 11/23/16 Folic Acid 1 mg PO DAILY 11/23/16 Gabapentin 100 mg PO BID 11/23/16 Lisinopril [Prinivil -] 40 mg PO DAILY 11/23/16 Ranitidine [Zantac -] 150 mg PO HS 11/23/16 Diclofenac Sodium 50 mg PO BID PRN 01/18/18 Ergocalciferol [Vitamin D2] 50,000 unit PO Q7D@1000 01/18/18 Hydroxyzine HCl 25 mg PO BID 01/18/18 Metoprolol Succinate 100 mg PO DAILY 01/18/18 Vitamin B Complex [B Complex] 1 each PO DAILY 01/18/18 Review of Systems - Review of Systems Constitutional: reports: No Symptoms Eyes: reports: No Symptoms HENT: reports: No Symptoms Neck: reports: No Symptoms Cardiovascular: reports: Chest Pain Gastrointestinal: reports: No Symptoms Genitourinary: reports: No Symptoms Breasts: reports: No Symptoms Reported Musculoskeletal: reports: No Symptoms Integumentary: reports: No Symptoms Neurological: reports: Weakness Endocrine: reports: No Symptoms Hematology/Lymphatic: reports: No Symptoms Psychiatric: reports: No Symptoms Vital Signs: Vital Signs Temperature 97.6 F 02/12/18 07:50 Pulse Rate 55 L 02/12/18 07:50 Respiratory Rate 02/12/18 07:50 Blood Pressure 148/70 02/12/18 07:50 O2 Sat by Pulse Oximetry (%) 97 02/12/18 07:50 Constitutional: Yes: Well Nourished, No Distress, Calm Eyes: Yes: WNL, Conjunctiva Clear, EOM Intact HENT: Yes: WNL, Atraumatic, Normocephalic Neck: Yes: WNL, Supple, Trachea Midline Respiratory: Yes: WNL, Regular, CTA Bilaterally Gastrointestinal: Yes: WNL, Normal Bowel Sounds Renal/: Yes: WNL Cardiovascular: Yes: WNL, Regular Rate and Rhythm Musculoskeletal: Yes: WNL Extremities: Yes: WNL Integumentary: Yes: WNL Neurological: Yes: WNL, Alert, Oriented, Other (L upper ext drift) ...Motor Strength: WNL Psychiatric: Yes: WNL, Alert, Oriented - Other Data Labs, Other Data: CBC, BMP 02/12/18 09:10 INR, PTT INR 1.01 (0.83-1.09) 02/12/18 09:10 Troponin, BNP 02/12/18 09:10 Troponin I < 0.02 Troponin, BNP 02/12/18 09:10 Troponin I < 0.02 Imaging - Results Chest X-ray: Pending EKG: Image Reviewed (sr rep abn) Problem List - Problems (1) AICD discharge Code(s): Z45.02 - ENCNTR FOR ADJUST AND MGMT OF AUTOMATIC IMPLNTBL CARD DEFIB (2) AICD discharge Code(s): Z45.02 - ENCNTR FOR ADJUST AND MGMT OF AUTOMATIC IMPLNTBL CARD DEFIB (3) ASHD (arteriosclerotic heart disease) Code(s): I25.10 - ATHSCL HEART DISEASE OF [place] CORONARY ARTERY W/O ANG PCTRS (4) Abscess Code(s): L02.91 - CUTANEOUS ABSCESS, UNSPECIFIED (5) Alcohol abuse Code(s): F10.10 - ALCOHOL ABUSE, UNCOMPLICATED (6) Alcohol abuse counseling and surveillance Code(s): Z71.41 - ALCOHOL ABUSE COUNSELING AND SURVEILLANCE OF ALCOHOLIC (7) Alcohol dependence Code(s): F10.20 - ALCOHOL DEPENDENCE, UNCOMPLICATED Qualifiers: Substance use status: with intoxication (8) Alcohol withdrawal Code(s): F10.239 - ALCOHOL DEPENDENCE WITH WITHDRAWAL, UNSPECIFIED (9) Alcoholism /alcohol abuse Code(s): F10.20 - ALCOHOL DEPENDENCE, UNCOMPLICATED (10) Arm pain, left Code(s): M79.602 - PAIN IN LEFT ARM (11) Atrial fibrillation Code(s): I48.91 - UNSPECIFIED ATRIAL FIBRILLATION (12) Chest pain Code(s): R07.9 - CHEST PAIN, UNSPECIFIED Qualifiers: Chest pain type: unspecified Qualified Code(s): R07.9 - Chest pain, unspecified (13) Chest pain at rest Code(s): R07.9 - CHEST PAIN, UNSPECIFIED (14) DVT prophylaxis Code(s): NRZ4129 - (15) Diastolic CHF Code(s): I50.30 - UNSPECIFIED DIASTOLIC (CONGESTIVE) HEART FAILURE (16) Dyspnea Code(s): R06.00 - DYSPNEA, UNSPECIFIED (17) GERD (gastroesophageal reflux disease) Code(s): K21.9 - GASTRO-ESOPHAGEAL REFLUX DISEASE WITHOUT ESOPHAGITIS (18) Hx of CABG Code(s): Z95.1 - PRESENCE OF AORTOCORONARY BYPASS GRAFT (19) Hypertension Code(s): I10 - ESSENTIAL (PRIMARY) HYPERTENSION (20) Hypomagnesemia Code(s): E83.42 - HYPOMAGNESEMIA (21) Nasal bone fracture Code(s): S02.2XXA - FRACTURE OF NASAL BONES, INIT ENCNTR FOR CLOSED FRACTURE (22) Nontraumatic subdural hygroma Code(s): D18.1 - LYMPHANGIOMA, ANY SITE (23) Otitis media Code(s): H66.90 - OTITIS MEDIA, UNSPECIFIED, UNSPECIFIED EAR Qualifiers: Otitis media type: suppurative Chronicity: acute Laterality: left Recurrence: not specified as recurrent Spontaneous tympanic membrane rupture: without spontaneous rupture Qualified Code(s): H66.002 - Acute suppurative otitis media without spontaneous rupture of ear drum, left ear (24) Palpitations Code(s): R00.2 - PALPITATIONS (25) Pneumonia Code(s): J18.9 - PNEUMONIA, UNSPECIFIED ORGANISM (26) Preseptal cellulitis of right eye Code(s): H00.033 - ABSCESS OF EYELID RIGHT EYE, UNSPECIFIED EYELID (28) Status post fall Code(s): Z91.81 - HISTORY OF FALLING (29) Subdural hematoma Code(s): I62.00 - NONTRAUMATIC SUBDURAL HEMORRHAGE, UNSPECIFIED (30) Subtherapeutic international normalized ratio (INR) Code(s): R79.1 - ABNORMAL COAGULATION PROFILE (31) Systolic CHF Code(s): I50.20 - UNSPECIFIED SYSTOLIC (CONGESTIVE) HEART FAILURE (32) Ventricular tachycardia Code(s): I47.2 - VENTRICULAR TACHYCARDIA (33) Ventricular tachycardia Code(s): I47.2 - VENTRICULAR TACHYCARDIA (34) Alcohol abuse Code(s): F10.10 - ALCOHOL ABUSE, UNCOMPLICATED (35) HTN (hypertension) Code(s): I10 - ESSENTIAL (PRIMARY) HYPERTENSION (36) Hyperlipidemia Code(s): E78.5 - HYPERLIPIDEMIA, UNSPECIFIED (37) ICD (implantable cardioverter-defibrillator) in place Code(s): Z95.810 - PRESENCE OF AUTOMATIC (IMPLANTABLE) CARDIAC DEFIBRILLATOR (38) Obesity (BMI 30-39.9) Code(s): E66.9 - OBESITY, UNSPECIFIED Assessment/Plan l arm weaknessr/o CVA CABG 2005 2005 s/p ICD Ongoing medical problems ASHD; CABG (no hx MO) CHF: diastolic (was systolic, leading to ICD; most recent ECHO showed normal LVEF) Paroxysmal AF on Coumadin CMP hyperlipidemia s/p ICD Plan asa neuro eval AC if no contraindications
[2018-02-12 11:05] LABS: BASO % 0.4 % (0-2.0); EOS % 2.2 % (0-4.5); HEMATOCRIT 45.7 % (35.4-49); MCH 30.8 pg (25.7-33.7); MCHC 32.8 g/dl (32.0-35.9); MEAN CELL VOLUME 94.1 fl (80-96); MEAN PLT VOLUME 8.9 fl (7.5-11.1); MONO % 9.4 % (3.8-10.2); PLATELET COUNT 185 K/MM3 (134-434); RBC 4.86 M/mm3 (4.00-5.60); RDW 13.4 % (11.9-15.9); WHITE BLOOD COUNT 5.3 K/mm3 (4.0-10.0)
[2018-02-12] MEDS ORDERED: ATORVASTATIN CA 40 MG TABLET (FP) ONE (11:13)
[2018-02-12] MEDS ORDERED: ASPIRIN 325 MG TABLET ONE (11:13)
--- NOTE | 2018-02-12 12:22 | PN ---
Teaching Attending Note Name of Resident: Felicita Zamorano ATTENDING PHYSICIAN STATEMENT I saw and evaluated the patient. I reviewed the resident's note and discussed the case with the resident. I agree with the resident's findings and plan as documented. SUBJECTIVE: Patient is a 62yo martiniquais speaking male with PMHx HTN, CAD s/p CABG (2005; 3 vessel dz), former smoker, diastolic CHF , s/p ICD/pacemaker, paraoxysmal afib ( was on coumadin in the past ), former alcohol dependency stopped a year ago who presents to the ED c/o LUE weakness over the past month, worsened over the past day. As per patient had a similar episode over the last month. Patient takes 81mg aspirin per day. OBJECTIVE: Vital Signs Temperature 97.6 F 02/12/18 07:50 Pulse Rate 55 L 02/12/18 07:50 Respiratory Rate 02/12/18 07:50 Blood Pressure 148/70 02/12/18 07:50 O2 Sat by Pulse Oximetry (%) 97 02/12/18 07:50 GENERAL: Resting in bed. in no acute distress HEAD: Normal with no signs of trauma. +neck erythema EYES: right eye strabismus with limited lateral movement. reactive to light. EARS, NOSE, THROAT: Ears normal, oropharynx clear without exudates. NECK: Normal range of motion, supple LUNGS: Breath sounds equal, clear to auscultation bilaterally. No wheezes, and no crackles. HEART: Irregularly-irregular rate and rhythm, normal S1 and S2 . without murmur , rub or gallop ABDOMEN: Soft, large abdomen, nontender, not distended, normoactive bowel sounds , no guarding, no rebound, no masses. EXTREMITIES: 2+ pt pulses, warm, well-perfused. with chronic changes. No calf tenderness. No peripheral edema. NEUROLOGICAL: Cranial nerves II-XII intact. LUE weakness strength 3/5. RUE 5/ 5. LLE: 4/5, RLE: 5/5. sensation are intact , no facial droop. no dysarthria. PSYCHIATRIC: Cooperative. Good eye contact. SKIN: Warm, dry, normal turgor CBCD WBC 5.3 K/mm3 (4.0-10.0) 02/12/18 09:10 RBC 4.86 M/mm3 (4.00-5.60) 02/12/18 09:10 Hgb 15.0 GM/dL (11.7-16.9) 02/12/18 09:10 Hct 45.7 % (35.4-49) 02/12/18 09:10 MCV 94.1 fl (80-96) 02/12/18 09:10 MCHC 32.8 g/dl (32.0-35.9) 02/12/18 09:10 RDW 13.4 % (11.9-15.9) 02/12/18 09:10 Plt Count 185 K/MM3 (134-434) 02/12/18 09:10 MPV 8.9 fl (7.5-11.1) 02/12/18 09:10 CMP Sodium 139 mmol/L (136-145) 02/12/18 09:10 Potassium 4.3 mmol/L (3.5-5.1) 02/12/18 09:10 Chloride 105 mmol/L (98-107) 02/12/18 09:10 Carbon Dioxide 28 mmol/L (21-32) 02/12/18 09:10 Anion Gap 7 MMOL/L (8-16) L 02/12/18 09:10 BUN 18 mg/dL (7-18) 02/12/18 09:10 Creatinine 1.0 mg/dL (0.55-1.3) 02/12/18 09:10 Creat Clearance w eGFR > 60 (>60) 02/12/18 09:10 Random Glucose 109 mg/dL (74-106) H 02/12/18 09:10 Calcium 8.4 mg/dL (8.5-10.1) L 02/12/18 09:10 Total Bilirubin 0.8 mg/dL (0.2-1) 02/12/18 09:10 AST 19 U/L (15-37) 02/12/18 09:10 ALT 33 U/L (13-61) 02/12/18 09:10 Alkaline Phosphatase 85 U/L (45-117) 02/12/18 09:10 Total Protein 7.4 g/dl (6.4-8.2) 02/12/18 09:10 Albumin 3.9 g/dl (3.4-5.0) 02/12/18 09:10 CARDIAC ENZYMES Creatine Kinase 97 IU/L (26-308) 02/12/18 09:10 Troponin I < 0.02 ng/ml (0.00-0.05) 02/12/18 09:10 Current Medications Generic Name Dose Route Start Last Admin Trade Name Freq PRN Reason Stop Dose Admin Sodium Chloride 1,000 mls @ 42 mls/hr 02/12/18 09:15 02/12/18 09:51 Normal Saline - IV 42 mls/hr ASDIR DARIAN Administration Home Medications Medication Instructions Recorded Atorvastatin Ca [Lipitor] 20 mg PO HS 10/10/13 Amlodipine Besylate 5 mg PO DAILY 11/23/16 Aspirin [ASA -] 81 mg PO DAILY 11/23/16 Folic Acid 1 mg PO DAILY 11/23/16 Gabapentin 100 mg PO BID 11/23/16 Lisinopril [Prinivil -] 40 mg PO DAILY 11/23/16 Ranitidine [Zantac -] 150 mg PO HS 11/23/16 Diclofenac Sodium 50 mg PO BID PRN 01/18/18 Ergocalciferol [Vitamin D2] 50,000 unit PO Q7D@1000 01/18/18 Hydroxyzine HCl 25 mg PO BID 01/18/18 Metoprolol Succinate 100 mg PO DAILY 01/18/18 Vitamin B Complex [B Complex] 1 each PO DAILY 01/18/18 CTH: without acute changes, chronic lacunar infarcts, cerebellar encephalomelacia, calcification of cavernous carotid sinus ECHO: can't exclude wall motion abnormalities, mod concentric LVH, severe TR carotid dopp: mod stenosis 60-80% both internal carotids ASSESSMENT AND PLAN: This patient is a 62yo martiniquais speaking male with PMHx of HTN, CAD s/p CABG ( 2005; 3 vessel dz), former smoker and drinker , diastolic CHF (nl EF), paraoxysmal afib (was on coumadin) who presents to the ED c/o LUE weakness with a similar episode over a month ago , worsened over this past day. # TIA cannot r/o CVA - possible ischemic stroke . will continue aspirin 81mg and will add Lipitor 80mg daily Patient continues to have LUE weakness, decreased strength. was outside of tPA window >3 hrs upon arrival, neuro for consult #Hx of paraoxysmal afib ,has a pacemaker , will get cardio to see the patient, dr. Denny for consult #HTN-uncontrolled rivera start the BP meds. #hx ICD/pacemaker; not capturing on EKG, cardio consult # Carotid stenosis: 60-79% , will get to see the patient. #DVt px: heparin sq #Dispo stroke unit
--- NOTE | 2018-02-12 12:53 | HP ---
CHIEF COMPLAINT: LUE weakness PCP: Lainey Pritchett HISTORY OF PRESENT ILLNESS: 62 y/o burmese speaking M with PMH HTN, CAD s/p CABG (2005; 3 vessel dz), former smoker, diastolic CHF (nl EF), s/p ICD, paraoxysmal afib (on coumadin prior), who presents to the ED c/o LUE weakness over the past month, worsened over the past day. As per pt and daughter, over the last month, pt has endorsed intermittent LUE weakness lasting in 1 minute intervals. However, ever since 5pm last night, his weakness and numbness has worsened. During this time, pt also noticed weakness in his LLE, and had difficulty ambulating. At this time, pt and daughter deny slurred speech, facial droop, or other motor neurological deficits. At baseline, pt has a lazy eye on R. Denies other sx: without COUCH, fever, chills, SOB, chest pain or pressure, or changes in urinary or bowel function. As per daughter, pt had been on coumadin prior for paroxysmal afib. However, this was d/c due to his heavy drinking in the past, and since he was a fall risk , he was placed on asa 81mg PO qd for PPX. 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 Smoking: quit 15 yrs ago as per daughter; had smoked 1 ppd prior for "many years " Alcohol: "heavily in past" would not elaborate Drugs: denies Family History: grandma - asthma Allergies No Known Allergies Allergy (Verified 02/12/18 07:53) HOME MEDICATIONS: Home Medications Medication Instructions Recorded Atorvastatin Ca [Lipitor] 20 mg PO HS 10/10/13 Amlodipine Besylate 5 mg PO DAILY 11/23/16 Aspirin [ASA -] 81 mg PO DAILY 11/23/16 Folic Acid 1 mg PO DAILY 11/23/16 Gabapentin 100 mg PO BID 11/23/16 Lisinopril [Prinivil -] 40 mg PO DAILY 11/23/16 Ranitidine [Zantac -] 150 mg PO HS 11/23/16 Diclofenac Sodium 50 mg PO BID PRN 01/18/18 Ergocalciferol [Vitamin D2] 50,000 unit PO Q7D@1000 01/18/18 Hydroxyzine HCl 25 mg PO BID 01/18/18 Metoprolol Succinate 100 mg PO DAILY 01/18/18 Vitamin B Complex [B Complex] 1 each PO DAILY 01/18/18 Medications were confirmed with daughter's list at bedside, as well as with nurse. REVIEW OF SYSTEMS CONSTITUTIONAL: Absent: fever, chills, diaphoresis, generalized weakness, malaise, loss of appetite, weight change HEENT: Absent: rhinorrhea, nasal congestion, throat pain, throat swelling, difficulty swallowing, mouth swelling, ear pain, eye pain, visual changes CARDIOVASCULAR: Absent: chest pain, syncope, palpitations, irregular heart rate, lightheadedness , peripheral edema RESPIRATORY: Absent: cough, shortness of breath, dyspnea with exertion, orthopnea, wheezing, stridor, hemoptysis GASTROINTESTINAL: Absent: abdominal pain, abdominal distension, nausea, vomiting, diarrhea, constipation, melena, hematochezia GENITOURINARY: Absent: dysuria, frequency, urgency, hesitancy, hematuria, flank pain, genital pain MUSCULOSKELETAL: Absent: myalgia, arthralgia, joint swelling, back pain, neck pain SKIN: Absent: rash, itching, pallor HEMATOLOGIC/IMMUNOLOGIC: Absent: easy bleeding, easy bruising, lymphadenopathy, frequent infections ENDOCRINE: Absent: unexplained weight gain, unexplained weight loss, heat intolerance, cold intolerance NEUROLOGIC: +LUE weakness Absent: headache, focal weakness or paresthesias, dizziness, unsteady gait, seizure, mental status changes, bladder or bowel incontinence PSYCHIATRIC: Absent: anxiety, depression, suicidal or homicidal ideation, hallucinations. PHYSICAL EXAMINATION Vital Signs - 24 hr 02/12/18 07:50 Temperature 97.6 F Pulse Rate 55 L Respiratory 19 Rate Blood Pressure 148/70 O2 Sat by Pulse 97 Oximetry (%) GENERAL: Resting in bed. in no acute distress HEAD: Normal with no signs of trauma. +neck erythema EYES: + R eye strabismus with limited lateral movement. reactive to light. EARS, NOSE, THROAT: Ears normal, nares patent, oropharynx clear without exudates. NECK: Normal range of motion, supple LUNGS: Breath sounds equal, clear to auscultation bilaterally. No wheezes, and no crackles. HEART: +irregularly irregular rate and rhythm, normal S1 and S2 . without murmur , rub or gallop ABDOMEN: Soft, obese, nontender, not distended, normoactive bowel sounds, no guarding, no rebound, no masses. LOWER EXTREMITIES: 2+ pt pulses, warm, well-perfused. with chronic changes. No calf tenderness. No peripheral edema. NEUROLOGICAL: Cranial nerves II-XII intact. +R eye strabismus-chronic. +LUE weakness strength 3/5. RUE 5/5. LLE: 4/5, RLE: 5/5. sensation intact throughout. without facial droop. no dysarthria as per daughter. PSYCHIATRIC: Cooperative. Good eye contact. SKIN: Warm, dry, normal turgor Laboratory Results - last 24 hr 02/12/18 02/12/18 02/12/18 09:10 09:10 09:10 WBC 5.3 RBC 4.86 Hgb 15.0 Hct 45.7 MCV 94.1 MCH 30.8 MCHC 32.8 RDW 13.4 Plt Count 185 MPV 8.9 Absolute Neuts (auto) 3.0 Neutrophils % 57.0 Lymphocytes % 31.0 Monocytes % 9.4 Eosinophils % 2.2 Basophils % 0.4 Nucleated RBC % 0 PT with INR 11.90 INR 1.01 Sodium 139 Potassium 4.3 Chloride 105 Carbon Dioxide 28 Anion Gap 7 L BUN 18 Creatinine 1.0 Creat Clearance w eGFR > 60 POC Glucometer Random Glucose 109 H Calcium 8.4 L Total Bilirubin 0.8 AST 19 ALT 33 Alkaline Phosphatase 85 Creatine Kinase 97 Troponin I < 0.02 Total Protein 7.4 Albumin 3.9 Triglycerides 192 H Cholesterol 179 Total LDL Cholesterol 102 H HDL Cholesterol 36 L Vitamin B12 342 TSH 1.56 D Blood Type Antibody Screen ASSESSMENT/PLAN: 62 y/o burmese speaking M with PMH HTN, CAD s/p CABG (2005; 3 vessel dz), former smoker, diastolic CHF (nl EF), paraoxysmal afib (on coumadin prior), who presents to the ED c/o LUE weakness over the past month, worsened over the past day. #R/o CVA - possible ischemic stroke -continues to have LUE weakness, decreased strength. was outside of tPA window > 3 hrs upon arrival -CTH: without acute changes, chronic lacunar infarcts, cerebellar encephalomelacia, calcification of cavernous carotid sinus -as with CTH (-) acute changes, and hx paraoxysmal afib, may be ischemic 2/2 embolic source -permissive HTN x24hrs. ending tonight 5PM -continue asa 81mg, lipitor 80mg qd -TSH, B12 WNL -Brain MRI w/w/o contrast ordered -Neuro consult: Dr. Cueva -speech and swallow consult; currently NPO -carotid dopp: mod stenosis 60-80% both internal carotids -ECHO: can't exclude wall motion abnormalities, mod concentric LVH, severe TR -stroke unit monitoring #hx paraoxysmal afib -as per daughter, has been off coumadin and on asa for a/c due to past drinking hx -continue asa 81mg PO qd for a/c #HTN-uncontrolled -hold BP meds at this time to allow for permissive HTN x24hrs in case of ischemic stroke. (5pm) -can restart BP meds in PM (met succinate 100mg PO qd, amlodipine 5mg PO qd, lisinopril 40mg PO qd) use caution to not drop BP low or too high. unclear whether pt compliant or not , start slowly #hx ICD -not capturing on EKG -find out when last interrogation #F/E/N no IVF at this time; with hx CHF continue to follow lytes NPO until speech and swallow consult #PPX asa 81mg PO qd #Dispo stroke unit Visit type - Emergency Visit Emergency Visit: Yes ED Registration Date: 02/12/18 Care time: The patient presented to the Emergency Department on the above date and was hospitalized for further evaluation of their emergent condition. - New Patient This patient is new to me today: Yes Date on this admission: 02/12/18 - Critical Care Critical Care patient: No
--- NOTE | 2018-02-12 13:16 | ECHO ---
Name: BERNARDINO BARCENAS Exam:Adult Echocardiogram Study Date: 02/12/2018 11:39 AM Age: 62 yrs Reason For Study: CVA Height: 71 in Weight: 260 lb BSA: 2.4 m2 MMode/2D Measurements & Calculations IVSd: 1.0 cm Ao root diam: 3.7 cm LVIDd: 4.9 cm LA dimension: 4.7 cm LVIDs: 3.1 cm LVPWd: 1.2 cm EDV(Teich): 113.0 ml LAV (MOD-bp): 77.5 ml ESV(Teich): 37.5 ml Doppler Measurements & Calculations MV E max regis: 74.2 cm/sec MR max regis: 405.8 cm/sec MV dec time: 0.18 sec MR max P.0 mmHg TR max regis: 287.5 cm/sec PI end-d regis: 135.7 cm/sec TR max P.2 mmHg Med Peak E' Regis: 6.6 cm/sec Med E/e': 11.2 Lat Peak E' Regis: 9.1 cm/sec Lat E/e': 8.1 Procedure A two-dimensional transthoracic echocardiogram with color flow and Doppler was performed. The study w as technically difficult with many images being suboptimal in quality. Left Ventricle There is moderate concentric left ventricular hypertrophy. Left ventricular systolic function is bord fredy reduced. Regional wall motion abnormalities cannot be excluded due to limited visualization. Right Ventricle The right ventricle is grossly normal size. There is a pacemaker lead in the right ventricle. The rig ht ventricle is not well visualized. Atria The left atrium is moderately dilated. The right atrium is moderately dilated. Mitral Valve The mitral valve is not well visualized. Tricuspid Valve There is mild tricuspid valve thickening. There is no tricuspid stenosis. There is moderate to severe tricuspid regurgitation. Right ventricular systolic pressure is elevated at 40-50mmHg. Aortic Valve The aortic valve is trileaflet. There is mild to moderate aortic valve thickening. There is mild aort ic sclerosis.;. No hemodynamically significant valvular aortic stenosis. No aortic regurgitation is pres ent. Pulmonic Valve The pulmonic valve is not well visualized. There is no pulmonic valvular stenosis. Moderate pulmonic valvular regurgitation. Great Vessels The aortic root is normal size. Pericardium/Pleura There is no pericardial effusion. Interpretation Summary The left atrium is moderately dilated. The right atrium is moderately dilated. There is moderate concentric left ventricular hypertrophy. Regional wall motion abnormalities cannot be excluded due to limited visualization. There is moderate to severe tricuspid regurgitation. Right ventricular systolic pressure is elevated at 40-50mmHg. There is mild to moderate aortic valve thickening. There is mild aortic sclerosis.; Moderate pulmonic valvular regurgitation. Left ventricular systolic function is borderline reduced. There is a pacemaker lead in the right ventricle. The study was technically difficult with many images being suboptimal in quality. The mitral valve is not well visualized. MD Matti Maurer 02/12/2018 01:15 PM
[2018-02-12] MEDS: ASPIRIN 81 MG CHEWABLE TABLETS PO SCH (14:19)
[2018-02-12] MEDS ORDERED: RANITIDINE HCL 150 MG TABLET (FP) ONE (22:57)
[2018-02-12] MEDS ORDERED: GABAPENTIN 100 MG CAPSULE (FP) ONE (22:57)
[2018-02-12] MEDS: RANITIDINE HCL 150 MG TABLET (FP) PO SCH (22:59)
[2018-02-12] MEDS: GABAPENTIN 100 MG CAPSULE (FP) PO SCH (22:59)
[2018-02-13 07:02] LABS: BASO % 0.5 % (0-2.0); HEMATOCRIT 42.3 % (35.4-49); LYMPH % 32.4 % (8-40); MCH 32.6 pg (25.7-33.7); MCHC 35.3 g/dl (32.0-35.9); MEAN CELL VOLUME 92.5 fl (80-96); MEAN PLT VOLUME 8.6 fl (7.5-11.1); MONO % 9.7 % (3.8-10.2); NEUT % 55.4 % (42.8-82.8); PLATELET COUNT 186 K/MM3 (134-434); RBC 4.58 M/mm3 (4.00-5.60); RDW 13.8 % (11.9-15.9); WHITE BLOOD COUNT 6.5 K/mm3 (4.0-10.0)
[2018-02-13 07:33] LABS: ANION GAP 6 MMOL/L (8-16); BLOOD UREA NITROGEN 18 mg/dL (7-18); CALCIUM 8.5 mg/dL (8.5-10.1); CHLORIDE 107 mmol/L (98-107); CO2 25 mmol/L (21-32); CREATININE 0.8 mg/dL (0.55-1.3); GLUCOSE,RANDOM 103 mg/dL (74-106); MAGNESIUM 1.9 mg/dL (1.8-2.4); PHOSPHOROUS 3.7 mg/dL (2.5-4.9); POTASSIUM 4.3 mmol/L (3.5-5.1); SODIUM 138 mmol/L (136-145)
--- NOTE | 2018-02-13 09:47 | CONSULT ---
- Consultation REQUESTING PROVIDER: CONSULT REQUEST: We have been asked to surgically evaluate this patient for moderate b/l carotid stenosis. PCP:Sonia Lind HISTORY OF PRESENT ILLNESS: 62 y/o M w/ PMHx hypertension, CAD, s/p CABG x3 ( 2005), dCHF s/p ICD (normal EF on last Echo), paroxysmal Afib not on AC at this time, now presents to ED with progressive L sided weakness. Pt states he began having "attacks" a month ago which have worsened over the last few days. Describes attacks as headaches and LUE>LLE weakness. Initially LUE weakness lasted 1 minute, now reports persistent LUE weakness since 5pm last night. Also reports weakness in his LLE and difficulty ambulating since last night. Endorses episodes of blurry vision with flashes of light in his L eye. Denies slurred speech, facial droop, confusion, difficulty understanding speech or other motor neurological deficits. Denies fever, chills, SOB, chest pain or pressure, or changes in urinary or bowel function. Reports seeing his [facility] 2 weeks ago, had a full workup including a carotid duplex. At baseline, lives home with family, is able to ambulate unlimited blocks without assistance. Has a history of tobacco abuse, quit 27 years ago. PMHx: as above PSHx: as above Home Medications Medication Instructions Recorded Atorvastatin Ca [Lipitor] 20 mg PO HS 10/10/13 Amlodipine Besylate 5 mg PO DAILY 11/23/16 Aspirin [ASA -] 81 mg PO DAILY 11/23/16 Folic Acid 1 mg PO DAILY 11/23/16 Gabapentin 100 mg PO BID 11/23/16 Lisinopril [Prinivil -] 40 mg PO DAILY 11/23/16 Ranitidine [Zantac -] 150 mg PO HS 11/23/16 Diclofenac Sodium 50 mg PO BID PRN 01/18/18 Ergocalciferol [Vitamin D2] 50,000 unit PO Q7D@1000 01/18/18 Hydroxyzine HCl 25 mg PO BID 01/18/18 Metoprolol Succinate 100 mg PO DAILY 01/18/18 Vitamin B Complex [B Complex] 1 each PO DAILY 01/18/18 Allergies Allergy/AdvReac Type Severity Reaction Status Date / Time No Known Allergies Allergy Verified 02/12/18 07:53 REVIEW OF SYSTEMS: CONSTITUTIONAL: Absent: fever, chills, diaphoresis CARDIOVASCULAR: Absent: chest pain, syncope RESPIRATORY: Absent: cough, shortness of breath NEUROLOGIC: +headache, + weakness, PHYSICAL EXAM: GENERAL: Awake, alert, and fully oriented, in no acute distress. HEAD: Normal with no signs of trauma. No facial droop. Tongue protrudes midline. LUNGS: Clear to auscultation bilat anteriorly. No wheezes, and no crackles. No accessory muscle use. HEART: Regular rate and rhythm. Upper Extremities: RUE 5/5 biceps/triceps, LUE 4+/5 biceps/triceps. T[employer] Room Supervisor strength 5/5, equal b/l. SILT b/l ue LOWER EXTREMITIES: 5/5 b/l le's ehl/fhl/df/pf. SILT b/l. NEUROLOGICAL: Normal speech, gait not observed. PSYCH: Cooperative. Good eye contact. Appropriate mood and affect. SKIN: Warm, dry, normal turgor, no rashes or lesions noted. Vital Signs Temperature 98.4 F 02/13/18 09:11 Pulse Rate 61 02/13/18 09:11 Respiratory Rate 18 02/13/18 09:11 Blood Pressure 127/69 02/13/18 09:11 O2 Sat by Pulse Oximetry (%) 97 02/13/18 09:11 Lab Results WBC 6.5 K/mm3 (4.0-10.0) 02/13/18 06:40 RBC 4.58 M/mm3 (4.00-5.60) 02/13/18 06:40 Hgb 15.0 GM/dL (11.7-16.9) 02/13/18 06:40 Hct 42.3 % (35.4-49) 02/13/18 06:40 MCV 92.5 fl (80-96) 02/13/18 06:40 MCHC 35.3 g/dl (32.0-35.9) 02/13/18 06:40 RDW 13.8 % (11.9-15.9) 02/13/18 06:40 Plt Count 186 K/MM3 (134-434) 02/13/18 06:40 Sodium 138 mmol/L (136-145) 02/13/18 06:40 Potassium 4.3 mmol/L (3.5-5.1) 02/13/18 06:40 Chloride 107 mmol/L (98-107) 02/13/18 06:40 Carbon Dioxide 25 mmol/L (21-32) 02/13/18 06:40 Anion Gap 6 MMOL/L (8-16) L 02/13/18 06:40 BUN 18 mg/dL (7-18) 02/13/18 06:40 Creatinine 0.8 mg/dL (0.55-1.3) 02/13/18 06:40 Random Glucose 103 mg/dL (74-106) 02/13/18 06:40 Calcium 8.5 mg/dL (8.5-10.1) 02/13/18 06:40 Blood Type A POSITIVE 02/12/18 09:10 Antibody Screen Negative 02/12/18 09:10 INR 1.01 (0.83-1.09) 02/12/18 09:10 Carotid duplex 02/12/18: Moderate atherosclerotic disease with stenosis in the 60-79% range involving both internal carotid arteries. CTH (02/12/18): Small focal low attenuation density in the left and right lombardo radiata suggestive of lacunar infarcts, probably chronic. A/P: 62 y/o M w/ PMHx hypertension, CAD, s/p CABG x3 (2005), dCHF s/p ICD ( normal EF on last Echo), paroxysmal Afib not on AC at this time, now presents to ED with progressive L sided weakness. CTH with possible chronic lacunar infarcts. Carotid duplex with moderate atherosclerotic disease 60-79% bilaterally. -Recommend Neck CTA (ordered) -Continue asa 81mg -Care per primary team above d/w attending Dr Ramirez
--- NOTE | 2018-02-13 09:58 | PN ---
Teaching Attending Note Name of Resident: Chelo Yadav ATTENDING PHYSICIAN STATEMENT I saw and evaluated the patient. I reviewed the resident's note and discussed the case with the resident. I agree with the resident's findings and plan as documented. SUBJECTIVE: Patient is feeling better, no further numbness. OBJECTIVE: Vital Signs Temperature 98.4 F 02/13/18 09:11 Pulse Rate 61 02/13/18 09:11 Respiratory Rate 18 02/13/18 09:11 Blood Pressure 127/69 02/13/18 09:11 O2 Sat by Pulse Oximetry (%) 97 02/13/18 09:11 GENERAL: Resting in bed. in no acute distress HEAD: Normal with no signs of trauma. EYES: positive for strabismus . reactive to light. EARS, NOSE, THROAT: Ears normal, oropharynx clear without exudates. NECK: Normal range of motion, supple LUNGS: Breath sounds equal, clear to auscultation bilaterally. No wheezes, and no crackles. HEART: Irregularly-irregular rate and rhythm, normal S1 and S2 . without murmur , rub or gallop ABDOMEN: Soft, large abdomen, nontender, not distended, normoactive bowel sounds , no guarding, no rebound, no masses. EXTREMITIES: 2+ pt pulses, warm, well-perfused. with chronic changes. No calf tenderness. No peripheral edema. NEUROLOGICAL: Cranial nerves II-XII intact. LUE weakness strength 4/5. RUE 5/ 5. LLE: 4/5, RLE: 5/5. sensation are intact , no facial droop. no dysarthria. PSYCHIATRIC: Cooperative. Good eye contact. SKIN: Warm, dry, normal turgor CBCD WBC 6.5 K/mm3 (4.0-10.0) 02/13/18 06:40 RBC 4.58 M/mm3 (4.00-5.60) 02/13/18 06:40 Hgb 15.0 GM/dL (11.7-16.9) 02/13/18 06:40 Hct 42.3 % (35.4-49) 02/13/18 06:40 MCV 92.5 fl (80-96) 02/13/18 06:40 MCHC 35.3 g/dl (32.0-35.9) 02/13/18 06:40 RDW 13.8 % (11.9-15.9) 02/13/18 06:40 Plt Count 186 K/MM3 (134-434) 02/13/18 06:40 MPV 8.6 fl (7.5-11.1) 02/13/18 06:40 CMP Sodium 138 mmol/L (136-145) 02/13/18 06:40 Potassium 4.3 mmol/L (3.5-5.1) 02/13/18 06:40 Chloride 107 mmol/L (98-107) 02/13/18 06:40 Carbon Dioxide 25 mmol/L (21-32) 02/13/18 06:40 Anion Gap 6 MMOL/L (8-16) L 02/13/18 06:40 BUN 18 mg/dL (7-18) 02/13/18 06:40 Creatinine 0.8 mg/dL (0.55-1.3) 02/13/18 06:40 Creat Clearance w eGFR > 60 (>60) 02/13/18 06:40 Random Glucose 103 mg/dL (74-106) 02/13/18 06:40 Calcium 8.5 mg/dL (8.5-10.1) 02/13/18 06:40 Total Bilirubin 0.8 mg/dL (0.2-1) 02/12/18 09:10 AST 19 U/L (15-37) 02/12/18 09:10 ALT 33 U/L (13-61) 02/12/18 09:10 Alkaline Phosphatase 85 U/L (45-117) 02/12/18 09:10 Total Protein 7.4 g/dl (6.4-8.2) 02/12/18 09:10 Albumin 3.9 g/dl (3.4-5.0) 02/12/18 09:10 CARDIAC ENZYMES Creatine Kinase 97 IU/L (26-308) 02/12/18 09:10 Troponin I < 0.02 ng/ml (0.00-0.05) 02/12/18 09:10 Current Medications Generic Name Dose Route Start Last Admin Trade Name Freq PRN Reason Stop Dose Admin Amlodipine Besylate 5 mg 02/13/18 10:00 Norvasc - PO DAILY DARIAN Aspirin 81 mg 02/12/18 14:15 12/19/18 14:19 Asa - PO Not Given DAILY DARIAN Atorvastatin Calcium 80 mg 02/13/18 22:00 Lipitor - PO HS DARIAN Folic Acid 1 mg 02/13/18 10:00 Folic Acid - PO DAILY DARIAN Gabapentin 100 mg 02/12/18 22:00 02/12/18 22:59 Neurontin - PO 100 mg BID DARIAN Administration Metoprolol Succinate 100 mg 02/13/18 10:00 Toprol Xl - PO DAILY DARIAN Ranitidine HCl 150 mg 02/12/18 22:00 02/12/18 22:59 Zantac - PO 150 mg HS DARIAN Administration Home Medications Medication Instructions Recorded Atorvastatin Ca [Lipitor] 20 mg PO HS 10/10/13 Amlodipine Besylate 5 mg PO DAILY 11/23/16 Aspirin [ASA -] 81 mg PO DAILY 11/23/16 Folic Acid 1 mg PO DAILY 11/23/16 Gabapentin 100 mg PO BID 11/23/16 Lisinopril [Prinivil -] 40 mg PO DAILY 11/23/16 Ranitidine [Zantac -] 150 mg PO HS 11/23/16 Diclofenac Sodium 50 mg PO BID PRN 01/18/18 Ergocalciferol [Vitamin D2] 50,000 unit PO Q7D@1000 01/18/18 Hydroxyzine HCl 25 mg PO BID 01/18/18 Metoprolol Succinate 100 mg PO DAILY 01/18/18 Vitamin B Complex [B Complex] 1 each PO DAILY 01/18/18 CTH: without acute changes, chronic lacunar infarcts, cerebellar encephalomelacia, calcification of cavernous carotid sinus ECHO: can't exclude wall motion abnormalities, mod concentric LVH, severe TR carotid dopp: mod stenosis 60-80% both internal carotids ASSESSMENT AND PLAN: This patient is a 62yo australian speaking male with PMHx of HTN, CAD s/p CABG ( 2005; 3 vessel dz), former smoker and drinker , diastolic CHF (nl EF), paraoxysmal afib (was on coumadin) who presents to the ED c/o LUE weakness with a similar episode over a month ago , worsened over this past day. # TIA cannot r/o CVA - possible ischemic stroke . will continue aspirin 81mg and will add Lipitor 80mg daily , will wait neurology input. Patient improved. #Hx of paraoxysmal afib ,has a pacemaker , will get cardio to see the patient, dr. Denny for consult #HTN-uncontrolled rivera start the BP meds. #hx ICD/pacemaker; cardio consult appreciated, f/u interrogation, on metoprolol ER for HR, arrhythmias, CHF. # Carotid stenosis: 60-79% , will get to see the patient. #DVt px: heparin sq #Dispo stroke unit
[2018-02-13] MEDS ORDERED: amLODIPine BESYLATE 5 MG TABLET (FP) PO SCH (10:00)
[2018-02-13] MEDS ORDERED: PT OWN MED DRAWER 7, Y5N ONE (10:44)
[2018-02-13] MEDS ORDERED: FOLIC ACID 1 MG TABLET (FP) ONE (10:46)
[2018-02-13] MEDS ORDERED: amLODIPine BESYLATE 5 MG TABLET (FP) ONE (10:46)
[2018-02-13] MEDS ORDERED: ASPIRIN 81 MG CHEWABLE TABLETS ONE (10:46)
[2018-02-13] MEDS ORDERED: GABAPENTIN 100 MG CAPSULE (FP) ONE (10:46)
[2018-02-13] MEDS: GABAPENTIN 100 MG CAPSULE (FP) PO SCH ×2 (10:47→21:04)
[2018-02-13] MEDS: ASPIRIN 81 MG CHEWABLE TABLETS PO SCH (10:47)
[2018-02-13] MEDS: FOLIC ACID 1 MG TABLET (FP) PO SCH (10:47)
--- NOTE | 2018-02-13 12:43 | PN ---
Progress Note, Physician Chief Complaint: Pt alert; his daughter is present; anxious regarding weakness of left side; wants to know if he will regain full use ans strength of that side. History of Present Illness: Patient is a 62-year-old male (marcelo Rosa) with history of chronic alcoholism, hypertension, CAD (status post CABG 3 vessels), systolic CHF and VT-->ICD, PAF (had been on warfarin, but stopped because of repeated episodes of intoxication and falls; daughter had decided it was too dangerous for him to be on anticoagulation),,DM, HTN, hyperlipidemia, former smoker (quit many years ago; hx two brothers with throat cancer), presents to the ER with worsening left upper extremity weakness. Patient endorses that for the past month intermittently experienced weakness of the left upper extremity and to the lesser degree left lower extremity; however, the night prior to arrival, patient reports that his left upper extremity weakness has worsened significantly. Patient denies facial/visual/speech disturbances; patient also reports that his gait has been affected by the left lower extremity weakness. Patient is poorly compliant with his medication regimen as per his foreign exchange trader. - Current Medication List Current Medications: Active Medications Amlodipine Besylate (Norvasc -) 5 mg PO DAILY [facility] Last Admin: 02/13/18 10:47 Dose: 5 mg Aspirin (Asa -) 81 mg PO DAILY [facility] Last Admin: 02/13/18 10:47 Dose: 81 mg Atorvastatin Calcium (Lipitor -) 80 mg PO [facility] Folic Acid (Folic Acid -) 1 mg PO DAILY [facility] Last Admin: 02/13/18 10:47 Dose: 1 mg Gabapentin (Neurontin -) 100 mg PO BID [facility] Last Admin: 02/13/18 10:47 Dose: 100 mg Metoprolol Succinate (Toprol Xl -) 100 mg PO DAILY [facility] Last Admin: 02/13/18 10:47 Dose: 100 mg Ranitidine HCl (Zantac -) 150 mg PO [facility] Last Admin: 02/12/18 22:59 Dose: 150 mg - Objective Vital Signs: Vital Signs Temperature 98.0 F 02/13/18 10:49 Pulse Rate 56 L 02/13/18 10:49 Respiratory Rate 16 02/13/18 10:49 Blood Pressure 134/77 02/13/18 10:49 O2 Sat by Pulse Oximetry (%) 98 02/13/18 10:49 Constitutional: Yes: Anxious Eyes: Yes: WNL HENT: Yes: WNL Neck: Yes: Supple Cardiovascular: Yes: Bradycardia, S1, S2, S4 Respiratory: Yes: WNL Gastrointestinal: Yes: Soft ...Rectal Exam: Yes: Deferred Genitourinary: No: Anuria Breast(s): Yes: WNL Extremities: Yes: Other (mild weakness of left arm) Edema: No Peripheral Pulses WNL: Yes Integumentary: Yes: WNL Neurological: Yes: Alert, Oriented, Weakness Psychiatric: Yes: Other (anxiety; chronic alcoholixm) Labs: CBC, BMP 02/13/18 06:40 02/13/18 06:40 INR, PTT INR 1.01 (0.83-1.09) 02/12/18 09:10 - ....Imaging Cat Scan: Pending EKG: Image Reviewed (sinus bradycarida; nonspecific T wave changes) Problem List - Problems (1) Paroxysmal atrial fibrillation Assessment/Plan: On metoprolol ER for HR control.. Pt had been on warfarin, but it was discontinued after long discussions with pt and his daughter, Jeanette. 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 Today, with daughter present, Mr. Gerardo promises to never drink again; he has said this before, but now is frightened from the sudden weakness (DVA). His daughter says they will accept the risk of bleed for the benefit in further embolic stroke reduction. If cleared by neurologist, will restart anticoagulant (IV heparin or sc Lovenox if surgery of carotid artieries is to take place this admission; otherwise, will start a DOAC, e.g. apixaban). Code(s): I48.0 - PAROXYSMAL ATRIAL FIBRILLATION (2) CVA (cerebral vascular accident) Assessment/Plan: small bilateral lesions in lombardo radiata, likely chronic lacunar infarcts; no acute process noted. F/u cartid artery workup. F/u with neurologist. Code(s): I63.9 - CEREBRAL INFARCTION, UNSPECIFIED Qualifiers: CVA mechanism: unspecified Qualified Code(s): I63.9 - Cerebral infarction, unspecified (3) ASHD (arteriosclerotic heart disease) Assessment/Plan: Hx CABG Hx ICD. Code(s): I25.10 - ATHSCL HEART DISEASE OF [place] CORONARY ARTERY W/O ANG PCTRS (4) Alcohol abuse Code(s): F10.10 - ALCOHOL ABUSE, UNCOMPLICATED (5) Systolic CHF Assessment/Plan: see under "HTN". Code(s): I50.20 - UNSPECIFIED SYSTOLIC (CONGESTIVE) HEART FAILURE (6) Ventricular tachycardia Assessment/Plan: On metoprolol ER. F/u ICD interrogation. Code(s): I47.2 - VENTRICULAR TACHYCARDIA (7) HTN (hypertension) Assessment/Plan: On metoprolol ER (hx systolic LV dysfunction; most recent ECHO shows borderline reduction in LVER). Start ARG for CHF, HTN, DM; will stop amlodipine. Code(s): I10 - ESSENTIAL (PRIMARY) HYPERTENSION (8) Hyperlipidemia Assessment/Plan: Keep LDL cholester < 70 mg/dL; statin. Code(s): E78.5 - HYPERLIPIDEMIA, UNSPECIFIED (9) ICD (implantable cardioverter-defibrillator) in place Assessment/Plan: f/u interrogation On metoprolol ER for HR, arrhythmias, CHF. Code(s): Z95.810 - PRESENCE OF AUTOMATIC (IMPLANTABLE) CARDIAC DEFIBRILLATOR (10) Obesity (BMI 30-39.9) Code(s): E66.9 - OBESITY, UNSPECIFIED (11) Diabetes Code(s): E11.9 - TYPE 2 DIABETES MELLITUS WITHOUT COMPLICATIONS (12) Carotid artery disease Assessment/Plan: Evidence of significant disease by carotid artery US. F/u CTA of the neck. Code(s): I77.9 - DISORDER OF ARTERIES AND ARTERIOLES, UNSPECIFIED
--- NOTE | 2018-02-13 14:51 | CONSULT ---
Admitting History and Physical - Primary Care Physician PCP: Sonia Lind - Admission History of Present Illness: 62 y/o M w/ PMHx hypertension, CAD, s/p CABG x3 (2005), dCHF s/p ICD (normal EF on last Echo), paroxysmal Afib not on AC at this time, now presents to ED with progressive L sided weakness. CTH with possible chronic lacunar infarcts. Carotid duplex with moderate atherosclerotic disease 60-79% bilaterally. 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
[2018-02-13] MEDS ORDERED: LOSARTAN POTASSIUM 25 MG TABLET PO ONE (15:15)
--- NOTE | 2018-02-13 15:29 | CONSULT ---
Admitting History and Physical - Primary Care Physician PCP: Sonia Lind - Admission History of Present Illness: Previous consult signed out, before completed History Source: Patient, Family Member Limitations to Obtaining History: Language Barrier - Past Medical History Cardiovascular: Yes: CAD, CHF, HTN, Hyperlipdemia, Other Gastrointestinal: Yes: GERD Psych: Yes: Addictions, Other - Past Surgical History Past Surgical History: Yes: AICD, CABG - Smoking History Smoking history: Never smoked Have you smoked in the past 12 months: No Aproximately how many cigarettes per day: 0 - Alcohol/Substance Use Hx Alcohol Use: No History of Substance Use: reports: None - Social History 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: 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 History of Recent Travel: No History - Admission Reason For Visit: CVA - Diagnostics X-ray: Report Reviewed CT Scan: Report Reviewed - General Mental Status: Alert and Oriented, Awake and Alert, Able to Follow Commands Attention: Intact Ability to Follow Directions: Excellent Head/Neck Control: WFL - Hearing Hearing: Functional Speech Evaluation - Communication Primary Language: SYRIAC Communication: Yes: Within Normal Limits, Language Barrier Oral Expression Ability: Yes: No Impairment - Speech Production Able to Make Needs Known: Yes: WNL Intelligibility: Yes: WNL - Speech Characteristics Voice Loudness: Normal Voice Pitch: Yes: Normal Voice Phonatory-based Quality: Yes: Normal Speech Pattern: Normal Speech Clarity: < 100% Nasal Resonance: Normal Articulation: Yes: Precise Rate of Speech: Intact - Language/Auditory Comprehension Follows: Yes: 2 Stage Simple Commands Observation: Able to respond to yes/no queries: Yes, Yes/No Confusion: No, Comprehends Conversational Speech: Yes - Language/Verbal Expression Able to Respond to Simple Queries: Yes: WNL Able to Communicate Wants and Needs: Yes: WNL Functional Communication Status: Yes: WNL - Memory/Perception longterm Memory: Yes: WNL Short Term Memory: Yes: WNL - Swallow Evaluation/Bedside Assessment Current Nutritional Intake: Regular, Thin Liquids Oral Secretions: Yes: WFL Dentition: Yes: Adequate Facial Symmetry at Rest: Symmetrical Facial Symmetry on Retraction: Symmetrical Facial Movement: Controlled Sensation: Normal Against Resistance Opening: Normal Against Resistance Closing: Normal Pucker Lips: Normal Smile: Normal Lingual Movement: Normal, Symmetric Lingual Speed of Movement: Normal Lingual Movement Strgth Against Opposition: Normal Lingual Movement Characteristics: Normal Velopharyngeal Movement: Normal Laryngeal Movement: Able to Palpate Needs Assistance: No Rate of Intake: WFL Bolus Size: WFL Labial Seal: WFL Chewing: WFL Oral Prep Time: WFL A-P Transit: WFL Pocketing: None Timing of Swallow: WFL Coughing/Throat Clear: No Change in Voice: No Recommendations - Speech Evaluation, Impression/Plan Impression: Tajik speaking gentleman admitted r/o TIA/CVA. Presently, speech, production, language, cognition, swallowing are intact. - Dysphagia Impressions/Plan Swallowing Skills: [facility] Dysphagia Impressions: No Impairment *Silent aspiration: cannot be R/O at bedside - Recommendations Diet Consistency: Regular Medication Administration: Whole with water Liquids: Thin Liquids
--- NOTE | 2018-02-13 16:48 | PN ---
Physical Exam: SUBJECTIVE: Patient seen and examined at bedside this morning. No acute events overnight. Patient reported improvement of left arm weakness, and is now able to raise it without drifting down. He also reports headache, but otherwise denies fever, chills, nausea, vomiting, chest pain, SOB, palpitations, abdominal pain, diarrhea, constipation, urinary symptoms. OBJECTIVE: Vital Signs Period Temp Pulse Resp BP Sys/Peterson Pulse Ox Last 24 Hr 98.0 F-98.5 F 50-61 16-20 122-143/61-79 97-98 GENERAL: The patient is awake, alert, and fully oriented, in no acute distress. HEAD: Normal with no signs of trauma. EYES: PERRLA, EOMI, sclera anicteric, conjunctiva clear. ENT: Ears normal, nares patent, oropharynx clear without exudates, moist mucous membranes. NECK: Trachea midline, full range of motion, supple. LUNGS: Breath sounds equal, clear to auscultation bilaterally. HEART: irregularly irregular, S1, S2 without murmur, rub or gallop. ABDOMEN: Soft, nontender, nondistended, normoactive bowel sounds. EXTREMITIES: 2+ pulses, warm, well-perfused, no edema. NEUROLOGICAL: AAOx3, Cranial nerves II through XII grossly intact. LUE: 4/5 motor strength, RUE: 5/5 motor strength, LLE/RLE: 5/5 motor strength, sensation intact on all extremities, DTRs +2, Normal speech, gait not observed. PSYCH: Normal mood, normal affect. SKIN: Warm, dry, normal turgor, no rashes or lesions noted Laboratory Results - last 24 hr 02/13/18 02/13/18 02/13/18 06:40 06:40 06:40 WBC 6.5 RBC 4.58 Hgb 15.0 Hct 42.3 MCV 92.5 MCH 32.6 MCHC 35.3 RDW 13.8 Plt Count 186 MPV 8.6 Absolute Neuts (auto) 3.6 Neutrophils % 55.4 Lymphocytes % 32.4 Monocytes % 9.7 Eosinophils % 2.0 Basophils % 0.5 Nucleated RBC % 0 Sodium 138 Potassium 4.3 Chloride 107 Carbon Dioxide 25 Anion Gap 6 L BUN 18 Creatinine 0.8 Creat Clearance w eGFR > 60 Random Glucose 103 Hemoglobin A1c % 6.4 H Calcium 8.5 Phosphorus 3.7 Magnesium 1.9 Active Medications Generic Name Dose Route Start Last Admin Trade Name Jj PRN Reason Stop Dose Admin Aspirin 81 mg 02/12/18 14:15 02/13/18 10:47 Asa - PO 81 mg DAILY DARIAN Administration Atorvastatin Calcium 80 mg 02/13/18 22:00 Lipitor - PO HS DARIAN Folic Acid 1 mg 02/13/18 10:00 02/13/18 10:47 Folic Acid - PO 1 mg DAILY DARIAN Administration Gabapentin 100 mg 02/12/18 22:00 02/13/18 10:47 Neurontin - PO 100 mg BID DARIAN Administration Losartan Potassium 25 mg 02/14/18 10:00 Cozaar - PO DAILY DARIAN Metoprolol Succinate 100 mg 02/13/18 10:00 02/13/18 10:47 Toprol Xl - PO 100 mg DAILY DARIAN Administration Ranitidine HCl 150 mg 02/12/18 22:00 02/12/18 22:59 Zantac - PO 150 mg HS DARIAN Administration ASSESSMENT/PLAN: Patient is a 62 year old male with past medical history of HTN, CAD s/p CABG ( 2005, 3-vessel disease), systolic CHF, s/p ICD, paroxysmal AFib (on coumadin prior), presented with worsening left arm weakness that started a month ago, and left leg weakness that started 1 day ago. #LUE and LLE weakness: rule out CVA -Head CT: no acute intracranial pathology, chronic lacunar infarcts, cerebellar encephalomalacia, calcification of cavernous carotid sinus -Neurology (Dr. Cueva) consulted.Recommendations appreciated. -Suggest CT angiogram of intracranial circulation -Anticoagulation of paroxysmal AFib is well-documented. -Await Dr. Ramirez's consultation. Would consider b/l carotid artery stenting. -OT/PT for left arm and hand rehab -Continue aggressive treatment of BP and cholesterol. -Speech and swallow evaluation. -Continue ASA 81mg daily and Lipitor 80 mg daily -Brain MRI held as patient has ICD -Echo done. #Paroxysmal Atrial Fibrillation -Continue Metoprolol 100 mg daily for HR control -Previously on warfarin but was discontinued because patient has increased risk of falls, having had several episodes of alcoholic intoxication. -Cardiology (Dr. Retana) consulted. Recommendations appreciated. -Will start on anticoagulant, pending neuro recommendations -Would start on IV heparin or IV Lovenox if carotid artery surgery will be required this admission -DOAC like apixaban for long-term use. #HTN: controlled -On Metoprolol 100mg daily -Losartan 25mg daily -Will discontinue Amlodipine 5 mg #CAD s/p CABG -Carotid Doppler US: Moderate atherosclerotic disease with stenoses in the 60-79 % range involving both internal carotid arteries. -Vascular surgery (Dr. Ramirez) consulted. Recommendations appreciated. -Neck CTA: Comparison to prior neck CTA of the neck 08/07/17, no significant interval change in the degree of stenosis at the right and left common carotid bifurcation as well as in the proximal right ICA. Moderate size calcified plaque at the right common carotid bifurcation as well as a calcified plaque with focal significant narrowing of the proximal right ICA, approximately 8mm from its origin with 80-90% stenosis. Calcified plaque at the left common carotid bifurcation resulting in 80-90% stenosis at the origin of the left ICA. Hypoplastic left vertebral artery relative to the right with moderate atherosclerotic narrowing of its distal segment at C1 level. There is nonenhancement of the left vertebral artery from its origin up to C6 level. Retrograde enhancement of the left vertebral artery down to C6 level is unusual. Rule out severe stenosis/occlusion of the proximal left vertebral artery. -Will await neuro recommendations. #CHFrEF: not in exacerbation -will monitor for not -Cardiology (Dr. Retana) consulted. #FEN -Not on any standing fluids -Electrolytes wnl, routine bmp monitoring -Sodium-controlled diet #Prophylaxis -Aspirin 81 mg daily #Disposition -full code -admit to stroke unit Visit type - Emergency Visit Emergency Visit: Yes ED Registration Date: 02/12/18 Care time: The patient presented to the Emergency Department on the above date and was hospitalized for further evaluation of their emergent condition. - New Patient This patient is new to me today: Yes Date on this admission: 02/13/18 - Critical Care Critical Care patient: No
--- NOTE | 2018-02-13 21:02 | CONSULT ---
Consult - text type - Consultation Consultation Note: NEUROLOGY CONSULTATION is greatly appreciated: Events reviewed and discussed with his daughter, Matt who aides with history and translation. 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 S/P CABG x 3 and PPM/defibrillator placement. Paroxysmal AFib. Over the last month he has had multiple brief episodes of left arm weakness with increasing frequency. Initially a few per week, then daily. All lasted 1-5 mins and fully resolved until Saturday, on his way home from work when weakness recurred (Left arm > leg) and persisted. Pt notes some sensory change in the left arm but not the leg. CT of head shows mild atrophy and diffuse microvascular changes with B/L internal capsule lacunar infarcts. Carotid duplex shows 80% ICA stenosis Bilaterally CT Angio shows very irregular lumens of both carotid arteries from the aorta to the cranium with 90% ICA stenosis, B/L and occluded left vertebral. VUALDO: s/p Sternotomy. No bruits. Obese. Left radial artery harvested. NEURO: MS/speech: Normal CN II-XII: Right esotropia. Mild left Abduction deficit, otherwise full EOM's. Full rahman. Full EOM's. Gag-normal Motor: Left drift. left leg normal strength. Decreased JAH's left. Brisk reflexes on the left except absent AJ's B/L. Left Babinski. Coord: No obvious dystaxia Sensory: Decreased vib in feet. Gait: Mild left circumduction. IMP: Completed CVA. Probably a microvascular event (lacunar infarct) after crescendo TIA's. B/L carotid stenosis. SUGGEST: CT Angio of intracranial circulation. Anticoagulation if paroxysmal AFib is well-documented. Await Dr. Ramirez's consultation. Would consider B/L carotid artery stenting. OT/PT for left arm and hand rehab. Continue aggressive Rx of BP and Cholesterol. Thank you very much, Chalino Cueva MD
[2018-02-13] MEDS: RANITIDINE HCL 150 MG TABLET (FP) PO SCH (21:04)
[2018-02-13] MEDS: ATORVASTATIN CA 80 MG TABLET (FP) PO SCH (21:04)
[2018-02-14 07:21] LABS: HEMATOCRIT 42.6 % (35.4-49); MCH 32.3 pg (25.7-33.7); MCHC 35.1 g/dl (32.0-35.9); MEAN CELL VOLUME 92.1 fl (80-96); MEAN PLT VOLUME 8.8 fl (7.5-11.1); PLATELET COUNT 189 K/MM3 (134-434); RBC 4.63 M/mm3 (4.00-5.60); RDW 13.5 % (11.9-15.9); WHITE BLOOD COUNT 6.4 K/mm3 (4.0-10.0)
[2018-02-14 07:47] LABS: ANION GAP 10 MMOL/L (8-16); BLOOD UREA NITROGEN 15 mg/dL (7-18); CALCIUM 8.8 mg/dL (8.5-10.1); CHLORIDE 102 mmol/L (98-107); CO2 26 mmol/L (21-32); CREATININE 0.9 mg/dL (0.55-1.3); GLUCOSE,RANDOM 108 mg/dL (74-106); MAGNESIUM 2.3 mg/dL (1.8-2.4); PHOSPHOROUS 3.9 mg/dL (2.5-4.9); SODIUM 138 mmol/L (136-145)
--- NOTE | 2018-02-14 08:46 | PN ---
Progress Note, Physician Chief Complaint: Pt able to ambulate slowly in room; mild Left arm and leg weakness. History of Present Illness: Patient is a 62-year-old white male (marcelo Rosa) with history of chronic alcoholism, hypertension, CAD (status post CABG 3 vessels), systolic CHF and VT -->ICD, PAF (had been on warfarin, but stopped because of repeated episodes of intoxication and falls; daughter had decided it was too dangerous for him to be on anticoagulation),,DM, HTN, hyperlipidemia, former smoker (quit many years ago ; hx two brothers with throat cancer), presents to the ER with worsening left upper extremity weakness. Patient endorses that for the past month intermittently experienced weakness of the left upper extremity and to the lesser degree left lower extremity; however, the night prior to arrival, patient reports that his left upper extremity weakness has worsened significantly. Patient denies facial/visual/speech disturbances; patient also reports that his gait has been affected by the left lower extremity weakness. Patient is poorly compliant with his medication regimen as per his tie presser. - Current Medication List Current Medications: Active Medications Aspirin (Asa -) 81 mg PO DAILY [facility] Last Admin: 02/13/18 10:47 Dose: 81 mg Atorvastatin Calcium (Lipitor -) 80 mg PO HS [facility] Last Admin: 02/13/18 21:04 Dose: 80 mg Enoxaparin Sodium (Lovenox -) 120 mg SQ Q12H [facility] Folic Acid (Folic Acid -) 1 mg PO DAILY [facility] Last Admin: 02/13/18 10:47 Dose: 1 mg Gabapentin (Neurontin -) 100 mg PO BID [facility] Last Admin: 02/13/18 21:04 Dose: 100 mg Losartan Potassium (Cozaar -) 25 mg PO DAILY [facility] Metoprolol Succinate (Toprol Xl -) 100 mg PO DAILY [facility] Last Admin: 02/13/18 10:47 Dose: 100 mg Ranitidine HCl (Zantac -) 150 mg PO HS [facility] Last Admin: 02/13/18 21:04 Dose: 150 mg - Objective Vital Signs: Vital Signs Temperature 98.4 F 02/14/18 06:00 Pulse Rate 52 L 02/14/18 06:00 Respiratory Rate 20 02/14/18 06:00 Blood Pressure 107/73 02/14/18 06:00 O2 Sat by Pulse Oximetry (%) 96 02/13/18 21:00 Constitutional: Yes: Well Nourished Eyes: Yes: WNL HENT: Yes: WNL Neck: Yes: WNL Cardiovascular: Yes: Bradycardia, S1 (split), S2 Respiratory: Yes: WNL Gastrointestinal: Yes: WNL ...Rectal Exam: Yes: Deferred Genitourinary: No: Anuria Breast(s): Yes: WNL Musculoskeletal: Yes: WNL Extremities: Yes: Other (mild left arm and leg weakness) Edema: No Peripheral Pulses WNL: Yes Integumentary: Yes: WNL Neurological: Yes: WNL Psychiatric: Yes: WNL Labs: CBC, BMP 02/14/18 06:28 02/14/18 06:28 INR, PTT INR 1.01 (0.83-1.09) 02/12/18 09:10 Abnormal Lab Results 02/14/18 06:28 Random Glucose 108 H Problem List - Problems (1) Paroxysmal atrial fibrillation Assessment/Plan: On metoprolol ER for HR control.; complained of pulsation in head when he took metoprolol 100b mg; will change to 50 mg bid. Neurologist's input appreciated. Will start Lovenox 120 mg sc bid (pt weighs 119.2 kg). Code(s): I48.0 - PAROXYSMAL ATRIAL FIBRILLATION (2) CVA (cerebral vascular accident) Assessment/Plan: small bilateral lesions in lombardo radiata, likely chronic lacunar infarcts; no acute process noted. F/u carotid artery workup. F/u with neurologist. Code(s): I63.9 - CEREBRAL INFARCTION, UNSPECIFIED Qualifiers: CVA mechanism: unspecified Qualified Code(s): I63.9 - Cerebral infarction, unspecified (3) ASHD (arteriosclerotic heart disease) Assessment/Plan: Hx CABG Hx ICD. Code(s): I25.10 - ATHSCL HEART DISEASE OF [place] CORONARY ARTERY W/O ANG PCTRS (4) Alcohol abuse Code(s): F10.10 - ALCOHOL ABUSE, UNCOMPLICATED (5) Systolic CHF Code(s): I50.20 - UNSPECIFIED SYSTOLIC (CONGESTIVE) HEART FAILURE (6) Ventricular tachycardia Assessment/Plan: On metoprolol ER. F/u ICD interrogation. Code(s): I47.2 - VENTRICULAR TACHYCARDIA (7) HTN (hypertension) Assessment/Plan: On metoprolol ER (hx systolic LV dysfunction; most recent ECHO shows borderline reduction in LVEF). Start ARB for CHF, HTN, DM; will stop amlodipine. Code(s): I10 - ESSENTIAL (PRIMARY) HYPERTENSION (8) Hyperlipidemia Assessment/Plan: Keep LDL cholesterol < 70 mg/dL with statin, diet/weight loss, exercise. Code(s): E78.5 - HYPERLIPIDEMIA, UNSPECIFIED (9) ICD (implantable cardioverter-defibrillator) in place Assessment/Plan: f/u interrogation On metoprolol ER for HR, arrhythmias, CHF. Code(s): Z95.810 - PRESENCE OF AUTOMATIC (IMPLANTABLE) CARDIAC DEFIBRILLATOR (10) Obesity (BMI 30-39.9) Assessment/Plan: dietary consultation would be of benefit. Code(s): E66.9 - OBESITY, UNSPECIFIED (11) Diabetes Code(s): E11.9 - TYPE 2 DIABETES MELLITUS WITHOUT COMPLICATIONS (12) Carotid artery disease Assessment/Plan: Evidence of significant disease by carotid artery US and CTA; f/u with vascular surgeon.. Code(s): I77.9 - DISORDER OF ARTERIES AND ARTERIOLES, UNSPECIFIED
--- NOTE | 2018-02-14 09:55 | PN ---
Teaching Attending Note Name of Resident: Chelo Yadav ATTENDING PHYSICIAN STATEMENT I saw and evaluated the patient. I reviewed the resident's note and discussed the case with the resident. I agree with the resident's findings and plan as documented. SUBJECTIVE: Patient has no new complains. OBJECTIVE: Vital Signs Temperature 98.4 F 02/14/18 06:00 Pulse Rate 52 L 02/14/18 06:00 Respiratory Rate 20 02/14/18 06:00 Blood Pressure 107/73 02/14/18 06:00 O2 Sat by Pulse Oximetry (%) 96 02/13/18 21:00 GENERAL: Resting in bed. in no acute distress HEAD: Normal with no signs of trauma. EYES: positive for strabismus . reactive to light. EARS, NOSE, THROAT: Ears normal, oropharynx clear without exudates. NECK: Normal range of motion, supple LUNGS: Breath sounds equal, clear to auscultation bilaterally. No wheezes, and no crackles. HEART: Irregularly-irregular rate and rhythm, normal S1 and S2 . without murmur , rub or gallop ABDOMEN: Soft, large abdomen, nontender, not distended, normoactive bowel sounds , no guarding, no rebound, no masses. EXTREMITIES: 2+ pt pulses, warm, well-perfused. with chronic changes. No calf tenderness. No peripheral edema. NEUROLOGICAL: Cranial nerves II-XII intact. LUE weakness strength 4/5. RUE 5/ 5. LLE: 4/5, RLE: 5/5. sensation are intact , no facial droop. no dysarthria. PSYCHIATRIC: Cooperative. Good eye contact. SKIN: Warm, dry, normal turgor CBCD WBC 6.4 K/mm3 (4.0-10.0) 02/14/18 06:28 RBC 4.63 M/mm3 (4.00-5.60) 02/14/18 06:28 Hgb 15.0 GM/dL (11.7-16.9) 02/14/18 06:28 Hct 42.6 % (35.4-49) 02/14/18 06:28 MCV 92.1 fl (80-96) 02/14/18 06:28 MCHC 35.1 g/dl (32.0-35.9) 02/14/18 06:28 RDW 13.5 % (11.9-15.9) 02/14/18 06:28 Plt Count 189 K/MM3 (134-434) 02/14/18 06:28 MPV 8.8 fl (7.5-11.1) 02/14/18 06:28 CMP Sodium 138 mmol/L (136-145) 02/14/18 06:28 Potassium 4.0 mmol/L (3.5-5.1) 02/14/18 06:28 Chloride 102 mmol/L (98-107) 02/14/18 06:28 Carbon Dioxide 26 mmol/L (21-32) 02/14/18 06:28 Anion Gap 10 MMOL/L (8-16) 02/14/18 06:28 BUN 15 mg/dL (7-18) 02/14/18 06:28 Creatinine 0.9 mg/dL (0.55-1.3) 02/14/18 06:28 Creat Clearance w eGFR > 60 (>60) 02/14/18 06:28 Random Glucose 108 mg/dL (74-106) H 02/14/18 06:28 Calcium 8.8 mg/dL (8.5-10.1) 02/14/18 06:28 Total Bilirubin 0.8 mg/dL (0.2-1) 02/12/18 09:10 AST 19 U/L (15-37) 02/12/18 09:10 ALT 33 U/L (13-61) 02/12/18 09:10 Alkaline Phosphatase 85 U/L (45-117) 02/12/18 09:10 Total Protein 7.4 g/dl (6.4-8.2) 02/12/18 09:10 Albumin 3.9 g/dl (3.4-5.0) 02/12/18 09:10 CARDIAC ENZYMES Creatine Kinase 97 IU/L (26-308) 02/12/18 09:10 Troponin I < 0.02 ng/ml (0.00-0.05) 02/12/18 09:10 Current Medications Generic Name Dose Route Start Last Admin Trade Name Freq PRN Reason Stop Dose Admin Aspirin 81 mg 02/12/18 14:15 02/13/18 10:47 Asa - PO 81 mg DAILY DARIAN Administration Atorvastatin Calcium 80 mg 02/13/18 22:00 02/13/18 21:04 Lipitor - PO 80 mg HS DARIAN Administration Enoxaparin Sodium 120 mg 02/14/18 08:30 Lovenox - SQ Q12H DARIAN Folic Acid 1 mg 02/13/18 10:00 02/13/18 10:47 Folic Acid - PO 1 mg DAILY DARIAN Administration Gabapentin 100 mg 02/12/18 22:00 02/13/18 21:04 Neurontin - PO 100 mg BID DARIAN Administration Losartan Potassium 25 mg 02/14/18 10:00 Cozaar - PO DAILY DARIAN Metoprolol Succinate 100 mg 02/13/18 10:00 02/13/18 10:47 Toprol Xl - PO 100 mg DAILY DARIAN Administration Ranitidine HCl 150 mg 02/12/18 22:00 02/13/18 21:04 Zantac - PO 150 mg HS DARIAN Administration Home Medications Medication Instructions Recorded Atorvastatin Ca [Lipitor] 20 mg PO HS 10/10/13 Amlodipine Besylate 5 mg PO DAILY 11/23/16 Aspirin [ASA -] 81 mg PO DAILY 11/23/16 Folic Acid 1 mg PO DAILY 11/23/16 Gabapentin 100 mg PO BID 11/23/16 Lisinopril [Prinivil -] 40 mg PO DAILY 11/23/16 Ranitidine [Zantac -] 150 mg PO HS 11/23/16 Diclofenac Sodium 50 mg PO BID PRN 01/18/18 Ergocalciferol [Vitamin D2] 50,000 unit PO Q7D@1000 01/18/18 Hydroxyzine HCl 25 mg PO BID 01/18/18 Metoprolol Succinate 100 mg PO DAILY 01/18/18 Vitamin B Complex [B Complex] 1 each PO DAILY 01/18/18 IMPRESSION: Moderate size calcified plaque at the right common carotid bifurcation as well as a calcified plaque with focal significant narrowing of the proximal right internal carotid artery, approximately 8 mm from its origin with 80-90% stenosis. Calcified plaque at the left common carotid bifurcation resulting in 80-90% stenosis at the origin of the left internal carotid artery. Hypoplastic left vertebral artery relative to the right with moderate atherosclerotic narrowing of its distal segment at C1 level. There is nonenhancement of the left vertebral artery from its origin up to C6 level. Retrograde enhancement of the left vertebral artery down to C6 level is unusual. Rule out severe stenosis/occlusion of the proximal left vertebral artery. Correlate clinically and correlation with angiogram could be obtained if clinically indicated. Reported By: Jonah Garcia MD 02/13/18 5795 Evaluate for carotid stenosis CT angiogram of the neck. A post intravenous contrast CT angiogram of the neck was performed. MIP and 3 D volume rendering reconstruction images were obtained 99 cc of Omnipaque 350 was intravenously injected. Cervical course of the right common carotid artery appears unremarkable. There is a moderate size calcified plaque at the right common carotid bifurcation as well as a plaque with calcification in the proximal internal carotid artery, approximately 8 mm from its origin resulting in approximately 80-90% narrowing of its lumen. Cervical course of the left common carotid artery appears unremarkable with a calcified plaque at its bifurcation resulting in 80-90% stenosis. The right vertebral artery is dominant relative to the left with normal enhancement and without gross evidence of stenosis. A hypoplastic left vertebral artery with enhancement of its mid and distal portion starting from C6 level is seen. There is irregular atherosclerotic narrowing of the distal left vertebral artery at C1 resulting in moderate stenosis. The proximal left vertebral artery is not enhanced from its origin up to C6 level. The vertebrobasilar junction, basilar artery and intracranial bifurcation appear unremarkable. There are calcified plaques in the cavernous carotid artery, bilaterally without evidence of hemodynamically significant stenosis. Intracranial bifurcation of both internal carotid arteries appear unremarkable. There is normal enhancement of the included intracranial arteries circulation. Mild deviation of the nasal septum to the right with mild mucosal thickening in the ethmoid air cells. Included portion of both orbits and included intracranial contents appear grossly unremarkable with mild volume loss and ventricular dilatation. Evaluation of the neck soft tissue appears unremarkable. The airway is patent and symmetric without narrowing. Evaluation of the included superior mediastinum appears unremarkable. Included lung at the thoracic inlet appears unremarkable IMPRESSION: Moderate size calcified plaque at the right common carotid bifurcation as well as a calcified plaque with focal significant narrowing of the proximal right internal carotid artery, approximately 8 mm from its origin with 80-90% stenosis. Calcified plaque at the left common carotid bifurcation resulting in 80-90% stenosis at the origin of the left internal carotid artery. Hypoplastic left vertebral artery relative to the right with moderate atherosclerotic narrowing of its distal segment at C1 level. There is nonenhancement of the left vertebral artery from its origin up to C6 level. Retrograde enhancement of the left vertebral artery down to C6 level is unusual. Rule out severe stenosis/occlusion of the proximal left vertebral artery. Correlate clinically and correlation with angiogram could be obtained if clinically indicated. Reported By: Jonah Garcia MD 02/13/18 1332 CTH: without acute changes, chronic lacunar infarcts, cerebellar encephalomelacia, calcification of cavernous carotid sinus ECHO: can't exclude wall motion abnormalities, mod concentric LVH, severe TR carotid dopp: mod stenosis 60-80% both internal carotids ASSESSMENT AND PLAN: This patient is a 62yo montenegrin speaking male with PMHx of HTN, CAD s/p CABG ( 2005; 3 vessel dz), former smoker and drinker , diastolic CHF (nl EF), paraoxysmal afib (was on coumadin) who presents to the ED c/o LUE weakness with a similar episode over a month ago , worsened over this past day. # Moderate size plaque PHILIP and LICA on aspirin and lipitor ( Carotid stenosis) , vascular is on board. waiting for CTA of the head. is on Board. # TIA cannot r/o CVA - CTA 80-90% blockage bl possible ischemic stroke . will continue aspirin 81mg and will add Lipitor 80mg daily , will wait neurology input. Patient improved. #Hx of paraoxysmal afib ,has a pacemaker , will get cardio to see the patient, dr. Denny for consult #HTN-uncontrolled rivera start the BP meds. #hx ICD/pacemaker; cardio consult appreciated, f/u interrogation, on metoprolol ER for HR, arrhythmias, CHF. #DVt px: heparin sq #Dispo stroke unit
[2018-02-14] MEDS: LOSARTAN POTASSIUM 25 MG TABLET PO SCH (10:29)
[2018-02-14] MEDS: GABAPENTIN 100 MG CAPSULE (FP) PO SCH ×2 (10:29→21:34)
[2018-02-14] MEDS: FOLIC ACID 1 MG TABLET (FP) PO SCH (10:29)
[2018-02-14] MEDS: ASPIRIN 81 MG CHEWABLE TABLETS PO SCH (10:29)
[2018-02-14] MEDS: ENOXAPARIN NA (PORCINE) 120 MG/0.8 ML DISP.SYRIN SQ SCH ×2 (10:29→21:34)
[2018-02-14] MEDS ORDERED: SODIUM CHLORIDE 1,000 ML IV SCH (10:45)
--- NOTE | 2018-02-14 14:15 | PN ---
Physical Exam: SUBJECTIVE: Patient seen and examined at bedside this morning. His son, Grover, on bedside to translate. Patient reported feeling better, his left arm minimally weak, but improved since he came. He denies headache, dizziness, fever , chills, weakness, numbness, chest pain, shortness of breath, nausea, vomiting , diarrhea, abdominal pain, urinary symptoms. OBJECTIVE: Vital Signs Period Temp Pulse Resp BP Sys/Peterson Pulse Ox Last 24 Hr 97.8 F-98.6 F 51-54 18-20 107-141/63-73 96-98 GENERAL: The patient is awake, alert, and fully oriented, in no acute distress. HEAD: Normal with no signs of trauma. EYES: PERRLA, EOMI, sclera anicteric, conjunctiva clear. ENT: Ears normal, nares patent, oropharynx clear without exudates, moist mucous membranes. NECK: Trachea midline, full range of motion, supple. LUNGS: Breath sounds equal, clear to auscultation bilaterally. HEART: irregularly irregular, S1, S2 without murmur, rub or gallop. ABDOMEN: Soft, nontender, nondistended, normoactive bowel sounds. EXTREMITIES: 2+ pulses, warm, well-perfused, no edema. NEUROLOGICAL: AAOx3, Cranial nerves II through XII grossly intact. LUE: 4/5 motor strength, RUE: 5/5 motor strength, LLE/RLE: 5/5 motor strength, sensation intact on all extremities, DTRs +2, Normal speech, gait not observed. PSYCH: Normal mood, normal affect. SKIN: Warm, dry, normal turgor, no rashes or lesions noted Laboratory Results - last 24 hr 02/14/18 02/14/18 06:28 06:28 WBC 6.4 RBC 4.63 Hgb 15.0 Hct 42.6 MCV 92.1 MCH 32.3 MCHC 35.1 RDW 13.5 Plt Count 189 MPV 8.8 Sodium 138 Potassium 4.0 Chloride 102 Carbon Dioxide 26 Anion Gap 10 BUN 15 Creatinine 0.9 Creat Clearance w eGFR > 60 Random Glucose 108 H Calcium 8.8 Phosphorus 3.9 Magnesium 2.3 Active Medications Generic Name Dose Route Start Last Admin Trade Name Freq PRN Reason Stop Dose Admin Aspirin 81 mg 02/12/18 14:15 02/14/18 10:29 Asa - PO 81 mg DAILY DARIAN Administration Atorvastatin Calcium 80 mg 02/13/18 22:00 02/13/18 21:04 Lipitor - PO 80 mg HS DARIAN Administration Enoxaparin Sodium 120 mg 02/14/18 08:30 02/14/18 10:29 Lovenox - SQ 120 mg Q12H DARIAN Administration Folic Acid 1 mg 02/13/18 10:00 02/14/18 10:29 Folic Acid - PO 1 mg DAILY DARIAN Administration Gabapentin 100 mg 02/12/18 22:00 02/14/18 10:29 Neurontin - PO 100 mg BID DARIAN Administration Sodium Chloride 1,000 mls @ 100 mls/hr 02/14/18 10:45 02/14/18 11:32 Normal Saline - IV 02/14/18 20:44 Not Given ASDIR DARIAN Losartan Potassium 25 mg 02/14/18 10:00 02/14/18 10:29 Cozaar - PO 25 mg DAILY DARIAN Administration Metoprolol Succinate 100 mg 02/13/18 10:00 02/14/18 10:29 Toprol Xl - PO 100 mg DAILY DARIAN Administration Ranitidine HCl 150 mg 02/12/18 22:00 02/13/18 21:04 Zantac - PO 150 mg HS DARIAN Administration ASSESSMENT/PLAN: Patient is a 62 year old male with past medical history of HTN, CAD s/p CABG ( 2005, 3-vessel disease), systolic CHF, s/p ICD, paroxysmal AFib (on coumadin prior), presented with worsening left arm weakness that started a month ago, and left leg weakness that started 1 day ago. #LUE and LLE weakness: rule out CVA -Head CT: no acute intracranial pathology, chronic lacunar infarcts, cerebellar encephalomalacia, calcification of cavernous carotid sinus -Neurology (Dr. Cueva) consulted.Recommendations appreciated. -CT angiogram of intracranial circulation -Anticoagulation of paroxysmal AFib is well-documented. -Await Dr. Ramirez's consultation. Would consider b/l carotid artery stenting. -OT/PT for left arm and hand rehab -Continue aggressive treatment of BP and cholesterol. -Speech and swallow evaluation. -Continue ASA 81mg daily and Lipitor 80 mg daily -Brain MRI held as patient has ICD -Echo done. #Paroxysmal Atrial Fibrillation -Continue Metoprolol 100 mg daily for HR control -Previously on warfarin but was discontinued because patient has increased risk of falls, having had several episodes of alcoholic intoxication. -Cardiology (Dr. Retana) consulted. Recommendations appreciated. -Lovenox 120mg BID started. -DOAC like apixaban for long-term use. #HTN: controlled -On Metoprolol 100mg daily -Losartan 25mg daily -Will discontinue Amlodipine 5 mg #CAD s/p CABG -Carotid Doppler US: Moderate atherosclerotic disease with stenoses in the 60-79 % range involving both internal carotid arteries. -Vascular surgery (Dr. Ramirez) consulted. Recommendations appreciated. -Neck CTA: Comparison to prior neck CTA of the neck 08/07/17, no significant interval change in the degree of stenosis at the right and left common carotid bifurcation as well as in the proximal right ICA. Moderate size calcified plaque at the right common carotid bifurcation as well as a calcified plaque with focal significant narrowing of the proximal right ICA, approximately 8mm from its origin with 80-90% stenosis. Calcified plaque at the left common carotid bifurcation resulting in 80-90% stenosis at the origin of the left ICA. Hypoplastic left vertebral artery relative to the right with moderate atherosclerotic narrowing of its distal segment at C1 level. There is nonenhancement of the left vertebral artery from its origin up to C6 level. Retrograde enhancement of the left vertebral artery down to C6 level is unusual. Rule out severe stenosis/occlusion of the proximal left vertebral artery. #CHFrEF: not in exacerbation -will monitor for now -Cardiology (Dr. Retana) consulted. #FEN -Not on any standing fluids -Electrolytes wnl, routine bmp monitoring -Sodium-controlled diet #Prophylaxis -Lovenox 120mg BID #Disposition -full code -admit to stroke unit Visit type - Emergency Visit Emergency Visit: Yes ED Registration Date: 02/12/18 Care time: The patient presented to the Emergency Department on the above date and was hospitalized for further evaluation of their emergent condition. - New Patient This patient is new to me today: No - Critical Care Critical Care patient: No
[2018-02-14] MEDS: ATORVASTATIN CA 80 MG TABLET (FP) PO SCH (21:33)
[2018-02-14] MEDS: RANITIDINE HCL 150 MG TABLET (FP) PO SCH (21:34)
[2018-02-15] MEDS: FOLIC ACID 1 MG TABLET (FP) PO SCH (10:11)
[2018-02-15] MEDS: GABAPENTIN 100 MG CAPSULE (FP) PO SCH ×2 (10:11→21:36)
[2018-02-15] MEDS: LOSARTAN POTASSIUM 25 MG TABLET PO SCH (10:11)
[2018-02-15] MEDS: ASPIRIN 81 MG CHEWABLE TABLETS PO SCH (10:11)
[2018-02-15] MEDS: ENOXAPARIN NA (PORCINE) 120 MG/0.8 ML DISP.SYRIN SQ SCH ×2 (10:33→21:36)
--- NOTE | 2018-02-15 15:31 | PN ---
Teaching Attending Note Name of Resident: Chelo Yadav ATTENDING PHYSICIAN STATEMENT I saw and evaluated the patient. I reviewed the resident's note and discussed the case with the resident. I agree with the resident's findings and plan as documented. SUBJECTIVE: Comfortable with no acute distress. Daughter at bedside OBJECTIVE: Vital Signs Temperature 98 F 02/15/18 05:00 Pulse Rate 55 L 02/15/18 05:00 Respiratory Rate 18 02/15/18 05:00 Blood Pressure 104/60 02/15/18 05:00 O2 Sat by Pulse Oximetry (%) 96 02/14/18 21:00 GENERAL: Resting in bed. in no acute distress HEAD: Normal with no signs of trauma. EYES: positive for strabismus . reactive to light. EARS, NOSE, THROAT: Ears normal, oropharynx clear without exudates. NECK: Normal range of motion, supple LUNGS: Breath sounds equal, clear to auscultation bilaterally. No wheezes, and no crackles. HEART: Irregularly-irregular rate and rhythm, normal S1 and S2 . without murmur , rub or gallop ABDOMEN: Soft, large abdomen, NT,ND, normoactive bowel sounds, no guarding, no rebound, no masses. EXTREMITIES: 2+ pt pulses, warm, well-perfused. with chronic changes. No calf tenderness. No peripheral edema. NEUROLOGICAL: Cranial nerves II-XII intact. LUE weakness strength 4/5. RUE 5/ 5. LLE: 4/5, RLE: 5/5. sensation are intact , no facial droop. no dysarthria. PSYCHIATRIC: Cooperative. Good eye contact. SKIN: Warm, dry, normal turgor CBCD WBC 6.4 K/mm3 (4.0-10.0) 02/14/18 06:28 RBC 4.63 M/mm3 (4.00-5.60) 02/14/18 06:28 Hgb 15.0 GM/dL (11.7-16.9) 02/14/18 06:28 Hct 42.6 % (35.4-49) 02/14/18 06:28 MCV 92.1 fl (80-96) 02/14/18 06:28 MCHC 35.1 g/dl (32.0-35.9) 02/14/18 06:28 RDW 13.5 % (11.9-15.9) 02/14/18 06:28 Plt Count 189 K/MM3 (134-434) 02/14/18 06:28 MPV 8.8 fl (7.5-11.1) 02/14/18 06:28 CMP Sodium 138 mmol/L (136-145) 02/14/18 06:28 Potassium 4.0 mmol/L (3.5-5.1) 02/14/18 06:28 Chloride 102 mmol/L (98-107) 02/14/18 06:28 Carbon Dioxide 26 mmol/L (21-32) 02/14/18 06:28 Anion Gap 10 MMOL/L (8-16) 02/14/18 06:28 BUN 15 mg/dL (7-18) 02/14/18 06:28 Creatinine 0.9 mg/dL (0.55-1.3) 02/14/18 06:28 Creat Clearance w eGFR > 60 (>60) 02/14/18 06:28 Random Glucose 108 mg/dL (74-106) H 02/14/18 06:28 Calcium 8.8 mg/dL (8.5-10.1) 02/14/18 06:28 Total Bilirubin 0.8 mg/dL (0.2-1) 02/12/18 09:10 AST 19 U/L (15-37) 02/12/18 09:10 ALT 33 U/L (13-61) 02/12/18 09:10 Alkaline Phosphatase 85 U/L (45-117) 02/12/18 09:10 Total Protein 7.4 g/dl (6.4-8.2) 02/12/18 09:10 Albumin 3.9 g/dl (3.4-5.0) 02/12/18 09:10 CARDIAC ENZYMES Creatine Kinase 97 IU/L (26-308) 02/12/18 09:10 Troponin I < 0.02 ng/ml (0.00-0.05) 02/12/18 09:10 Hepatic Panel Total Bilirubin 0.8 mg/dL (0.2-1) 02/12/18 09:10 AST 19 U/L (15-37) 02/12/18 09:10 ALT 33 U/L (13-61) 02/12/18 09:10 Alkaline Phosphatase 85 U/L (45-117) 02/12/18 09:10 Albumin 3.9 g/dl (3.4-5.0) 02/12/18 09:10 Home Medications Medication Instructions Recorded Atorvastatin Ca [Lipitor] 20 mg PO HS 10/10/13 Amlodipine Besylate 5 mg PO DAILY 11/23/16 Aspirin [ASA -] 81 mg PO DAILY 11/23/16 Folic Acid 1 mg PO DAILY 11/23/16 Gabapentin 100 mg PO BID 11/23/16 Lisinopril [Prinivil -] 40 mg PO DAILY 11/23/16 Ranitidine [Zantac -] 150 mg PO HS 11/23/16 Diclofenac Sodium 50 mg PO BID PRN 01/18/18 Ergocalciferol [Vitamin D2] 50,000 unit PO Q7D@1000 01/18/18 Hydroxyzine HCl 25 mg PO BID 01/18/18 Metoprolol Succinate 100 mg PO DAILY 01/18/18 Vitamin B Complex [B Complex] 1 each PO DAILY 01/18/18 Head CTA: Clinical information: evaluate for CVA Multiplanar imaging was performed following the intravenous bolus administration of nonionic contrast. Individual partition images as well as projection and reformatted images are reviewed. Multifocal stenoses are seen along the intracranial left vertebral artery and also at the C1 level. The stenosis are probably at least moderate to marked. The left vertebral artery is also somewhat marrow in caliber diffusely which may be on the basis of diminished flow and or secondary to developmental hypoplasia. The basilar and intracranial right vertebral arteries demonstrate no discrete stenosis. The intracranial carotid circulations demonstrate no evidence of large vessel stenosis or occlusion. No discrete aneurysm is seen. There is no extrinsic abnormality. Impression: Multifocal stenoses are seen involving the left vertebral artery as noted above. Reported By: Juan Luis Gamez MD 02/15/18 [id number] CTH: without acute changes, chronic lacunar infarcts, cerebellar encephalomelacia, calcification of cavernous carotid sinus ECHO: can't exclude wall motion abnormalities, mod concentric LVH, severe TR carotid dopp: mod stenosis 60-80% both internal carotids ASSESSMENT AND PLAN: This patient is a 62yo telugu speaking male with PMHx of HTN, CAD s/p CABG ( 2005; 3 vessel dz), former smoker and drinker , diastolic CHF (nl EF), paraoxysmal afib (was on coumadin) who presents to the ED c/o LUE weakness with a similar episode over a month ago , worsened over this past day. # Mulifocal stenosis are seen involving the left vertebral artery on lovenox bid sq ,on lipitor, aspirin ,neuro and cardio consult appreciated . and will discuss and will have a plan in place for am. # Moderate size plaque PHILIP and LICA on aspirin and lipitor ( Carotid stenosis) , vascular is on board. waiting for CTA of the head. is on Board. # Acute CVA - CTA 80-90% blockage bl possible ischemic stroke . will continue aspirin 81mg and will add Lipitor 80mg daily, lovenox . #Hx of paraoxysmal afib ,has a pacemaker , started on Lovenox as per cardio. #HTN-uncontrolled rivera start the BP meds. #hx ICD/pacemaker; cardio consult appreciated, interrogation was successful without any arrhythmias , on metoprolol ER for HR, CHF. #DVt px: lovenox tx
[2018-02-15] MEDS: RANITIDINE HCL 150 MG TABLET (FP) PO SCH (21:36)
[2018-02-15] MEDS: ATORVASTATIN CA 80 MG TABLET (FP) PO SCH (21:36)
--- NOTE | 2018-02-16 08:06 | PN ---
Teaching Attending Note Name of Resident: Chelo Yadav ATTENDING PHYSICIAN STATEMENT I saw and evaluated the patient. I reviewed the resident's note and discussed the case with the resident. I agree with the resident's findings and plan as documented. SUBJECTIVE: No new complains. OBJECTIVE: Vital Signs Temperature 99.4 F 02/16/18 05:00 Pulse Rate 57 L 02/16/18 05:00 Respiratory Rate 20 02/16/18 05:00 Blood Pressure 110/52 L 02/16/18 05:00 O2 Sat by Pulse Oximetry (%) 96 02/15/18 20:22 GENERAL: Resting in bed. in no acute distress HEAD: Normal with no signs of trauma. EYES: positive for strabismus . reactive to light. EARS, NOSE, THROAT: Ears normal, oropharynx clear without exudates. NECK: Normal range of motion, supple LUNGS: Breath sounds equal, clear to auscultation bilaterally. No wheezes, and no crackles. HEART: Irregularly-irregular rate and rhythm, normal S1 and S2 . without murmur , rub or gallop ABDOMEN: Soft, large abdomen, nontender, not distended, normoactive bowel sounds , no guarding, no rebound, no masses. EXTREMITIES: 2+ pt pulses, warm, well-perfused. with chronic changes. No calf tenderness. No peripheral edema. NEUROLOGICAL: Cranial nerves II-XII intact. LUE weakness strength 4/5. RUE 5/ 5. LLE: 4/5, RLE: 5/5. sensation are intact , no facial droop. no dysarthria. PSYCHIATRIC: Cooperative. Good eye contact. SKIN: Warm, dry, normal turgor CBCD WBC 6.4 K/mm3 (4.0-10.0) 02/14/18 06:28 RBC 4.63 M/mm3 (4.00-5.60) 02/14/18 06:28 Hgb 15.0 GM/dL (11.7-16.9) 02/14/18 06:28 Hct 42.6 % (35.4-49) 02/14/18 06:28 MCV 92.1 fl (80-96) 02/14/18 06:28 MCHC 35.1 g/dl (32.0-35.9) 02/14/18 06:28 RDW 13.5 % (11.9-15.9) 02/14/18 06:28 Plt Count 189 K/MM3 (134-434) 02/14/18 06:28 MPV 8.8 fl (7.5-11.1) 02/14/18 06:28 CMP Sodium 138 mmol/L (136-145) 02/14/18 06:28 Potassium 4.0 mmol/L (3.5-5.1) 02/14/18 06:28 Chloride 102 mmol/L (98-107) 02/14/18 06:28 Carbon Dioxide 26 mmol/L (21-32) 02/14/18 06:28 Anion Gap 10 MMOL/L (8-16) 02/14/18 06:28 BUN 15 mg/dL (7-18) 02/14/18 06:28 Creatinine 0.9 mg/dL (0.55-1.3) 02/14/18 06:28 Creat Clearance w eGFR > 60 (>60) 02/14/18 06:28 Random Glucose 108 mg/dL (74-106) H 02/14/18 06:28 Calcium 8.8 mg/dL (8.5-10.1) 02/14/18 06:28 Total Bilirubin 0.8 mg/dL (0.2-1) 02/12/18 09:10 AST 19 U/L (15-37) 02/12/18 09:10 ALT 33 U/L (13-61) 02/12/18 09:10 Alkaline Phosphatase 85 U/L (45-117) 02/12/18 09:10 Total Protein 7.4 g/dl (6.4-8.2) 02/12/18 09:10 Albumin 3.9 g/dl (3.4-5.0) 02/12/18 09:10 CARDIAC ENZYMES Creatine Kinase 97 IU/L (26-308) 02/12/18 09:10 Troponin I < 0.02 ng/ml (0.00-0.05) 02/12/18 09:10 Current Medications Generic Name Dose Route Start Last Admin Trade Name Freq PRN Reason Stop Dose Admin Aspirin 81 mg 02/12/18 14:15 02/15/18 10:11 Asa - PO 81 mg DAILY DARIAN Administration Atorvastatin Calcium 80 mg 02/13/18 22:00 02/15/18 21:36 Lipitor - PO 80 mg HS DARIAN Administration Enoxaparin Sodium 120 mg 02/14/18 08:30 02/15/18 21:36 Lovenox - SQ 120 mg Q12H DARIAN Administration Folic Acid 1 mg 02/13/18 10:00 02/15/18 10:11 Folic Acid - PO 1 mg DAILY DARIAN Administration Gabapentin 100 mg 02/12/18 22:00 02/15/18 21:36 Neurontin - PO 100 mg BID DARIAN Administration Losartan Potassium 25 mg 02/14/18 10:00 02/15/18 10:11 Cozaar - PO 25 mg DAILY DARIAN Administration Metoprolol Succinate 50 mg 02/15/18 22:00 02/15/18 21:36 Toprol Xl - PO 50 mg BID DARIAN Administration Ranitidine HCl 150 mg 02/12/18 22:00 02/15/18 21:36 Zantac - PO 150 mg HS DARIAN Administration Home Medications Medication Instructions Recorded Atorvastatin Ca [Lipitor] 20 mg PO HS 10/10/13 Amlodipine Besylate 5 mg PO DAILY 11/23/16 Aspirin [ASA -] 81 mg PO DAILY 11/23/16 Folic Acid 1 mg PO DAILY 11/23/16 Gabapentin 100 mg PO BID 11/23/16 Lisinopril [Prinivil -] 40 mg PO DAILY 11/23/16 Ranitidine [Zantac -] 150 mg PO HS 11/23/16 Diclofenac Sodium 50 mg PO BID PRN 01/18/18 Ergocalciferol [Vitamin D2] 50,000 unit PO Q7D@1000 01/18/18 Hydroxyzine HCl 25 mg PO BID 01/18/18 Metoprolol Succinate 100 mg PO DAILY 01/18/18 Vitamin B Complex [B Complex] 1 each PO DAILY 01/18/18 Head CTA: Clinical information: evaluate for CVA Multiplanar imaging was performed following the intravenous bolus administration of nonionic contrast. Individual partition images as well as projection and reformatted images are reviewed. Multifocal stenoses are seen along the intracranial left vertebral artery and also at the C1 level. The stenosis are probably at least moderate to marked. The left vertebral artery is also somewhat marrow in caliber diffusely which may be on the basis of diminished flow and or secondary to developmental hypoplasia. The basilar and intracranial right vertebral arteries demonstrate no discrete stenosis. The intracranial carotid circulations demonstrate no evidence of large vessel stenosis or occlusion. No discrete aneurysm is seen. There is no extrinsic abnormality. Impression: Multifocal stenoses are seen involving the left vertebral artery as noted above. Reported By: Juan Luis Gamez MD 02/15/18 [id number] CTH: without acute changes, chronic lacunar infarcts, cerebellar encephalomelacia, calcification of cavernous carotid sinus ECHO: can't exclude wall motion abnormalities, mod concentric LVH, severe TR carotid dopp: mod stenosis 60-80% both internal carotids ASSESSMENT AND PLAN: This patient is a 62yo gambian speaking male with PMHx of HTN, CAD s/p CABG ( 2005; 3 vessel dz), former smoker and drinker , diastolic CHF (nl EF), paraoxysmal afib (was on coumadin) who presents to the ED c/o LUE weakness with a similar episode over a month ago , worsened over this past day. # Mulifocal stenosis are seen involving the left vertebral artery on lovenox bid sq will switch to Eliquis , discussed with cardiology to stop lovenox and to start him on Eliquis 5mg po bid with next dose, continue lipitor, aspirin , neuro and cardio consult appreciated . Discussed with and , as per acute CVA needs to stabilize before any stenting of carotids. patient will be followed up with [facility] for possible stenting of carotids, upon discharge will refer the patient. # Moderate size plaque PHILIP and LICA on aspirin and lipitor ( Carotid stenosis) , vascular is on board. is on Board. # Acute CVA - CTA 80-90% blockage bl possible ischemic stroke . will continue aspirin 81mg and will add Lipitor 80mg daily, and Eliquis po . #Hx of paraoxysmal afib ,has a pacemaker , On eliquis starting tonight as per cardio. #HTN-controlled continue current regimens . #hx ICD/pacemaker; cardio consult appreciated, interrogation was successful without any arrhythmias , on metoprolol ER for HR, CHF. #DVt px: Eliquis
[2018-02-16] MEDS: ENOXAPARIN NA (PORCINE) 120 MG/0.8 ML DISP.SYRIN SQ SCH (08:27)
[2018-02-16] MEDS: ASPIRIN 81 MG CHEWABLE TABLETS PO SCH (09:45)
[2018-02-16] MEDS: GABAPENTIN 100 MG CAPSULE (FP) PO SCH ×2 (09:45→22:34)
[2018-02-16] MEDS: FOLIC ACID 1 MG TABLET (FP) PO SCH (09:45)
[2018-02-16] MEDS: LOSARTAN POTASSIUM 25 MG TABLET PO SCH (09:45)
--- NOTE | 2018-02-16 12:15 | PN ---
Physical Exam: SUBJECTIVE: Patient seen and examined at bedside this morning. No acute events overnight. Yesterday patient reported an episode of RUE tingling, accompanied by chest pain for about a minute. Patient reported it has not occurred since then. OBJECTIVE: Vital Signs Period Temp Pulse Resp BP Sys/Peterson Pulse Ox Last 24 Hr 98.0 F-99.4 F 53-63 20-20 108-140/52-80 96 GENERAL: The patient is awake, alert, and fully oriented, in no acute distress. HEAD: Normal with no signs of trauma. EYES: PERRLA, EOMI, sclera anicteric, conjunctiva clear. ENT: Ears normal, nares patent, oropharynx clear without exudates, moist mucous membranes. NECK: Trachea midline, full range of motion, supple. LUNGS: Breath sounds equal, clear to auscultation bilaterally. HEART: irregularly irregular, S1, S2 without murmur, rub or gallop. ABDOMEN: Soft, nontender, nondistended, normoactive bowel sounds. EXTREMITIES: 2+ pulses, warm, well-perfused, no edema. NEUROLOGICAL: AAOx3, Cranial nerves II through XII grossly intact. LUE: 4/5 motor strength, RUE: 5/5 motor strength, LLE/RLE: 5/5 motor strength, sensation intact on all extremities, DTRs +2, Normal speech, gait not observed. PSYCH: Normal mood, normal affect. SKIN: Warm, dry, normal turgor, no rashes or lesions noted Active Medications Generic Name Dose Route Start Last Admin Trade Name Freq PRN Reason Stop Dose Admin Aspirin 81 mg 02/12/18 14:15 02/16/18 09:45 Asa - PO 81 mg DAILY DARIAN Administration Atorvastatin Calcium 80 mg 02/13/18 22:00 02/15/18 21:36 Lipitor - PO 80 mg HS DARIAN Administration Enoxaparin Sodium 120 mg 02/14/18 08:30 02/16/18 08:27 Lovenox - SQ 120 mg Q12H DARIAN Administration Folic Acid 1 mg 02/13/18 10:00 02/16/18 09:45 Folic Acid - PO 1 mg DAILY DARIAN Administration Gabapentin 100 mg 02/12/18 22:00 02/16/18 09:45 Neurontin - PO 100 mg BID DARIAN Administration Losartan Potassium 25 mg 02/14/18 10:00 02/16/18 09:45 Cozaar - PO 25 mg DAILY DARIAN Administration Metoprolol Succinate 50 mg 02/15/18 22:00 02/16/18 09:45 Toprol Xl - PO 50 mg BID DARIAN Administration Ranitidine HCl 150 mg 02/12/18 22:00 02/15/18 21:36 Zantac - PO 150 mg HS DARIAN Administration ASSESSMENT/PLAN: Patient is a 62 year old male with past medical history of HTN, CAD s/p CABG ( 2005, 3-vessel disease), systolic CHF, s/p ICD, paroxysmal AFib (on coumadin prior), presented with worsening left arm weakness that started a month ago, and left leg weakness that started 1 day ago. #LUE and LLE weakness: rule out CVA -Head CT: no acute intracranial pathology, chronic lacunar infarcts, cerebellar encephalomalacia, calcification of cavernous carotid sinus -Neurology (Dr. Cueva) consulted.Recommendations appreciated. -CT angiogram of intracranial circulation -Anticoagulation of paroxysmal AFib is well-documented. -OT/PT for left arm and hand rehab -Continue aggressive treatment of BP and cholesterol. -Speech and swallow evaluation. -Continue ASA 81mg daily and Lipitor 80 mg daily -Brain MRI held as patient has ICD -Echo done. #Bilateral carotid artery stenosis -Carotid Doppler US: Moderate atherosclerotic disease with stenoses in the 60-79 % range involving both internal carotid arteries. -Vascular surgery (Dr. Ramirez) consulted. Recommendations appreciated. -Neck CTA: Comparison to prior neck CTA of the neck 08/07/17, no significant interval change in the degree of stenosis at the right and left common carotid bifurcation as well as in the proximal right ICA. Moderate size calcified plaque at the right common carotid bifurcation as well as a calcified plaque with focal significant narrowing of the proximal right ICA, approximately 8mm from its origin with 80-90% stenosis. Calcified plaque at the left common carotid bifurcation resulting in 80-90% stenosis at the origin of the left ICA. Hypoplastic left vertebral artery relative to the right with moderate atherosclerotic narrowing of its distal segment at C1 level. There is nonenhancement of the left vertebral artery from its origin up to C6 level. Retrograde enhancement of the left vertebral artery down to C6 level is unusual. Rule out severe stenosis/occlusion of the proximal left vertebral artery. -In lieu of recent CVA, would have to wait 6-8 weeks before operating on the right ICA. -If patient is considered high risk for more TIA's, carotid stenting would be a great option considering patient has significant b/l ICA stenosis -Would need to follow up at [facility] for possible stenting of carotids, needed to be evaluated for carotid stent at tertiary care [facility]. -Will refer the patient upon discharge. #Paroxysmal Atrial Fibrillation -Continue Metoprolol 100 mg daily for HR control -Previously on warfarin but was discontinued because patient has increased risk of falls, having had several episodes of alcoholic intoxication. -Cardiology (Dr. Retana) consulted. Recommendations appreciated. -Lovenox 120mg BID started. -DOAC like apixaban for long-term use. #HTN: controlled -On Metoprolol 100mg daily -Losartan 25mg daily -Will discontinue Amlodipine 5 mg #CAD s/p CABG: stable #CHFrEF: not in exacerbation -will monitor for now -Cardiology (Dr. Retana) consulted. #FEN -Not on any standing fluids -Electrolytes wnl, routine bmp monitoring -Sodium-controlled diet #Prophylaxis -Lovenox 120mg BID #Disposition -full code -admit to stroke unit Visit type - Emergency Visit Emergency Visit: Yes ED Registration Date: 02/12/18 Care time: The patient presented to the Emergency Department on the above date and was hospitalized for further evaluation of their emergent condition. - New Patient This patient is new to me today: No - Critical Care Critical Care patient: No
--- NOTE | 2018-02-16 13:42 | PN ---
Progress Note (short form) - Note Progress Note: Vascular Surgery CTA reviewed. Bl carotid artery stenosis between 80-90 stenosis Pt has recent completed CVA with residual weekness of left side. In lieu of recent cva, we would have to wait 6-8 weeks before operating on the right ICA. Neurology eval well appreciated. If we want pt to be evaluated for carotid stent we would need to transfer pt to tertiary care center. If pt is considered high risk for more TIA's, then carotid stenting would be a great option considering pt has significant disease in bl ICA's. Enrico Ramirez DO
[2018-02-16] MEDS ORDERED: SODIUM CHLORIDE NASAL SPRAY 44 ML BOTTLE NS PRN (20:52)
[2018-02-16] MEDS ORDERED: PT OWN MED DRAWER 7, Y5N ONE (22:32)
[2018-02-16] MEDS: ATORVASTATIN CA 80 MG TABLET (FP) PO SCH (22:34)
[2018-02-16] MEDS: APIXABAN 5 MG TABLET PO SCH (22:34)
[2018-02-16] MEDS: RANITIDINE HCL 150 MG TABLET (FP) PO SCH (22:34)
--- NOTE | 2018-02-17 01:25 | PN ---
Progress Note, Physician Chief Complaint: Pt denies chest pain, palpitations, or dyspnea; ambulates; able to move all extremities. History of Present Illness: Patient is a 62-year-old white male (marcelo Rosa) with history of chronic alcoholism, hypertension, CAD (status post CABG 3 vessels), systolic (now with borderline reduced LVEF) CHF and VT-->ICD, PAF (had been on warfarin, but stopped because of repeated episodes of intoxication and falls; daughter had decided it was too dangerous for him to be on anticoagulation),,DM, HTN, hyperlipidemia, former smoker (quit many years ago; hx two brothers with throat cancer), presents to the ER with worsening left upper extremity weakness. Patient endorses that for the past month intermittently experienced weakness of the left upper extremity and to the lesser degree left lower extremity; however , the night prior to arrival, patient reports that his left upper extremity weakness has worsened significantly. Patient denies facial/visual/speech disturbances; patient also reports that his gait has been affected by the left lower extremity weakness. 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 - Current Medication List Current Medications: Active Medications Apixaban (Eliquis -) 5 mg PO BID [facility] Last Admin: 02/16/18 22:34 Dose: 5 mg Aspirin (Asa -) 81 mg PO DAILY [facility] Last Admin: 02/16/18 09:45 Dose: 81 mg Atorvastatin Calcium (Lipitor -) 80 mg PO [facility] Last Admin: 02/16/18 22:34 Dose: 80 mg Folic Acid (Folic Acid -) 1 mg PO DAILY [facility] Last Admin: 02/16/18 09:45 Dose: 1 mg Gabapentin (Neurontin -) 100 mg PO BID [facility] Last Admin: 02/16/18:34 Dose: 100 mg Losartan Potassium (Cozaar -) 25 mg PO DAILY [facility] Last Admin: 02/16/18 09:45 Dose: 25 mg Metoprolol Succinate (Toprol Xl -) 50 mg PO BID [facility] Last Admin: 02/16/18:34 Dose: 50 mg Ranitidine HCl (Zantac -) 150 mg PO [facility] Last Admin: 02/16/18:34 Dose: 150 mg Sodium Chloride ([place] -) 2 spray NS Q12H PRN PRN Reason: NASAL CONGESTION Last Admin: 02/16/18 22:33 Dose: 2 sprays - Objective Vital Signs: Vital Signs Temperature 98.6 F 02/16/18 22:00 Pulse Rate 61 02/16/18 22:00 Respiratory Rate 20 02/16/18 22:00 Blood Pressure 129/72 02/16/18 22:00 O2 Sat by Pulse Oximetry (%) 96 02/16/18 20:35 Constitutional: Yes: Obese Eyes: Yes: WNL HENT: Yes: WNL Neck: Yes: WNL Cardiovascular: Yes: S1, S2 (split) Respiratory: Yes: WNL Gastrointestinal: Yes: Soft, Abdomen, Obese ...Rectal Exam: Yes: Deferred Genitourinary: No: Anuria Breast(s): Yes: WNL Musculoskeletal: Yes: WNL Extremities: Yes: WNL Edema: No Peripheral Pulses WNL: Yes Integumentary: Yes: WNL Neurological: Yes: WNL, Weakness (left side: mildl) Psychiatric: Yes: Other (alcoholism) Labs: CBC, BMP 02/14/18 06:28 02/14/18 06:28 INR, PTT INR 1.01 (0.83-1.09) 02/12/18 09:10 Problem List - Problems (1) Paroxysmal atrial fibrillation Assessment/Plan: On metoprolol ER for HR control. If surgery for carotid arteries is not contemplated in the the near future, would change Lovenox to DOAC (e.g. apixaban). Code(s): I48.0 - PAROXYSMAL ATRIAL FIBRILLATION (2) CVA (cerebral vascular accident) Assessment/Plan: small bilateral lesions in lombardo radiata, likely chronic lacunar infarcts; no acute process noted. F/u carotid artery workup. F/u with neurologist. Code(s): I63.9 - CEREBRAL INFARCTION, UNSPECIFIED Qualifiers: CVA mechanism: unspecified Qualified Code(s): I63.9 - Cerebral infarction, unspecified (3) ASHD (arteriosclerotic heart disease) Assessment/Plan: Hx CABG Hx ICD. Code(s): I25.10 - ATHSCL HEART DISEASE OF [place] CORONARY ARTERY W/O ANG PCTRS (4) Alcohol abuse Code(s): F10.10 - ALCOHOL ABUSE, UNCOMPLICATED (5) Systolic CHF Assessment/Plan: see under "HTN". Code(s): I50.20 - UNSPECIFIED SYSTOLIC (CONGESTIVE) HEART FAILURE (6) Ventricular tachycardia Assessment/Plan: On metoprolol ER. F/u ICD interrogation. Code(s): I47.2 - VENTRICULAR TACHYCARDIA (7) HTN (hypertension) Assessment/Plan: On metoprolol ER (hx systolic LV dysfunction; most recent ECHO shows borderline reduction in LVEF). Started losartan 25 mg daily for CHF, HTN, DM. Code(s): I10 - ESSENTIAL (PRIMARY) HYPERTENSION (8) Hyperlipidemia Assessment/Plan: Keep LDL cholesterol < 70 mg/dL with statin (now on atorvastatin 80 mg daily; f/ u lipid profile several weeks from now), diet/weight loss, exercise. Code(s): E78.5 - HYPERLIPIDEMIA, UNSPECIFIED (9) ICD (implantable cardioverter-defibrillator) in place Assessment/Plan: On metoprolol ER for HR, arrhythmias, CHF. ICD interrogation reportedly showed no events requiring ATP or shocks; +NSVT. Code(s): Z95.810 - PRESENCE OF AUTOMATIC (IMPLANTABLE) CARDIAC DEFIBRILLATOR (10) Obesity (BMI 30-39.9) Assessment/Plan: dietary consultation would be of benefit. Code(s): E66.9 - OBESITY, UNSPECIFIED (11) Diabetes Code(s): E11.9 - TYPE 2 DIABETES MELLITUS WITHOUT COMPLICATIONS (12) Carotid artery disease Assessment/Plan: Evidence of significant disease by carotid artery US and CTA; f/u with vascular surgeon. Code(s): I77.9 - DISORDER OF ARTERIES AND ARTERIOLES, UNSPECIFIED
[2018-02-17 05:34] VITALS: PULSE 59
[2018-02-17 09:07] VITALS: BP 125/78; TEMP 98
[2018-02-17] MEDS: LOSARTAN POTASSIUM 25 MG TABLET PO SCH (10:07)
[2018-02-17] MEDS: APIXABAN 5 MG TABLET PO SCH (10:07)
[2018-02-17] MEDS: FOLIC ACID 1 MG TABLET (FP) PO SCH (10:07)
[2018-02-17] MEDS: GABAPENTIN 100 MG CAPSULE (FP) PO SCH (10:07)
[2018-02-17] MEDS: ASPIRIN 81 MG CHEWABLE TABLETS PO SCH (10:07)
--- NOTE | 2018-02-17 11:36 | DS ---
Physical Exam: SUBJECTIVE: Patient seen and examined at bedside this morning. No acute events overnight. Patient reported that he is feeling good and is ready to go home. He is able to walk around without any assistance or difficulty. OBJECTIVE: Vital Signs Period Temp Pulse Resp BP Sys/Peterson Pulse Ox Last 24 Hr 97.9 F-98.8 F 56-61 18-20 98-129/53-78 96 PHYSICAL EXAM GENERAL: The patient is awake, alert, and fully oriented, in no acute distress. HEAD: Normal with no signs of trauma. EYES: PERRLA, EOMI, sclera anicteric, conjunctiva clear. ENT: Ears normal, nares patent, oropharynx clear without exudates, moist mucous membranes. NECK: Trachea midline, full range of motion, supple. LUNGS: Breath sounds equal, clear to auscultation bilaterally. HEART: irregularly irregular, S1, S2 without murmur, rub or gallop. ABDOMEN: Soft, nontender, nondistended, normoactive bowel sounds. EXTREMITIES: 2+ pulses, warm, well-perfused, no edema. NEUROLOGICAL: AAOx3, Cranial nerves II through XII grossly intact. LUE: 4/5 motor strength, RUE: 5/5 motor strength, LLE/RLE: 5/5 motor strength, sensation intact on all extremities, DTRs +2, Normal speech, gait not observed. PSYCH: Normal mood, normal affect. SKIN: Warm, dry, normal turgor, no rashes or lesions noted LABS CBC, BMP 02/14/18 06:28 02/14/18 06:28 -Head CT: no acute intracranial pathology, chronic lacunar infarcts, cerebellar encephalomalacia, calcification of cavernous carotid sinus -Carotid Doppler US: Moderate atherosclerotic disease with stenoses in the 60-79 % range involving both internal carotid arteries. -Neck CTA: Comparison to prior neck CTA of the neck 08/07/17, no significant interval change in the degree of stenosis at the right and left common carotid bifurcation as well as in the proximal right ICA. Moderate size calcified plaque at the right common carotid bifurcation as well as a calcified plaque with focal significant narrowing of the proximal right ICA, approximately 8mm from its origin with 80-90% stenosis. Calcified plaque at the left common carotid bifurcation resulting in 80-90% stenosis at the origin of the left ICA. Hypoplastic left vertebral artery relative to the right with moderate atherosclerotic narrowing of its distal segment at C1 level. There is nonenhancement of the left vertebral artery from its origin up to C6 level. Retrograde enhancement of the left vertebral artery down to C6 level is unusual. Rule out severe stenosis/occlusion of the proximal left vertebral artery. -Head CTA: Multifocal stenoses involving the left vertebral artery. HOSPITAL COURSE: Date of Admission:02/12/18 Date of Discharge: 02/17/18 Patient is a 62 year old male with past medical history of HTN, CAD s/p CABG, CHFpEF, s/p ICD, paroxysmal Atrial fibrillation, presented with worsening LUE weakness for a month and new-onset LLE weakness, making it difficult for him to ambulate. Patient was given ASA 325mg and started on Lipitor 80mg. Head CTA and neck CTA were done which showed stenosis of the right and left common carotid artery, as well as multifocal stenoses of the left vertebral artery. Neurology, Cardiology and Vascular surgery were consulted. Patient was started on Lovenox 120mg BID. ICD was interrogated and was noted to have no problem. Patient remained stable and improved with physical therapy throughout his hospital stay. He was discharged with instructions to follow-up with vascular surgery at [facility] for further evaluation for possible carotid stenting. Patient was also discharged on Eliquis 5mg BID. Minutes to complete discharge: 40 Discharge Summary Reason For Visit: CVA Current Active Problems CVA (cerebral vascular accident) (Acute) Carotid artery disease (Acute) Diabetes (Acute) Paroxysmal atrial fibrillation (Acute) Condition: Good - Instructions Diet, Activity, Other Instructions: You were admitted because you had left arm and leg weakness. CAT scan was done which showed that you had stroke. You were started on blood thinners and your blood pressure medications were changed to get better control of your blood pressure. You were started on new medications. Please take the following medications as prescribed: 1. Eliquis 5mg twice a day. 2. Atorvastatin 80mg daily. 3. Losartan 25 mg daily. 4. Metoprolol Succinate (Toprol XL) 50mg twice a day. Please STOP the following medications that you were taking before: 1. Lisinopril 40mg 2. Amlodipine 5mg 3. Metoprolol 100mg 4. Lipitor 20mg You were started on blood thinners. It is important to know that it increases your risk of bleeding. Please go to the ED if you have any fall, bleeding or bruising. Follow-ups: -Follow-up with vascular surgery (Dr. Adelaida Rosales) within 2 weeks. Call the office [phone] to schedule an appointment. Take the image discs with you to her office. -Please follow-up with the neurologist (Dr. Cueva) within 1-2 weeks. Please call his office to schedule an appointment. -Follow-up with the video production assistant (Dr. Retana) within 1-2 weeks. -Follow-up with your primary care doctor within 1 week. Call [phone] or go to the ED if with any worsening weakness, numbness, chest pain, shortness of breath, palpitations, abdominal pain, diarrhea, or any new concerns noted. Referrals: adelaida rosales [Other] - 2 Weeks Chalino Cueva MD [Staff Physician] - 1 Week Mirna Swanson MD [Primary Care Provider] - 1 Week Enrico Ramirez MD [Staff Physician] - 2 Weeks Disposition: HOME - Home Medications Comprehensive Discharge Medication List: Ambulatory Orders Aspirin [ASA -] 81 mg PO DAILY 11/23/16 Folic Acid 1 mg PO DAILY 11/23/16 Gabapentin 100 mg PO BID 11/23/16 Ranitidine [Zantac -] 150 mg PO HS 11/23/16 Ergocalciferol [Vitamin D2] 50,000 unit PO Q7D@1000 01/18/18 Vitamin B Complex [B Complex] 1 each PO DAILY 01/18/18 Apixaban [Eliquis -] 5 mg PO BID #60 tablet 02/17/18 Atorvastatin Ca [Lipitor] 80 mg PO HS #30 tablet 02/17/18 Losartan Potassium [Cozaar -] 25 mg PO DAILY #30 tablet 02/17/18 Metoprolol Succinate [Toprol XL -] 50 mg PO BID #60 tab.sr.24h 02/17/18 This patient is new to me today: No Emergency Visit: Yes ED Registration Date: 02/12/18 Care time: The patient presented to the Emergency Department on the above date and was hospitalized for further evaluation of their emergent condition. Critical Care patient: No - Discharge Referral Referred to [facility] No
--- NOTE | 2018-02-17 12:55 | PN ---
Teaching Attending Note Name of Resident: Chelo Yadav ATTENDING PHYSICIAN STATEMENT I saw and evaluated the patient. I reviewed the resident's note and discussed the case with the resident. I agree with the resident's findings and plan as documented. SUBJECTIVE: Patient is feeling better, wants to go home. no complains. OBJECTIVE: Vital Signs Temperature 98 F 02/17/18 09:00 Pulse Rate 59 L 02/17/18 09:00 Respiratory Rate 20 02/17/18 09:00 Blood Pressure 125/78 02/17/18 09:00 O2 Sat by Pulse Oximetry (%) 96 02/16/18 20:35 GENERAL: Resting in bed. in no acute distress HEAD: Normal with no signs of trauma. EYES: positive for strabismus . reactive to light. EARS, NOSE, THROAT: Ears normal, oropharynx clear without exudates. NECK: Normal range of motion, supple LUNGS: Breath sounds equal, clear to auscultation bilaterally. No wheezes, and no crackles. HEART: Irregularly-irregular rate and rhythm, normal S1 and S2 . without murmur , rub or gallop ABDOMEN: Soft, large abdomen, nontender, not distended, normoactive bowel sounds , no guarding, no rebound, no masses. EXTREMITIES: 2+ pt pulses, warm, well-perfused. with chronic changes. No calf tenderness. No peripheral edema. NEUROLOGICAL: Cranial nerves II-XII intact. LUE weakness strength 4/5. RUE 5/ 5. LLE: 4/5, RLE: 5/5. sensation are intact , no facial droop. no dysarthria. PSYCHIATRIC: Cooperative. Good eye contact. SKIN: Warm, dry, normal turgor CBCD WBC 6.4 K/mm3 (4.0-10.0) 02/14/18 06:28 RBC 4.63 M/mm3 (4.00-5.60) 02/14/18 06:28 Hgb 15.0 GM/dL (11.7-16.9) 02/14/18 06:28 Hct 42.6 % (35.4-49) 02/14/18 06:28 MCV 92.1 fl (80-96) 02/14/18 06:28 MCHC 35.1 g/dl (32.0-35.9) 02/14/18 06:28 RDW 13.5 % (11.9-15.9) 02/14/18 06:28 Plt Count 189 K/MM3 (134-434) 02/14/18 06:28 MPV 8.8 fl (7.5-11.1) 02/14/18 06:28 CMP Sodium 138 mmol/L (136-145) 02/14/18 06:28 Potassium 4.0 mmol/L (3.5-5.1) 02/14/18 06:28 Chloride 102 mmol/L (98-107) 02/14/18 06:28 Carbon Dioxide 26 mmol/L (21-32) 02/14/18 06:28 Anion Gap 10 MMOL/L (8-16) 02/14/18 06:28 BUN 15 mg/dL (7-18) 02/14/18 06:28 Creatinine 0.9 mg/dL (0.55-1.3) 02/14/18 06:28 Creat Clearance w eGFR > 60 (>60) 02/14/18 06:28 Random Glucose 108 mg/dL (74-106) H 02/14/18 06:28 Calcium 8.8 mg/dL (8.5-10.1) 02/14/18 06:28 Total Bilirubin 0.8 mg/dL (0.2-1) 02/12/18 09:10 AST 19 U/L (15-37) 02/12/18 09:10 ALT 33 U/L (13-61) 02/12/18 09:10 Alkaline Phosphatase 85 U/L (45-117) 02/12/18 09:10 Total Protein 7.4 g/dl (6.4-8.2) 02/12/18 09:10 Albumin 3.9 g/dl (3.4-5.0) 02/12/18 09:10 CARDIAC ENZYMES Creatine Kinase 97 IU/L (26-308) 02/12/18 09:10 Troponin I < 0.02 ng/ml (0.00-0.05) 02/12/18 09:10 Home Medications Medication Instructions Recorded Aspirin [ASA -] 81 mg PO DAILY 11/23/16 Folic Acid 1 mg PO DAILY 11/23/16 Gabapentin 100 mg PO BID 11/23/16 Ranitidine [Zantac -] 150 mg PO HS 11/23/16 Ergocalciferol [Vitamin D2] 50,000 unit PO Q7D@1000 01/18/18 Vitamin B Complex [B Complex] 1 each PO DAILY 01/18/18 Apixaban [Eliquis -] 5 mg PO BID #60 tablet 02/17/18 Atorvastatin Ca [Lipitor] 80 mg PO HS #30 tablet 02/17/18 Losartan Potassium [Cozaar -] 25 mg PO DAILY #30 tablet 02/17/18 Metoprolol Succinate [Toprol XL -] 50 mg PO BID #60 tab.sr.24h 02/17/18 Head CTA: Clinical information: evaluate for CVA Multiplanar imaging was performed following the intravenous bolus administration of nonionic contrast. Individual partition images as well as projection and reformatted images are reviewed. Multifocal stenoses are seen along the intracranial left vertebral artery and also at the C1 level. The stenosis are probably at least moderate to marked. The left vertebral artery is also somewhat marrow in caliber diffusely which may be on the basis of diminished flow and or secondary to developmental hypoplasia. The basilar and intracranial right vertebral arteries demonstrate no discrete stenosis. The intracranial carotid circulations demonstrate no evidence of large vessel stenosis or occlusion. No discrete aneurysm is seen. There is no extrinsic abnormality. Impression: Multifocal stenoses are seen involving the left vertebral artery as noted above. Reported By: Juan Luis Gamez MD 02/15/18 [id number] CTH: without acute changes, chronic lacunar infarcts, cerebellar encephalomelacia, calcification of cavernous carotid sinus ECHO: can't exclude wall motion abnormalities, mod concentric LVH, severe TR carotid dopp: mod stenosis 60-80% both internal carotids ASSESSMENT AND PLAN: This patient is a 62yo yakut speaking male with PMHx of HTN, CAD s/p CABG ( 2005; 3 vessel dz), former smoker and drinker , diastolic CHF (nl EF), paraoxysmal afib (was on coumadin) who presents to the ED c/o LUE weakness with a similar episode over a month ago , worsened over this past day. # Mulifocal stenosis are seen involving the left vertebral artery , will discharge him on Eliquis 5mg po bid due to having P-afib discussed with cardiology Dr. Rudolph agrees with the plan. Continue lipitor for now and off aspirin since we started him on Eliquis and to watch him off aspirin for now ,until follow up with the securities sales associate. dr. rudolph will discuss with the daughter regarding being off the aspirin.Discussed with and , as per acute CVA needs to stabilize before any stenting of carotids. patient will be followed up with [facility] for possible stenting of carotids, Information is placed in the chart of Dr. Dea Rosales. # Moderate size plaque PHILIP and LICA on aspirin and lipitor (Carotid stenosis). vascular seen the patient and suggested if needed stenting , patient will see vascular surgeon see the is on board. is on Board. # Acute CVA - CTA 80-90% blockage bl possible ischemic stroke . will continue with Lipitor 80mg daily, and Eliquis off the aspirin for now as per securities sales associate , untill further follow up with him in the office. #Hx of paraoxysmal afib ,has a pacemaker , On eliquis now as per cardio. #HTN-controlled continue current regimens . #hx ICD/pacemaker; cardio consult appreciated, interrogation was successful without any arrhythmias , on metoprolol ER for HR, CHF. will discharge the patient.
== END 2018-02-17 11:54 | disposition home or self-care (01) | DRG 65 ==
LOC: JER 07:44 → JERBED 11:19 → J4W 02-13 14:51
PROVIDERS: ADMIT Internal Medicine; ATTEND Internal Medicine
DX: I63.232 Cerebral infarction due to unspecified occlusion or stenosis of left carotid arteries (principal); G81.94 Hemiplegia, unspecified affecting left nondominant side; I50.30 Unspecified diastolic (congestive) heart failure; I47.2 Ventricular tachycardia; I48.0 Paroxysmal atrial fibrillation; I25.10 Atherosclerotic heart disease of native coronary artery without angina pectoris; Z95.1 Presence of aortocoronary bypass graft; Z95.0 Presence of cardiac pacemaker; E11.9 Type 2 diabetes mellitus without complications; E78.5 Hyperlipidemia, unspecified; I11.0 Hypertensive heart disease with heart failure; E66.9 Obesity, unspecified; Z68.36 Body mass index [BMI] 36.0-36.9, adult; E83.42 Hypomagnesemia
CPT/HCPCS: 36415; 70450-TC; 70496-TC; 70498-TC; 80048; 80053; 80061; 82550; 82607; 82962; 83036; 83721; 83735; 84100; 84443; 84484; 85025; 85027; 85610; 86850; 86900; 86901; 93005; 93010; 93306-TC; 93880-TC; 97116-GP; 97161-GP; 99285-25; J7030

== ENCOUNTER 2018-03-03 20:29 | Observation (INO) | payer OTHER ==
[2018-03-03 20:39] VITALS: BMI 36.2
--- NOTE | 2018-03-03 20:39 | PDOC ---
Rapid Medical Evaluation Time Seen by Provider: 03/03/18 20:35 Medical Evaluation: Allergies Allergy/AdvReac Type Severity Reaction Status Date / Time No Known Allergies Allergy Verified 03/03/18 20:35 03/03/18 20:35 I have done a brief in-person assessment of this patient. The patient presents with a chief complaint of elevated blood pressure and a feeling like he is not himself. Reports palpitations. No chest pain. Has catherization scheduled for Pertinent physical exam findings NAD clear bilaterally, unlabored breathing Heart s1s1, HR 58 I have ordered the following: ekg, labs The patient will proceed to the Ed for further evaluation. Dx: elevated blood pressure
[2018-03-03 20:59] LABS: BASO % 0.6 % (0-2.0); EOS % 1.6 % (0-4.5); HEMATOCRIT 40.6 % (35.4-49); HEMOGLOBIN 14.7 GM/dL (11.7-16.9); LYMPH % 28.8 % (8-40); MCH 32.7 pg (25.7-33.7); MCHC 36.1 g/dl (32.0-35.9); MEAN CELL VOLUME 90.4 fl (80-96); MEAN PLT VOLUME 8.2 fl (7.5-11.1); MONO % 10.9 % (3.8-10.2); NEUT % 58.1 % (42.8-82.8); PLATELET COUNT 239 K/MM3 (134-434); RBC 4.49 M/mm3 (4.00-5.60); RDW 13.1 % (11.9-15.9); WHITE BLOOD COUNT 8.9 K/mm3 (4.0-10.0)
--- NOTE | 2018-03-03 21:05 | PDOC ---
History of Present Illness - General Chief Complaint: Blood Pressure Problem Stated Complaint: HIGH BLOOD PRESSURE Time Seen by Provider: 03/03/18 20:35 - History of Present Illness Initial Comments: 03/03/18 21:05 The patient is a 62 year old Amharic speaking LEP male with a PMH of HTN, CAD (s/ p 3 vessel CABG 2005), Systolic CHF, VT (s/p ICD, PPM placement), PAF (on Eliquis), and former ETOH abuse (last drink April 2017)presents to our ED c/o 1 day h/o palpitations and elevated home BP reading. Patient's son @ bedside assists with history. States patient started feeling intermittent palpitations this morning that continued throughout the day lasting 2-3 minutes. Intermittently associated with shortness of breath. No chest pain, lightheadedness, nausea,diaphoresis or new lower extremity swelling. States after a post prandial BP reading of 174/95 patient presented to the ED. States he measures his BP daily @ home with readings of 140's/90's. Adherence to medication regimen and took all of his medications today. Patient is scheduled for carotid endarterectomy later this week in [place]. NKDA Surgical: CABG, PPM placement Social: former (20+ years) smoker PMD: Dr. Allyson Swanson Cardiology: Dr. Escobar Singh As per EMR, patient was evaluated in our ED on 01/[address] negative for CVA .Carotid Doppler showed 60-70% stenosis of both carotid arteries. Past History - Past Medical History Allergies/Adverse Reactions: Allergies Allergy/AdvReac Type Severity Reaction Status Date / Time No Known Allergies Allergy Verified 03/03/18 20:35 Home Medications: Ambulatory Orders Folic Acid 1 mg PO DAILY 11/23/16 Gabapentin 100 mg PO BID 11/23/16 Ranitidine [Zantac -] 150 mg PO HS 11/23/16 Ergocalciferol [Vitamin D2] 50,000 unit PO Q7D@1000 01/18/18 Vitamin B Complex [B Complex] 1 each PO DAILY 01/18/18 Apixaban [Eliquis -] 5 mg PO BID #60 tablet 02/17/18 Atorvastatin Ca [Lipitor] 80 mg PO HS #30 tablet 02/17/18 Losartan Potassium [Cozaar -] 25 mg PO DAILY #30 tablet 02/17/18 Metoprolol Succinate [Toprol XL -] 50 mg PO BID #60 tab.sr.24h 02/17/18 Anemia: No Asthma: No Cancer: No Cardiac Disorders: Yes (CAD, afib) CVA: No COPD: No CHF: No DVT: No Dementia: No Diabetes: No GI Disorders: Yes (GERD) Disorders: No HTN: Yes Hypercholesterolemia: Yes Liver Disease: No Seizures: No Thyroid Disease: No - Surgical History Abdominal Surgery: No Appendectomy: No Cardiac Surgery: Yes (CABG X3, AICD/PPM) Cholecystectomy: No Lung Surgery: No Neurologic Surgery: No Orthopedic Surgery: No - Immunization History Immunization Up to Date: Yes - Suicide/Smoking/Psychosocial Hx Smoking Status: No Smoking History: Never smoked Have you smoked in the past 12 months: No Number of Cigarettes Smoked Daily: 0 Hx Alcohol Use: No Drug/Substance Use Hx: No Substance Use Type: Alcohol Hx Substance Use Treatment: No Review of Systems - Review of Systems Constitutional: No: Chills, Fever HEENTM: No: Blurred Vision, Double Vision Respiratory: Yes: Shortness of Breath. No: Cough, Wheezing, Hemoptysis Cardiac (ROS): Yes: Palpitations. No: Chest Pain, Lightheadedness, Syncope ABD/GI: No: Constipated, Diarrhea, Nausea, Vomiting : No: Burning, Dysuria *Physical Exam - Vital Signs Last Vital Signs Temp Pulse Resp BP Pulse Ox 97.7 F 58 L 18 163/74 59 L 03/03/18 20:36 03/03/18 20:36 03/03/18 20:36 03/03/18 20:36 03/03/18 20:36 - Physical Exam General Appearance: Yes: Nourished, Obese HEENT: positive: Normal Voice, Hearing Grossly Normal Neck: positive: Trachea midline, Supple Respiratory/Chest: positive: Lungs Clear, Normal Breath Sounds. negative: Accessory Muscle Use, Labored Respiration, Stridor, Wheezing Cardiovascular: positive: S1, S2, Edema (2+ pitting edema B/L - baseline). negative: JVD Gastrointestinal/Abdominal: positive: Normal Bowel Sounds, Soft Extremity: positive: Normal Capillary Refill, Normal Inspection, Pedal Edema. negative: Calf Tenderness Integumentary: positive: Normal Color, Dry, Warm Neurologic: positive: Fully Oriented, Alert Moderate Sedation - Procedure Monitoring Vital Signs: Procedure Monitoring Vital Signs Temperature 97.7 F 03/03/18 20:36 Pulse Rate 58 L 03/03/18 20:36 Respiratory Rate 18 03/03/18 20:36 Blood Pressure 163/74 03/03/18 20:36 O2 Sat by Pulse Oximetry (%) 59 L 03/03/18 20:36 ED Treatment Course - LABORATORY CBC & Chemistry Diagram: 03/03/18 20:50 03/03/18 20:50 - ADDITIONAL ORDERS Additional order review: 03/03/18 20:50 RBC 4.49 MCV 90.4 MCHC 36.1 H RDW 13.1 MPV 8.2 Neutrophils % 58.1 Lymphocytes % 28.8 Monocytes % 10.9 H Eosinophils % 1.6 Basophils % 0.6 - RADIOLOGY Radiology Studies Ordered: Category Date Time Status CXRPORT [CHEST X-RAY PORTABLE*] [RAD] Stat Radiology 03/03/18 21:04 Ordered Medical Decision Making - Medical Decision Making 03/03/18 21:59 62 year old male with significant cardiac history including CABG, scheduled cath , presents c/o palpitations and elevated BP reading @ home. Elevated BP in triage. Repeat BP @ bedside 126/75. Frontal diagnosis: Acute CHF exacerbation vs. r/o ACS vs. Arrythymia 2/2 to PPM dysfunction vs. Anxiety (the latter as diagnosis of exclusion). Will obtain Troponin, CXR, EKG, basic labs. color television console monitor, VS Q2H. Reassess. EKG shows HR 58, with TWI in precordial leads - no acute changes from EKG dated 02/11/19. 03/03/18 22:08 CBC, CMP unremarkable Trop, BNP pending 03/03/18 22:10 03/03/18 22:30 BNP 205 Troponin (-) 03/03/18 22:48 Patient reassessed @ bedside VSS No repeat palpations since presentation however given cardiac h/o VT and AFib, patient requires further evaluation including PPM interogation for paroxysmal tachyarrhythmia causing pt's symptoms. Hospitalist microblogged for admission 03/03/18 23:09 Case d/w Dr. Zayas (Resident) and Dr. Connelly (Attending). Patient admitted to OBS TELE *DC/Admit/Observation/Transfer Diagnosis at time of Disposition: Palpitations - Discharge Dispostion Condition at time of disposition: Fair Decision to Admit order: Yes - Referrals Referrals: Mirna Swanson MD [Primary Care Provider] - - Patient Instructions - Post Discharge Activity
[2018-03-03 21:25] LABS: INR 1.14 (0.83-1.09); PROTHROMBIN TIME (PATIENT) 13.5 SEC (9.7-13.0)
[2018-03-03 21:28] LABS: ACTIVATED PTT 30.2 SECONDS (25.2-36.5)
[2018-03-03 22:01] LABS: ALBUMIN 3.7 g/dl (3.4-5.0); ALK PHOS 96 U/L (45-117); ANION GAP 10 MMOL/L (8-16); BILIRUBIN,TOTAL 0.4 mg/dL (0.2-1); BLOOD UREA NITROGEN 14 mg/dL (7-18); CALCIUM 8.4 mg/dL (8.5-10.1); CHLORIDE 107 mmol/L (98-107); CO2 25 mmol/L (21-32); CREATININE 0.9 mg/dL (0.55-1.3); GLUCOSE,RANDOM 113 mg/dL (74-106); SGOT/AST 28 U/L (15-37); SGPT/ALT 55 U/L (13-61); SODIUM 143 mmol/L (136-145); TOT PROT 7.1 g/dl (6.4-8.2)
[2018-03-03 22:25] LABS: N-TERMINAL BNP 205.9 pg/ml (5-125)
--- NOTE | 2018-03-03 23:10 | PDOC ---
Attending Attestation - Resident Resident Name: Elise Guillen - ED Attending Attestation I have performed the following: I have examined & evaluated the patient, The case was reviewed & discussed with the resident, I agree w/resident's findings & plan, Exceptions are as noted - HPI HPI: 03/03/18 23:08 The patient is a 62 year old male, with a significant past medical history of HTN, CAD (s/p 3 vessel CABG in 2005), Systolic CHF, VT (s/p ICD, PPM placement) , PAF (on Eliquis), and former ETOH abuse (last drink April 2017), who presents to the emergency department with, 1 day of intermittent palpitations and elevated blood pressure (174/95). He notes his episodes of palpitations normally last approximately 2-3 minutes with associated shortness of breath. Denies CP. Denies increased leg swelling. Denies feeling his AICD fire. He denies any recent fevers, chills, headache or dizziness. He denies any recent nausea, vomit, diarrhea or constipation. He denies any recent dysuria, frequency, urgency or hematuria. Allergies: NKDA Past surgical history: CABG, PPM placement Social History: Former smoker (20+years). Primary Care Physician: Dr. Allyson Swanson Cardiology: Dr. Cody - Physicial Exam PE: 03/03/18 23:09 GENERAL: Awake, alert, and fully oriented, in no acute distress. HEAD: No signs of trauma EYES: PERRLA, EOMI, sclera anicteric, conjunctiva clear ENT: Auricles normal inspection, hearing grossly normal, nares patent, oropharynx clear without exudates. Moist mucosa NECK: Nontender, no stepoffs, Normal ROM, supple, no lymphadenopathy, JVD, or masses LUNGS: Breath sounds equal, clear to auscultation bilaterally. No wheezes, and no crackles HEART: Regular rate and rhythm, normal S1 and S2, no murmurs, rubs or gallops ABDOMEN: Soft, nontender, normoactive bowel sounds. No guarding, no rebound. No masses EXTREMITIES: Normal range of motion, no edema. No clubbing or cyanosis. No cords, erythema, or tenderness NEUROLOGICAL: Cranial nerves II through XII intact. 5/5 strength and sensation in all extremities, Normal speech, normal gait, normal cerebellar function SKIN: Warm, Dry, normal turgor, no rashes or lesions noted. - Medical Decision Making 03/03/18 23:09 62 M with intermittent palpitations and SOB x 1 day. EKG unchanged since prior. No evidence of arrhythmia, but pt also asymptomatic in ED. Pt has h/o VT and pAfib. Possible paroxysmal tachyarrhythmia causing pt's symptoms. - Labs - CXR - Interrogate AICD - Tele monitoring
--- NOTE | 2018-03-04 | PN ---
Teaching Attending Note Name of Resident: Robert Zayas ATTENDING PHYSICIAN STATEMENT I saw and evaluated the patient. I reviewed the resident's note and discussed the case with the resident. I agree with the resident's findings and plan as documented. SUBJECTIVE: Seen and examined, please see resident note for further documentation. Briefly , this is a 62 y/o CM with a complex PMH significant for CHF (last Echo 01/2018 ) s/p AICD, PPM insertion 2009, PAF (on eliquis, was on coumadin), recent CVA with severe GENESIS (saw Dr. Ramirez for this in the past; planned procedure next weak for CEA in [place]), prior EtOH abuse, HTN, HLD. He was recently discharged with CVA diagnosis and was discovered to have the severe GENESIS. He was changed from coumadin to eliquis at that point. He had some palpitations at home; denies CP, SOB, etc. Never had any syncope or lightheadedness. In general he 'doesn't feel well' and he felt this way prior to his last admission. Pacemaker attempted to be interrogated in the ER and by us but no commercial pest control representative available. HR low 50s in ER; on metoprolol at home. Observe and interrogate pacer and place on tele. 10 sys ROS done and negative aside from HPI PMH and PSH reviewed FH asked and noncontributory Socially denies any current EtOH or drug abuse. Sinhala speaking. Medication list reviewed; reconciliation pending. OBJECTIVE: VS, labs, imaging reviewed. NAD, AAO, resting comfortably in bed RRR s1/2 no mgr Lungs CTAB w/ sym exp NT ND +BS obese CN2-12 wnl, no fnd Normal mood, appropriate affect Telemetry showed occasional PVC with no arrhythmias frankly explaining the sx he had EKG Reviewed Labs unremarkable Echo 01/2018: BiAtrial dilation with reduced LVEF; quality prohibited assessment of any wmas. Elevated RVSP (40-50) with concentric LVH. Moderate to severe TR. ASSESSMENT AND PLAN: Patient presents with palpitations. 1) Palpitations -Negative trop, tele unrevealing, etc. Is s/p pacer/AICD -Interrogate pacer, monitor on tele. Trend K and Mg. Monitor for sx. No CP, SOB, syncope. Unlikely ACS. 2) Relative bradycardia -Cut down dose BB if needed. On 50 MS BID (was 100 prior to last admit). BP good. No stereotyped sx. Monitor 3) P-AFib -Elevated CV2 score; continue eliquis, MS BID (with adjusting dose if low rate as described above) 4) Carotid A. Stenosis -Prior studies reviewed; no new neuro sx -Continue eliquis, atorva. CEA next week in [place]. 5) HTN -Continue Losartan 6) HLD -Continue statin 7) H/O EtOH Abuse -Denies current 8) Hx CHF with mildly elevated BNP -No clincal sx, no SOB, etc. -Monitor Is and Os, weights. No need for diuresis now. Old echo reviewed. Consider OP diuretic if needed. 9) Obesity -Forest Pathologist when clinically appropriate 10) History CVA -Continue home meds; off ASA as on eliquis. Can resume nonurgently as OP when he follows up with cardiology. FENA -PO fluids, 2L restriction -PRN replace -Cardiac, low salt -As tolerated Full Code
--- NOTE | 2018-03-04 01:13 | HP ---
CHIEF COMPLAINT: "Did not feel like myself" PCP: Dr. Swanson HISTORY OF PRESENT ILLNESS: 62 y/o, primarily Greenlandic speaking M with PMHx of CAD s/p CABG, PAF (on Eliquis) , Diastolic HF s/p AICD, HTN, EtOH Abuse presents after not feeling like himself. Part of the hx was provided by the Son, Vinnie, and by the electrical lineworker phone (Alfonso [id number]). Patient was recently discharged on 02/17 for Left lower extremity weakness found to have a completed CVA, Right and Left Carotid Artery stenosis. At this time his ICD was interrogated and found to have no problems. Additionally he was scheduled to follow up this regarding his carotid Endarterectomy. Since this morning, patient felt "Tremors" in his chest and overall did not feel like himself. Throughout the the day, the tremors would come and go for approximately 2-3 minutes each, and were accompanied by some trouble breathing. This evening after dinner, patient measured his BP to by 174/95; Usually his BP is around 140/90. Patient mentions that last time he felt this way was when his stroke occurred. Given these concerns, patient visited [facility] ED. Patient is compliant with his medications and took all of his meds today. Denies any recent Increase in stress and is unable to identify any triggers or alleviating factors. Patient endorses feelings of fatigue, bloating, and chronic difficulty breathing. Denies any accompanying chest pain, fevers, nausea, vomiting or diarrhea. 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 Ambulation: Without assitance Residence: Home with son and Family History: Denies Allergies No Known Allergies Allergy (Verified 03/03/18 20:35) HOME MEDICATIONS: Home Medications Medication Instructions Recorded Folic Acid 1 mg PO DAILY 11/23/16 Gabapentin 100 mg PO BID 11/23/16 Ranitidine [Zantac -] 150 mg PO HS 11/23/16 Ergocalciferol [Vitamin D2] 50,000 unit PO Q7D@1000 01/18/18 Vitamin B Complex [B Complex] 1 each PO DAILY 01/18/18 Apixaban [Eliquis -] 5 mg PO BID #60 tablet 02/17/18 Atorvastatin Ca [Lipitor] 80 mg PO HS #30 tablet 02/17/18 Losartan Potassium [Cozaar -] 25 mg PO DAILY #30 tablet 02/17/18 Metoprolol Succinate [Toprol XL -] 50 mg PO BID #60 tab.sr.24h 02/17/18 REVIEW OF SYSTEMS As per HPI PHYSICAL EXAMINATION Vital Signs - 24 hr 03/03/18 20:36 Temperature 97.7 F Pulse Rate 58 L Respiratory 18 Rate Blood Pressure 163/74 O2 Sat by Pulse 59 L Oximetry (%) GENERAL: A&Ox3, NAD HEAD: NCAT EYES: PERRL, EOMI EARS, NOSE, THROAT: Oropharynx clear without exudates. Moist mucous membranes. NECK: Supple LUNGS: CTA b/l, No wheezes, no crackles. HEART: Bradycardic, normal S1 and S2 without murmur ABDOMEN: Soft, nontender, Distended, + bowel sounds, no guarding MUSCULOSKELETAL: No CVA tenderness. EXTREMITIES: 2+ pulses, 1+ edema. NEUROLOGICAL: Cranial nerves II-XII intact. Normal speech. 4/5 Muscle strength throughout. Gross sensation intact through out. SKIN: Warm, dry Laboratory Results - last 24 hr 03/03/18 03/03/18 03/03/18 20:50 20:50 20:50 WBC 8.9 RBC 4.49 Hgb 14.7 Hct 40.6 MCV 90.4 MCH 32.7 MCHC 36.1 H RDW 13.1 Plt Count 239 D MPV 8.2 Absolute Neuts (auto) 5.2 Neutrophils % 58.1 Lymphocytes % 28.8 Monocytes % 10.9 H Eosinophils % 1.6 Basophils % 0.6 Nucleated RBC % 0 PT with INR 13.50 H INR 1.14 H PTT (Actin FS) 30.2 Sodium 143 Potassium 4.0 Chloride 107 Carbon Dioxide 25 Anion Gap 10 BUN 14 Creatinine 0.9 Creat Clearance w eGFR > 60 Random Glucose 113 H Calcium 8.4 L Total Bilirubin 0.4 AST 28 ALT 55 Alkaline Phosphatase 96 Creatine Kinase 74 Troponin I 0.02 B-Natriuretic Peptide 205.9 H Total Protein 7.1 Albumin 3.7 ASSESSMENT/PLAN: 62 y/o, primarily Greenlandic speaking M with PMHx of CAD s/p CABG, PAF (on Eliquis) , Diastolic HF s/p AICD, HTN, EtOH Abuse presents after not feeling like himself. #Palpitations s/p AICD placement -Trops 0.02, Trend -Echo done previous visit recealed LA and RA moderately dilated, Regional wall motion abnormalities cannot be excluded, LV systolic function is borderline reduced -Will need AICD interrogation (GuestDriven) -Tele Monitoring -Continue to monitor Lytes #PAF -Continue Eliquis, Toprol XL -Bradycardic; Consider reducing dose of Toprol XL #Carotid Artery Stenosis -Neck CTA reviewed -Continue Eliquis, Statin -Keep Carotid endarterectomy follow up appointment for #HTN -Continue Home dose Losartan #FEN -PO Fluids -Lytes WNL -Sodium controlled diet #PPx -DVT: On iqu Dispo: Tele-Obs, will need med-rec Visit type - Emergency Visit Emergency Visit: Yes ED Registration Date: 03/03/18 Care time: The patient presented to the Emergency Department on the above date and was hospitalized for further evaluation of their emergent condition. - New Patient This patient is new to me today: Yes Date on this admission: 03/05/18 - Critical Care Critical Care patient: No
[2018-03-04 07:42] LABS: BASO % 0.6 % (0-2.0); EOS % 1.9 % (0-4.5); HEMATOCRIT 42.1 % (35.4-49); HEMOGLOBIN 13.8 GM/dL (11.7-16.9); LYMPH % 32.7 % (8-40); MCH 30.2 pg (25.7-33.7); MCHC 32.8 g/dl (32.0-35.9); MEAN CELL VOLUME 91.9 fl (80-96); MEAN PLT VOLUME 8.6 fl (7.5-11.1); MONO % 10.6 % (3.8-10.2); NEUT % 54.2 % (42.8-82.8); PLATELET COUNT 190 K/MM3 (134-434); RBC 4.58 M/mm3 (4.00-5.60); WHITE BLOOD COUNT 7.9 K/mm3 (4.0-10.0)
[2018-03-04 08:07] LABS: ALBUMIN 3.2 g/dl (3.4-5.0); ALK PHOS 84 U/L (45-117); ANION GAP 5 MMOL/L (8-16); BILIRUBIN,TOTAL 0.5 mg/dL (0.2-1); BLOOD UREA NITROGEN 15 mg/dL (7-18); CHLORIDE 106 mmol/L (98-107); CO2 28 mmol/L (21-32); CREATININE 0.8 mg/dL (0.55-1.3); GLUCOSE,RANDOM 98 mg/dL (74-106); MAGNESIUM 2.1 mg/dL (1.8-2.4); PHOSPHOROUS 4.2 mg/dL (2.5-4.9); POTASSIUM 3.7 mmol/L (3.5-5.1); SGOT/AST 19 U/L (15-37); SGPT/ALT 47 U/L (13-61); SODIUM 139 mmol/L (136-145); TOT PROT 6.3 g/dl (6.4-8.2)
[2018-03-04] MEDS ORDERED: APIXABAN 5 MG TABLET PO SCH (10:00)
--- NOTE | 2018-03-04 10:00 | EKG ---
Test Reason : Blood Pressure : / mmHG Vent. Rate : 050 BPM Atrial Rate : 053 BPM P-R Int : 000 ms QRS Dur : 192 ms QT Int : 564 ms P-R-T Axes : 000 -55 110 degrees QTc Int : 514 ms Ventricular-paced rhythm ABNORMAL ECG WHEN COMPARED WITH ECG OF 12-FEB-2018 09:22, ELECTRONIC VENTRICULAR PACEMAKER HAS REPLACED SINUS RHYTHM Confirmed by Alexx Suggs MD ([id number]) on 03/04/2018 10:00:14 AM Referred By: Confirmed By:Alexx Suggs MD
--- NOTE | 2018-03-04 10:02 | EKG ---
Test Reason : Blood Pressure : / mmHG Vent. Rate : 055 BPM Atrial Rate : 055 BPM P-R Int : 164 ms QRS Dur : 098 ms QT Int : 420 ms P-R-T Axes : 058 048 054 degrees QTc Int : 401 ms SINUS BRADYCARDIA NONSPECIFIC T WAVE ABNORMALITY ABNORMAL ECG Confirmed by Alexx Suggs MD ([id number]) on 03/04/2018 10:02:05 AM Referred By: Confirmed By:Alexx Suggs MD
[2018-03-04] MEDS: LOSARTAN POTASSIUM 25 MG TABLET PO SCH ×2 (10:53→11:30)
[2018-03-04 11:17] VITALS: PULSE 51
[2018-03-04 15:30] VITALS: BP 131/68; TEMP 98.4
--- NOTE | 2018-03-04 15:44 | CON.CARD ---
Consult Consult Specialty:: cardiology Reason for Consultation:: palpitations; uncontrolled HTN; hx recent CVA - Past Medical History Cardio/Vascular: Yes: CAD, CHF, HTN, Hyperlipdemia, Other Gastrointestinal: Yes: GERD Psych: Yes: Addictions, Other - Past Surgical History Past Surgical History: Yes: AICD, CABG - Alcohol/Substance Use Hx Alcohol Use: No History of Substance Use: reports: None - Smoking History Smoking history: Never smoked Have you smoked in the past 12 months: No Aproximately how many cigarettes per day: 0 - Social History Usual Living Arrangement: With Spouse ADL: 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 History of Recent Travel: No Home Medications - Allergies Allergies/Adverse Reactions: Allergies Allergy/AdvReac Type Severity Reaction Status Date / Time No Known Allergies Allergy Verified 03/03/18 20:35 - Home Medications Home Medications: Ambulatory Orders Folic Acid 1 mg PO DAILY 11/23/16 Gabapentin 100 mg PO BID 11/23/16 Ranitidine [Zantac -] 150 mg PO HS 11/23/16 Ergocalciferol [Vitamin D2] 50,000 unit PO Q7D@1000 01/18/18 Vitamin B Complex [B Complex] 1 each PO DAILY 01/18/18 Apixaban [Eliquis -] 5 mg PO BID #60 tablet 02/17/18 Atorvastatin Ca [Lipitor] 80 mg PO HS #30 tablet 02/17/18 Losartan Potassium [Cozaar -] 25 mg PO DAILY #30 tablet 02/17/18 Metoprolol Succinate [Toprol XL -] 50 mg PO BID #60 tab.sr.24h 02/17/18 Vital Signs: Vital Signs Temperature 98.4 F 03/04/18 15:00 Pulse Rate 51 L 03/04/18 15:00 Respiratory Rate 20 03/04/18 15:00 Blood Pressure 131/68 03/04/18 15:00 O2 Sat by Pulse Oximetry (%) 97 03/04/18 14:00 - Other Data Labs, Other Data: CBC, BMP 03/04/18 06:29 03/04/18 06:00 INR, PTT INR 1.14 (0.83-1.09) H 03/03/18 20:50 Troponin, BNP 03/03/18 03/04/18 03/04/18 20:50 02:50 04:32 Troponin I 0.02 Cancelled 0.02 B-Natriuretic Peptide 205.9 H Troponin, BNP 03/03/18 03/04/18 03/04/18 20:50 02:50 04:32 Troponin I 0.02 Cancelled 0.02 B-Natriuretic Peptide 205.9 H Problem List - Problems (1) Palpitations Assessment/Plan: ICD interrogation today: one brief run of NSVT; no events that required intervention (i.e. no ATP or shocks were required). Continue beta blockers. F/u electrolytes, and keep WNL (all presently normal; TSH WNL 01/2018). Code(s): R00.2 - PALPITATIONS (2) ASHD (arteriosclerotic heart disease) Code(s): I25.10 - ATHSCL HEART DISEASE OF [place] CORONARY ARTERY W/O ANG PCTRS (3) Alcohol abuse Code(s): F10.10 - ALCOHOL ABUSE, UNCOMPLICATED (4) Atrial fibrillation Assessment/Plan: On beta blockers for HR control. On apixaban for anticoagulation; see "CVA" for plans to discontinue it after tomorrow morning's dose in preparation for cartid artery angiogram on 2018. Code(s): I48.91 - UNSPECIFIED ATRIAL FIBRILLATION (5) CVA (cerebral vascular accident) Assessment/Plan: Pt with recent CVA. Bilateral severe carotid artery plaque and stenoses; vertebrrl artery plaque and stenosis. Discussed pt with his daughter, Jeanette, and with pt's cardiac interventionalist , Dr. Khan. From a cardiac standpoint, pt may be followed as an outpatient. He has been scheduled for carotid artery/vertebral artery angiogram 03/07/2018. Continue apixaban until after giving tomorrow's (03/05/2018) dose, then stop apixaban until after the carotid artery angiogram. Code(s): I63.9 - CEREBRAL INFARCTION, UNSPECIFIED Qualifiers: CVA mechanism: unspecified Qualified Code(s): I63.9 - Cerebral infarction, unspecified (6) Carotid artery disease Code(s): I77.9 - DISORDER OF ARTERIES AND ARTERIOLES, UNSPECIFIED Qualifiers: Laterality: bilateral (7) GERD (gastroesophageal reflux disease) Code(s): K21.9 - GASTRO-ESOPHAGEAL REFLUX DISEASE WITHOUT ESOPHAGITIS (8) Hx of CABG Code(s): Z95.1 - PRESENCE OF AORTOCORONARY BYPASS GRAFT (9) Hypertension Code(s): I10 - ESSENTIAL (PRIMARY) HYPERTENSION (10) Systolic CHF Code(s): I50.20 - UNSPECIFIED SYSTOLIC (CONGESTIVE) HEART FAILURE (11) Ventricular tachycardia Code(s): I47.2 - VENTRICULAR TACHYCARDIA (12) Hyperlipidemia Code(s): E78.5 - HYPERLIPIDEMIA, UNSPECIFIED (13) ICD (implantable cardioverter-defibrillator) in place Code(s): Z95.810 - PRESENCE OF AUTOMATIC (IMPLANTABLE) CARDIAC DEFIBRILLATOR (14) Obesity (BMI 30-39.9) Code(s): E66.9 - OBESITY, UNSPECIFIED
--- NOTE | 2018-03-04 16:39 | PN ---
Physical Exam: SUBJECTIVE: Patient seen and examined at bedside this morning. Patient is a 62 year old male, recently admitted for CVA, presented with "tremors" in the chest and shortness of breath yesterday. Patient reported he had the same symptoms from the last time he was admitted and was diagnosed with a stroke. Patient became OBJECTIVE: Vital Signs Period Temp Pulse Resp BP Sys/Peterson Pulse Ox Last 24 Hr 97.4 F-98.6 F 51-65 18-20 128-163/61-87 59-100 GENERAL: The patient is awake, alert, and fully oriented, in no acute distress. HEAD: Normal with no signs of trauma. EYES: PERRL, extraocular movements intact, sclera anicteric, conjunctiva clear. No ptosis. ENT: Ears normal, nares patent, oropharynx clear without exudates, moist mucous membranes. NECK: Trachea midline, full range of motion, supple. LUNGS: Breath sounds equal, clear to auscultation bilaterally, no wheezes, no crackles, no accessory muscle use. HEART: Regular rate and rhythm, S1, S2 without murmur, rub or gallop. ABDOMEN: Soft, nontender, nondistended, normoactive bowel sounds, no guarding, no rebound, no hepatosplenomegaly, no masses. EXTREMITIES: 2+ pulses, warm, well-perfused, no edema. NEUROLOGICAL: Cranial nerves II through XII grossly intact. Normal speech, gait not observed. PSYCH: Normal mood, normal affect. SKIN: Warm, dry, normal turgor, no rashes or lesions noted Laboratory Results - last 24 hr 03/03/18 03/03/18 03/03/18 20:50 20:50 20:50 WBC 8.9 RBC 4.49 Hgb 14.7 Hct 40.6 MCV 90.4 MCH 32.7 MCHC 36.1 H RDW 13.1 Plt Count 239 D MPV 8.2 Absolute Neuts (auto) 5.2 Neutrophils % 58.1 Lymphocytes % 28.8 Monocytes % 10.9 H Eosinophils % 1.6 Basophils % 0.6 Nucleated RBC % 0 PT with INR 13.50 H INR 1.14 H PTT (Actin FS) 30.2 Sodium 143 Potassium 4.0 Chloride 107 Carbon Dioxide 25 Anion Gap 10 BUN 14 Creatinine 0.9 Creat Clearance w eGFR > 60 Random Glucose 113 H Calcium 8.4 L Phosphorus Magnesium Total Bilirubin 0.4 AST 28 ALT 55 Alkaline Phosphatase 96 Creatine Kinase 74 Troponin I 0.02 B-Natriuretic Peptide 205.9 H Total Protein 7.1 Albumin 3.7 03/04/18 03/04/18 03/04/18 02:50 04:32 06:00 WBC RBC Hgb Hct MCV MCH MCHC RDW Plt Count MPV Absolute Neuts (auto) Neutrophils % Lymphocytes % Monocytes % Eosinophils % Basophils % Nucleated RBC % PT with INR INR PTT (Actin FS) Sodium 139 Potassium 3.7 Chloride 106 Carbon Dioxide 28 Anion Gap 5 L BUN 15 Creatinine 0.8 Creat Clearance w eGFR > 60 Random Glucose 98 Calcium 8.0 L Phosphorus 4.2 Magnesium 2.1 Total Bilirubin 0.5 AST 19 ALT 47 Alkaline Phosphatase 84 Creatine Kinase Troponin I Cancelled 0.02 B-Natriuretic Peptide Total Protein 6.3 L Albumin 3.2 L 03/04/18 06:29 WBC 7.9 RBC 4.58 Hgb 13.8 Hct 42.1 MCV 91.9 MCH 30.2 MCHC 32.8 RDW 13.0 Plt Count 190 D MPV 8.6 Absolute Neuts (auto) 4.3 Neutrophils % 54.2 Lymphocytes % 32.7 Monocytes % 10.6 H Eosinophils % 1.9 Basophils % 0.6 Nucleated RBC % 0 PT with INR INR PTT (Actin FS) Sodium Potassium Chloride Carbon Dioxide Anion Gap BUN Creatinine Creat Clearance w eGFR Random Glucose Calcium Phosphorus Magnesium Total Bilirubin AST ALT Alkaline Phosphatase Creatine Kinase Troponin I B-Natriuretic Peptide Total Protein Albumin Active Medications Generic Name Dose Route Start Last Admin Trade Name Freq PRN Reason Stop Dose Admin Apixaban 5 mg 03/04/18 10:03/04/18 10:54 Eliquis - PO 5 mg BID DARIAN Administration Losartan Potassium 25 mg 03/04/18 10:00 03/04/18 11:30 Cozaar - PO 25 mg DAILY DARIAN Administration Metoprolol Succinate 50 mg 03/04/18 10:00 03/04/18 11:30 Toprol Xl - PO 50 mg BID DARIAN Administration ASSESSMENT/PLAN:
--- NOTE | 2018-03-04 17:36 | DS ---
Physical Exam: SUBJECTIVE: Patient seen and examined at bedside this morning. Patient is a 62 year old male, recently admitted for CVA, presented with "tremors" in the chest and shortness of breath yesterday. Patient reported he had the same symptoms from the last time he was admitted and was diagnosed with a stroke. Patient became anxious and asked his son to bring him to the ED last night. This morning , patient denies any chest discomfort, SOB, palpitations, headache, dizziness, fever, chills, nausea, vomiting, weakness, abdominal pain, diarrhea. OBJECTIVE: Vital Signs Period Temp Pulse Resp BP Sys/Peterson Pulse Ox Last 24 Hr 97.4 F-98.6 F 51-65 18-20 128-163/61-87 59-100 PHYSICAL EXAM GENERAL: The patient is awake, alert, and fully oriented, in no acute distress. HEAD: Normal with no signs of trauma. ENT: Ears normal, nares patent, oropharynx clear without exudates, moist mucous membranes. NECK: Trachea midline, full range of motion, supple. LUNGS: Breath sounds equal, clear to auscultation bilaterally. HEART:Bradycardic, S1, S2 without murmur, rub or gallop. ABDOMEN: Soft, nontender, nondistended, normoactive bowel sounds. EXTREMITIES: 2+ pulses, warm, well-perfused, no edema. NEUROLOGICAL: Cranial nerves II through XII grossly intact. Motor 5/5, sensation intact. Normal speech,normal gait. PSYCH: Normal mood, normal affect. SKIN: Warm, dry, normal turgor, no rashes or lesions noted. LABS Laboratory Results - last 24 hr 03/03/18 03/03/18 03/03/18 20:50 20:50 20:50 WBC 8.9 RBC 4.49 Hgb 14.7 Hct 40.6 MCV 90.4 MCH 32.7 MCHC 36.1 H RDW 13.1 Plt Count 239 D MPV 8.2 Absolute Neuts (auto) 5.2 Neutrophils % 58.1 Lymphocytes % 28.8 Monocytes % 10.9 H Eosinophils % 1.6 Basophils % 0.6 Nucleated RBC % 0 PT with INR 13.50 H INR 1.14 H PTT (Actin FS) 30.2 Sodium 143 Potassium 4.0 Chloride 107 Carbon Dioxide 25 Anion Gap 10 BUN 14 Creatinine 0.9 Creat Clearance w eGFR > 60 Random Glucose 113 H Calcium 8.4 L Phosphorus Magnesium Total Bilirubin 0.4 AST 28 ALT 55 Alkaline Phosphatase 96 Creatine Kinase 74 Troponin I 0.02 B-Natriuretic Peptide 205.9 H Total Protein 7.1 Albumin 3.7 03/04/18 03/04/18 03/04/18 02:50 04:32 06:00 WBC RBC Hgb Hct MCV MCH MCHC RDW Plt Count MPV Absolute Neuts (auto) Neutrophils % Lymphocytes % Monocytes % Eosinophils % Basophils % Nucleated RBC % PT with INR INR PTT (Actin FS) Sodium 139 Potassium 3.7 Chloride 106 Carbon Dioxide 28 Anion Gap 5 L BUN 15 Creatinine 0.8 Creat Clearance w eGFR > 60 Random Glucose 98 Calcium 8.0 L Phosphorus 4.2 Magnesium 2.1 Total Bilirubin 0.5 AST 19 ALT 47 Alkaline Phosphatase 84 Creatine Kinase Troponin I Cancelled 0.02 B-Natriuretic Peptide Total Protein 6.3 L Albumin 3.2 L 03/04/18 06:29 WBC 7.9 RBC 4.58 Hgb 13.8 Hct 42.1 MCV 91.9 MCH 30.2 MCHC 32.8 RDW 13.0 Plt Count 190 D MPV 8.6 Absolute Neuts (auto) 4.3 Neutrophils % 54.2 Lymphocytes % 32.7 Monocytes % 10.6 H Eosinophils % 1.9 Basophils % 0.6 Nucleated RBC % 0 PT with INR INR PTT (Actin FS) Sodium Potassium Chloride Carbon Dioxide Anion Gap BUN Creatinine Creat Clearance w eGFR Random Glucose Calcium Phosphorus Magnesium Total Bilirubin AST ALT Alkaline Phosphatase Creatine Kinase Troponin I B-Natriuretic Peptide Total Protein Albumin HOSPITAL COURSE: Date of Admission:03/03/18 Date of Discharge: 03/04/18 Patient is a 62 year old male with past medical history of CAD s/p CABG, PAF ( On Eliquis), Diastolic CHF s/p AICD, HTN, EtOH abuse presents with chest discomfort and shortness of breath, feeling "not like himself" yesterday. ACS was ruled out. Cardiology consulted. ICD interrogation done which had one brief run of NSVT, with no events that required intervention. Patient is scheduled for a carotid artery/vertebral artery angiogram at [facility] on 03/07/18. Patient was discharged with instructions to stop Eliquis after the morning dose tomorrow and to resume it after the angiogram. Patient was also instructed to follow-up with cardiology as outpatient. Minutes to complete discharge: 40 Discharge Summary Reason For Visit: PALPITATIONS Current Active Problems Palpitations (Acute) Condition: Improved - Instructions Diet, Activity, Other Instructions: Your visit You were admitted to the hospital because you were having palpitations and shortness of breath. You were seen by the lending manager, Dr. Retana. Your pacemaker was checked, which did not show any concerns that would require immediate intervention. Important reminders: You are scheduled for a procedure (coronary artery/vertebral artery angiogram) at [facility] with Dr. Khan on Saturday (03/07/18). Take your Eliquis dose tomorrow in the morning (03/05/18), and then STOP taking it until after the angiogram is done on Saturday. Do not take Aspirin or Plavix. Please discuss with Dr. Khan when to resume your Eliquis. Medications -STOP Eliquis after your morning dose tomorrow. -Do not take Aspirin or Plavix. -Continue other home medications. Follow-up -You are scheduled for a procedure (coronary artery/vertebral artery angiogram) at [facility] with Dr. Khan on Saturday (03/07/18). -Follow-up with the lending manager (Dr. Retana) within 1 week. -Follow-up with your primary care doctor within 1 week. Additional info Call 911 or go to the ED if with any worsening weakness, numbness, chest pain, shortness of breath, palpitations, abdominal pain, diarrhea, or any new concerns noted. Referrals: anderson burr [Other] Mirna Swanson MD [Primary Care Provider] - Carlos Retana MD [Staff Physician] - Disposition: HOME - Home Medications Comprehensive Discharge Medication List: Ambulatory Orders Folic Acid 1 mg PO DAILY 11/23/16 Gabapentin 100 mg PO BID 11/23/16 Ranitidine [Zantac -] 150 mg PO HS 11/23/16 Ergocalciferol [Vitamin D2] 50,000 unit PO Q7D@1000 01/18/18 Vitamin B Complex [B Complex] 1 each PO DAILY 01/18/18 Apixaban [Eliquis -] 5 mg PO BID #60 tablet 02/17/18 Atorvastatin Ca [Lipitor] 80 mg PO HS #30 tablet 02/17/18 Losartan Potassium [Cozaar -] 25 mg PO DAILY #30 tablet 02/17/18 Metoprolol Succinate [Toprol XL -] 50 mg PO BID #60 tab.sr.24h 02/17/18 This patient is new to me today: Yes Date on this admission: 03/04/18 Emergency Visit: Yes ED Registration Date: 03/03/18 Care time: The patient presented to the Emergency Department on the above date and was hospitalized for further evaluation of their emergent condition. Critical Care patient: No - Discharge Referral Referred to [facility] Med P.[facility] No
--- NOTE | 2018-03-04 18:23 | PN ---
Teaching Attending Note Name of Resident: Chelo Yadav ATTENDING PHYSICIAN STATEMENT I saw and evaluated the patient. I reviewed the resident's note and discussed the case with the resident. I agree with the resident's findings and plan as documented. SUBJECTIVE: Patient is feeling better with no acute distress, no dizziness , no palpitations , no headache. OBJECTIVE: Vital Signs Temperature 98.4 F 03/04/18 15:00 Pulse Rate 51 L 03/04/18 15:00 Respiratory Rate 20 03/04/18 15:00 Blood Pressure 131/68 03/04/18 15:00 O2 Sat by Pulse Oximetry (%) 97 03/04/18 14:00 GENERAL: The patient is awake, alert, and fully oriented, in no acute distress. HEAD: Normal with no signs of trauma. ENT: Ears normal, oropharynx clear without exudates, moist mucous membranes. NECK: Trachea midline, full range of motion, supple. LUNGS: Breath sounds equal, clear to auscultation bilaterally. HEART:Bradycardic, S1, S2 without murmur, rub or gallop. ABDOMEN: Soft, nontender, nondistended, normoactive bowel sounds. EXTREMITIES: 2+ pulses, warm, well-perfused, no edema. NEUROLOGICAL: Cranial nerves II through XII grossly intact. PSYCH: Normal mood, normal affect. SKIN: Warm, dry, normal turgor, no rashes or lesions noted. CBCD WBC 7.9 K/mm3 (4.0-10.0) 03/04/18 06:29 RBC 4.58 M/mm3 (4.00-5.60) 03/04/18 06:29 Hgb 13.8 GM/dL (11.7-16.9) 03/04/18 06:29 Hct 42.1 % (35.4-49) 03/04/18 06:29 MCV 91.9 fl (80-96) 03/04/18 06:29 MCHC 32.8 g/dl (32.0-35.9) 03/04/18 06:29 RDW 13.0 % (11.9-15.9) 03/04/18 06:29 Plt Count 190 K/MM3 (134-434) D 03/04/18 06:29 MPV 8.6 fl (7.5-11.1) 03/04/18 06:29 CMP Sodium 139 mmol/L (136-145) 03/04/18 06:00 Potassium 3.7 mmol/L (3.5-5.1) 03/04/18 06:00 Chloride 106 mmol/L (98-107) 03/04/18 06:00 Carbon Dioxide 28 mmol/L (21-32) 03/04/18 06:00 Anion Gap 5 MMOL/L (8-16) L 03/04/18 06:00 BUN 15 mg/dL (7-18) 03/04/18 06:00 Creatinine 0.8 mg/dL (0.55-1.3) 03/04/18 06:00 Creat Clearance w eGFR > 60 (>60) 03/04/18 06:00 Random Glucose 98 mg/dL (74-106) 03/04/18 06:00 Calcium 8.0 mg/dL (8.5-10.1) L 03/04/18 06:00 Total Bilirubin 0.5 mg/dL (0.2-1) 03/04/18 06:00 AST 19 U/L (15-37) 03/04/18 06:00 ALT 47 U/L (13-61) 03/04/18 06:00 Alkaline Phosphatase 84 U/L (45-117) 03/04/18 06:00 Total Protein 6.3 g/dl (6.4-8.2) L 03/04/18 06:00 Albumin 3.2 g/dl (3.4-5.0) L 03/04/18 06:00 CARDIAC ENZYMES Creatine Kinase 74 IU/L (26-308) 03/03/18 20:50 Troponin I 0.02 ng/ml (0.00-0.05) 03/04/18 04:32 Home Medications Medication Instructions Recorded Folic Acid 1 mg PO DAILY 11/23/16 Gabapentin 100 mg PO BID 11/23/16 Ranitidine [Zantac -] 150 mg PO HS 11/23/16 Ergocalciferol [Vitamin D2] 50,000 unit PO Q7D@1000 01/18/18 Vitamin B Complex [B Complex] 1 each PO DAILY 01/18/18 Apixaban [Eliquis -] 5 mg PO BID #60 tablet 02/17/18 Atorvastatin Ca [Lipitor] 80 mg PO HS #30 tablet 02/17/18 Losartan Potassium [Cozaar -] 25 mg PO DAILY #30 tablet 02/17/18 Metoprolol Succinate [Toprol XL -] 50 mg PO BID #60 tab.sr.24h 02/17/18 ASSESSMENT AND PLAN: This patient is a 62yo croatian speaking male with PMHx of HTN, CAD s/p CABG ( 2005; 3 vessel dz), former smoker and drinker , diastolic CHF (nl EF), paraoxysmal afib (was on coumadin) who presents to the ED with "tremors" in the chest and shortness of breath yesterday. # Palpitations with ICD/pacemaker was interogated and was found to have a brief run of NSVT, with no events that required intervention # Mulifocal stenosis are seen involving the left vertebral artery on eliqius continue with hx of P-afib , Patient is scheduled for a carotid artery/ vertebral artery angiogram at [facility] on 03/07/18. Patient was discharged with instructions to stop Eliquis after tomorrow and to resume it after the angiogram. follow up with cardiology as outpatient. # Moderate size plaque PHILIP and LICA on aspirin and lipitor (Carotid stenosis). # Acute CVA - CTA 80-90% blockage bl possible ischemic stroke . will continue with Lipitor 80mg daily, and Eliquis . #Hx of paraoxysmal afib ,has a pacemaker , On eliquis continue for now #HTN-controlled continue current regimens . discharge the patient home. follow up at [facility].
== END 2018-03-04 18:03 | disposition home or self-care (01) ==
LOC: JER 20:29 → JERBED 23:53
PROVIDERS: ADMIT Internal Medicine; ATTEND Internal Medicine
DX: R00.2 Palpitations (principal); I25.10 Atherosclerotic heart disease of native coronary artery without angina pectoris; I11.0 Hypertensive heart disease with heart failure; Z95.1 Presence of aortocoronary bypass graft; I50.33 Acute on chronic diastolic (congestive) heart failure; I48.0 Paroxysmal atrial fibrillation; Z79.01 Long term (current) use of anticoagulants; I65.23 Occlusion and stenosis of bilateral carotid arteries; Z87.891 Personal history of nicotine dependence; Z95.810 Presence of automatic (implantable) cardiac defibrillator; R00.1 Bradycardia, unspecified; E66.9 Obesity, unspecified; Z68.36 Body mass index [BMI] 36.0-36.9, adult; Z86.73 Personal history of transient ischemic attack (TIA), and cerebral infarction without residual deficits
CPT/HCPCS: 36415; 71045-TC-FY; 80053; 82550; 83735; 83880; 84100; 84484; 85025; 85610; 85730; 93005; 93010; 99285-25; G0378; G0463-25

== ENCOUNTER 2018-03-05 22:36 | Observation (INO) | payer OTHER ==
[2018-03-05 22:45] VITALS: BMI 36.2
[2018-03-05] MEDS ORDERED: ASPIRIN 81 MG CHEWABLE TABLETS ONE (23:20)
--- NOTE | 2018-03-05 23:34 | PDOC ---
Attending Attestation - HPI HPI: 03/05/18 23:46 The patient is a 62 year old male with a significant past medical history of hypertension, hyperlipidemia, GERD, afib (on eliquis), CAD(s/p CABG 2005), systolic CHF, who presents to the emergency department with elevated blood pressure earlier this evening. The patient reports that he was at home when he felt a sudden onset of chest pain with associated left arm pain. The patient reports that he felt as if his pacemaker fired. He denies any weakness, numbness or tingling sensation . he denies any shortness of breath, headache or dizziness. The patient denies any other complaints. It is noted that the patient has a follow up heart cath in 2 days. He denies any other complaints. Documentation prepared by Owen Camargo, acting as durable medical equipment repairer for Jason To MD. <Owen Camargo - Last Filed: 03/05/18 23:46> - Resident Resident Name: Matthew Jj - ED Attending Attestation I have performed the following: I have examined & evaluated the patient, The case was reviewed & discussed with the resident, I agree w/resident's findings & plan, Exceptions are as noted - Physicial Exam PE: 03/06/18 05:27 Agree with exam as documented by resident - Medical Decision Making 03/06/18 05:27 Intense CP that made pt feel like he was shocked by his aicd, interogation negative for event/intervention f/u labs, ekg, cxr admit r/o acs <Jason To - Last Filed: 03/06/18 05:28>
--- NOTE | 2018-03-05 23:52 | PDOC ---
History of Present Illness - General Chief Complaint: Blood Pressure Problem Stated Complaint: Blood Pressure Problem Time Seen by Provider: 03/05/18 23:11 History Source: Patient - History of Present Illness Initial Comments: 03/05/18 23:53 Patient is a 62M with history of HTN, CAD (s/p 3 vessel CABG 2005), Systolic CHF , VT (s/p ICD, PPM placement), PAF, and former ETOH abuse (last drink April 2017 ) presenting to the ED with a sensation of chest pain that he state was his ICD going off. Denies fevers, chills, nausea, vomiting. Endorses shocks in all of his extremities. Denies shortness of breath, abdominal pain. Endorses some leg swelling, at baseline. Patient was admitted two days ago and ruled out for ACS. Told to not take aspirin. Discharged yesterday with instructions to go to angiogram at [facility] on Saturday. Denies chest pain at this time. Past History - Past Medical History Allergies/Adverse Reactions: Allergies Allergy/AdvReac Type Severity Reaction Status Date / Time No Known Allergies Allergy Verified 03/05/18 22:44 Home Medications: Ambulatory Orders Folic Acid 1 mg PO DAILY 11/23/16 Gabapentin 100 mg PO BID 11/23/16 Ranitidine [Zantac -] 150 mg PO HS 11/23/16 Ergocalciferol [Vitamin D2] 50,000 unit PO Q7D@1000 01/18/18 Vitamin B Complex [B Complex] 1 each PO DAILY 01/18/18 Apixaban [Eliquis -] 5 mg PO BID #60 tablet 02/17/18 Atorvastatin Ca [Lipitor] 80 mg PO HS #30 tablet 02/17/18 Losartan Potassium [Cozaar -] 25 mg PO DAILY #30 tablet 02/17/18 Metoprolol Succinate [Toprol XL -] 50 mg PO BID #60 tab.sr.24h 02/17/18 Anemia: No Asthma: No Cancer: No Cardiac Disorders: Yes (CAD, afib, Pacemaker) CVA: No COPD: No CHF: No DVT: No Dementia: No Diabetes: No GI Disorders: Yes (GERD) Disorders: No HTN: Yes Hypercholesterolemia: Yes Liver Disease: No Seizures: No Thyroid Disease: No - Surgical History Abdominal Surgery: No Appendectomy: No Cardiac Surgery: Yes (CABG X3, AICD/PPM) Cholecystectomy: No Lung Surgery: No Neurologic Surgery: No Orthopedic Surgery: No - Immunization History Immunization Up to Date: Yes - Suicide/Smoking/Psychosocial Hx Smoking Status: No Smoking History: Never smoked Have you smoked in the past 12 months: No Number of Cigarettes Smoked Daily: 0 Information on smoking cessation initiated: No Hx Alcohol Use: No Drug/Substance Use Hx: No Substance Use Type: Alcohol Hx Substance Use Treatment: No Review of Systems - Review of Systems Comments:: 03/05/18 23:55 GENERAL/CONSTITUTIONAL: No fever or chills. No weakness. HEAD, EYES, EARS, NOSE AND THROAT: No change in vision. No sore throat. CARDIOVASCULAR: +chest pain no shortness of breath RESPIRATORY: No cough, wheezing, or hemoptysis. GASTROINTESTINAL: No nausea, vomiting, diarrhea or constipation. GENITOURINARY: No dysuria, frequency, or change in urination. MUSCULOSKELETAL: No joint or muscle swelling or pain. No neck or back pain. SKIN: No rash NEUROLOGIC: No headache, vertigo, loss of consciousness, or change in strength/ sensation. ENDOCRINE: No increased thirst. No abnormal weight change HEMATOLOGIC/LYMPHATIC: No anemia, easy bleeding, or history of blood clots. ALLERGIC/IMMUNOLOGIC: No hives or skin allergy. *Physical Exam - Vital Signs Last Vital Signs Temp Pulse Resp BP Pulse Ox 98.2 F 62 16 155/76 100 03/05/18 22:41 03/05/18 22:41 03/05/18 22:41 03/05/18 22:41 03/05/18 22:41 - Physical Exam Comments: 03/05/18 23:55 GENERAL: Awake, alert, and fully oriented, in no acute distress HEAD: No signs of trauma, normocephalic, atraumatic EYES: PERRLA, EOMI, sclera anicteric, conjunctiva clear ENT: Auricles normal inspection, hearing grossly normal, nares patent, oropharynx clear without exudates. Moist mucosa NECK: Normal ROM, supple, no lymphadenopathy, JVD, or masses LUNGS: No distress, speaks full sentences, clear to auscultation bilaterally HEART: Regular rate and rhythm, normal S1 and S2, no murmurs, rubs or gallops, peripheral pulses normal and equal bilaterally. ABDOMEN: Soft, nontender, normoactive bowel sounds. No guarding, no rebound. No masses EXTREMITIES: Normal inspection, Normal range of motion, trace edema. No clubbing or cyanosis. NEUROLOGICAL: Cranial nerves II through XII grossly intact. Normal speech, no focal sensorimotor deficits SKIN: Warm, Dry, normal turgor, no rashes or lesions noted. Moderate Sedation - Procedure Monitoring Vital Signs: Procedure Monitoring Vital Signs Temperature 98.2 F 03/05/18 22:41 Pulse Rate 62 03/05/18 22:41 Respiratory Rate 16 03/05/18 22:41 Blood Pressure 155/76 03/05/18 22:41 O2 Sat by Pulse Oximetry (%) 100 03/05/18 22:41 Heart Score/ECG Review - History History: Slightly suspicious - Electrocardiogram EKG: Non specific repolarization disturbance - Age Age: 45-65 - Risk Factors Risk Factors Heart Score: Yes Hx Hypercholesterolemia, Yes Hx Hypertension, Yes Hx Diabetes Based on the list above the patient has:: >/=3 risk factors or Hx atherosclerotic disease - Troponin Troponin: </= normal limit - Score Heart Score - Total: 4 ED Treatment Course - LABORATORY CBC & Chemistry Diagram: 03/05/18 23:50 03/05/18 23:50 - RADIOLOGY Radiology Studies Ordered: Category Date Time Status CHEST X-RAY PORTABLE* [RAD] Stat Radiology 03/05/18 23:31 Taken Medical Decision Making - Medical Decision Making 03/05/18 23:55 Patient is 62M with history of HTN, CAD (s/p 3 vessel CABG 2005), Systolic CHF, VT (s/p ICD, PPM placement), PAF, and former ETOH abuse (last drink April 2017) here today with chest pain. Vitals normal and stable. ICD interrogated, d/w [employer], no rate abnormalities, no shocks delivered. Will work up as possible acs, admit to obs tele. 03/06/18 00:55 EKG shows sinus bradycardia with rate of 59. No st elevations/depressions. Non specific t wave abnormality. Normal axis. Normal intervals. Trop neg, CBC, CMP, CXR unremarkable. Will obs tele. *DC/Admit/Observation/Transfer Diagnosis at time of Disposition: Chest pain Qualifiers: Chest pain type: unspecified Qualified Code(s): R07.9 - Chest pain, unspecified - Discharge Dispostion Condition at time of disposition: Stable Decision to Admit order: Yes - Referrals - Patient Instructions - Post Discharge Activity
[2018-03-06 00:06] LABS: BASO % 0.5 % (0-2.0); HEMATOCRIT 41.2 % (35.4-49); HEMOGLOBIN 14.6 GM/dL (11.7-16.9); LYMPH % 30.9 % (8-40); MCH 32.1 pg (25.7-33.7); MCHC 35.4 g/dl (32.0-35.9); MEAN CELL VOLUME 90.8 fl (80-96); MEAN PLT VOLUME 8.5 fl (7.5-11.1); MONO % 10.9 % (3.8-10.2); NEUT % 55.7 % (42.8-82.8); PLATELET COUNT 218 K/MM3 (134-434); RBC 4.54 M/mm3 (4.00-5.60); RDW 13.3 % (11.9-15.9); WHITE BLOOD COUNT 7.7 K/mm3 (4.0-10.0)
[2018-03-06 00:17] LABS: INR 1.08 (0.83-1.09); PROTHROMBIN TIME (PATIENT) 12.8 SEC (9.7-13.0)
[2018-03-06 00:35] LABS: ALBUMIN 3.5 g/dl (3.4-5.0); ALK PHOS 92 U/L (45-117); ANION GAP 6 MMOL/L (8-16); BILIRUBIN,TOTAL 0.4 mg/dL (0.2-1); BLOOD UREA NITROGEN 15 mg/dL (7-18); CALCIUM 8.6 mg/dL (8.5-10.1); CHLORIDE 103 mmol/L (98-107); CO2 29 mmol/L (21-32); CREATININE 0.9 mg/dL (0.55-1.3); GLUCOSE,RANDOM 101 mg/dL (74-106); POTASSIUM 4.1 mmol/L (3.5-5.1); SGOT/AST 22 U/L (15-37); SGPT/ALT 42 U/L (13-61); SODIUM 139 mmol/L (136-145); TOT PROT 6.9 g/dl (6.4-8.2)
--- NOTE | 2018-03-06 03:51 | HP ---
CHIEF COMPLAINT: PCP: Dr. Swanson HISTORY OF PRESENT ILLNESS: 62 y/o, primarily Grenadian speaking M with PMHx of CAD s/p CABG, PAF (on ; Held in anticipation on angiogram on saturday) Diastolic HF s/p AICD, HTN, EtOH Abuse presents for sudden onset chest pain. Part of the hx was provided by his son and via the shaper and presser phone (Reema [id number]). Patient was recently discharged from [facility] on 03/04/18 after ACS rule out and was scheduled for Angiogram on 03/07. This past evening at 10pm, when patient hansel from his chair, he felt an "electrical feeling" throughout his body. He describes this as an electric current surrounding his heart that felt cold, comes and goes, and radiated to his left upper and lower extremity. His BP at this time was 185/ 110. Patient has felt shock before however this time it is much worse; He feels residual tingling and burning throughout both residual lower extremities. He is unable to identify any alleviating or exacerbating factors. Patient says he compliant with his medications since his discharge. Additionally mentions he has lost approx. 14lbs over the past month. Denies any associated Palpitations, headaches, fevers, chills, chest pain, SOB, nausea, vomiting, diarrhea, constipation. 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 Ambulation: Without assitance Residence: Home with son and Family History: Denies Allergies No Known Allergies Allergy (Verified 03/05/18 22:44) HOME MEDICATIONS: Home Medications Medication Instructions Recorded Folic Acid 1 mg PO DAILY 11/23/16 Gabapentin 100 mg PO BID 11/23/16 Ranitidine [Zantac -] 150 mg PO HS 11/23/16 Ergocalciferol [Vitamin D2] 50,000 unit PO Q7D@1000 01/18/18 Vitamin B Complex [B Complex] 1 each PO DAILY 01/18/18 Apixaban [Eliquis -] 5 mg PO BID #60 tablet 02/17/18 Atorvastatin Ca [Lipitor] 80 mg PO HS #30 tablet 02/17/18 Losartan Potassium [Cozaar -] 25 mg PO DAILY #30 tablet 02/17/18 Metoprolol Succinate [Toprol XL -] 50 mg PO BID #60 tab.sr.24h 02/17/18 REVIEW OF SYSTEMS As per HPI PHYSICAL EXAMINATION Vital Signs - 24 hr 03/05/18 22:41 Temperature 98.2 F Pulse Rate 62 Respiratory 16 Rate Blood Pressure 155/76 O2 Sat by Pulse 100 Oximetry (%) GENERAL: A&Ox3, NAD HEAD: NCAT EYES: PERRL, EOMI EARS, NOSE, THROAT: Oropharynx clear without exudates. Moist mucous membranes. NECK: Supple LUNGS: CTA b/l, No wheezes, no crackles. HEART: Regular rate and rhythm, normal S1 and S2 without murmur ABDOMEN: Soft, nontender, Distended, + bowel sounds, no guarding MUSCULOSKELETAL: No CVA tenderness. EXTREMITIES: 2+ pulses, 1+ edema. SKIN: Warm, dry Laboratory Results - last 24 hr 03/05/18 03/05/18 03/05/18 23:50 23:50 23:50 WBC 7.7 RBC 4.54 Hgb 14.6 Hct 41.2 MCV 90.8 MCH 32.1 MCHC 35.4 RDW 13.3 Plt Count 218 MPV 8.5 Absolute Neuts (auto) 4.3 Neutrophils % 55.7 Lymphocytes % 30.9 Monocytes % 10.9 H Eosinophils % 2.0 Basophils % 0.5 Nucleated RBC % 0 PT with INR 12.80 INR 1.08 Sodium 139 Potassium 4.1 Chloride 103 Carbon Dioxide 29 Anion Gap 6 L BUN 15 Creatinine 0.9 Creat Clearance w eGFR > 60 Random Glucose 101 Calcium 8.6 Magnesium 2.0 Total Bilirubin 0.4 AST 22 ALT 42 Alkaline Phosphatase 92 Creatine Kinase 87 Troponin I < 0.02 Total Protein 6.9 Albumin 3.5 ASSESSMENT/PLAN: 62 y/o, primarily Grenadian speaking M with PMHx of CAD s/p CABG, PAF (on ; Held in anticipation on angiogram on saturday) Diastolic HF s/p AICD, HTN, EtOH Abuse presents for sudden onset "electrical feeling" in Chest with HTN. #Electrical sensation in Chest -Pacemaker was interrogated by ED and found to have no events that required interrogation -Cardiology (Dr. Lares) consulted -Tele monitoring #Multifocal stenosis of the left vertebral artery -Scheduled for Carotid artery/vertebral artery angiogram (03/07/18) -Hold Elliquis as per prior d/c instructions -Follow up outpatient with cardiology #Hx of Recent CVA -CTA in january revealed 80-90% blockage and Moderate size Right ICA and Left ICA plaque -Continue home dose ASA, Lipitor -Hold Elliquis #Hx of PAF -Elliquis held in the setting of upcoming Angiogram -Continue Toprol XL #HTN -Continue Losartan, Toprol #Obesity -Patient will need to be counselled on dietary and weight loss strategies prior to dc -Consider dietary consult #FEN -PO Fluids -Lytes WNL -Sodium Controlled #PPx -DVT: SCDs Dispo: Tele-Obs, will need med-rec Visit type - Emergency Visit Emergency Visit: Yes ED Registration Date: 03/06/18 Care time: The patient presented to the Emergency Department on the above date and was hospitalized for further evaluation of their emergent condition. - New Patient This patient is new to me today: Yes Date on this admission: 03/10/18 - Critical Care Critical Care patient: No
--- NOTE | 2018-03-06 05:52 | PN ---
Teaching Attending Note Name of Resident: Robert Zayas ATTENDING PHYSICIAN STATEMENT I saw and evaluated the patient. I reviewed the resident's note and discussed the case with the resident. I agree with the resident's findings and plan as documented. SUBJECTIVE: Patient seen and examined with resident; please see their note for further historical information. This patient is well-known to the medicine service who was discharged on 03/04 and comes back to the ER on 03/05. Seen by cardiology on 02/26; per their note: Pt with recent CVA. Bilateral severe carotid artery plaque and stenoses; vertebrrl artery plaque and stenosis. Discussed pt with his daughter, Jeanette, and with pt's cardiac interventionalist, Dr. Khan. From a cardiac standpoint, pt may be followed as an outpatient. He has been scheduled for carotid artery/vertebral artery angiogram 2018. Continue apixaban until after giving tomorrow's (03/05/2018) dose, then stop apixaban until after the carotid artery angiogram." He presents today with "electric sensation" in chest; no melanie chest pain per the patient and without melanie palpitations. Please refer to resident note for further historical information. 10 sys ROS done and negative aside from HPI PMH and PSH reviewed FH asked and noncontributory Social history reviewed; unchanged from prior admission Medication list reviewed; pending reconciliation OBJECTIVE: VS, labs, imaging reviewed NAD, AAO, resting comfortably in bed RRR s1/2 no mgr Lungs CTAB w/ sym exp NT ND +BS obese CN2-12 wnl, no fnd Normal mood, appropriate affect Labs, imaging, EKG, and previous DCS reviewed ASSESSMENT AND PLAN: To continue on plan outlined in last progress note ~24 hours from his presentation back to ER 1) " Electric Feeling" with recent Palpitations -ICD/pacemaker was interogated and was found to have a brief run of NSVT, with no events that required intervention. -Call CV in AM to determine if needs interrogation again; no syncope or melanie palpitations. Monitor on telemetry. Was planned to followup with CV as an OP at that time. 2) Mulifocal stenosis are seen involving the left vertebral artery on eliqius continue with hx of P-afib , Patient is scheduled for a carotid artery/ vertebral artery angiogram at [facility] on 03/07/18. Patient was discharged with instructions to stop Eliquis after 03/05 (so holding starting 03/06) and to resume it after the angiogram. follow up with cardiology as outpatient. Will hold the eliquis today -Consider hypoperfusion causing the 'electric' sx but no specific region and very nonspecific sx. 3) Moderate size plaque PHILIP and LICA on aspirin and lipitor (Carotid stenosis) . Unchanged from DC plan, 4) Hx Acute CVA -CTA 80-90% blockage bl possible ischemic stroke . will continue with Lipitor 80mg daily. 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 Once discussed with their service can dispo and decide on additional testing. We will reach out to [facility] now. Full Code
[2018-03-06] MEDS ORDERED: GABAPENTIN 100 MG CAPSULE (FP) PO SCH (10:00)
[2018-03-06] MEDS ORDERED: FOLIC ACID 1 MG TABLET (FP) PO SCH (10:00)
[2018-03-06] MEDS ORDERED: APIXABAN 5 MG TABLET PO SCH (10:00)
[2018-03-06] MEDS ORDERED: LOSARTAN POTASSIUM 25 MG TABLET PO SCH (10:00)
[2018-03-06] MEDS ORDERED: LOSARTAN POTASSIUM 50 MG TABLET (FP) PO SCH (10:30)
[2018-03-06] MEDS ORDERED: EZETIMIBE 10 MG TABLET (FP) PO ONE (12:16)
--- NOTE | 2018-03-06 12:18 | CON.CARD ---
Consult Consult Specialty:: cardiology Reason for Consultation:: chest pain - History of Present Illness History of Present Illness: The patient is a 62 year old white male (macrelo Moe), with a significant past medical history of chronic alcoholism, hypertension, hyperlipidemia, GERD, afib (on eliquis), CAD(s/p CABG 2005),s/p coronary angiogram 2012 (nonobstructive grafts) systolic (now borderline reduced LVEF on 2018 ECHO) CHF, CVA ( bilaterallacunar infarcts: ? age), who presents to the emergency department with elevated blood pressure earlier this evening. The patient reports that he was at home when he felt a sudden onset of chest pain with associated left arm pain. The patient reports that he felt as if his pacemaker fired. He denies any weakness, numbness or tingling sensation . he denies any shortness of breath, headache or dizziness. The patient denies any other complaints. It is noted that the patient has a follow up heart cath in 2 days. He denies any other complaints. 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 Cardio/Vascular: Yes: AFIB, CAD, CHF, HTN, Hyperlipdemia, Other Gastrointestinal: Yes: GERD Psych: Yes: Addictions, Other - Past Surgical History Past Surgical History: Yes: AICD, CABG - Alcohol/Substance Use Hx Alcohol Use: No History of Substance Use: reports: None - Smoking History Smoking history: Never smoked Have you smoked in the past 12 months: No Aproximately how many cigarettes per day: 0 - Social History Usual Living Arrangement: With Spouse ADL: 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 History of Recent Travel: No Home Medications - Allergies Allergies/Adverse Reactions: Allergies Allergy/AdvReac Type Severity Reaction Status Date / Time No Known Allergies Allergy Verified 03/05/18 22:44 - Home Medications Home Medications: Ambulatory Orders Folic Acid 1 mg PO DAILY 11/23/16 Gabapentin 100 mg PO BID 11/23/16 Ranitidine [Zantac -] 150 mg PO HS 11/23/16 Ergocalciferol [Vitamin D2] 50,000 unit PO Q7D@1000 01/18/18 Vitamin B Complex [B Complex] 1 each PO DAILY 01/18/18 Apixaban [Eliquis -] 5 mg PO BID #60 tablet 02/17/18 Atorvastatin Ca [Lipitor] 80 mg PO HS #30 tablet 02/17/18 Losartan Potassium [Cozaar -] 25 mg PO DAILY #30 tablet 02/17/18 Metoprolol Succinate [Toprol XL -] 50 mg PO BID #60 tab.sr.24h 02/17/18 Vital Signs: Vital Signs Temperature 98.0 F 03/06/18 06:55 Pulse Rate 58 L 03/06/18 11:30 Respiratory Rate 17 03/06/18 11:30 Blood Pressure 138/84 03/06/18 11:30 O2 Sat by Pulse Oximetry (%) 98 03/06/18 11:30 - Other Data Labs, Other Data: CBC, BMP 03/05/18 23:50 03/05/18 23:50 INR, PTT INR 1.08 (0.83-1.09) 03/05/18 23:50 Troponin, BNP 03/05/18 03/06/18 23:50 03:06 Troponin I < 0.02 0.02 Troponin, BNP 03/05/18 03/06/18 23:50 03:06 Troponin I < 0.02 0.02 Problem List - Problems (1) Atypical chest pain Assessment/Plan: TNI < 0.02 x 2. ICD interrogation: episode of NSVT; no interventions required. Continue metoprolol. For coronary angiogram at [facility] (Dr Khan); transfer pending. ASA 81 mg daily; cloopigogrel 300 mg now, then 75 mg daily. Code(s): R07.89 - OTHER CHEST PAIN (2) Carotid artery stenosis with cerebral infarction Assessment/Plan: Pt for cartoid artery angiogram at [facility]; transfer pending. Code(s): I63.239 - CEREB INFRC DUE TO UNSP OCCLS OR STENOS OF UNSP CRTD ARTERY (3) Alcoholism /alcohol abuse Assessment/Plan: Pt claims no alcohol since 02/25/18. Code(s): F10.20 - ALCOHOL DEPENDENCE, UNCOMPLICATED (4) Obesity Code(s): E66.9 - OBESITY, UNSPECIFIED (5) ASHD (arteriosclerotic heart disease) Code(s): I25.10 - ATHSCL HEART DISEASE OF [place] CORONARY ARTERY W/O ANG PCTRS (6) Atrial fibrillation Assessment/Plan: On metoprolol ER for HR control. On apixaban (after morning dose of 03/05/18 in anticipation of carotid artery angiogram) Code(s): I48.91 - UNSPECIFIED ATRIAL FIBRILLATION (7) Systolic CHF Code(s): I50.20 - UNSPECIFIED SYSTOLIC (CONGESTIVE) HEART FAILURE (8) Ventricular tachycardia Code(s): I47.2 - VENTRICULAR TACHYCARDIA (9) HTN (hypertension) Code(s): I10 - ESSENTIAL (PRIMARY) HYPERTENSION (10) Hyperlipidemia Code(s): E78.5 - HYPERLIPIDEMIA, UNSPECIFIED (11) ICD (implantable cardioverter-defibrillator) in place Code(s): Z95.810 - PRESENCE OF AUTOMATIC (IMPLANTABLE) CARDIAC DEFIBRILLATOR (12) Obesity (BMI 30-39.9) Code(s): E66.9 - OBESITY, UNSPECIFIED
[2018-03-06] MEDS ORDERED: CLOPIDOGREL BISULFATE 300 MG TABLET PO ONE (12:30)
[2018-03-06] MEDS ORDERED: ASPIRIN 81 MG CHEWABLE TABLETS PO SCH (12:30)
--- NOTE | 2018-03-06 12:44 | EKG ---
Test Reason : Blood Pressure : / mmHG Vent. Rate : 052 BPM Atrial Rate : 052 BPM P-R Int : 162 ms QRS Dur : 098 ms QT Int : 440 ms P-R-T Axes : 064 063 016 degrees QTc Int : 409 ms POOR DATA QUALITY, INTERPRETATION MAY BE ADVERSELY AFFECTED SINUS BRADYCARDIA NONSPECIFIC T WAVE ABNORMALITY ABNORMAL ECG WHEN COMPARED WITH ECG OF 05-MAR-2018 22:47, NO SIGNIFICANT CHANGE WAS FOUND Confirmed by LISA MCCARTY, ALEX ([id number]) on 03/06/2018 12:44:33 PM Referred By: Confirmed By:ALEX GONZALEZ MD
--- NOTE | 2018-03-06 13:58 | PN ---
Teaching Attending Note Name of Resident: Felicita Zamorano ATTENDING PHYSICIAN STATEMENT I saw and evaluated the patient. I reviewed the resident's note and discussed the case with the resident. I agree with the resident's findings and plan as documented. SUBJECTIVE: Spoke to patient with the help of science interpreter phone. he is poor historian and has difficulty giving correct description of his sx. he reports chest burning sensation radiating to both arms and both legs. he feels electrical current through his whole body . denies light headedness, COUCH , N/V with this dfeeling that last for 2-3 min at at a time He does not know what meds he takes but his daughter puts them for him to take OBJECTIVE: NAD , AAOx3 CV: RRR, no MRG, no JVD Lungs: CATB ext: no edema , or erythema, no ulcers on feet or fungal infection Abd: soft, obese, TTP in LLQ . ASSESSMENT AND PLAN: 62 y/o man with h/o HTN, CAD s/p CABG, CHF, P Afib , started on eliquis last admission, VT, s/p ICD, b/l carotid stenosis, L vertebral artery stenosis, , pre-DM , strabismus and other medical problems, and recent hospitalization fro LUE weakness was diagnosed with possible CVA, who now presented with weird feeling in his chest . 1- chest discomfort, not sure if it is ACS or from severe hypertension ( BP in 190s at home ) . sensation lasts 2-3 min and unlikely it is form VT. - ICD interrogated. - EKG with no acute ischemic changes . trop nl x2 - plan to transfer for heart cath . - cont asa - plavix 300 then 75 daily - appreciate Card Recs 2- b/l Carotid artery stenosis and L vertebral artery stenosis per CTA last admission . for carotid angiogram after transfer cont home asa. now will be started on plavix 3- H/o P A fib: - eliquis ( recently started, was on coumadin in past ) . keep on hold for the angiogram - cont home asa - cont metoprlol succinate 50 BID 4- HTN : at losartan 25 mg at home - increase to 50 due to the elevated bP at home 5- dispo : transfer for cath . d/w Dr. Campo by team .
--- NOTE | 2018-03-06 19:17 | PN ---
Physical Exam: SUBJECTIVE: Patient seen and examined at bedside this morning. Patient is a 62 year old male, recently admitted for CVA, presented with "electrical sensation" originating from his trunk and radiating down to his arms and legs. This would last a couple of minutes. As per patient and daughter , patient has been having this intermittent symptoms of "electrical sensation" since he was admitted in January, at the same time BP is noted to have elevated BP at 190s. Patient became anxious and asked his son to bring him to the ED last night. This morning, patient denies any chest discomfort, SOB, palpitations, headache, dizziness, fever, chills, nausea, vomiting, weakness, abdominal pain, diarrhea. OBJECTIVE: Vital Signs Period Temp Pulse Resp BP Sys/Peterson Pulse Ox Last 24 Hr 97.0 F-98.2 F 57-98 15-20 136-156/71-84 98-100 GENERAL: The patient is awake, alert, and fully oriented, in no acute distress. HEAD: Normal with no signs of trauma. ENT: Ears normal, nares patent, oropharynx clear without exudates, moist mucous membranes. NECK: Trachea midline, full range of motion, supple. LUNGS: Breath sounds equal, clear to auscultation bilaterally. HEART:Bradycardic, S1, S2 without murmur, rub or gallop. ABDOMEN: Soft, nontender, nondistended, normoactive bowel sounds. EXTREMITIES: 2+ pulses, warm, well-perfused, no edema. NEUROLOGICAL: Cranial nerves II through XII grossly intact. Motor 5/5, sensation intact. Normal speech,normal gait. PSYCH: Normal mood, normal affect. SKIN: Warm, dry, normal turgor, no rashes or lesions noted. Laboratory Results - last 24 hr 03/05/18 03/05/18 03/05/18 23:50 23:50 23:50 WBC 7.7 RBC 4.54 Hgb 14.6 Hct 41.2 MCV 90.8 MCH 32.1 MCHC 35.4 RDW 13.3 Plt Count 218 MPV 8.5 Absolute Neuts (auto) 4.3 Neutrophils % 55.7 Lymphocytes % 30.9 Monocytes % 10.9 H Eosinophils % 2.0 Basophils % 0.5 Nucleated RBC % 0 PT with INR 12.80 INR 1.08 Sodium 139 Potassium 4.1 Chloride 103 Carbon Dioxide 29 Anion Gap 6 L BUN 15 Creatinine 0.9 Creat Clearance w eGFR > 60 Random Glucose 101 Calcium 8.6 Magnesium 2.0 Total Bilirubin 0.4 AST 22 ALT 42 Alkaline Phosphatase 92 Creatine Kinase 87 Troponin I < 0.02 Total Protein 6.9 Albumin 3.5 03/06/18 03:06 WBC RBC Hgb Hct MCV MCH MCHC RDW Plt Count MPV Absolute Neuts (auto) Neutrophils % Lymphocytes % Monocytes % Eosinophils % Basophils % Nucleated RBC % PT with INR INR Sodium Potassium Chloride Carbon Dioxide Anion Gap BUN Creatinine Creat Clearance w eGFR Random Glucose Calcium Magnesium Total Bilirubin AST ALT Alkaline Phosphatase Creatine Kinase 68 Troponin I 0.02 Total Protein Albumin Active Medications Generic Name Dose Route Start Last Admin Trade Name Freq PRN Reason Stop Dose Admin Aspirin 81 mg 03/06/18 12:30 03/06/18 13:25 Asa - PO 81 mg DAILY [facility] Administration Atorvastatin Calcium 80 mg 03/06/18 22:00 Lipitor - PO HS [facility] Clopidogrel Bisulfate 75 mg 03/07/18 10:00 Plavix - PO DAILY [facility] Ezetimibe 10 mg 03/07/18 10:00 Zetia - PO DAILY [facility] Folic Acid 1 mg 03/06/18 10:00 03/06/18 10:50 Folic Acid - PO 1 mg DAILY [facility] Administration Gabapentin 100 mg 03/06/18 10:00 03/06/18 10:50 Neurontin - PO 100 mg BID [facility] Administration Losartan Potassium 50 mg 03/06/18 10:30 03/06/18 11:14 Cozaar - PO 50 mg DAILY [facility] Administration Metoprolol Succinate 50 mg 03/06/18 10:00 03/06/18 11:31 Toprol Xl - PO Not Given BID [facility] Ranitidine HCl 150 mg 03/06/18 22:00 Zantac - PO HS [facility] ASSESSMENT/PLAN: Patient is a 62 year old male with past medical history of HTN, CAD s/p CABG ( 2006, 3-vessel disease), systolic CHF, s/p ICD, paroxysmal AFib (on coumadin prior), recently admitted for CVA, presented with "electrical sensation" originating from his trunk and radiating down to his arms and legs. #Electrical sensation in Chest: ATypical chest paint -Troponin <0.02 x2 -Pacemaker was interrogated at ED: episode of NSVT and found to have no events that required interrogation -Cardiology (Dr. Retana) consulted. Recommendations appreciated. -Tele monitoring -Continue Metoprolol 50mg BID -For coronary angiogram at [facility] (Dr. Khan) -Transfer pending -Will start ASA 81mg daily. -Clopidogrel 300mg given once. Will start 75mg daily starting tomorrow. -Ezetimibe 10mg daily. #Bilateral carotid artery stenosis -Neck CTA (02/13/18): Comparison to prior neck CTA of the neck 08/07/17, no significant interval change in the degree of stenosis at the right and left common carotid bifurcation as well as in the proximal right ICA. Moderate size calcified plaque at the right common carotid bifurcation as well as a calcified plaque with focal significant narrowing of the proximal right ICA, approximately 8mm from its origin with 80-90% stenosis. Calcified plaque at the left common carotid bifurcation resulting in 80-90% stenosis at the origin of the left ICA. Hypoplastic left vertebral artery relative to the right with moderate atherosclerotic narrowing of its distal segment at C1 level. There is nonenhancement of the left vertebral artery from its origin up to C6 level. Retrograde enhancement of the left vertebral artery down to C6 level is unusual. Rule out severe stenosis/occlusion of the proximal left vertebral artery. -For vertebral artery/carotid artery angiogram at [facility] tomorrow (01/13) -Pending transfer. Accepting physician: Dr. Maurer/ Dr. Khan #Paroxysmal Atrial Fibrillation -Continue Metoprolol 50 mg BID for HR control -Eliquis on hold for anticipated angiogram tomorrow -On ASA and Clopidogrel #HTN: controlled -On Metoprolol 50mg BID -Losartan 25mg daily --> increased to 50mg daily. #CAD s/p CABG: stable -Ezetimibe 10mg daily. -Lipitor 80mg daily -ASA and Clopidogrel #CHFrEF: not in exacerbation -will monitor for now -Cardiology (Dr. Retana) consulted. #FEN -Not on any standing fluids -Electrolytes wnl, routine bmp monitoring -Sodium-controlled diet #Prophylaxis -ASA and clopidogrel -Eliquis on hold #Disposition -full code -for Transfer to [facility], for angiogram tomorrow. Visit type - Emergency Visit Emergency Visit: Yes ED Registration Date: 03/06/18 Care time: The patient presented to the Emergency Department on the above date and was hospitalized for further evaluation of their emergent condition. - New Patient This patient is new to me today: Yes Date on this admission: 03/06/18 - Critical Care Critical Care patient: No
[2018-03-06] MEDS ORDERED: ATORVASTATIN CA 80 MG TABLET (FP) PO SCH (22:00)
[2018-03-06] MEDS ORDERED: RANITIDINE HCL 150 MG TABLET (FP) PO SCH (22:00)
[2018-03-06 22:31] VITALS: BP 129/67; PULSE 55; TEMP 97.7
[2018-03-07] MEDS ORDERED: EZETIMIBE 10 MG TABLET (FP) PO SCH (10:00)
[2018-03-07] MEDS ORDERED: CLOPIDOGREL BISULFATE 75 MG TABLET (FP) PO SCH (10:00)
--- NOTE | 2018-03-07 17:32 | DS ---
Physical Exam: SUBJECTIVE: Patient transferred overnight. OBJECTIVE: HOSPITAL COURSE: Date of Admission:03/06/18 Date of Discharge: 03/07/18 Patient is a 62 year old male with past medical history of HTN, CAD s/p CABG ( 2006, 3-vessel disease), systolic CHF, s/p ICD, paroxysmal AFib (on coumadin prior), recently admitted for CVA, presented with "electrical sensation" originating from his trunk and radiating down to his arms and legs. Cardiology consulted. Trops were negative. Eliquis was held as instructed. He was started on ASA 81mg and Plavix with initial dose of 300mg given and to continue it with 75mg daily. Patient was transferred to [facility] for his scheduled vertebral artery/carotid artery angiogram on 03/07/18. Minutes to complete discharge: 35 Discharge Summary Reason For Visit: CHEST PAIN AT REST Condition: Stable - Instructions Diet, Activity, Other Instructions: Your visit You were admitted to the hospital because you were having electrical sensations on your chest moving to your arms and legs. You were seen by the collar runner, Dr. Retana. Your pacemaker was checked, which did not show any concerns that would require immediate intervention. You were started on Aspirin and Plavix. Please continue taking them as instructed below. Your blood thinner, Eliquis, is stopped at this time. Please discuss with the collar runner when to resume it. The dose of your blood pressure medication, Losartan, was increased to 50mg daily. You are scheduled for carotid artery/vertebral artery angiogram tomorrow, at [facility]. You will be transferred there for continued observation. Medications You were started on new medications. Please take the following as prescribed. 1. Aspirin 81 mg daily . 2. Plavix 75 mg daily. 3. Ezetimibe 10mg daily. Start taking these medications tomorrow (03/07/18). You were given the dose for today here in the hospital. Take note of the following changes to your medications: 1. Losartan 50mg daily 2. STOP taking Eliquis until further instructions from the collar runner pending angiogram. you will be told when to resume after procedure . Follow-up -Follow-up with the collar runner (Dr. Retana) within 1 week. -Follow-up with your primary care doctor within 1 week. Additional info Call 911 or go to the ED if with any worsening weakness, numbness, chest pain, shortness of breath, palpitations, abdominal pain, diarrhea, or any new concerns noted. Referrals: Jay Stewart [Other] - 1 Week Mirna Swanson MD [Primary Care Provider] - 1 Week Carlos Retana MD [Staff Physician] - 1 Week Disposition: TRANSFER ACUTE CARE/OTHER HOSP - Home Medications Comprehensive Discharge Medication List: Ambulatory Orders Folic Acid 1 mg PO DAILY 11/23/16 Gabapentin 100 mg PO BID 11/23/16 Ranitidine [Zantac -] 150 mg PO HS 11/23/16 Ergocalciferol [Vitamin D2] 50,000 unit PO Q7D@1000 01/18/18 Vitamin B Complex [B Complex] 1 each PO DAILY 01/18/18 Apixaban [Eliquis -] 5 mg PO BID #60 tablet 02/17/18 Atorvastatin Ca [Lipitor] 80 mg PO HS #30 tablet 02/17/18 Metoprolol Succinate [Toprol XL -] 50 mg PO BID #60 tab.sr.24h 02/17/18 Aspirin [ASA -] 81 mg PO DAILY #30 tab.chew 03/06/18 Clopidogrel Bisulfate [Plavix -] 75 mg PO DAILY #30 tablet 03/06/18 Ezetimibe [Zetia -] 10 mg PO DAILY #30 tablet 03/06/18 Losartan Potassium [Cozaar -] 50 mg PO DAILY #30 tablet 03/06/18 This patient is new to me today: No Emergency Visit: Yes ED Registration Date: 03/06/18 Care time: The patient presented to the Emergency Department on the above date and was hospitalized for further evaluation of their emergent condition. Critical Care patient: No - Discharge Referral Referred to [facility] No
--- NOTE | 2018-03-10 09:53 | EKG ---
Test Reason : Blood Pressure : / mmHG Vent. Rate : 059 BPM Atrial Rate : 059 BPM P-R Int : 166 ms QRS Dur : 100 ms QT Int : 378 ms P-R-T Axes : 059 045 055 degrees QTc Int : 374 ms SINUS BRADYCARDIA NONSPECIFIC T WAVE ABNORMALITY ABNORMAL ECG WHEN COMPARED WITH ECG OF 04-MAR-2018 03:10, SINUS RHYTHM HAS REPLACED ELECTRONIC VENTRICULAR PACEMAKER Confirmed by RENALDO NEUMANN MD ([id number]) on 03/10/2018 9:53:15 AM Referred By: Confirmed By:RENALDO NEUMANN MD
== END 2018-03-06 21:00 | disposition short-term general hospital (02) ==
LOC: JER 22:36 → JERBED 03-06 02:21 → J4S 03-06 20:34
PROVIDERS: ADMIT Internal Medicine; ATTEND Internal Medicine
DX: R07.89 Other chest pain (principal); I63.239 Cerebral infarction due to unspecified occlusion or stenosis of unspecified carotid artery; I11.0 Hypertensive heart disease with heart failure; I47.2 Ventricular tachycardia; I50.20 Unspecified systolic (congestive) heart failure; I25.10 Atherosclerotic heart disease of native coronary artery without angina pectoris; I48.0 Paroxysmal atrial fibrillation; E78.5 Hyperlipidemia, unspecified; F10.21 Alcohol dependence, in remission; K21.9 Gastro-esophageal reflux disease without esophagitis; R00.1 Bradycardia, unspecified; E66.9 Obesity, unspecified; Z68.36 Body mass index [BMI] 36.0-36.9, adult; Z86.73 Personal history of transient ischemic attack (TIA), and cerebral infarction without residual deficits; Z95.1 Presence of aortocoronary bypass graft; Z95.810 Presence of automatic (implantable) cardiac defibrillator
CPT/HCPCS: 36415; 71045-TC-FY; 80053; 82550; 83735; 84484; 85025; 85610; 93005; 93010; 99285-25; G0378

== ENCOUNTER 2018-06-16 17:34 | Emergency (ER) | payer OTHER ==
[2018-06-16 18:21] VITALS: TEMP 98.7; BMI 36.2
--- NOTE | 2018-06-16 19:36 | PDOC ---
Rapid Medical Evaluation Chief Complaint: Blood Pressure Problem Time Seen by Provider: 06/16/18 18:18 Medical Evaluation: Allergies Allergy/AdvReac Type Severity Reaction Status Date / Time No Known Allergies Allergy Verified 03/05/18 22:44 06/16/18 18:18 I have performed a brief in-person evaluation of this patient. The patient presents with a chief complaint of:concerned about elevated blood pressure x few days. No acute sxs. S/p b/l carotid endarterectomy 2 weeks ago at [facility]. H/o HLD, HTN and afib on eliquis, CABG, AICD, CHF, ?COPD, prior ETOH abuse Pertinent physical exam findings:Stable and well david I have ordered the following:nothing The patient will proceed to the ED for further evaluation. 06/16/18 19:36 06/16/18 19:37 06/16/18 19:37 Discharge Disposition - Diagnosis Elevated blood alcohol level Qualifiers: Blood alcohol level: level not specified Qualified Code(s): R78.0 - Finding of alcohol in blood - Referrals - Patient Instructions - Post Discharge Activity
--- NOTE | 2018-06-16 20:51 | PDOC ---
History of Present Illness - General Chief Complaint: Blood Pressure Problem Stated Complaint: HBP Time Seen by Provider: 06/16/18 18:18 History Source: Patient, Family (Son) Exam Limitations: No Limitations - History of Present Illness Initial Comments: Pt is a 62 yo M, with PMH of (HLD, HTN, Afib, CAD x3 vessel CABG on Eliquis/ aspirin/plavix with AICD, and CHF (mildly reduced EF with TR), who is presenting with complaints of recent hypertension, and short episode of irregular heart beat and SOB this AM. Pt is Afghan-speaking but is accompanied by his son, who translates for him. Pt was cleaning his car when the symptoms started, and the episode lasted a few minutes, which resolved once he rested. The episode was not associated with diaphoresis, nausea or vomiting, and he had no active chest pain at that time. Pt had recent b/l carotid endarectomy completed ~2 weeks ago at [facility], and has noticed his BP is "up and down" since then (ranges from systolic 110s to 160s). Pt states he has also been trying different BP cuffs during this time. Pt has a follow-up Cardiology visit scheduled June 27, and has not been able to get in touch with his PCP (Dr. Swanson). Pt denies any recent fevers/chills, headache, vision changes, syncope, chest pain, nausea/vomiting, abdominal pain, urinary symptoms, diarrhea /constipation, or leg swelling. Social: Pt denies any current cigarette, alcohol, or drug use. Pt has history of chronic alcohol abuse. Pt denies any recent travel or sick contacts. Surgical: CABG, AICD placement, b/l carotid endarectomy as above. Family: no relevant history. 06/16/18 22:18 Past History - Travel Traveled outside of the country in the last 30 days: No Close contact w/someone who was outside of country & ill: No - Past Medical History Allergies/Adverse Reactions: Allergies Allergy/AdvReac Type Severity Reaction Status Date / Time No Known Allergies Allergy Verified 03/05/18 22:44 Home Medications: Ambulatory Orders Folic Acid 1 mg PO DAILY 11/23/16 Gabapentin 100 mg PO BID 11/23/16 Ranitidine [Zantac -] 150 mg PO HS 11/23/16 Ergocalciferol [Vitamin D2] 50,000 unit PO Q7D@1000 01/18/18 Vitamin B Complex [B Complex] 1 each PO DAILY 01/18/18 Apixaban [Eliquis -] 5 mg PO BID #60 tablet 02/17/18 Atorvastatin Ca [Lipitor] 80 mg PO HS #30 tablet 02/17/18 Metoprolol Succinate [Toprol XL -] 50 mg PO BID #60 tab.sr.24h 02/17/18 Aspirin [ASA -] 81 mg PO DAILY #30 tab.chew 03/06/18 Clopidogrel Bisulfate [Plavix -] 75 mg PO DAILY #30 tablet 03/06/18 Ezetimibe [Zetia -] 10 mg PO DAILY #30 tablet 03/06/18 Losartan Potassium [Cozaar -] 50 mg PO DAILY #30 tablet 03/06/18 Anemia: No Asthma: No Cancer: No Cardiac Disorders: Yes (CAD, afib, Pacemaker) CVA: No COPD: No CHF: No DVT: No Dementia: No Diabetes: Yes GI Disorders: Yes (GERD) Disorders: No HTN: Yes Hypercholesterolemia: Yes Liver Disease: No Seizures: No Thyroid Disease: No - Surgical History Abdominal Surgery: No Appendectomy: No Cardiac Surgery: Yes (CABG X3, AICD/PPM) Cholecystectomy: No Lung Surgery: No Neurologic Surgery: No Orthopedic Surgery: No - Immunization History Immunization Up to Date: Yes - Suicide/Smoking/Psychosocial Hx Smoking Status: No Smoking History: Never smoked Have you smoked in the past 12 months: No Number of Cigarettes Smoked Daily: 0 If you are a former smoker, when did you quit?: 12 years ago Hx Alcohol Use: No Drug/Substance Use Hx: No Substance Use Type: Alcohol Hx Substance Use Treatment: No Review of Systems - Review of Systems Able to Perform ROS?: Yes Is the patient limited Omani proficient: No Constitutional: Yes: Weight Stable. No: Chills, Diaphoresis, Fever, Loss of Appetite, Malaise, Weakness HEENTM: No: Blurred Vision, Double Vision, Nose Congestion, Throat Pain, Throat Swelling, Difficulty Swallowing Respiratory: Yes: Shortness of Breath, SOB with Exertion. No: Cough, Orthopnea , SOB at Rest, Wheezing, Productive cough, Hemoptysis Cardiac (ROS): Yes: Irregular Heart Rate. No: Chest Pain, Edema, Lightheadedness, Palpitations, Syncope, Chest Tightness ABD/GI: No: Blood Streaked Bowels, Constipated, Diarrhea, Nausea, Poor Appetite , Poor Fluid Intake, Rectal Bleeding, Vomiting : No: Burning, Dysuria, Frequency, Pain, Urgency Musculoskeletal: No: Back Pain, Joint Pain, Muscle Weakness Integumentary: No: Rash Neurological: No: Headache, Numbness, Paresthesia, Weakness, Unsteady Gait, Dizziness Psychiatric: No: Sleep Pattern Change, Change in Appetite Endocrine: No: Increased Urine, Change in Weight Hematologic/Lymphatic: Yes: Blood Clots (carotid stenosis, CAD). No: Anemia, Easy Bleeding, Easy Bruising All Other Systems: Reviewed and Negative *Physical Exam - Vital Signs Last Vital Signs Temp Pulse Resp BP Pulse Ox 98.7 F 54 L 17 153/73 96 06/16/18 18:17 06/16/18 18:17 06/16/18 18:17 06/16/18 18:17 06/16/18 18:17 - Physical Exam Comments: BP 153/73, HR 54, pt afebrile. Pt in NAD, obese body habitus. Pt lying comfortably. Pt alert and oriented x3. 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 No midline spinal tenderness, step-offs, or crepitus. Head normocephalic, atraumatic. Eyes PERRLA, EOMI. Oropharynx without erythema or exudates, no LAD b/l. No nasal congestion, hearing intact. Clear heart sounds, S1/S2, no JVD, b/l pedal edema, or heart murmur. Defibrillator present on L-side chest wall with no tenderness or erythema. Clear lung sounds, no respiratory distress, wheezes, crackles, or accessory muscle use. No abdominal or CVA tenderness to palpation, no rebound, no guarding. Abdomen soft, non-distended, and with normoactive bowel sounds. Skin without jaundice or rash. Well healed scar over L forearm from CABG, no erythema nor drainage. 06/16/18 21:54 ED Treatment Course - LABORATORY CBC & Chemistry Diagram: 06/16/18 21:30 06/16/18 21:30 Medical Decision Making - Medical Decision Making Pt was seen at bedside, also will be seen by attending Dr. Castro. Pt presenting with complaints of recent hypertension, and short episode of irregular heart beat and SOB this AM. Pt was cleaning his car when the symptoms started, and the episode lasted a few minutes, which resolved once he rested. Pt had recent b/l carotid endarectomy completed ~2 weeks ago at [facility], and has noticed his BP is "up and down" since then (ranges from systolic 110s to 160s). Pt states he has also been trying different BP cuffs during this time. Pt has a follow-up Cardiology visit scheduled June 27, and has not been able to get in touch with his PCP (Dr. Swanson). Pt denies any recent fevers/chills, headache , vision changes, syncope, chest pain, nausea/vomiting, abdominal pain, urinary symptoms, diarrhea/constipation, or leg swelling. Considering hypertensive urgency vs ACS vs worsening CHF vs side effects of recent endarectomy (PE, changes to blood flow), malfunction of AICD vs electrolyte imbalances vs anemia vs infectious (pneumonia). Pt has no clinical signs of fluid overload (no JVD, b/l pedal pitting edema). Ordered work-up including CBC, CMP, troponin, ECG, and chest x-ray. No interventions provided at this time as pt has no active complaints and BP is not symptomatic at this time. Will continue to reassess pt and monitor for symptomatic improvement. 06/16/18 21:34 06/16/18 22:03 ECG: atrial-sensed ventricular-placed rhythm (HR 50, AL 178, QRS 104, QTc 430). No significant ST segment changes. No significant changes from prior ECG. CBC, CMP, and coags generally WNL Chest x-ray without any new changes or infiltrates noted. Trop .02 Pt has no active complaints at this time. Considering normal lab results and imaging, pt can be discharged to home with follow-up. Pt advised to follow-up with PCP and cardiology (Dr. Martin) in 1-2 days. Strict return precautions provided with pt understanding. 06/16/18 23:43 *DC/Admit/Observation/Transfer Diagnosis at time of Disposition: Hypertension Qualifiers: Hypertension type: unspecified Qualified Code(s): I10 - Essential (primary) hypertension - Discharge Dispostion Disposition: HOME Condition at time of disposition: Good Decision to Admit order: No - Referrals Referrals: Carlos Retana MD [Staff Physician] - [facility] [place] [Provider Group] - Patient Instructions Printed Discharge Instructions: DI for High Blood Pressure Additional Instructions: You were seen in the ER today for high blood pressure. The results of your labs and imaging today were normal. Please follow-up with your primary care doctor and nuclear equipment operator within 1-2 days to discuss your visit and make sure your symptoms have improved. Please return to the ER if you have any worsening pain, headaches or vision changes, development of fevers or chills, loss of consciousness, inability to tolerate food or fluids, or any other concerns. - Post Discharge Activity
[2018-06-16 21:39] LABS: BASO % 0.6 % (0-2.0); EOS % 1.9 % (0-4.5); HEMATOCRIT 38.2 % (35.4-49); HEMOGLOBIN 13.2 GM/dL (11.7-16.9); LYMPH % 37.8 % (8-40); MCH 31.2 pg (25.7-33.7); MCHC 34.5 g/dl (32.0-35.9); MEAN CELL VOLUME 90.2 fl (80-96); MEAN PLT VOLUME 8.3 fl (7.5-11.1); MONO % 10.4 % (3.8-10.2); NEUT % 49.3 % (42.8-82.8); PLATELET COUNT 192 K/MM3 (134-434); RBC 4.23 M/mm3 (4.00-5.60); RDW 14.2 % (11.9-15.9); WHITE BLOOD COUNT 5.9 K/mm3 (4.0-10.0)
[2018-06-16 21:53] LABS: INR 1.13 (0.83-1.09); PROTHROMBIN TIME (PATIENT) 13.4 SEC (9.7-13.0)
[2018-06-16 22:09] LABS: ALBUMIN 3.5 g/dl (3.4-5.0); ALK PHOS 93 U/L (45-117); ANION GAP 10 MMOL/L (8-16); BILIRUBIN,TOTAL 0.6 mg/dL (0.2-1); BLOOD UREA NITROGEN 12 mg/dL (7-18); CALCIUM 8.4 mg/dL (8.5-10.1); CHLORIDE 109 mmol/L (98-107); CO2 24 mmol/L (21-32); CREATININE 0.7 mg/dL (0.55-1.3); GLUCOSE,RANDOM 98 mg/dL (74-106); POTASSIUM 3.6 mmol/L (3.5-5.1); SGOT/AST 22 U/L (15-37); SGPT/ALT 34 U/L (13-61); SODIUM 143 mmol/L (136-145); TOT PROT 6.4 g/dl (6.4-8.2)
[2018-06-16 22:44] VITALS: BP 141/81; PULSE 51
--- NOTE | 2018-06-17 12:30 | EKG ---
Test Reason : Blood Pressure : / mmHG Vent. Rate : 050 BPM Atrial Rate : 050 BPM P-R Int : 178 ms QRS Dur : 104 ms QT Int : 472 ms P-R-T Axes : 050 030 038 degrees QTc Int : 430 ms SINUS BRADYCARDIA NONSPECIFIC ST AND T WAVE ABNORMALITY ABNORMAL ECG Confirmed by MD HAILEY, JAMAR ([id number]) on 06/17/2018 12:30:28 PM Referred By: Confirmed By:JAMAR HART MD
== END 2018-06-16 22:59 | disposition home or self-care (01) ==
LOC: JER 17:34
DX: I10 Essential (primary) hypertension (principal); I25.10 Atherosclerotic heart disease of native coronary artery without angina pectoris; I11.0 Hypertensive heart disease with heart failure; Z95.1 Presence of aortocoronary bypass graft; I48.91 Unspecified atrial fibrillation; Z79.01 Long term (current) use of anticoagulants; Z79.82 Long term (current) use of aspirin; Z95.810 Presence of automatic (implantable) cardiac defibrillator; E78.00 Pure hypercholesterolemia, unspecified; K21.9 Gastro-esophageal reflux disease without esophagitis; Z98.890 Other specified postprocedural states
CPT/HCPCS: 36415; 71046-TC-FY; 80053; 84484; 85025; 85610; 93005; 93010; 99282-25

== ENCOUNTER 2019-04-11 10:23 | Inpatient (IN) | payer OTHER ==
--- NOTE | 2019-04-11 10:50 | PDOC ---
History of Present Illness - General Chief Complaint: Pain Stated Complaint: ABD PAIN Time Seen by Provider: 04/11/19 10:50 History Source: Patient - History of Present Illness Initial Comments: 04/11/19 10:58 Mr. Gerardo is a 63 y/o M w/hx afib, CAD s/p CABG, GERD, prior CVA, CHF, HTN , HLD, ICD, chronic constipation p/w abdominal pain s/p significant EtOH use. He is accompanied by his daughter who assists with history. He reports being sober for approx 8 months but relapsing one week ago. He reports drinking one large handle of vodka daily for the past week. He reports that his last drink was last night at approx 2100. He reports waking up today with 7/10 generalized aching abdominal pain worse on the L side. He reports that his pain is worse when he sits upright and improved laying flat. He denies any chest pain, shortness of breath, weakness, confusion, headache, vision changes. He reports being treated inpatient for alcohol withdrawal in the past, but denies prior alcohol withdrawal seizures or intubations. Past History - Past Medical History Allergies/Adverse Reactions: Allergies Allergy/AdvReac Type Severity Reaction Status Date / Time No Known Allergies Allergy Verified 04/11/19 17:26 Home Medications: Ambulatory Orders Folic Acid 1 mg PO DAILY 11/23/16 Gabapentin 100 mg PO BID 11/23/16 Ergocalciferol [Vitamin D2] 50,000 unit PO Q7D@1000 01/18/18 Apixaban [Eliquis -] 5 mg PO BID #60 tablet 02/17/18 Atorvastatin Ca [Lipitor] 80 mg PO HS #30 tablet 02/17/18 Metoprolol Succinate [Toprol XL -] 50 mg PO BID #60 tab.sr.24h 02/17/18 Aspirin [ASA -] 81 mg PO DAILY #30 tab.chew 03/06/18 Clopidogrel Bisulfate [Plavix -] 75 mg PO DAILY #30 tablet 03/06/18 Losartan Potassium [Cozaar -] 50 mg PO DAILY #30 tablet 03/06/18 Linaclotide [Linzess] 145 mcg PO DAILY 04/11/19 Tamsulosin HCl 0.4 mg PO DAILY 04/11/19 Anemia: No Asthma: No Cancer: No Cardiac Disorders: Yes (CAD, afib, Pacemaker) CVA: No COPD: No CHF: No DVT: No Dementia: No Diabetes: Yes GI Disorders: Yes (GERD) Disorders: No HTN: Yes Hypercholesterolemia: Yes Liver Disease: No Seizures: No Thyroid Disease: No - Surgical History Abdominal Surgery: No Appendectomy: No Cardiac Surgery: Yes (CABG X3, AICD/PPM) Cholecystectomy: No Lung Surgery: No Neurologic Surgery: No Orthopedic Surgery: No - Immunization History Immunization Up to Date: Yes - Psycho Social/Smoking Cessation Hx Smoking Status: No Smoking History: Never smoked Have you smoked in the past 12 months: No Number of Cigarettes Smoked Daily: 0 If you are a former smoker, when did you quit?: 12 years ago Hx Alcohol Use: No Drug/Substance Use Hx: No Substance Use Type: Alcohol Hx Substance Use Treatment: No Review of Systems - Review of Systems Able to Perform ROS?: Yes Comments:: ROS: GENERAL/CONSTITUTIONAL: No fever or chills. No weakness. HEAD, EYES, EARS, NOSE AND THROAT: No change in vision. No ear pain or discharge. No sore throat. CARDIOVASCULAR: No chest pain or shortness of breath RESPIRATORY: No cough, wheezing, or hemoptysis. GASTROINTESTINAL: Abdominal pain. No nausea, vomiting, diarrhea or constipation. GENITOURINARY: No dysuria, frequency, or change in urination. MUSCULOSKELETAL: No joint or muscle swelling or pain. No neck or back pain. SKIN: No rash NEUROLOGIC: No headache, vertigo, loss of consciousness, or change in strength/ sensation. ENDOCRINE: No increased thirst. No abnormal weight change HEMATOLOGIC/LYMPHATIC: No anemia, easy bleeding, or history of blood clots. ALLERGIC/IMMUNOLOGIC: No hives or skin allergy. *Physical Exam - Physical Exam PE: GENERAL: Awake, alert, and fully oriented, in no acute distress HEAD: No signs of trauma, normocephalic, atraumatic EYES: PERRLA, EOMI, sclera anicteric, conjunctiva clear ENT: Auricles normal inspection, hearing grossly normal, nares patent, oropharynx clear without exudates. Moist mucosa NECK: Normal ROM, supple, no lymphadenopathy, JVD, or masses LUNGS: No distress, speaks full sentences, clear to auscultation bilaterally HEART: Regular rate and rhythm, normal S1 and S2, no murmurs, rubs or gallops, peripheral pulses normal and equal bilaterally. ABDOMEN: Soft, nontender, normoactive bowel sounds. No guarding, no rebound. No masses EXTREMITIES : Normal inspection, Normal range of motion, no edema. No clubbing or cyanosis NEUROLOGICAL: Cranial nerves II through XII grossly intact. Normal speech, normal gait, no focal sensorimotor deficits SKIN: Warm, Dry, normal turgor, no rashes or lesions noted Heart Score/ECG Review - History History: Slightly suspicious - Electrocardiogram EKG: Normal - Age Age: >/= 65 - Risk Factors Risk Factors Heart Score: Yes Hx Hypercholesterolemia, Yes Hx Hypertension Based on the list above the patient has:: 1-2 risk factors - Troponin Troponin: </= normal limit - Score Heart Score - Total: 3 - ECG Intrepretation Rhythm: Regular Rhythm - [place]: Normal - QRS Measured at (milliseconds): 102 - ST and T Prolonged Q-T Interval: No - ECG Impressions Normal ECG: Yes ED Treatment Course - LABORATORY CBC & Chemistry Diagram: 04/12/19 13:26 04/12/19 13:26 Medical Decision Making - Medical Decision Making 04/11/19 11:00 63M w/hx EtOH use disorder, CAD sp CABG, HTN, HLD, afib, CHF p/w generalized abdominal pain worse on the L side following a 7 day EtOH binge of approx 1 handle of vodka per day. Ddx pancreatitis, mesenteric ischemia, colitis. SBO possible but unlikely given no prior surgeries. 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 Tongue fasciculation noted on exam. 1mg ativan ordered. 04/11/19 16:05 Repeat lactate - 2.4 Additional 500cc bolus ordered Rising lactate, signs of etoh withdrawal (tongue fasciculation), plan for admission. Case discussed with admitting, patient admitted under Dr. Fernandez. Discharge - Discharge Information Problems reviewed: Yes Clinical Impression/Diagnosis: Lactic acidosis Abdominal pain Qualifiers: Abdominal location: unspecified location Qualified Code(s): R10.9 - Unspecified abdominal pain Condition: Fair - Admission Yes - Follow up/Referral - Patient Discharge Instructions - Post Discharge Activity
[2019-04-11 11:05] VITALS: BMI 36.2
--- NOTE | 2019-04-11 11:29 | PDOC ---
Attending Attestation - Resident Resident Name: Erasmo Dunbar - ED Attending Attestation I have performed the following: I have examined & evaluated the patient, The case was reviewed & discussed with the resident, I agree w/resident's findings & plan - HPI HPI: 04/11/19 11:29 Mr. Gerardo is a 63 y/o M w/hx afib, CAD s/p CABG, GERD, prior CVA, CHF, HTN , HLD, ICD, chronic constipation x long time p/w LLQ abdominal pain x 4 days, a/ w constipation. colonoscopy several years ago with Dr Rodney with polyps, no other abnormalities. no f/c, no cp or sob. +LE edema increased over the past week. compliant with home meds no abdominal surgeries. +admits to heavy drinking this week,prior history of etoh abuse but sober < 1 year. 04/11/19 14:26 - Physicial Exam PE: 04/11/19 11:28 Agree with the resident's HPI and PE as documented in the electronic medical record. NAD, well appearing, EOMI, PERRL, nl conjunctiva, anicteric; neck supple. lungs clear, RRR, abdomen soft Protuberant, no fluid wave. +LLQ TTP, no rebound , guarding. Back nontender. ZENDEJAS x4, no focal neuro deficits. 3+ peripheral edema bilaterally into the pretibial region.. normal color for ethnicity, WWP. 04/11/19 11:52 - Medical Decision Making 04/11/19 11:28 Vital Signs Temp Pulse Resp BP Pulse Ox 97.4 F L 65 16 187/98 H 97 04/11/19 10:30 04/11/19 10:30 04/11/19 10:30 04/11/19 10:30 04/11/19 10:30 DDx abdominal pain: Renal colic, biliary colic, metabolic/electrolyte derangements. GERD, PUD, esophageal spasm, pancreatitis, hepatitis, constipation , colitis, gastroenteritis, cholecystitis, UTI, pyelonephritis, ileus, SBO, medication side effect, hernia, appendicitis, diverticulitis, mesenteric ischemia. msk strain, mesenteric adenitis, psoas abscess. Abdomen Reassessment: The patient appears comfortable, LLQ pain noted, with constipation CTAP to eval for SBO, obstruction vs diverticulitis vs infection/inflammation vs mass Given medications including bowel regimen, analgesia, hydration gently Vital signs reviewed and are normal, HTN noted, but will treat the pain as likely etiology. 04/11/19 15:58 remainder of labs and lytes wnl, cr normal. bnp and trop neg, less likely cardiomyopathy or cardiogenic. lactic acidosis is noted, after 500cc NSS< uptrending to 2.4. ?mesenteric ischemia, with pain out of proportion to exam and elderly male cannot get IV contrast study today after venous contrast study today to eval for diverticulitis/obstruction with initial clinical eval. repeat BP warrants admission for monitoring, hydration gently, pain and constipation control hospitalist service. 04/11/19 16:01 04/11/19 17:19 04/11/19 17:19 Heart Score/ECG Review #1 ECG reviewed & interpreted by me at: 15:10 General ECG Interpretation: Sinus Rhythm, Normal Rate, Normal Intervals Compared to previous ECG there are: No significant change 04/11/19 16:08 EKG normal sinus rhythm 70 bpm, no interval abnormalities, narrow QRS, ST and T wave segments and morphology normal. Nonspecific T wave abnormalities
[2019-04-11 12:13] LABS: BASO % 0.8 % (0-2.0); EOS % 1.1 % (0-4.5); HEMATOCRIT 40.1 % (35.4-49); HEMOGLOBIN 14.1 GM/dL (11.7-16.9); LYMPH % 28.4 % (8-40); MCH 31.9 pg (25.7-33.7); MCHC 35.2 g/dl (32.0-35.9); MEAN CELL VOLUME 90.6 fl (80-96); MEAN PLT VOLUME 7.8 fl (7.5-11.1); MONO % 8.9 % (3.8-10.2); NEUT % 60.8 % (42.8-82.8); PLATELET COUNT 129 K/MM3 (134-434); RBC 4.43 M/mm3 (4.00-5.60); RDW 14.3 % (11.9-15.9); WHITE BLOOD COUNT 4.6 K/mm3 (4.0-10.0)
--- NOTE | 2019-04-11 12:29 | PDOC ---
*Physical Exam - Vital Signs Last Vital Signs Temp Pulse Resp BP Pulse Ox 97.4 F L 65 16 187/98 H 97 04/11/19 10:30 04/11/19 10:30 04/11/19 10:30 04/11/19 10:30 04/11/19 10:30 <Elise Guillen - Last Filed: 04/11/19 17:55> - Vital Signs Last Vital Signs Temp Pulse Resp BP Pulse Ox 97.5 F L 64 20 144/86 95 04/12/19 14:49 04/12/19 17:41 04/12/19 17:41 04/12/19 17:41 04/11/19 21:00 <Bryanna Rodriguez - Last Filed: 04/12/19 20:26> ED Treatment Course - LABORATORY CBC & Chemistry Diagram: 04/11/19 11:45 04/11/19 11:45 - ADDITIONAL ORDERS Additional order review: 04/11/19 11:45 RBC 4.43 MCV 90.6 MCHC 35.2 RDW 14.3 Neutrophils % 60.8 D Lymphocytes % 28.4 D Monocytes % 8.9 Eosinophils % 1.1 Basophils % 0.8 <MindyElise - Last Filed: 04/11/19 17:55> - LABORATORY CBC & Chemistry Diagram: 04/12/19 13:26 04/12/19 13:26 - ADDITIONAL ORDERS Additional order review: 04/11/19 13:50 Urine Culture - Final Urine - Urine Clean Catch NO GROWTH OBTAINED 04/11/19 11:45 RBC 4.43 MCV 90.6 MCHC 35.2 RDW 14.3 MPV 7.8 Neutrophils % 60.8 D Lymphocytes % 28.4 D Monocytes % 8.9 Eosinophils % 1.1 Basophils % 0.8 - RADIOLOGY Radiology Studies Ordered: Category Date Time Status ABDOMEN & PELVIS CT WITH CONTR [CT] Stat CT Scan 04/11/19 11:54 Completed - Medications Given in the ED: ED Medications Discontinued Medications Generic Name Dose Route Start Last Admin Trade Name Freq PRN Reason Stop Dose Admin Bisacodyl 10 mg 04/12/19 09:08 04/12/19 09:29 Dulcolax - PO 04/12/19 09:09 10 mg ONCE ONE Administration Bisacodyl 10 mg 04/12/19 09:30 04/12/19 09:29 Dulcolax - PO 04/12/19 09:31 Not Given ONCE ONE Chlordiazepoxide HCl 50 mg 04/11/19 23:00 04/12/19 04:58 Librium - PO 04/12/19 23:01 50 mg [id number] DARIAN Administration Chlordiazepoxide HCl 25 mg 04/11/19 17:45 04/11/19 18:04 Librium - PO 04/11/19 17:46 25 mg ONCE ONE Administration Dextrose/Sodium Chloride 1,000 mls @ 100 mls/hr 04/11/19 17:30 04/11/19 18:03 D5-Ns - IV 100 mls/hr ASDIR DARIAN Administration Dextrose/Sodium Chloride 1,000 mls @ 50 mls/hr 04/11/19 18:36 04/11/19 20:29 D5-Ns - IV 04/12/19 13:29 Not Given ASDIR DARIAN Influenza Virus Vaccine Quadrival 60 mcg 04/11/19 18:53 04/11/19 20:26 Flulaval Quad [id number] IM 04/11/19 18:54 60 mcg .ONCE ONE Administration Lactated Ringer's 1,000 ml 04/11/19 15:45 04/11/19 16:22 Lactated Ringers Solution IV 04/11/19 15:46 1,000 ml ONCE ONE Administration Lactated Ringer's 500 ml 04/11/19 15:47 04/11/19 16:05 Lactated Ringers Solution IV 04/11/19 15:48 500 ml ONCE ONE Administration Lorazepam 1 mg 04/11/19 16:06 04/11/19 16:19 Ativan Injection - IVPUSH 04/11/19 16:07 1 mg ONCE ONE Administration Lorazepam 1 mg 04/11/19 16:08 04/11/19 16:14 Ativan Injection - IVPUSH 04/11/19 16:09 Not Given ONCE ONE Magnesium Citrate 300 ml 04/11/19 15:38 04/11/19 16:05 Citroma - PO 300 ml PRN PRN Administration CONSTIPATION Pantoprazole Sodium 40 mg 04/11/19 17:15 04/11/19 18:03 Protonix Iv IVPUSH 40 mg DAILY DARIAN Administration Sodium Chloride 500 ml 04/11/19 12:56 04/11/19 13:05 Normal Saline - IV 04/11/19 12:57 500 ml ONCE ONE Administration <Bryanna Rodriguez - Last Filed: 04/12/19 20:26> Medical Decision Making - Medical Decision Making 04/11/19 12:29 63 y/o male with a PMHx of CAD s/p CABG, CVA (no residual deficits), systolic CHF, HTN, HLD, ICD, AFib (? on A/C) presents with diffuse abdominal pain. Pain is diffuse and worse on his L side, worse with sitting upright, better with laying down. Daughter @ bedside assists in history. Patient has 10 year h/o binge drinking, reports he drank daily for the last 1 week stopping at 9 p.m. yesterday. No known h/o withdrawal seizures. Last BM was 4 days previous, patient usually has 1 BM daily. PLAN: - Will evaluate for SBO, diverticulitis, colitis w/CTAP also consider alcoholic pancreatitis, alcoholic gastritis, constipation. - Monitor for SiSx of ETOH withdrawal - Reassess. 04/11/19 17:55 CTAP negative Lactic Acidosis 2.2 --> 2.4 and patient continues to c/o pain; at this time I have concern for possible mesenteric ischemia, will admit for further evaluation. <Elise Guillen - Last Filed: 04/11/19 17:55> Discharge - Discharge Information Problems reviewed: Yes - Admission Yes <Elise Guillen - Last Filed: 04/11/19 17:55> <Bryanna Rodriguez - Last Filed: 04/12/19 20:26> - Discharge Information Clinical Impression/Diagnosis: Lactic acidosis Abdominal pain Qualifiers: Abdominal location: unspecified location Qualified Code(s): R10.9 - Unspecified abdominal pain Condition: Fair
[2019-04-11 12:48] LABS: INR 0.95 (0.83-1.09); N-TERMINAL BNP 140.5 pg/ml (5-125); PROTHROMBIN TIME (PATIENT) 11.2 SEC (9.7-13.0)
[2019-04-11 12:51] LABS: ACTIVATED PTT 24.9 SECONDS (25.2-36.5); ALBUMIN 3.4 g/dl (3.4-5.0); BILIRUBIN,TOTAL 1.5 mg/dL (0.2-1); BLOOD UREA NITROGEN 14.3 mg/dL (7-18); CALCIUM 7.8 mg/dL (8.5-10.1); CREATININE 0.7 mg/dL (0.55-1.3); POTASSIUM 4.4 mmol/L (3.5-5.1); TOT PROT 6.9 g/dl (6.4-8.2)
[2019-04-11 12:52] LABS: PLATELET ESTIMATE DECREASED
[2019-04-11] MEDS ORDERED: SODIUM CHLORIDE 0.9% 500 ML INFUS.BAG IV ONE (12:56)
[2019-04-11 13:58] LABS: EPI CELLS 0.5 /HPF (0-5/HPF); HYALINE CASTS 1 /lpf (0-8); PH,URINE 5.5 (5.0-8.0); URINE APPEARANCE CLEAR; URINE BACTERIA 0.7 /hpf (NEGATIVE); URINE BILIRUBIN NEGATIVE (NEGATIVE); URINE COLOR YELLOW; URINE GLUCOSE (UA) NEGATIVE (NEGATIVE); URINE KETONE NEGATIVE (NEGATIVE); URINE LEUK ESTERASE NEGATIVE (NEGATIVE); URINE NITRITE NEGATIVE (NEGATIVE); URINE PROTEIN 1+ (NEGATIVE); URINE RBC 3 /hpf (0-4); URINE WBC 1 /hpf (0-5)
[2019-04-11] MEDS ORDERED: MAGNESIUM CITRATE 300 ML BOTTLE PO PRN (15:38)
[2019-04-11] MEDS ORDERED: LACTATED RINGERS SOLUTION 1000 ML INFUS.BAG IV ONE ×2 (15:45→15:47)
[2019-04-11] MEDS ORDERED: MAGNESIUM CITRATE 300 ML BOTTLE ONE (16:00)
[2019-04-11] MEDS ORDERED: LORazepam 2 MG/ML SDV VIAL ONE (16:16)
--- NOTE | 2019-04-11 16:48 | HP ---
CHIEF COMPLAINT: PCP: HISTORY OF PRESENT ILLNESS: 61 year-old male with a PMH significant for HTN, HLD, CAD s/p CABG x 3 s/p PPM s /p AICD, paroxysmal afib, diastolic heart failure, CVA, bilateral carotid artery stenosis s/p bilateral caotid endarderectomy, and chronic ETOH abuse. Presented to the ED with complaint of abdominal pain. He was accompanied by his daughter who reported patient was sober for approx 8 months but relapsed one week ago. He reports drinking one large handle of vodka daily for the past week. He reports that his last drink was last night at approx 2100. He reports waking up today with 7/10 generalized aching abdominal pain worse on the L side. He reports that his pain is worse when he sits upright and improved laying flat. He denies any chest pain, shortness of breath, weakness, confusion , headache, vision changes. He reports being treated inpatient for alcohol withdrawal in the past, but denies prior alcohol withdrawal seizures or intubations. ER course was notable for: (1) Total bili 1.5, AST 78, ALT 74, Alk phos 93 Recent Travel: No PAST MEDICAL HISTORY: Hypertension Hyperlipidemia Coronary artery disease s/p AICD Paroxysmal atrial fibrillation Diastolic heart failure CVA 01/2018 Bilateral carotid artery stenosis ETOH abuse PAST SURGICAL HISTORY: CABG x 3 PPM/AICD Bilateral carotid endarderectomy 05/2018 Social History: Smoking: no Alcohol: daily vodka; last drink 04/10 9pm Drugs: no Allergies No Known Allergies Allergy (Verified 03/05/18 22:44) HOME MEDICATIONS: Home Medications Medication Instructions Recorded Folic Acid 1 mg PO DAILY 11/23/16 Gabapentin 100 mg PO BID 11/23/16 Ranitidine [Zantac -] 150 mg PO HS 11/23/16 Ergocalciferol [Vitamin D2] 50,000 unit PO Q7D@1000 01/18/18 Vitamin B Complex [B Complex] 1 each PO DAILY 01/18/18 Apixaban [Eliquis -] 5 mg PO BID #60 tablet 02/17/18 Atorvastatin Ca [Lipitor] 80 mg PO HS #30 tablet 02/17/18 Metoprolol Succinate [Toprol XL -] 50 mg PO BID #60 tab.sr.24h 02/17/18 Aspirin [ASA -] 81 mg PO DAILY #30 tab.chew 03/06/18 Clopidogrel Bisulfate [Plavix -] 75 mg PO DAILY #30 tablet 03/06/18 Ezetimibe [Zetia -] 10 mg PO DAILY #30 tablet 03/06/18 Losartan Potassium [Cozaar -] 50 mg PO DAILY #30 tablet 03/06/18 REVIEW OF SYSTEMS CONSTITUTIONAL: Absent: fever, chills, diaphoresis, generalized weakness, malaise, loss of appetite, weight change HEENT: Absent: rhinorrhea, nasal congestion, throat pain, throat swelling, difficulty swallowing, mouth swelling, ear pain, eye pain, visual changes CARDIOVASCULAR: Absent: chest pain, syncope, palpitations, irregular heart rate, lightheadedness , peripheral edema RESPIRATORY: Absent: cough, shortness of breath, dyspnea with exertion, orthopnea, wheezing, stridor, hemoptysis GASTROINTESTINAL: +abdominal pain Absent: abdominal pain, abdominal distension, nausea, vomiting, diarrhea, constipation, melena, hematochezia GENITOURINARY: Absent: dysuria, frequency, urgency, hesitancy, hematuria, flank pain, genital pain MUSCULOSKELETAL: Absent: myalgia, arthralgia, joint swelling, back pain, neck pain SKIN: Absent: rash, itching, pallor HEMATOLOGIC/IMMUNOLOGIC: Absent: easy bleeding, easy bruising, lymphadenopathy, frequent infections ENDOCRINE: Absent: unexplained weight gain, unexplained weight loss, heat intolerance, cold intolerance NEUROLOGIC: Absent: headache, focal weakness or paresthesias, dizziness, unsteady gait, seizure, mental status changes, bladder or bowel incontinence PSYCHIATRIC: Absent: anxiety, depression, suicidal or homicidal ideation, hallucinations. PHYSICAL EXAMINATION Vital Signs - 24 hr 04/11/19 04/11/19 10:30 16:00 Temperature 97.4 F L 97.6 F Pulse Rate 65 Pulse Rate [ 76 Right Radial] Respiratory 16 22 H Rate Blood Pressure 187/98 H Blood Pressure 189/86 H [Right Arm] O2 Sat by Pulse 97 95 Oximetry (%) GENERAL: Awake, alert, and fully oriented. Anxious appearing. HEAD: Normal with no signs of trauma. EYES: Pupils equal, round and reactive to light, extraocular movements intact, sclera anicteric, conjunctiva clear. LUNGS: Breath sounds equal, clear to auscultation bilaterally. No wheezes, and no crackles. No accessory muscle use. HEART: Regular rate and rhythm, normal S1 and S2 ABDOMEN: Distended, normoactive bowel sounds, not tender, no guarding, no rebound tenderness MUSCULOSKELETAL: Normal range of motion at all joints. No bony deformities or tenderness. No CVA tenderness. UPPER EXTREMITIES: 2+ pulses, warm, well-perfused. No cyanosis. No clubbing. No peripheral edema. LOWER EXTREMITIES: 2+ pulses, warm, well-perfused. No calf tenderness. NEUROLOGICAL: Cranial nerves II-XII intact. Normal speech. Self positions easily. Laboratory Results - last 24 hr 04/11/19 04/11/19 04/11/19 11:28 11:45 11:45 WBC 4.6 RBC 4.43 Hgb 14.1 Hct 40.1 MCV 90.6 MCH 31.9 MCHC 35.2 RDW 14.3 Plt Count 129 L D MPV 7.8 Absolute Neuts (auto) 2.8 Neutrophils % 60.8 D Lymphocytes % 28.4 D Monocytes % 8.9 Eosinophils % 1.1 Basophils % 0.8 Nucleated RBC % 0 Platelet Estimate Decreased Platelet Comment Present PT with INR INR PTT (Actin FS) Sodium 140 Potassium 4.4 Chloride 106 Carbon Dioxide 24 Anion Gap 9 BUN 14.3 Creatinine 0.7 Est GFR (CKD-EPI)AfAm 114.78 Est GFR (CKD-EPI)NonAf 99.03 Random Glucose 117 H Lactic Acid 2.2 H* Calcium 7.8 L Total Bilirubin 1.5 H AST 78 H ALT 74 H Alkaline Phosphatase 93 Creatine Kinase Creatine Kinase Index CK-MB (CK-2) Troponin I B-Natriuretic Peptide Total Protein 6.9 Albumin 3.4 Lipase 188 Urine Color Urine Appearance Urine pH Ur Specific [place] Urine Protein Urine Glucose (UA) Urine Ketones Urine Blood Urine Nitrite Urine Bilirubin Urine Urobilinogen Ur Leukocyte Esterase Urine WBC (Auto) Urine RBC (Auto) Urine Casts (Auto) U Epithel Cells (Auto) Urine Bacteria (Auto) Blood Type Antibody Screen 04/11/19 04/11/19 04/11/19 11:45 11:45 11:45 WBC RBC Hgb Hct MCV MCH MCHC RDW Plt Count MPV Absolute Neuts (auto) Neutrophils % Lymphocytes % Monocytes % Eosinophils % Basophils % Nucleated RBC % Platelet Estimate Platelet Comment PT with INR 11.20 INR 0.95 PTT (Actin FS) 24.9 L Sodium Potassium Chloride Carbon Dioxide Anion Gap BUN Creatinine Est GFR (CKD-EPI)AfAm Est GFR (CKD-EPI)NonAf Random Glucose Lactic Acid Calcium Total Bilirubin AST ALT Alkaline Phosphatase Creatine Kinase 496 H Creatine Kinase Index 1.1 CK-MB (CK-2) 5.9 H Troponin I 0.02 B-Natriuretic Peptide 140.5 H Total Protein Albumin Lipase Urine Color Urine Appearance Urine pH Ur Specific [place] Urine Protein Urine Glucose (UA) Urine Ketones Urine Blood Urine Nitrite Urine Bilirubin Urine Urobilinogen Ur Leukocyte Esterase Urine WBC (Auto) Urine RBC (Auto) Urine Casts (Auto) U Epithel Cells (Auto) Urine Bacteria (Auto) Blood Type A POSITIVE Antibody Screen Negative 04/11/19 04/11/19 13:50 14:05 WBC RBC Hgb Hct MCV MCH MCHC RDW Plt Count MPV Absolute Neuts (auto) Neutrophils % Lymphocytes % Monocytes % Eosinophils % Basophils % Nucleated RBC % Platelet Estimate Platelet Comment PT with INR INR PTT (Actin FS) Sodium Potassium Chloride Carbon Dioxide Anion Gap BUN Creatinine Est GFR (CKD-EPI)AfAm Est GFR (CKD-EPI)NonAf Random Glucose Lactic Acid 2.4 H* Calcium Total Bilirubin AST ALT Alkaline Phosphatase Creatine Kinase Creatine Kinase Index CK-MB (CK-2) Troponin I B-Natriuretic Peptide Total Protein Albumin Lipase Urine Color Yellow Urine Appearance Clear Urine pH 5.5 Ur Specific [place] 1.017 Urine Protein 1+ H Urine Glucose (UA) Negative Urine Ketones Negative Urine Blood Trace Urine Nitrite Negative Urine Bilirubin Negative Urine Urobilinogen 1.0 Ur Leukocyte Esterase Negative Urine WBC (Auto) 1 Urine RBC (Auto) 3 Urine Casts (Auto) 1 U Epithel Cells (Auto) 0.5 Urine Bacteria (Auto) 0.7 Blood Type Antibody Screen ASSESSMENT/PLAN: 61 year-old male with a PMH significant for HTN, HLD, CAD s/p CABG x 3 s/p PPM s /p AICD, paroxysmal afib, diastolic heart failure, CVA, bilateral carotid artery stenosis s/p bilateral caotid endarderectomy, and chronic ETOH abuse. Admitted for abdominal pain. Abdominal pain --following a 1 week alcohol binge --CTAP shows distended gallbladder, mild elevations in total bili and transaminases; US abdomen ordered, r/o ascites --h/h stable, monitor closely --protonix BID ETOH abuse --monitor for s/s of withdrawal; last drink <24 hours ago --start librium protocol --IV fluids Diastolic heart failure s/p AICD --not on diuretics, CXR clear, BNP not elevated, no LE edema --continue losartan, ToprolXL Paroysal atrial fibrillation --continue Eliquis --continue ToprolXL for rate control Hypertension --BP elevated but patient has been off meds at home --restart home Losartan, ToprolXL Hyperlipidemia --continue Lipitor, Zetia FEN Fluids: got 1.5L in ED; continue cautious fluids 50mL/hr x 1 L while NPO due to CHF Electrolytes: replete as indicated Nutrition: NPO overnight, monitor for nausea, vomiting; OK to start clears in am and advance as tolerated DVT prophylaxis: on Eliquis Dispo: continues to require inpatient care. Full code. Visit type - Emergency Visit Emergency Visit: Yes ED Registration Date: 04/11/19 Care time: The patient presented to the Emergency Department on the above date and was hospitalized for further evaluation of their emergent condition. - New Patient This patient is new to me today: Yes Date on this admission: 04/11/19 - Critical Care Critical Care patient: No
[2019-04-11] MEDS ORDERED: PANTOPRAZOLE SODIUM 40 MG VIAL IVPUSH SCH (17:15)
[2019-04-11] MEDS ORDERED: chlordiazePOXIDE HCL 25 MG CAPSULE PO PRN (17:24)
[2019-04-11] MEDS ORDERED: DEXTROSE 5%-NORMAL SALINE 1,000 ML IV SCH ×2 (17:30→18:36)
[2019-04-11] MEDS ORDERED: chlordiazePOXIDE HCL 25 MG CAPSULE PO ONE (17:45)
[2019-04-11] MEDS ORDERED: chlordiazePOXIDE HCL 25 MG CAPSULE ONE (17:48)
[2019-04-11] MEDS ORDERED: PANTOPRAZOLE SODIUM 40 MG VIAL ONE (17:48)
[2019-04-11] MEDS ORDERED: FLU VACCINE QUAD 60 MCG/0.5 ML (MDV 19-20) IM ONE (18:53)
[2019-04-11] MEDS: APIXABAN 5 MG TABLET PO SCH (22:11)
[2019-04-11] MEDS: chlordiazePOXIDE HCL 25 MG CAPSULE PO SCH (22:11)
[2019-04-11] MEDS: GABAPENTIN 100 MG CAPSULE PO SCH (22:11)
[2019-04-11] MEDS: PANTOPRAZOLE SODIUM 40 MG VIAL IVPUSH SCH (22:11)
[2019-04-11] MEDS: ATORVASTATIN CA 80 MG TABLET (FP) PO SCH (22:11)
[2019-04-12] MEDS: chlordiazePOXIDE HCL 25 MG CAPSULE PO SCH (04:58)
--- NOTE | 2019-04-12 08:36 | PN ---
Progress Note, Physician - Current Medication List Current Medications: Active Medications Apixaban (Eliquis -) 5 mg PO BID [facility] Last Admin: 04/11/19 22:11 Dose: 5 mg Aspirin (Asa -) 81 mg PO DAILY [facility] Atorvastatin Calcium (Lipitor -) 80 mg PO HS [facility] Last Admin: 04/11/19 22:11 Dose: 80 mg Chlordiazepoxide HCl (Librium -) 10 mg PO [id number] [facility] Stop: 04/14/19 23:01 Chlordiazepoxide HCl (Librium -) 10 mg PO Q12H [facility] Stop: 04/15/19 17:01 Chlordiazepoxide HCl (Librium -) 10 mg PO Q4H PRN PRN Reason: WITHDRAWAL(CONT SUBST) Stop: 04/15/19 00:00 Chlordiazepoxide HCl (Librium -) 10 mg PO ONCE@0500 ONE Stop: 04/16/19 05:01 Chlordiazepoxide HCl (Librium -) 50 mg PO [id number] [facility] Stop: 04/12/19 23:01 Last Admin: 04/12/19 04:58 Dose: 50 mg Chlordiazepoxide HCl (Librium -) 25 mg PO [id number] [facility] Stop: 04/13/19 23:01 Chlordiazepoxide HCl (Librium -) 25 mg PO Q4H PRN PRN Reason: WITHDRAWAL(CONT SUBST) Stop: 04/13/19 23:59 Clopidogrel Bisulfate (Plavix -) 75 mg PO DAILY [facility] Ezetimibe (Zetia -) 10 mg PO DAILY [facility] Folic Acid (Folic Acid -) 1 mg PO DAILY [facility] Gabapentin (Neurontin -) 100 mg PO BID [facility] Last Admin: 04/11/19 22:11 Dose: 100 mg Dextrose/Sodium Chloride (D5-Ns -) 1,000 mls @ 50 mls/hr IV ASDIR [facility] Stop: 04/12/19 13:29 Last Admin: 04/11/19 20:29 Dose: Not Given Losartan Potassium (Cozaar -) 50 mg PO DAILY [facility] Metoprolol Succinate (Toprol Xl -) 50 mg PO BID [facility] Last Admin: 04/11/19 22:11 Dose: Not Given Multivitamins (Total B With C -) 1 each PO DAILY [facility] Pantoprazole Sodium (Protonix Iv) 40 mg IVPUSH BID [facility] Last Admin: 04/11/19 22:11 Dose: 40 mg - Objective Vital Signs: Vital Signs Temperature 97.7 F 04/12/19 06:00 Pulse Rate 70 04/12/19 06:00 Respiratory Rate 20 04/12/19 06:00 Blood Pressure 153/64 04/12/19 06:00 O2 Sat by Pulse Oximetry (%) 95 04/11/19 21:00 Gastrointestinal: Yes: Normal Bowel Sounds, Soft, Distention, Tenderness Labs: CBC, BMP 04/11/19 11:45 04/11/19 11:45 INR, PTT INR 0.95 (0.83-1.09) 04/11/19 11:45 Problem List - Problems (1) Prophylactic measure Code(s): Z29.9 - ENCOUNTER FOR PROPHYLACTIC MEASURES, UNSPECIFIED (2) Abdominal pain Code(s): R10.9 - UNSPECIFIED ABDOMINAL PAIN (3) Alcoholism /alcohol abuse Code(s): F10.20 - ALCOHOL DEPENDENCE, UNCOMPLICATED (4) Diastolic CHF Code(s): I50.30 - UNSPECIFIED DIASTOLIC (CONGESTIVE) HEART FAILURE (5) Hyperlipidemia Code(s): E78.5 - HYPERLIPIDEMIA, UNSPECIFIED (6) Hypertension Code(s): I10 - ESSENTIAL (PRIMARY) HYPERTENSION Qualifiers: Hypertension type: unspecified Qualified Code(s): I10 - Essential (primary ) hypertension (7) ICD (implantable cardioverter-defibrillator) in place Code(s): Z95.810 - PRESENCE OF AUTOMATIC (IMPLANTABLE) CARDIAC DEFIBRILLATOR (8) Paroxysmal atrial fibrillation Code(s): I48.0 - PAROXYSMAL ATRIAL FIBRILLATION
[2019-04-12] MEDS ORDERED: LORazepam 1 MG TABLET PO PRN (08:40)
[2019-04-12] MEDS ORDERED: BISACODYL 5 MG TABLET.DR (FP) PO ONE ×2 (09:08→09:30)
[2019-04-12] MEDS: ASPIRIN 81 MG CHEWABLE TABLETS PO SCH (09:29)
[2019-04-12] MEDS: LOSARTAN POTASSIUM 50 MG TABLET (FP) PO SCH (09:30)
[2019-04-12] MEDS: APIXABAN 5 MG TABLET PO SCH ×2 (09:31→22:30)
[2019-04-12] MEDS: CLOPIDOGREL BISULFATE 75 MG TABLET (FP) PO SCH (09:31)
[2019-04-12] MEDS: FOLIC ACID 1 MG TABLET (FP) PO SCH (09:31)
[2019-04-12] MEDS: GABAPENTIN 100 MG CAPSULE PO SCH ×2 (09:31→22:30)
[2019-04-12] MEDS: VITAMIN B COMPLEX W/C COMBO TABLET (FP) PO SCH (09:32)
[2019-04-12] MEDS ORDERED: PT OWN MED DRAWER 7, Y5N ONE (09:33)
[2019-04-12] MEDS: POLYETHYLENE GLYCOL 3350 119 GM BTL PO SCH (09:34)
[2019-04-12] MEDS ORDERED: LOSARTAN POTASSIUM 50 MG TABLET (FP) PO SCH (10:00)
[2019-04-12] MEDS ORDERED: LORazepam 2 MG TABLET PO SCH (11:00)
[2019-04-12] MEDS: LORazepam 1 MG TABLET PO SCH ×3 (11:03→22:30)
[2019-04-12] MEDS: EZETIMIBE 10 MG TABLET (FP) PO SCH (11:03)
[2019-04-12] MEDS: PANTOPRAZOLE SODIUM 40 MG VIAL IVPUSH SCH ×2 (11:03→22:30)
[2019-04-12 13:49] LABS: BASO % 0.4 % (0-2.0); EOS % 1.4 % (0-4.5); HEMATOCRIT 39.5 % (35.4-49); HEMOGLOBIN 13.7 GM/dL (11.7-16.9); LYMPH % 18.7 % (8-40); MCH 31.9 pg (25.7-33.7); MCHC 34.6 g/dl (32.0-35.9); MEAN PLT VOLUME 7.7 fl (7.5-11.1); MONO % 11.1 % (3.8-10.2); NEUT % 68.4 % (42.8-82.8); PLATELET COUNT 140 K/MM3 (134-434); RDW 14.4 % (11.9-15.9); WHITE BLOOD COUNT 6.2 K/mm3 (4.0-10.0)
[2019-04-12 14:15] LABS: ALBUMIN 3.1 g/dl (3.4-5.0); BILIRUBIN,TOTAL 3.6 mg/dL (0.2-1); BLOOD UREA NITROGEN 10.9 mg/dL (7-18); CALCIUM 7.8 mg/dL (8.5-10.1); CREATININE 0.8 mg/dL (0.55-1.3); MAGNESIUM 2.1 mg/dL (1.8-2.4); TOT PROT 6.2 g/dl (6.4-8.2)
--- NOTE | 2019-04-12 16:37 | PN ---
Progress Note, Physician Chief Complaint: Via [employer] [employer] he is hungry and abdominal pain is resolving History of Present Illness: 61 year-old male with a PMH significant for HTN, HLD, CAD s/p CABG x 3 s/p PPM s /p AICD, paroxysmal afib, diastolic heart failure, CVA, bilateral carotid artery stenosis s/p bilateral caotid endarderectomy, and chronic ETOH abuse. Presented to the ED with complaint of abdominal pain after binge drinking x 1 week - Current Medication List Current Medications: Active Medications Apixaban (Eliquis -) 5 mg PO BID [facility] Last Admin: 04/12/19 09:31 Dose: 5 mg Aspirin (Asa -) 81 mg PO DAILY [facility] Last Admin: 04/12/19 09:29 Dose: 81 mg Atorvastatin Calcium (Lipitor -) 80 mg PO [facility] Last Admin: 04/11/19 22:11 Dose: 80 mg Clopidogrel Bisulfate (Plavix -) 75 mg PO DAILY [facility] Last Admin: 04/12/19 09:31 Dose: 75 mg Docusate Sodium (Colace -) 300 mg PO [facility] Ezetimibe (Zetia -) 10 mg PO DAILY [facility] Last Admin: 04/12/19 11:03 Dose: 10 mg Folic Acid (Folic Acid -) 1 mg PO DAILY [facility] Last Admin: 04/12/19 09:31 Dose: 1 mg Gabapentin (Neurontin -) 100 mg PO BID [facility] Last Admin: 04/12/19 09:31 Dose: 100 mg Lorazepam (Ativan -) 0.5 mg PO ONCE ONE Stop: 04/16/19 05:01 Lorazepam (Ativan -) 0.5 mg PO Q4H PRN PRN Reason: Symptoms of Withdrawal Stop: 04/16/19 00:00 Lorazepam (Ativan -) 0.5 mg PO Q6H [facility] Stop: 04/15/19 23:01 Lorazepam (Ativan -) 1 mg PO 0500,1100,1700,2300 [facility] Stop: 04/14/19 23:01 Lorazepam (Ativan -) 1 mg PO Q4H PRN PRN Reason: Symptoms of Withdrawal Stop: 04/14/19 23:59 Lorazepam (Ativan -) 2 mg PO 0500,1100,1700,2300 [facility] Stop: 04/13/19 17:01 Last Admin: 04/12/19 11:03 Dose: 2 mg Losartan Potassium (Cozaar -) 100 mg PO DAILY [facility] Last Admin: 04/12/19 09:30 Dose: 100 mg Metoprolol Succinate (Toprol Xl -) 50 mg PO BID [facility] Last Admin: 04/12/19 09:30 Dose: 50 mg Multivitamins (Total B With C -) 1 each PO DAILY [facility] Last Admin: 04/12/19 09:32 Dose: 1 each Pantoprazole Sodium (Protonix Iv) 40 mg IVPUSH BID [facility] Last Admin: 04/12/19 11:03 Dose: 40 mg Polyethylene Glycol (Miralax (For Daily Use) -) 17 gm PO DAILY [facility] Last Admin: 04/12/19 09:34 Dose: 17 gm - Objective Vital Signs: Vital Signs Temperature 97.5 F L 04/12/19 14:49 Pulse Rate 73 04/12/19 14:49 Respiratory Rate 21 H 04/12/19 14:49 Blood Pressure 158/84 04/12/19 14:49 O2 Sat by Pulse Oximetry (%) 95 04/11/19 21:00 Constitutional: Yes: Well Nourished, No Distress, Calm Eyes: Yes: WNL, Conjunctiva Clear HENT: Yes: WNL, Atraumatic, Normocephalic Neck: Yes: WNL, Supple, Trachea Midline Cardiovascular: Yes: WNL, Regular Rate and Rhythm Respiratory: Yes: WNL, Regular, CTA Bilaterally Gastrointestinal: Yes: Normal Bowel Sounds, Abdomen, Obese, Tenderness (mild, generalized) ...Rectal Exam: Yes: Deferred Breast(s): Yes: WNL Musculoskeletal: Yes: WNL Extremities: Yes: WNL Edema: No Peripheral Pulses WNL: Yes Peripheral Pulses: Left Radial: 2+, Right Radial: 2+, Left Doralis Pedis: 2+, Right Dorsalis Pedis: 2+, Left Femoral: 2+, Right Femoral: 2+ Integumentary: Yes: WNL Neurological: Yes: Alert, Oriented ...Motor Strength: WNL Psychiatric: Yes: WNL, Alert, Oriented Labs: CBC, BMP 04/12/19 13:26 04/12/19 13:26 INR, PTT INR 0.95 (0.83-1.09) 04/11/19 11:45 - ....Imaging Chest X-ray: Image Reviewed (No acute pathology) Cat Scan: Report Reviewed (CT no acute pathology) Ultrasound: Report Reviewed (Abd: diffuse staeatosis, no Biliary dilation) Problem List - Problems (1) Prophylactic measure Assessment/Plan: FEN Fluids: IVF until eating Electrolytes: monitor & replete as needed Nutrition: NPO DVT moderate risk sq heparin Dispo Maintain as inpatient full code discharge planning Code(s): Z29.9 - ENCOUNTER FOR PROPHYLACTIC MEASURES, UNSPECIFIED (2) Abdominal pain Assessment/Plan: resolving US with staeatosis start clears and advance as tolerated Code(s): R10.9 - UNSPECIFIED ABDOMINAL PAIN (3) Alcoholism /alcohol abuse Assessment/Plan: started on detox protocol for ETOH withdrawal will offer rehab when discharged CIWA 5 Code(s): F10.20 - ALCOHOL DEPENDENCE, UNCOMPLICATED (4) Diastolic CHF Assessment/Plan: strict I/Os daily weights c/w BB Code(s): I50.30 - UNSPECIFIED DIASTOLIC (CONGESTIVE) HEART FAILURE (5) Hyperlipidemia Assessment/Plan: c/w zetia Code(s): E78.5 - HYPERLIPIDEMIA, UNSPECIFIED (6) Hypertension Assessment/Plan: BP elevated increase loasratan to 100mg daily c/w BB Code(s): I10 - ESSENTIAL (PRIMARY) HYPERTENSION Qualifiers: Hypertension type: unspecified Qualified Code(s): I10 - Essential (primary ) hypertension (7) ICD (implantable cardioverter-defibrillator) in place Assessment/Plan: stable Code(s): Z95.810 - PRESENCE OF AUTOMATIC (IMPLANTABLE) CARDIAC DEFIBRILLATOR (8) Paroxysmal atrial fibrillation Assessment/Plan: in SR c/w BB Code(s): I48.0 - PAROXYSMAL ATRIAL FIBRILLATION Visit type - Emergency Visit Emergency Visit: Yes ED Registration Date: 04/11/19 Care time: The patient presented to the Emergency Department on the above date and was hospitalized for further evaluation of their emergent condition. - New Patient This patient is new to me today: Yes Date on this admission: 04/12/19 - Critical Care Critical Care patient: No - Discharge Referral Referred to [facility] No CIWA Score - CIWA Score Nausea/Vomitin-Mild Nausea/No Vomiting Muscle Tremors: 1-None Visible, but [place] Anxiety: 1-Mildly Anxious Agitation: 0-Normal Activity Paroxysmal Sweats: No Perspiration Orientation: 0-Oriented Tacttile Disturbances: 0-None Auditory Disturbances: 0-None Visual Disturbances: 0-None Headache: 2-Mild CIWA-Ar Total Score: 5
[2019-04-12] MEDS: TAMSULOSIN HCL 0.4 MG CAP PO SCH (17:54)
[2019-04-12] MEDS: DOCUSATE SODIUM 100 MG CAPSULE (FP) PO SCH (22:30)
[2019-04-12] MEDS: ATORVASTATIN CA 80 MG TABLET (FP) PO SCH (22:30)
[2019-04-13] MEDS ORDERED: chlordiazePOXIDE HCL 25 MG CAPSULE PO SCH (05:00)
[2019-04-13] MEDS: LORazepam 1 MG TABLET PO SCH ×3 (05:38→19:24)
[2019-04-13 07:10] LABS: BASO % 0.5 % (0-2.0); EOS % 2.3 % (0-4.5); HEMATOCRIT 40.5 % (35.4-49); LYMPH % 24.4 % (8-40); MCH 31.9 pg (25.7-33.7); MCHC 34.5 g/dl (32.0-35.9); MEAN CELL VOLUME 92.5 fl (80-96); MEAN PLT VOLUME 8.3 fl (7.5-11.1); MONO % 11.2 % (3.8-10.2); NEUT % 61.6 % (42.8-82.8); PLATELET COUNT 124 K/MM3 (134-434); RBC 4.37 M/mm3 (4.00-5.60); WHITE BLOOD COUNT 5.6 K/mm3 (4.0-10.0)
[2019-04-13 07:40] LABS: ALBUMIN 3.1 g/dl (3.4-5.0); BILIRUBIN,TOTAL 2.9 mg/dL (0.2-1); BLOOD UREA NITROGEN 9.5 mg/dL (7-18); CALCIUM 7.9 mg/dL (8.5-10.1); CREATININE 0.8 mg/dL (0.55-1.3); MAGNESIUM 2.1 mg/dL (1.8-2.4); POTASSIUM 3.7 mmol/L (3.5-5.1); TOT PROT 6.2 g/dl (6.4-8.2)
--- NOTE | 2019-04-13 08:24 | PN ---
Progress Note, Physician Chief Complaint: Via [place] tableman abdominal pain resolved. remains on ativan protocol. No s/ s of withdrawal History of Present Illness: 61 year-old male with a PMH significant for HTN, HLD, CAD s/p CABG x 3 s/p PPM s /p AICD, paroxysmal afib, diastolic heart failure, CVA, bilateral carotid artery stenosis s/p bilateral caotid endarderectomy, and chronic ETOH abuse. Presented to the ED with complaint of abdominal pain after binge drinking x 1 week - Current Medication List Current Medications: Active Medications Apixaban (Eliquis -) 5 mg PO BID [facility] Last Admin: 04/12/19 22:30 Dose: 5 mg Aspirin (Asa -) 81 mg PO DAILY [facility] Last Admin: 04/12/19 09:29 Dose: 81 mg Atorvastatin Calcium (Lipitor -) 80 mg PO [facility] Last Admin: 04/12/19 22:30 Dose: 80 mg Clopidogrel Bisulfate (Plavix -) 75 mg PO DAILY [facility] Last Admin: 04/12/19 09:31 Dose: 75 mg Docusate Sodium (Colace -) 300 mg PO [facility] Last Admin: 04/12/19 22:30 Dose: 300 mg Ezetimibe (Zetia -) 10 mg PO DAILY [facility] Last Admin: 04/12/19 11:03 Dose: 10 mg Folic Acid (Folic Acid -) 1 mg PO DAILY [facility] Last Admin: 04/12/19 09:31 Dose: 1 mg Gabapentin (Neurontin -) 100 mg PO BID [facility] Last Admin: 04/12/19 22:30 Dose: 100 mg Lorazepam (Ativan -) 0.5 mg PO ONCE ONE Stop: 04/16/19 05:01 Lorazepam (Ativan -) 0.5 mg PO Q4H PRN PRN Reason: Symptoms of Withdrawal Stop: 04/16/19 00:00 Lorazepam (Ativan -) 0.5 mg PO Q6H [facility] Stop: 04/15/19 23:01 Lorazepam (Ativan -) 1 mg PO 0500,1100,1700,2300 [facility] Stop: 04/14/19 23:01 Lorazepam (Ativan -) 1 mg PO Q4H PRN PRN Reason: Symptoms of Withdrawal Stop: 04/14/19 23:59 Lorazepam (Ativan -) 2 mg PO 0500,1100,1700,2300 [facility] Stop: 04/13/19 17:01 Last Admin: 04/13/19 05:38 Dose: 2 mg Losartan Potassium (Cozaar -) 100 mg PO DAILY [facility] Last Admin: 04/12/19 09:30 Dose: 100 mg Metoprolol Succinate (Toprol Xl -) 50 mg PO BID [facility] Last Admin: 04/12/19 22:30 Dose: 50 mg Multivitamins (Total B With C -) 1 each PO DAILY [facility] Last Admin: 04/12/19 09:32 Dose: 1 each Pantoprazole Sodium (Protonix Iv) 40 mg IVPUSH BID [facility] Last Admin: 04/12/19 22:30 Dose: 40 mg Polyethylene Glycol (Miralax (For Daily Use) -) 17 gm PO DAILY [facility] Last Admin: 04/12/19 09:34 Dose: 17 gm Tamsulosin HCl (Flomax -) 0.4 mg PO DAILY@0830 [facility] Last Admin: 04/12/19 17:54 Dose: 0.4 mg - Objective Vital Signs: Vital Signs Temperature 98.7 F 04/13/19 05:51 Pulse Rate 65 04/13/19 05:51 Respiratory Rate 20 04/13/19 05:51 Blood Pressure 143/88 04/13/19 05:51 O2 Sat by Pulse Oximetry (%) 95 04/12/19 21:00 Additional Findings/Remarks: Constitutional: Yes: Well Nourished, No Distress, Calm Eyes: Yes: WNL, Conjunctiva Clear HENT: Yes: WNL, Atraumatic, Normocephalic Neck: Yes: WNL, Supple, Trachea Midline Cardiovascular: Yes: WNL, Regular Rate and Rhythm Respiratory: Yes: WNL, Regular, CTA Bilaterally Gastrointestinal: Yes: Normal Bowel Sounds, Abdomen, Obese ...Rectal Exam: Yes: Deferred Breast(s): Yes: WNL Musculoskeletal: Yes: WNL Extremities: Yes: WNL Edema: No Peripheral Pulses WNL: Yes Peripheral Pulses: Left Radial: 2+, Right Radial: 2+, Left Doralis Pedis: 2+, Right Dorsalis Pedis: 2+, Left Femoral: 2+, Right Femoral: 2+ Integumentary: Yes: WNL Neurological: Yes: Alert, Oriented ...Motor Strength: WNL Psychiatric: Yes: WNL, Alert, Oriented Labs: CBC, BMP 04/13/19 06:15 04/13/19 06:15 INR, PTT INR 0.95 (0.83-1.09) 04/11/19 11:45 Problem List - Problems (1) Prophylactic measure Assessment/Plan: FEN Fluids: adequate PO intake Electrolytes: monitor & replete as needed Nutrition: low sodium DVT moderate risk plavix/eliquis Dispo Maintain as inpatient full code discharge planning Code(s): Z29.9 - ENCOUNTER FOR PROPHYLACTIC MEASURES, UNSPECIFIED (2) Abdominal pain Assessment/Plan: resolved US with staeatosis tolerating full diet will advance to low Na Code(s): R10.9 - UNSPECIFIED ABDOMINAL PAIN Qualifiers: Abdominal location: unspecified location Qualified Code(s): R10.9 - Unspecified abdominal pain (3) Alcoholism /alcohol abuse Assessment/Plan: started on detox protocol for ETOH withdrawal will offer rehab when discharged CIWA 2 Code(s): F10.20 - ALCOHOL DEPENDENCE, UNCOMPLICATED (4) Diastolic CHF Assessment/Plan: strict I/Os daily weights c/w BB Code(s): I50.30 - UNSPECIFIED DIASTOLIC (CONGESTIVE) HEART FAILURE (5) Hyperlipidemia Assessment/Plan: c/w zetia Code(s): E78.5 - HYPERLIPIDEMIA, UNSPECIFIED (6) Hypertension Assessment/Plan: BP better controlled increased loasratan to 100mg daily c/w BB Code(s): I10 - ESSENTIAL (PRIMARY) HYPERTENSION Qualifiers: Hypertension type: unspecified Qualified Code(s): I10 - Essential (primary ) hypertension (7) ICD (implantable cardioverter-defibrillator) in place Assessment/Plan: stable Code(s): Z95.810 - PRESENCE OF AUTOMATIC (IMPLANTABLE) CARDIAC DEFIBRILLATOR (8) Paroxysmal atrial fibrillation Assessment/Plan: in SR c/w BB Code(s): I48.0 - PAROXYSMAL ATRIAL FIBRILLATION Visit type - Emergency Visit Emergency Visit: Yes ED Registration Date: 04/11/19 Care time: The patient presented to the Emergency Department on the above date and was hospitalized for further evaluation of their emergent condition. - New Patient This patient is new to me today: No - Critical Care Critical Care patient: No - Discharge Referral Referred to [facility] Med P.C[facility] No CIWA Score - CIWA Score Nausea/Vomitin-No Nausea/No Vomiting Muscle Tremors: 1-None Visible, but [place] Anxiety: 0-No Anxiety, at Ease Agitation: 0-Normal Activity Paroxysmal Sweats: No Perspiration Orientation: 0-Oriented Tacttile Disturbances: 0-None Auditory Disturbances: 0-None Visual Disturbances: 0-None Headache: 1-Very Mild CIWA-Ar Total Score: 2
--- NOTE | 2019-04-13 10:23 | EKG ---
Test Reason : Blood Pressure : / mmHG Vent. Rate : 070 BPM Atrial Rate : 070 BPM P-R Int : 156 ms QRS Dur : 102 ms QT Int : 420 ms P-R-T Axes : 068 045 071 degrees QTc Int : 453 ms NORMAL SINUS RHYTHM NONSPECIFIC T WAVE ABNORMALITY ABNORMAL ECG WHEN COMPARED WITH ECG OF 16-JUN-2018 22:06, COMPARED TO EKG NO SIGNIFICANT CHANGE IS FOUND Confirmed by Radha Marinelli ([id number]) on 04/13/2019 10:23:07 AM Referred By: Confirmed By:Radha Marinelli
[2019-04-13] MEDS: VITAMIN B COMPLEX W/C COMBO TABLET (FP) PO SCH (10:56)
[2019-04-13] MEDS: FOLIC ACID 1 MG TABLET (FP) PO SCH (10:56)
[2019-04-13] MEDS: ASPIRIN 81 MG CHEWABLE TABLETS PO SCH (10:56)
[2019-04-13] MEDS: PANTOPRAZOLE SODIUM 40 MG VIAL IVPUSH SCH ×2 (10:57→22:08)
[2019-04-13] MEDS: CLOPIDOGREL BISULFATE 75 MG TABLET (FP) PO SCH (10:57)
[2019-04-13] MEDS: LOSARTAN POTASSIUM 50 MG TABLET (FP) PO SCH (10:57)
[2019-04-13] MEDS: TAMSULOSIN HCL 0.4 MG CAP PO SCH (10:57)
[2019-04-13] MEDS: POLYETHYLENE GLYCOL 3350 119 GM BTL PO SCH (10:57)
[2019-04-13] MEDS: APIXABAN 5 MG TABLET PO SCH ×2 (10:57→22:08)
[2019-04-13] MEDS: GABAPENTIN 100 MG CAPSULE PO SCH ×2 (10:57→22:07)
[2019-04-13] MEDS ORDERED: PT OWN MED DRAWER 7, Y5N ONE ×2 (11:00→17:51)
[2019-04-13] MEDS: EZETIMIBE 10 MG TABLET (FP) PO SCH (11:01)
[2019-04-13] MEDS: DOCUSATE SODIUM 100 MG CAPSULE (FP) PO SCH (22:08)
[2019-04-13] MEDS: ATORVASTATIN CA 80 MG TABLET (FP) PO SCH (22:08)
[2019-04-14] MEDS ORDERED: chlordiazePOXIDE HCL 10 MG CAPSULE PO PRN
[2019-04-14] MEDS: LORazepam 1 MG TABLET PO SCH ×4 (05:00→22:11)
[2019-04-14] MEDS ORDERED: chlordiazePOXIDE HCL 10 MG CAPSULE PO SCH (05:00)
[2019-04-14 07:37] LABS: BASO % 0.4 % (0-2.0); EOS % 3.1 % (0-4.5); HEMOGLOBIN 13.5 GM/dL (11.7-16.9); LYMPH % 26.1 % (8-40); MCH 31.7 pg (25.7-33.7); MCHC 34.7 g/dl (32.0-35.9); MEAN CELL VOLUME 91.4 fl (80-96); MEAN PLT VOLUME 8.3 fl (7.5-11.1); MONO % 12.9 % (3.8-10.2); NEUT % 57.5 % (42.8-82.8); PLATELET COUNT 124 K/MM3 (134-434); RBC 4.27 M/mm3 (4.00-5.60); WHITE BLOOD COUNT 5.8 K/mm3 (4.0-10.0)
[2019-04-14 08:03] LABS: BILIRUBIN,TOTAL 1.5 mg/dL (0.2-1); CALCIUM 8.4 mg/dL (8.5-10.1); CREATININE 0.9 mg/dL (0.55-1.3); MAGNESIUM 2.2 mg/dL (1.8-2.4); POTASSIUM 3.8 mmol/L (3.5-5.1); TOT PROT 6.4 g/dl (6.4-8.2)
--- NOTE | 2019-04-14 10:28 | PN ---
Physical Exam: SUBJECTIVE: Patient seen and examined at the bedside. awake, alert, denies headaches, hallucinations, nausea or vomiting. denies any malaise. OBJECTIVE: 61 year-old male with a PMH significant for HTN, HLD, CAD s/p CABG x 3 s/p PPM s /p AICD, paroxysmal afib, diastolic heart failure, CVA, bilateral carotid artery stenosis s/p bilateral caotid endarderectomy, and chronic ETOH abuse. Presented to the ED with complaint of abdominal pain after binge drinking x 1 week. Patient awake and alert and in no acute distress. denies any withdrawal symptoms currently Vital Signs Period Temp Pulse Resp BP Sys/Peterson Pulse Ox Last 24 Hr 97.5 F-98.2 F 59-69 17-20 132-153/63-94 96 GENERAL: The patient is awake, alert, and fully oriented, in no acute distress. armenian speaking. HEAD: Normal with no signs of trauma. EYES: PERRL, extraocular movements intact, sclera anicteric, conjunctiva clear. No ptosis. ENT: Ears normal, nares patent, oropharynx clear without exudates, moist mucous membranes. NECK: Trachea midline, full range of motion, supple. LUNGS: Breath sounds equal, clear to auscultation bilaterally HEART: Regular rate and rhythm ABDOMEN: Soft, nontender, nondistended, normoactive bowel sounds EXTREMITIES: 2+ pulses, warm, well-perfused, no edema. NEUROLOGICAL: Normal speech, gait not observed. laboratory Results - last 24 hr 04/14/19 04/14/19 06:15 06:15 WBC 5.8 RBC 4.27 Hgb 13.5 Hct 39.0 MCV 91.4 MCH 31.7 MCHC 34.7 RDW 14.0 Plt Count 124 L MPV 8.3 Absolute Neuts (auto) 3.3 Neutrophils % 57.5 Lymphocytes % 26.1 Monocytes % 12.9 H Eosinophils % 3.1 Basophils % 0.4 Nucleated RBC % 0 Sodium 139 Potassium 3.8 Chloride 104 Carbon Dioxide 30 Anion Gap 6 L BUN 14.0 Creatinine 0.9 Est GFR (CKD-EPI)AfAm 103.51 Est GFR (CKD-EPI)NonAf 89.31 Random Glucose 103 Calcium 8.4 L Magnesium 2.2 Total Bilirubin 1.5 H AST 31 ALT 46 Alkaline Phosphatase 90 Total Protein 6.4 Albumin 3.0 L Active Medications Generic Name Dose Route Start Last Admin Trade Name Freq PRN Reason Stop Dose Admin Apixaban 5 mg 04/11/19 22:00 04/13/19 22:08 Eliquis - PO 5 mg BID DARIAN Administration Aspirin 81 mg 04/12/19 10:00 04/13/19 10:56 Asa - PO 81 mg DAILY DARIAN Administration Atorvastatin Calcium 80 mg 04/11/19 22:00 04/13/19 22:08 Lipitor - PO 80 mg HS DARIAN Administration Clopidogrel Bisulfate 75 mg 04/12/19 10:00 04/13/19 10:57 Plavix - PO 75 mg DAILY DARIAN Administration Docusate Sodium 300 mg 04/12/19 22:00 04/13/19 22:08 Colace - PO 300 mg HS DARIAN Administration Ezetimibe 10 mg 04/12/19 10:00 04/13/19 11:01 Zetia - PO 10 mg DAILY DARIAN Administration Folic Acid 1 mg 04/12/19 10:00 04/13/19 10:56 Folic Acid - PO 1 mg DAILY DARIAN Administration Gabapentin 100 mg 04/11/19 22:00 04/13/19 22:07 Neurontin - PO 100 mg BID DARIAN Administration Lorazepam 0.5 mg 04/16/19 05:00 Ativan - PO 04/16/19 05:01 ONCE ONE Lorazepam 0.5 mg 04/15/19 00:00 Ativan - PO 04/16/19 00:00 Q4H PRN Symptoms of Withdrawal Lorazepam 0.5 mg 04/15/19 05:00 Ativan - PO 04/15/19 23:01 Q6H DARIAN Lorazepam 1 mg 04/14/19 05:00 04/14/19 05:00 Ativan - PO 04/14/19 23:01 1 mg 0500,1100,1700,2300 DARIAN Administration Lorazepam 1 mg 04/12/19 08:40 Ativan - PO 04/14/19 23:59 Q4H PRN Symptoms of Withdrawal Losartan Potassium 100 mg 04/12/19 10:00 04/13/19 10:57 Cozaar - PO 100 mg DAILY DARIAN Administration Metoprolol Succinate 50 mg 04/11/19 22:00 04/13/19 22:08 Toprol Xl - PO 50 mg BID DARIAN Administration Multivitamins 1 each 04/12/19 10:00 04/13/19 10:56 Total B With C - PO 1 each DAILY DARIAN Administration Pantoprazole Sodium 40 mg 04/11/19 22:00 04/13/19 22:08 Protonix Iv IVPUSH 40 mg BID DARIAN Administration Polyethylene Glycol 17 gm 04/12/19 10:00 04/13/19 10:57 Miralax (For Daily Use) - PO 17 gm DAILY DARIAN Administration Tamsulosin HCl 0.4 mg 04/12/19 17:00 04/13/19 10:57 Flomax - PO 0.4 mg DAILY@0830 DARIAN Administration ASSESSMENT/PLAN: Problem List - Problems (1) Alcoholism /alcohol abuse Assessment/Plan: on ativan taper to complete tomorrow no signs of withdrawal currently see ciwa score Code(s): F10.20 - ALCOHOL DEPENDENCE, UNCOMPLICATED (2) Carotid artery disease Assessment/Plan: continue zetia, plavix Code(s): I77.9 - DISORDER OF ARTERIES AND ARTERIOLES, UNSPECIFIED Qualifiers: Laterality: bilateral (3) Diastolic CHF Assessment/Plan: strict I/Os daily weights c/w BB Code(s): I50.30 - UNSPECIFIED DIASTOLIC (CONGESTIVE) HEART FAILURE (4) ICD (implantable cardioverter-defibrillator) in place Code(s): Z95.810 - PRESENCE OF AUTOMATIC (IMPLANTABLE) CARDIAC DEFIBRILLATOR (5) Paroxysmal atrial fibrillation Assessment/Plan: on eliquis, continue with beta camille Code(s): I48.0 - PAROXYSMAL ATRIAL FIBRILLATION (6) Prophylactic measure Assessment/Plan: fen tolerating po monitor electrolytes full code Code(s): Z29.9 - ENCOUNTER FOR PROPHYLACTIC MEASURES, UNSPECIFIED (7) Hypertension Assessment/Plan: bp better controlled monitor Code(s): I10 - ESSENTIAL (PRIMARY) HYPERTENSION Qualifiers: Hypertension type: unspecified Qualified Code(s): I10 - Essential (primary ) hypertension Visit type - Emergency Visit Emergency Visit: Yes ED Registration Date: 04/11/19 Care time: The patient presented to the Emergency Department on the above date and was hospitalized for further evaluation of their emergent condition. - New Patient This patient is new to me today: Yes Date on this admission: 04/14/19 - Critical Care Critical Care patient: No - Discharge Referral Referred to [facility] Med P.C[facility] No CIWA Score Nausea/Vomitin-No Nausea/No Vomiting Muscle Tremors: None Anxiety: 0-No Anxiety, at Ease Agitation: 0-Normal Activity Paroxysmal Sweats: No Perspiration Orientation: 0-Oriented Tacttile Disturbances: 0-None Auditory Disturbances: 0-None Visual Disturbances: 0-None Headache: 1-Very Mild CIWA-Ar Total Score: 1 - Admission Criteria [facility] Guidelines: Admission for Medically Managed Detox: Requires at least one of the followin. CIWA greater than 12 2. Seizures within the past 24 hours 3. Delirium tremens within the past 24 hours 4. Hallucinations within the past 24 hours 5. Acute intervention needed for co occurring medical disorder 6. Acute intervention needed for co occurring psychiatric disorder 7. Severe withdrawal that cannot be handled at a lower level of care (continued vomiting, continued diarrhea, abnormal vital signs) requiring intravenous medication and/or fluids 8.
[2019-04-14] MEDS: GABAPENTIN 100 MG CAPSULE PO SCH ×2 (10:53→21:32)
[2019-04-14] MEDS: FOLIC ACID 1 MG TABLET (FP) PO SCH (10:53)
[2019-04-14] MEDS: TAMSULOSIN HCL 0.4 MG CAP PO SCH (10:53)
[2019-04-14] MEDS: VITAMIN B COMPLEX W/C COMBO TABLET (FP) PO SCH (10:54)
[2019-04-14] MEDS: PANTOPRAZOLE SODIUM 40 MG VIAL IVPUSH SCH ×2 (10:54→21:21)
[2019-04-14] MEDS: CLOPIDOGREL BISULFATE 75 MG TABLET (FP) PO SCH (10:54)
[2019-04-14] MEDS: LOSARTAN POTASSIUM 50 MG TABLET (FP) PO SCH (10:55)
[2019-04-14] MEDS: POLYETHYLENE GLYCOL 3350 119 GM BTL PO SCH (11:05)
[2019-04-14] MEDS ORDERED: PT OWN MED DRAWER 7, Y5N ONE ×2 (11:07→13:19)
[2019-04-14] MEDS: EZETIMIBE 10 MG TABLET (FP) PO SCH (11:11)
[2019-04-14] MEDS ORDERED: BISACODYL 10 MG SUPP.RECT PR ONE (11:15)
[2019-04-14] MEDS: ASPIRIN 81 MG CHEWABLE TABLETS PO SCH (11:42)
[2019-04-14] MEDS: SENNOSIDES 8.6MG TABLET (FP) PO PRN ×2 (12:56→21:20)
[2019-04-14] MEDS: APIXABAN 5 MG TABLET PO SCH ×2 (14:25→21:21)
[2019-04-14] MEDS: DOCUSATE SODIUM 100 MG CAPSULE (FP) PO SCH ×3 (14:27→21:20)
[2019-04-14] MEDS: ATORVASTATIN CA 80 MG TABLET (FP) PO SCH (21:21)
[2019-04-15] MEDS ORDERED: LORazepam 0.5 MG TABLET PO PRN
[2019-04-15] MEDS ORDERED: chlordiazePOXIDE HCL 10 MG CAPSULE PO SCH (05:00)
[2019-04-15] MEDS ORDERED: LORazepam 0.5 MG TABLET PO SCH (05:00)
[2019-04-15] MEDS: DOCUSATE SODIUM 100 MG CAPSULE (FP) PO SCH ×2 (06:11→15:02)
[2019-04-15] MEDS ORDERED: PT OWN MED DRAWER 7, Y5N ONE (10:32)
[2019-04-15] MEDS: APIXABAN 5 MG TABLET PO SCH (10:41)
[2019-04-15] MEDS: TAMSULOSIN HCL 0.4 MG CAP PO SCH (10:41)
[2019-04-15] MEDS: VITAMIN B COMPLEX W/C COMBO TABLET (FP) PO SCH (10:41)
[2019-04-15] MEDS: FOLIC ACID 1 MG TABLET (FP) PO SCH (10:41)
[2019-04-15] MEDS: GABAPENTIN 100 MG CAPSULE PO SCH (10:42)
[2019-04-15] MEDS: LOSARTAN POTASSIUM 50 MG TABLET (FP) PO SCH (10:42)
[2019-04-15] MEDS: PANTOPRAZOLE SODIUM 40 MG VIAL IVPUSH SCH (10:42)
[2019-04-15] MEDS: EZETIMIBE 10 MG TABLET (FP) PO SCH (10:42)
[2019-04-15] MEDS: CLOPIDOGREL BISULFATE 75 MG TABLET (FP) PO SCH (10:42)
[2019-04-15] MEDS: LORazepam 0.5 MG TABLET PO SCH ×3 (10:42→18:17)
[2019-04-15 10:51] VITALS: BP 142/85; PULSE 106; TEMP 97.9
[2019-04-15] MEDS: POLYETHYLENE GLYCOL 3350 119 GM BTL PO SCH (10:53)
--- NOTE | 2019-04-15 16:06 | DS ---
Physical Exam: SUBJECTIVE: Patient seen and examined. laying in bed, appears comfortable at rest. I spoke to son regarding POC. Referral given for GI follow up as an outpatient for chronic constipation. OBJECTIVE: Patient is a 61 year-old male with a PMH significant for HTN, HLD, CAD s/p CABG x 3 s/p PPM s/p AICD, paroxysmal afib, diastolic heart failure, CVA, bilateral carotid artery stenosis s/p bilateral caotid endarderectomy, and chronic ETOH abuse. Presented to the ED with complaint of abdominal pain after binge drinking x 1 week. Patient awake and alert and in no acute distress. Abd CT scan shows no acute findings. Patient to complete ativan taper today. Referrals for alcohol abstinence recommended at [address] [place] [address]. Vital Signs Period Temp Pulse Resp BP Sys/Peterson Pulse Ox Last 24 Hr 97.5 F-98.5 F 58-106 18-18 130-149/75-85 97-97 PHYSICAL EXAM GENERAL: The patient is awake, alert, and fully oriented, in no acute distress. cameroonian speaking. HEAD: Normal with no signs of trauma. EYES: PERRL, extraocular movements intact, sclera anicteric, conjunctiva clear. No ptosis. ENT: Ears normal, nares patent, oropharynx clear without exudates, moist mucous membranes. NECK: Trachea midline, full range of motion, supple. LUNGS: Breath sounds equal, clear to auscultation bilaterally HEART: Regular rate and rhythm ABDOMEN: Soft, nontender, nondistended, normoactive bowel sounds EXTREMITIES: 2+ pulses, warm, well-perfused, no edema. NEUROLOGICAL: Normal speech, gait not observed. LABS HOSPITAL COURSE: Date of Admission:04/11/19 Date of Discharge: 04/15/19 Minutes to complete discharge: 45 Discharge Summary Problems reviewed: Yes Reason For Visit: ABD PAIN/LACTIC ACIDOSIS Current Active Problems Abdominal pain (Acute) Lactic acidosis (Acute) Prophylactic measure (Acute) Condition: Improved - Instructions Diet, Activity, Other Instructions: Mr. Gerardo: You were admitted for acute intoxication of alcohol and have been hospitalized for detox. We will be sending you home today. It is important that you continue your sobriety. We have sent you a referral with Dr. Hudson, a detox/rehab alcohol physician that may be able to help you maintain sobriety. You also reported that you have issues with constipation. We have made an an appointment with a GI specialist as follows: An appointment has been made for you with Dr. Rodney as follows: May 17 at 3pm. Please call his office for confirmation of this appt before you go, if you need to be seen sooner, please all them and make arrangements. bring: list of medications, insurance card location: [address] [place] [address] phone: [phone] Thank you for allowing us to care for you. Referrals: Anne-Marie Rodney MD [Staff Physician] - (May 17 at 3pm. bring: list of medications, insurance card) Natalia Bah MD [Primary Care Provider] - Alejandro Hudson DO [Staff Physician] - Disposition: HOME - Home Medications Comprehensive Discharge Medication List: Ambulatory Orders Folic Acid 1 mg PO DAILY 11/23/16 Gabapentin 100 mg PO BID 11/23/16 Ergocalciferol [Vitamin D2] 50,000 unit PO Q7D@1000 01/18/18 Apixaban [Eliquis -] 5 mg PO BID #60 tablet 02/17/18 Atorvastatin Ca [Lipitor] 80 mg PO HS #30 tablet 02/17/18 Metoprolol Succinate [Toprol XL -] 50 mg PO BID #60 tab.sr.24h 02/17/18 Clopidogrel Bisulfate [Plavix -] 75 mg PO DAILY #30 tablet 03/06/18 Losartan Potassium [Cozaar -] 50 mg PO DAILY #30 tablet 03/06/18 Linaclotide [Linzess] 145 mcg PO DAILY 04/11/19 Tamsulosin HCl 0.4 mg PO DAILY 04/11/19 Problem List - Problems (1) Alcoholism /alcohol abuse Code(s): F10.20 - ALCOHOL DEPENDENCE, UNCOMPLICATED (2) Carotid artery disease Code(s): I77.9 - DISORDER OF ARTERIES AND ARTERIOLES, UNSPECIFIED Qualifiers: Laterality: bilateral (3) Diastolic CHF Code(s): I50.30 - UNSPECIFIED DIASTOLIC (CONGESTIVE) HEART FAILURE (4) ICD (implantable cardioverter-defibrillator) in place Code(s): Z95.810 - PRESENCE OF AUTOMATIC (IMPLANTABLE) CARDIAC DEFIBRILLATOR (5) Paroxysmal atrial fibrillation Code(s): I48.0 - PAROXYSMAL ATRIAL FIBRILLATION (6) Prophylactic measure Code(s): Z29.9 - ENCOUNTER FOR PROPHYLACTIC MEASURES, UNSPECIFIED (7) Hypertension Code(s): I10 - ESSENTIAL (PRIMARY) HYPERTENSION Qualifiers: Hypertension type: unspecified Qualified Code(s): I10 - Essential (primary) hypertension This patient is new to me today: No Emergency Visit: Yes ED Registration Date: 04/11/19 Care time: The patient presented to the Emergency Department on the above date and was hospitalized for further evaluation of their emergent condition. Critical Care patient: No - Discharge Referral Referred to [facility] Med P.C.: No
[2019-04-16] MEDS ORDERED: chlordiazePOXIDE HCL 10 MG CAPSULE PO ONE (05:00)
[2019-04-16] MEDS ORDERED: LORazepam 0.5 MG TABLET PO ONE (05:00)
== END 2019-04-15 18:41 | disposition home or self-care (01) | DRG 897 ==
LOC: JER 10:23 → JERBED 15:59 → J7W 18:44
PROVIDERS: ADMIT Internal Medicine; ATTEND Nurse Practitioner Family
PROC: HZ2ZZZZ Detoxification Services for Substance Abuse Treatment (ICD-10-PCS; principal; 2019-04-11)
DX: F10.129 Alcohol abuse with intoxication, unspecified (principal); E87.2 Acidosis; I50.30 Unspecified diastolic (congestive) heart failure; I25.10 Atherosclerotic heart disease of native coronary artery without angina pectoris; K21.9 Gastro-esophageal reflux disease without esophagitis; E78.5 Hyperlipidemia, unspecified; K59.09 Other constipation; Z95.1 Presence of aortocoronary bypass graft; Z86.73 Personal history of transient ischemic attack (TIA), and cerebral infarction without residual deficits; Z95.810 Presence of automatic (implantable) cardiac defibrillator; F10.10 Alcohol abuse, uncomplicated; I65.23 Occlusion and stenosis of bilateral carotid arteries; I48.0 Paroxysmal atrial fibrillation; I11.0 Hypertensive heart disease with heart failure
CPT/HCPCS: 36415; 71045-TC-FY; 74177-TC; 76705-TC; 80053; 81003; 82140; 82550; 82553; 83605; 83690; 83735; 83880; 84484; 85025; 85610; 85730; 86850; 86900; 86901; 87086; 93005; 93010; 99285-25; Q2036; Q9967

== ENCOUNTER 2019-11-05 05:16 | Day surgery (SDC) | payer OTHER ==
[2019-11-04 17:42] VITALS: BMI 39.7
[2019-11-05] MEDS ORDERED: MIDAZOLAM HCL 2 MG/2 ML SINGLE DOSE VIAL ONE (14:40)
[2019-11-05] MEDS ORDERED: PROPOFOL 20 ML ONE (14:41)
[2019-11-05] MEDS ORDERED: ACETAMINOPHEN 1000 MG/100 ML VIAL (NON FORMULARY) IVPB ONE (14:43)
--- NOTE | 2019-11-05 14:43 | HP ---
History & Physical Update - History History: No Change - Physical Physical: No Change - Assessment Assessment: No Change - Plan Plan: No Change
[2019-11-05] MEDS ORDERED: IBUPROFEN 800 MG/8 ML IJ IVPB SCH (14:45)
[2019-11-05] MEDS ORDERED: DEXTROSE 5%-0.45% SALINE 1,000 ML IV SCH (14:45)
[2019-11-05] MEDS ORDERED: ceFAZolin SODIUM 1 GM VIAL IVPB ONE (15:24)
[2019-11-05] MEDS ORDERED: oxyCODONE HCL 5 MG TABLET PO PRN (15:46)
[2019-11-05] MEDS ORDERED: ONDANSETRON 4 MG/2 ML VIAL IVPUSH PRN (15:46)
[2019-11-05] MEDS ORDERED: LACTATED RINGERS SOLUTION 1,000 ML IV SCH (16:00)
[2019-11-05] MEDS ORDERED: ACETAMINOPHEN INJECTION 100 ML IVPB ONE (16:36)
[2019-11-05 19:01] VITALS: TEMP 97.3
[2019-11-05 19:06] VITALS: BP 119/84; PULSE 95
--- NOTE | 2019-11-07 19:22 | OP ---
DATE OF OPERATION: 11/05/2019 SURGEON: Matthew Gonzalez MD PREOPERATIVE DIAGNOSIS: Benign prostatic hypertrophy and lower urinary tract symptoms. POSTOPERATIVE DIAGNOSIS: Benign prostatic hypertrophy and lower urinary tract symptoms. PROCEDURE: Cystoscopy, UroLift. SPECIMENS: None. DRAINS: A Nicholson catheter. BLOOD LOSS: None. PREOPERATIVE INDICATIONS: Patient has BPH. He has failed oral medications. He comes today for an UroLift. OPERATION: Patient was brought to the OR, placed on the table in the supine position, given general anesthesia and IV antibiotics, and placed in the modified lithotomy position. The groin was prepped and draped sterilely. Timeout was performed. Cystoscopy was performed. The distal urethra appeared to be normal. The sphincter was intact. The prostate itself was obstructive with lateral lobe hypertrophy. The bladder had 2+ trabeculations. No tumors or stones were seen. Both UOs were visualized with clear efflux. UroLift was then performed. Clips were placed at 10 and 2 o'clock just distal to the bladder neck, approximately 2 cm beyond the bladder neck. They fired well and created an opening at the bladder neck. Two more clips were placed, again at 10 and 2 o'clock, just above the verumontanum and the distal aspect of the prostatic urethra. The effect of these 4 clips was an open channel to allow for urination. No bleeding was seen. No clips were seen in the bladder, and the sphincter was also uninjured. Scope was removed. A Nicholson catheter was left in place and the patient woken up. Samantha [id number]
== END 2019-11-05 19:20 | disposition home or self-care (01) ==
LOC: JASU-SURG 05:16
PROVIDERS: ATTEND Urology
PROC: 0T7D8DZ Dilation of Urethra with Intraluminal Device, Via Natural or Artificial Opening Endoscopic (ICD-10-PCS; principal; 2019-11-05 14:00)
DX: N40.1 Benign prostatic hyperplasia with lower urinary tract symptoms (principal); R39.9 Unspecified symptoms and signs involving the genitourinary system
CPT/HCPCS: 94760; J0131

== ENCOUNTER 2020-10-29 11:39 | Inpatient (IN) | payer OTHER ==
[2020-10-29 13:04] LABS: INR 1.38 (0.83-1.09); PROTHROMBIN TIME (PATIENT) 16.8 SEC (9.7-13.0)
[2020-10-29 13:06] LABS: CHLORIDE 105 mmol/L (98-107); SODIUM 138 mmol/L (136-145)
[2020-10-29 13:07] LABS: ACTIVATED PTT 34.8 SECONDS (25.2-36.5)
[2020-10-29 13:08] LABS: ALBUMIN 3.8 g/dl (3.4-5.0); ANION GAP 7 MMOL/L (8-16); BLOOD UREA NITROGEN 19.9 mg/dL (7-18); CALCIUM 8.4 mg/dL (8.5-10.1); CO2 26 mmol/L (21-32); MAGNESIUM 2.1 mg/dL (1.8-2.4)
[2020-10-29 13:09] LABS: GLUCOSE,RANDOM 104 mg/dL (74-106)
[2020-10-29 13:11] LABS: SGOT/AST 20 U/L (15-37); SGPT/ALT 31 U/L (13-61)
[2020-10-29 13:12] LABS: CREATININE 1.2 mg/dL (0.55-1.3); PHOSPHOROUS 3.8 mg/dL (2.5-4.9)
[2020-10-29 13:13] LABS: BASO % 0.6 % (0-2.0); BILIRUBIN,TOTAL 1.6 mg/dL (0.2-1); EOS % 1.2 % (0-4.5); HEMATOCRIT 46.9 % (35.4-49); HEMOGLOBIN 16.2 GM/dL (11.7-16.9); LYMPH % 24.6 % (8-40); MCH 32.3 pg (25.7-33.7); MCHC 34.6 g/dl (32.0-35.9); MEAN CELL VOLUME 93.3 fl (80-96); MONO % 12.1 % (3.8-10.2); NEUT % 61.5 % (42.8-82.8); PLATELET COUNT 188 10^3/uL (134-434); RBC 5.02 M/mm3 (4.00-5.60); RDW 14.6 % (11.9-15.9); TOT PROT 7.6 g/dl (6.4-8.2)
[2020-10-29 13:14] LABS: ALK PHOS 88 U/L (45-117)
[2020-10-29 13:17] LABS: N-TERMINAL BNP 1778.4 pg/ml (5-125)
[2020-10-29] MEDS ORDERED: ASPIRIN 81 MG CHEWABLE TABLETS PO ONE (13:29)
[2020-10-29] MEDS ORDERED: FUROSEMIDE 40 MG/4 ML INJECTABLE VIAL IVPUSH ONE (13:29)
[2020-10-29] MEDS ORDERED: FUROSEMIDE 40 MG/4 ML INJECTABLE VIAL ONE (13:47)
[2020-10-29] MEDS ORDERED: ASPIRIN 81 MG CHEWABLE TABLETS ONE (13:47)
[2020-10-29 14:45] LABS: PH,URINE 6.5 (5.0-8.0); URINE APPEARANCE CLEAR; URINE BILIRUBIN NEGATIVE (NEGATIVE); URINE COLOR YELLOW; URINE GLUCOSE (UA) NEGATIVE (NEGATIVE); URINE KETONE NEGATIVE (NEGATIVE); URINE LEUK ESTERASE NEGATIVE (NEGATIVE); URINE NITRITE NEGATIVE (NEGATIVE); URINE PROTEIN NEGATIVE (NEGATIVE); URINE UROBILINOGEN 0.2 mg/dL (0.2-1.0)
[2020-10-29] MEDS: POLYETHYLENE GLYCOL (HEALTHYLAX) 3350 17 GM PACKET PO SCH (21:26)
[2020-10-29] MEDS: APIXABAN 5 MG TABLET PO SCH (21:26)
[2020-10-29] MEDS: ATORVASTATIN CA 80 MG TABLET (FP) PO SCH (21:26)
[2020-10-29 23:08] VITALS: BMI 40.8
[2020-10-30 07:27] LABS: BASO % 0.6 % (0-2.0); HEMATOCRIT 44.6 % (35.4-49); HEMOGLOBIN 15.4 GM/dL (11.7-16.9); LYMPH % 36.4 % (8-40); MCH 32.6 pg (25.7-33.7); MCHC 34.5 g/dl (32.0-35.9); MEAN CELL VOLUME 94.5 fl (80-96); MEAN PLT VOLUME 8.1 fl (7.5-11.1); PLATELET COUNT 162 10^3/uL (134-434); RBC 4.72 M/mm3 (4.00-5.60); RDW 14.5 % (11.9-15.9); WHITE BLOOD COUNT 6.2 K/mm3 (4.0-10.0)
[2020-10-30 07:48] LABS: CHLORIDE 104 mmol/L (98-107); SODIUM 139 mmol/L (136-145)
[2020-10-30 08:00] LABS: CALCIUM 8.3 mg/dL (8.5-10.1)
[2020-10-30 08:01] LABS: ALBUMIN 3.3 g/dl (3.4-5.0); ANION GAP 8 MMOL/L (8-16); BLOOD UREA NITROGEN 20.2 mg/dL (7-18); CO2 27 mmol/L (21-32); GLUCOSE,RANDOM 94 mg/dL (74-106)
[2020-10-30 08:02] LABS: SGPT/ALT 27 U/L (13-61)
[2020-10-30 08:05] LABS: SGOT/AST 18 U/L (15-37); TOT PROT 6.6 g/dl (6.4-8.2)
[2020-10-30 08:07] LABS: ALK PHOS 76 U/L (45-117)
[2020-10-30 08:11] LABS: N-TERMINAL BNP 1404.7 pg/ml (5-125)
[2020-10-30] MEDS: LOSARTAN POTASSIUM 25 MG TABLET PO SCH (09:04)
[2020-10-30] MEDS: TAMSULOSIN HCL 0.4 MG CAP PO SCH (09:04)
[2020-10-30] MEDS: PANTOPRAZOLE 40 MG TABLET PO SCH (09:04)
[2020-10-30] MEDS: APIXABAN 5 MG TABLET PO SCH ×2 (09:04→21:10)
[2020-10-30] MEDS: POLYETHYLENE GLYCOL (HEALTHYLAX) 3350 17 GM PACKET PO SCH (09:04)
[2020-10-30] MEDS: CLOPIDOGREL BISULFATE 75 MG TABLET (FP) PO SCH (09:04)
[2020-10-30] MEDS: FINASTERIDE 5 MG TABLET (FP) PO SCH (09:04)
[2020-10-30] MEDS: BISACODYL 5 MG TABLET.DR (FP) PO SCH (09:04)
[2020-10-30] MEDS: FOLIC ACID 1 MG TABLET (FP) PO SCH (09:04)
[2020-10-30] MEDS: SPIRONOLACTONE 25 MG TABLET PO SCH (09:04)
[2020-10-30] MEDS: FUROSEMIDE 40 MG/4 ML INJECTABLE VIAL IVPUSH SCH (09:05)
[2020-10-30] MEDS ORDERED: ENOXAPARIN NA (PORCINE) 40 MG/0.4 ML DISP.SYRIN SQ SCH (10:00)
[2020-10-30] MEDS ORDERED: PATIENT'S OWN MEDICATION (NON-FORMULARY) (Linaclotide [Linzess] 145 MCG Capsule) PO SCH (10:00)
[2020-10-30] MEDS: ATORVASTATIN CA 80 MG TABLET (FP) PO SCH (21:09)
[2020-10-31 07:00] LABS: BASO % 0.6 % (0-2.0); EOS % 2.2 % (0-4.5); HEMATOCRIT 45.3 % (35.4-49); HEMOGLOBIN 15.7 GM/dL (11.7-16.9); LYMPH % 35.1 % (8-40); MCH 32.3 pg (25.7-33.7); MCHC 34.7 g/dl (32.0-35.9); MEAN CELL VOLUME 93.2 fl (80-96); MEAN PLT VOLUME 7.8 fl (7.5-11.1); MONO % 12.8 % (3.8-10.2); NEUT % 49.3 % (42.8-82.8); PLATELET COUNT 170 10^3/uL (134-434); RBC 4.85 M/mm3 (4.00-5.60); RDW 14.6 % (11.9-15.9); WHITE BLOOD COUNT 6.6 K/mm3 (4.0-10.0)
[2020-10-31 07:07] LABS: CALCIUM 8.5 mg/dL (8.5-10.1)
[2020-10-31 07:08] LABS: ALBUMIN 3.4 g/dl (3.4-5.0); BLOOD UREA NITROGEN 20.6 mg/dL (7-18)
[2020-10-31 07:11] LABS: CREATININE 1.1 mg/dL (0.55-1.3)
[2020-10-31 07:12] LABS: BILIRUBIN,TOTAL 1.5 mg/dL (0.2-1); TOT PROT 6.9 g/dl (6.4-8.2)
[2020-10-31] MEDS: POLYETHYLENE GLYCOL (HEALTHYLAX) 3350 17 GM PACKET PO SCH (10:22)
[2020-10-31] MEDS: FUROSEMIDE 40 MG/4 ML INJECTABLE VIAL IVPUSH SCH (10:22)
[2020-10-31] MEDS: BISACODYL 5 MG TABLET.DR (FP) PO SCH (10:22)
[2020-10-31] MEDS: APIXABAN 5 MG TABLET PO SCH ×2 (10:23→21:14)
[2020-10-31] MEDS: FOLIC ACID 1 MG TABLET (FP) PO SCH (10:23)
[2020-10-31] MEDS: FINASTERIDE 5 MG TABLET (FP) PO SCH (10:23)
[2020-10-31] MEDS: SPIRONOLACTONE 25 MG TABLET PO SCH (10:23)
[2020-10-31] MEDS: PANTOPRAZOLE 40 MG TABLET PO SCH (10:23)
[2020-10-31] MEDS: CLOPIDOGREL BISULFATE 75 MG TABLET (FP) PO SCH (10:23)
[2020-10-31] MEDS: TAMSULOSIN HCL 0.4 MG CAP PO SCH (10:23)
[2020-10-31] MEDS: LOSARTAN POTASSIUM 25 MG TABLET PO SCH (10:23)
[2020-10-31] MEDS: ATORVASTATIN CA 80 MG TABLET (FP) PO SCH (21:14)
[2020-11-01 07:27] LABS: BASO % 0.4 % (0-2.0); EOS % 2.1 % (0-4.5); HEMATOCRIT 43.9 % (35.4-49); HEMOGLOBIN 15.5 GM/dL (11.7-16.9); LYMPH % 32.8 % (8-40); MCH 32.8 pg (25.7-33.7); MCHC 35.3 g/dl (32.0-35.9); MEAN PLT VOLUME 7.9 fl (7.5-11.1); MONO % 14.5 % (3.8-10.2); NEUT % 50.2 % (42.8-82.8); PLATELET COUNT 169 10^3/uL (134-434); RBC 4.71 M/mm3 (4.00-5.60); RDW 14.7 % (11.9-15.9); WHITE BLOOD COUNT 6.7 K/mm3 (4.0-10.0)
[2020-11-01 07:50] LABS: CALCIUM 8.6 mg/dL (8.5-10.1)
[2020-11-01 07:51] LABS: ALBUMIN 3.3 g/dl (3.4-5.0); BLOOD UREA NITROGEN 23.3 mg/dL (7-18)
[2020-11-01 07:54] LABS: CREATININE 1.1 mg/dL (0.55-1.3)
[2020-11-01 07:55] LABS: BILIRUBIN,TOTAL 1.4 mg/dL (0.2-1); TOT PROT 6.8 g/dl (6.4-8.2)
[2020-11-01] MEDS ORDERED: PT OWN MED DRAWER 7, Y5N ONE (09:05)
[2020-11-01] MEDS: PANTOPRAZOLE 40 MG TABLET PO SCH (09:41)
[2020-11-01] MEDS: FUROSEMIDE 40 MG/4 ML INJECTABLE VIAL IVPUSH SCH (09:41)
[2020-11-01] MEDS: POLYETHYLENE GLYCOL (HEALTHYLAX) 3350 17 GM PACKET PO SCH (09:41)
[2020-11-01] MEDS: SPIRONOLACTONE 25 MG TABLET PO SCH (09:41)
[2020-11-01] MEDS: FINASTERIDE 5 MG TABLET (FP) PO SCH (09:41)
[2020-11-01] MEDS: TAMSULOSIN HCL 0.4 MG CAP PO SCH (09:41)
[2020-11-01] MEDS: CLOPIDOGREL BISULFATE 75 MG TABLET (FP) PO SCH (09:41)
[2020-11-01] MEDS: BISACODYL 5 MG TABLET.DR (FP) PO SCH (09:42)
[2020-11-01] MEDS: APIXABAN 5 MG TABLET PO SCH (09:42)
[2020-11-01] MEDS: FOLIC ACID 1 MG TABLET (FP) PO SCH (09:42)
[2020-11-01] MEDS: LOSARTAN POTASSIUM 25 MG TABLET PO SCH (09:42)
[2020-11-01 09:52] VITALS: BP 111/77; PULSE 88; TEMP 98.6
== END 2020-11-01 14:43 | disposition home or self-care (01) | DRG 292 ==
LOC: JER 11:39 → JERBED 13:59 → J6S 18:47 → J4S 19:47
PROVIDERS: ADMIT Internal Medicine; ATTEND Internal Medicine
DX: I11.0 Hypertensive heart disease with heart failure (principal); J98.11 Atelectasis; Z68.41 Body mass index [BMI] 40.0-44.9, adult; I25.10 Atherosclerotic heart disease of native coronary artery without angina pectoris; I50.23 Acute on chronic systolic (congestive) heart failure; I48.0 Paroxysmal atrial fibrillation; E78.5 Hyperlipidemia, unspecified; K21.9 Gastro-esophageal reflux disease without esophagitis; F10.10 Alcohol abuse, uncomplicated; I25.119 Atherosclerotic heart disease of native coronary artery with unspecified angina pectoris; E66.01 Morbid (severe) obesity due to excess calories; I65.23 Occlusion and stenosis of bilateral carotid arteries; K59.09 Other constipation; Z95.810 Presence of automatic (implantable) cardiac defibrillator; Z95.5 Presence of coronary angioplasty implant and graft; Z86.73 Personal history of transient ischemic attack (TIA), and cerebral infarction without residual deficits
CPT/HCPCS: 36415; 71045-TC-FY; 80053; 81003; 82550; 83735; 83880; 84100; 84484; 85025; 85610; 85730; 87086; 93005; 93010; 99285-25; C9803; U0003; U0005

== ENCOUNTER 2021-09-15 23:04 | Inpatient (IN) | payer OTHER ==
[2021-09-15] MEDS ORDERED: METOPROLOL TARTRATE 5 MG/5 ML VIAL IVPUSH ONE (23:39)
[2021-09-15] MEDS ORDERED: METOPROLOL TARTRATE 5 MG/5 ML VIAL ONE (23:54)
[2021-09-16 00:08] LABS: VENOUS O2 SATURATION 65.5 % (70-80); VENOUS PCO2 41.8 mmHg (38-52); VENOUS PH 7.365 (7.310-7.410)
[2021-09-16 00:09] LABS: HEMATOCRIT 46.6 % (35.4-49); HEMOGLOBIN 15.5 GM/dL (11.7-16.9); MCH 30.5 pg (25.7-33.7); MCHC 33.3 g/dl (32.0-35.9); MEAN CELL VOLUME 91.7 fl (80-96); MEAN PLT VOLUME 8.5 fl (7.5-11.1); PLATELET COUNT 142 10^3/uL (134-434); RBC 5.09 M/mm3 (4.00-5.60)
[2021-09-16 00:29] LABS: CALCIUM 8.4 mg/dL (8.5-10.1)
[2021-09-16 00:30] LABS: ALBUMIN 3.5 g/dl (3.4-5.0); BLOOD UREA NITROGEN 17.5 mg/dL (7-18); MAGNESIUM 2.1 mg/dL (1.8-2.4)
[2021-09-16 00:33] LABS: CREATININE 1.3 mg/dL (0.55-1.3)
[2021-09-16 00:35] LABS: BILIRUBIN,TOTAL 3.4 mg/dL (0.2-1); TOT PROT 8.4 g/dl (6.4-8.2)
[2021-09-16 00:38] LABS: N-TERMINAL BNP 2487.6 pg/ml (5-125)
[2021-09-16 00:42] LABS: INR 2.01 (0.83-1.09); PROTHROMBIN TIME (PATIENT) 23.3 SEC (9.7-13.0)
[2021-09-16 00:45] LABS: ACTIVATED PTT 39.7 SECONDS (25.2-36.5)
[2021-09-16] MEDS ORDERED: FUROSEMIDE 40 MG/4 ML INJECTABLE VIAL IVPUSH ONE (01:22)
[2021-09-16] MEDS ORDERED: FUROSEMIDE 40 MG/4 ML INJECTABLE VIAL ONE (01:23)
[2021-09-16] MEDS ORDERED: METOPROLOL TARTRATE 5 MG/5 ML VIAL IVPUSH ONE ×2 (01:50→20:43)
[2021-09-16] MEDS ORDERED: METOPROLOL TARTRATE 5 MG/5 ML VIAL ONE ×2 (01:51→20:47)
[2021-09-16] MEDS ORDERED: METOPROLOL TARTRATE 25 MG TABLET (FP) PO ONE (02:38)
[2021-09-16] MEDS ORDERED: METOPROLOL TARTRATE 25 MG TABLET (FP) ONE ×3 (02:42→21:16)
[2021-09-16] MEDS ORDERED: POLYETHYLENE GLYCOL (HEALTHYLAX) 3350 17 GM PACKET PO PRN (04:17)
[2021-09-16] MEDS ORDERED: BISACODYL 5 MG TABLET.DR (FP) PO PRN (05:13)
[2021-09-16 07:10] LABS: ANISOCYTOSIS 0; MACROCYTOSIS 0
[2021-09-16] MEDS ORDERED: CLOPIDOGREL BISULFATE 75 MG TABLET (FP) ONE (10:28)
[2021-09-16] MEDS ORDERED: FOLIC ACID 1 MG TABLET (FP) ONE (10:28)
[2021-09-16] MEDS ORDERED: PANTOPRAZOLE 40 MG TABLET PO ONE (10:28)
[2021-09-16] MEDS ORDERED: APIXABAN 5 MG TABLET ONE ×2 (10:28→21:13)
[2021-09-16] MEDS ORDERED: TAMSULOSIN HCL 0.4 MG CAP ONE (10:29)
[2021-09-16] MEDS: CLOPIDOGREL BISULFATE 75 MG TABLET (FP) PO SCH (10:34)
[2021-09-16] MEDS: FOLIC ACID 1 MG TABLET (FP) PO SCH (10:34)
[2021-09-16] MEDS: TAMSULOSIN HCL 0.4 MG CAP PO SCH (10:34)
[2021-09-16] MEDS: APIXABAN 5 MG TABLET PO SCH ×2 (10:34→21:19)
[2021-09-16] MEDS: PANTOPRAZOLE 40 MG TABLET PO SCH (10:34)
[2021-09-16] MEDS ORDERED: ATORVASTATIN CA 80 MG TABLET (FP) ONE (21:13)
[2021-09-16] MEDS ORDERED: METOPROLOL TARTRATE 50 MG TABLET (FP) PO ONE (21:16)
[2021-09-16] MEDS: ATORVASTATIN CA 80 MG TABLET (FP) PO SCH (21:19)
[2021-09-16] MEDS ORDERED: ATORVASTATIN CA 80 MG TABLET (FP) PO SCH (22:00)
[2021-09-17] MEDS ORDERED: ACETAMINOPHEN 1000 MG/100 ML BAG IVPB ONE (00:53)
[2021-09-17] MEDS: dilTIAZem HCL 50 MG/10 ML - 10 ML VIAL IVPUSH ONE ×2 (01:10→01:20)
[2021-09-17 01:49] LABS: HEMATOCRIT 43.4 % (35.4-49); HEMOGLOBIN 14.6 GM/dL (11.7-16.9); MCH 30.5 pg (25.7-33.7); MCHC 33.7 g/dl (32.0-35.9); MEAN CELL VOLUME 90.4 fl (80-96); MEAN PLT VOLUME 8.8 fl (7.5-11.1); PLATELET COUNT 105 10^3/uL (134-434); WHITE BLOOD COUNT 7.3 K/mm3 (4.0-10.0)
[2021-09-17] MEDS ORDERED: FUROSEMIDE 40 MG/4 ML INJECTABLE VIAL IVPUSH ONE (01:50)
[2021-09-17 01:54] LABS: ARTERIAL BLD GAS O2 SATURATION 95.4 % (95-98); ARTERIAL BLOOD GAS BASE EXCESS 1.7 mmol/L (-2-2); ARTERIAL BLOOD GAS PO2 72.7 mmHg (80-100); ARTERIAL BLOOD GAS pH 7.456 (7.350-7.450)
[2021-09-17 01:57] LABS: ALLENS TEST POSITIVE
[2021-09-17 02:07] LABS: CALCIUM 8.5 mg/dL (8.5-10.1)
[2021-09-17 02:11] LABS: CREATININE 1.1 mg/dL (0.55-1.3)
[2021-09-17] MEDS ORDERED: PIPERACILLIN/TAZOB 4.5 GM 4.5 GM in DEXTROSE 5%-WATER 100 ML IVPB ONE ×2 (05:21→05:41)
[2021-09-17 05:44] LABS: EPI CELLS 16 /uL (0-25.1); HYALINE CASTS 7 /uL (0-3.1); URINE APPEARANCE CLEAR; URINE BACTERIA 2 /uL (0-1359); URINE BILIRUBIN NEGATIVE (NEGATIVE); URINE COLOR YELLOW; URINE GLUCOSE (UA) NEGATIVE (NEGATIVE); URINE KETONE NEGATIVE (NEGATIVE); URINE LEUK ESTERASE NEGATIVE (NEGATIVE); URINE NITRITE NEGATIVE (NEGATIVE); URINE PROTEIN 1+ (NEGATIVE); URINE RBC 10 /uL (0-23.9); URINE WBC 15 /uL (0-25.8)
[2021-09-17] MEDS ORDERED: VANCOMYCIN/WATER 2 GM/400 ML PREMIX BAG IVPB ONE (06:00)
[2021-09-17] MEDS ORDERED: DEXTROSE 5%-WATER 100 ML IVPB ONE ×3 (06:21→21:14)
[2021-09-17] MEDS ORDERED: PIPERACILLIN/TAZOBACTAM 4.5 GM VIAL IVPB ONE ×3 (06:21→21:14)
[2021-09-17 07:39] LABS: ANISOCYTOSIS 1+; MACROCYTOSIS 1+
[2021-09-17 07:49] LABS: HEMATOCRIT 42.3 % (35.4-49); HEMOGLOBIN 14.4 GM/dL (11.7-16.9); MCH 30.9 pg (25.7-33.7); MEAN CELL VOLUME 90.9 fl (80-96); PLATELET COUNT 94 10^3/uL (134-434); RBC 4.66 M/mm3 (4.00-5.60); RDW 16.1 % (11.9-15.9); WHITE BLOOD COUNT 6.1 K/mm3 (4.0-10.0)
[2021-09-17 07:54] LABS: CALCIUM 8.2 mg/dL (8.5-10.1)
[2021-09-17 07:55] LABS: BLOOD UREA NITROGEN 22.1 mg/dL (7-18)
[2021-09-17 07:59] LABS: CREATININE 1.1 mg/dL (0.55-1.3)
[2021-09-17 08:30] LABS: MAGNESIUM 2.1 mg/dL (1.8-2.4)
[2021-09-17 08:33] LABS: MAGNESIUM 2.2 mg/dL (1.8-2.4)
[2021-09-17] MEDS: FUROSEMIDE 40 MG/4 ML INJECTABLE VIAL IVPUSH SCH (09:13)
[2021-09-17] MEDS: TAMSULOSIN HCL 0.4 MG CAP PO SCH (09:14)
[2021-09-17] MEDS: FOLIC ACID 1 MG TABLET (FP) PO SCH (09:14)
[2021-09-17] MEDS: PANTOPRAZOLE 40 MG TABLET PO SCH (09:14)
[2021-09-17] MEDS: APIXABAN 5 MG TABLET PO SCH ×2 (09:14→21:31)
[2021-09-17] MEDS: CLOPIDOGREL BISULFATE 75 MG TABLET (FP) PO SCH (09:14)
[2021-09-17 10:21] LABS: ANISOCYTOSIS 0; HELMET CELLS 0; HOWELL-JOLLY BODIES 0; MACROCYTOSIS 0; OVALOCYTE 0; ROULEAU 0; SICKELED CELLS 0; TARGET CELLS 0; TEAR DROP CELLS 0; TOXIC GRANULATION 0
[2021-09-17] MEDS: METOPROLOL TARTRATE 5 MG/5 ML VIAL IVPUSH PRN (13:01)
[2021-09-17] MEDS ORDERED: PIPERACILLIN/TAZOB 4.5 GM 4.5 GM in DEXTROSE 5%-WATER 100 ML IVPB SCH (14:00)
[2021-09-17] MEDS ORDERED: dilTIAZem HCL 25 MG/5 ML - 5 ML VIAL IVPUSH ONE (14:00)
[2021-09-17] MEDS ORDERED: METOPROLOL TARTRATE 50 MG TABLET (FP) PO ONE (14:40)
[2021-09-17] MEDS: PIPERACILLIN/TAZOB 4.5 GM 4.5 GM in DEXTROSE 5%-WATER 100 ML IVPB SCH ×2 (14:47→21:42)
[2021-09-17] MEDS ORDERED: VANCOMYCIN/WATER 2 GM/400 ML PREMIX BAG IVPB SCH (18:00)
[2021-09-17] MEDS ORDERED: VANCOMYCIN/WATER 2 GRAMS 2,000 MG/400 ML PIGGYBACK IVPB ONE (18:00)
[2021-09-17] MEDS: ACETAMINOPHEN 325 MG TABLET (FP) PO PRN (18:51)
[2021-09-17] MEDS: ATORVASTATIN CA 80 MG TABLET (FP) PO SCH (21:31)
[2021-09-17] MEDS: METOPROLOL TARTRATE 50 MG TABLET (FP) PO SCH (21:37)
[2021-09-18] MEDS: METOPROLOL TARTRATE 50 MG TABLET (FP) PO SCH ×2 (00:33→10:33)
[2021-09-18] MEDS ORDERED: PIPERACILLIN/TAZOBACTAM 4.5 GM VIAL IVPB ONE (05:19)
[2021-09-18] MEDS: ACETAMINOPHEN 325 MG TABLET (FP) PO PRN ×2 (06:22→20:44)
[2021-09-18] MEDS: PIPERACILLIN/TAZOB 4.5 GM 4.5 GM in DEXTROSE 5%-WATER 100 ML IVPB SCH (06:24)
[2021-09-18] MEDS: TAMSULOSIN HCL 0.4 MG CAP PO SCH (09:00)
[2021-09-18] MEDS: BISACODYL 5 MG TABLET.DR (FP) PO SCH (10:32)
[2021-09-18] MEDS: PANTOPRAZOLE 40 MG TABLET PO SCH (10:33)
[2021-09-18] MEDS: CLOPIDOGREL BISULFATE 75 MG TABLET (FP) PO SCH (10:33)
[2021-09-18] MEDS: FOLIC ACID 1 MG TABLET (FP) PO SCH (10:33)
[2021-09-18] MEDS: APIXABAN 5 MG TABLET PO SCH ×2 (10:33→22:08)
[2021-09-18] MEDS: POLYETHYLENE GLYCOL (HEALTHYLAX) 3350 17 GM PACKET PO SCH (10:33)
[2021-09-18] MEDS: FUROSEMIDE 40 MG/4 ML INJECTABLE VIAL IVPUSH SCH (10:59)
[2021-09-18] MEDS: METOPROLOL TARTRATE 5 MG/5 ML VIAL IVPUSH PRN (13:38)
[2021-09-18 14:14] LABS: ALBUMIN 3.2 g/dl (3.4-5.0)
[2021-09-18 14:17] LABS: BILIRUBIN,DIRECT 1.4 mg/dL (0.0-0.2)
[2021-09-18 14:19] LABS: BILIRUBIN,TOTAL 3.8 mg/dL (0.2-1); TOT PROT 7.6 g/dl (6.4-8.2)
[2021-09-18] MEDS: ATORVASTATIN CA 80 MG TABLET (FP) PO SCH (22:08)
[2021-09-19] MEDS: METOPROLOL TARTRATE 5 MG/5 ML VIAL IVPUSH PRN ×3 (02:04→23:33)
[2021-09-19] MEDS: PIPERACILLIN/TAZOB 4.5 GM 4.5 GM in DEXTROSE 5%-WATER 100 ML IVPB SCH ×2 (05:20→10:26)
[2021-09-19] MEDS ORDERED: PIPERACILLIN/TAZOBACTAM 4.5 GM VIAL IVPB ONE ×2 (05:34→09:35)
[2021-09-19] MEDS ORDERED: DEXTROSE 5%-WATER 100 ML IVPB ONE ×3 (05:35→21:15)
[2021-09-19] MEDS: ACETAMINOPHEN 325 MG TABLET (FP) PO PRN (06:19)
[2021-09-19 07:23] LABS: HEMATOCRIT 42.1 % (35.4-49); HEMOGLOBIN 14.4 GM/dL (11.7-16.9); MCH 30.8 pg (25.7-33.7); MCHC 34.3 g/dl (32.0-35.9); MEAN CELL VOLUME 89.8 fl (80-96); MEAN PLT VOLUME 10.6 fl (7.5-11.1); PLATELET COUNT 56 10^3/uL (134-434); RBC 4.69 M/mm3 (4.00-5.60); RDW 15.9 % (11.9-15.9); WHITE BLOOD COUNT 8.8 K/mm3 (4.0-10.0)
[2021-09-19 07:41] LABS: ALBUMIN 2.7 g/dl (3.4-5.0)
[2021-09-19 07:44] LABS: CREATININE 1.4 mg/dL (0.55-1.3)
[2021-09-19 07:46] LABS: BILIRUBIN,TOTAL 4.9 mg/dL (0.2-1); TOT PROT 7.3 g/dl (6.4-8.2)
[2021-09-19] MEDS: TAMSULOSIN HCL 0.4 MG CAP PO SCH (08:16)
[2021-09-19] MEDS ORDERED: DOXYCYCLINE HYCLATE 100 MG VIAL ONE ×2 (09:34→21:15)
[2021-09-19 10:07] LABS: MAGNESIUM 2.1 mg/dL (1.8-2.4)
[2021-09-19 10:11] LABS: PHOSPHOROUS 3.6 mg/dL (2.5-4.9)
[2021-09-19] MEDS: DOXYCYCLINE INJECTION 100 MG in DEXTROSE 5%-WATER 100 ML IVPB SCH ×2 (10:23→21:28)
[2021-09-19] MEDS: POLYETHYLENE GLYCOL (HEALTHYLAX) 3350 17 GM PACKET PO SCH (10:23)
[2021-09-19] MEDS: POTASSIUM CHLORIDE TABS 20 MEQ TABLET.ER (FP) PO SCH (10:25)
[2021-09-19] MEDS: FUROSEMIDE 40 MG/4 ML INJECTABLE VIAL IVPUSH SCH (10:25)
[2021-09-19] MEDS: CLOPIDOGREL BISULFATE 75 MG TABLET (FP) PO SCH (10:25)
[2021-09-19] MEDS: PANTOPRAZOLE 40 MG TABLET PO SCH (10:25)
[2021-09-19] MEDS: APIXABAN 5 MG TABLET PO SCH ×2 (10:26→21:27)
[2021-09-19] MEDS: BISACODYL 5 MG TABLET.DR (FP) PO SCH (10:26)
[2021-09-19] MEDS: FOLIC ACID 1 MG TABLET (FP) PO SCH (10:26)
[2021-09-19] MEDS: ATOVAQUONE 750 MG/5 ML (UNIT-DOSE PACKAGING) PO SCH (17:37)
[2021-09-19] MEDS: AZITHROMYCIN IVPB 500 MG/250 ML BAG IVPB SCH (17:39)
[2021-09-19] MEDS: ATORVASTATIN CA 80 MG TABLET (FP) PO SCH (21:28)
[2021-09-20 07:36] LABS: HEMATOCRIT 40.9 % (35.4-49); HEMOGLOBIN 14.1 GM/dL (11.7-16.9); MCH 30.6 pg (25.7-33.7); MCHC 34.4 g/dl (32.0-35.9); MEAN PLT VOLUME 10.6 fl (7.5-11.1); PLATELET COUNT 48 10^3/uL (134-434); WHITE BLOOD COUNT 8.9 K/mm3 (4.0-10.0)
[2021-09-20] MEDS: TAMSULOSIN HCL 0.4 MG CAP PO SCH (08:11)
[2021-09-20] MEDS: ATOVAQUONE 750 MG/5 ML (UNIT-DOSE PACKAGING) PO SCH ×2 (08:11→18:33)
[2021-09-20 08:18] LABS: ALBUMIN 2.4 g/dl (3.4-5.0); BILIRUBIN,TOTAL 4.6 mg/dL (0.2-1); BLOOD UREA NITROGEN 48.9 mg/dL (7-18); CREATININE 2.4 mg/dL (0.55-1.3); TOT PROT 6.8 g/dl (6.4-8.2)
[2021-09-20] MEDS ORDERED: DOXYCYCLINE HYCLATE 100 MG VIAL ONE ×2 (10:08→21:57)
[2021-09-20] MEDS ORDERED: DEXTROSE 5%-WATER 100 ML IVPB ONE ×2 (10:08→21:57)
[2021-09-20 10:09] LABS: BILIRUBIN,DIRECT 2.8 mg/dL (0.0-0.2)
[2021-09-20] MEDS: POLYETHYLENE GLYCOL (HEALTHYLAX) 3350 17 GM PACKET PO SCH (10:21)
[2021-09-20] MEDS: BISACODYL 5 MG TABLET.DR (FP) PO SCH (10:21)
[2021-09-20] MEDS: DOXYCYCLINE INJECTION 100 MG in DEXTROSE 5%-WATER 100 ML IVPB SCH ×2 (10:21→22:12)
[2021-09-20] MEDS: PANTOPRAZOLE 40 MG TABLET PO SCH (10:22)
[2021-09-20] MEDS: FOLIC ACID 1 MG TABLET (FP) PO SCH (10:22)
[2021-09-20] MEDS: POTASSIUM CHLORIDE TABS 20 MEQ TABLET.ER (FP) PO SCH (10:22)
[2021-09-20] MEDS: AZITHROMYCIN IVPB 500 MG/250 ML BAG IVPB SCH (18:33)
[2021-09-20 19:02] LABS: EPI CELLS >36 /uL (0-25.1); HYALINE CASTS 42 /uL (0-3.1); URINE APPEARANCE TURBID; URINE BILIRUBIN 2+ (NEGATIVE); URINE COLOR DK YELLOW; URINE GLUCOSE (UA) NEGATIVE (NEGATIVE); URINE KETONE TRACE (NEGATIVE); URINE LEUK ESTERASE TRACE (NEGATIVE); URINE NITRITE POSITIVE (NEGATIVE); URINE PROTEIN 3+ (NEGATIVE); URINE RBC 24 /uL (0-23.9); URINE WBC 79 /uL (0-25.8)
[2021-09-20 19:03] LABS: URINE BACTERIA 1 /uL (0-1359)
[2021-09-20 19:25] LABS: YEAST NEGATIVE (NEGATIVE)
[2021-09-20] MEDS: ATORVASTATIN CA 80 MG TABLET (FP) PO SCH (22:11)
[2021-09-21] MEDS ORDERED: DIGOXIN 0.5 MG/2 ML AMPUL IVPUSH ONE (05:00)
[2021-09-21 07:32] LABS: HEMATOCRIT 40.6 % (35.4-49); HEMOGLOBIN 13.9 GM/dL (11.7-16.9); MCH 30.4 pg (25.7-33.7); MCHC 34.3 g/dl (32.0-35.9); MEAN CELL VOLUME 88.6 fl (80-96); MEAN PLT VOLUME 11.2 fl (7.5-11.1); PLATELET COUNT 48 10^3/uL (134-434); RBC 4.58 M/mm3 (4.00-5.60); RDW 16.4 % (11.9-15.9); WHITE BLOOD COUNT 8.7 K/mm3 (4.0-10.0)
[2021-09-21 08:04] LABS: ALBUMIN 2.3 g/dl (3.4-5.0); BLOOD UREA NITROGEN 73.2 mg/dL (7-18); CALCIUM 8.4 mg/dL (8.5-10.1)
[2021-09-21 08:07] LABS: CREATININE 3.1 mg/dL (0.55-1.3)
[2021-09-21 08:09] LABS: BILIRUBIN,TOTAL 4.2 mg/dL (0.2-1); TOT PROT 7.1 g/dl (6.4-8.2)
[2021-09-21] MEDS ORDERED: DEXTROSE 5%-WATER 100 ML IVPB ONE ×2 (09:02→21:03)
[2021-09-21] MEDS ORDERED: DOXYCYCLINE HYCLATE 100 MG VIAL ONE ×2 (09:02→21:02)
[2021-09-21] MEDS: POLYETHYLENE GLYCOL (HEALTHYLAX) 3350 17 GM PACKET PO SCH (09:09)
[2021-09-21] MEDS: PANTOPRAZOLE 40 MG TABLET PO SCH (09:09)
[2021-09-21] MEDS: ATOVAQUONE 750 MG/5 ML (UNIT-DOSE PACKAGING) PO SCH ×2 (09:09→17:07)
[2021-09-21] MEDS: DOXYCYCLINE INJECTION 100 MG in DEXTROSE 5%-WATER 100 ML IVPB SCH ×2 (09:09→22:06)
[2021-09-21] MEDS: POTASSIUM CHLORIDE TABS 20 MEQ TABLET.ER (FP) PO SCH (09:09)
[2021-09-21] MEDS: FOLIC ACID 1 MG TABLET (FP) PO SCH (09:09)
[2021-09-21] MEDS: BISACODYL 5 MG TABLET.DR (FP) PO SCH (09:09)
[2021-09-21] MEDS: TAMSULOSIN HCL 0.4 MG CAP PO SCH (09:09)
[2021-09-21 10:22] LABS: ANISOCYTOSIS 1+; MACROCYTOSIS 0
[2021-09-21] MEDS: METOPROLOL TARTRATE 5 MG/5 ML VIAL IVPUSH PRN (11:52)
[2021-09-21 15:17] LABS: BILIRUBIN,DIRECT 2.5 mg/dL (0.0-0.2)
[2021-09-21] MEDS ORDERED: METOPROLOL TARTRATE 5 MG/5 ML VIAL IVPUSH SCH (15:45)
[2021-09-21] MEDS: METOPROLOL TARTRATE 5 MG/5 ML VIAL IVPUSH SCH (16:49)
[2021-09-21 17:09] LABS: ARTERIAL BLOOD GAS PO2 101.8 mmHg (80-100); ARTERIAL BLOOD GAS pH 7.465 (7.350-7.450)
[2021-09-21] MEDS: AZITHROMYCIN IVPB 500 MG/250 ML BAG IVPB SCH (17:14)
[2021-09-21 17:15] LABS: ALLENS TEST POSITIVE
[2021-09-21] MEDS ORDERED: MUPIROCIN 2% TOPICAL OINTMENT FOR DECOLONIZATION NS SCH (22:00)
[2021-09-21] MEDS ORDERED: CHLORHEXIDINE GLUCONATE 4% CLEANSER FOR DECOLONIZATION TP SCH (22:00)
[2021-09-21] MEDS: ATORVASTATIN CA 80 MG TABLET (FP) PO SCH (22:06)
[2021-09-21] MEDS ORDERED: DIGOXIN 0.5 MG/2 ML AMPUL IVPUSH SCH (23:00)
[2021-09-22] MEDS ORDERED: DIGOXIN 0.5 MG/2 ML AMPUL IVPUSH PRN (00:29)
[2021-09-22] MEDS: METOPROLOL TARTRATE 5 MG/5 ML VIAL IVPUSH SCH ×7 (00:56→20:50)
[2021-09-22] MEDS ORDERED: DEXTROSE 5%-WATER 100 ML IVPB ONE ×2 (07:30→20:55)
[2021-09-22] MEDS ORDERED: DOXYCYCLINE HYCLATE 100 MG VIAL ONE ×2 (07:30→20:55)
[2021-09-22 07:46] LABS: HEMATOCRIT 37.1 % (35.4-49); HEMOGLOBIN 12.8 GM/dL (11.7-16.9); MCH 30.1 pg (25.7-33.7); MCHC 34.6 g/dl (32.0-35.9); MEAN CELL VOLUME 87.2 fl (80-96); MEAN PLT VOLUME 11.6 fl (7.5-11.1); PLATELET COUNT 56 10^3/uL (134-434); RBC 4.26 M/mm3 (4.00-5.60); RDW 16.1 % (11.9-15.9); WHITE BLOOD COUNT 8.1 K/mm3 (4.0-10.0)
[2021-09-22 08:08] LABS: CALCIUM 7.8 mg/dL (8.5-10.1)
[2021-09-22 08:09] LABS: ALBUMIN 2.1 g/dl (3.4-5.0); BLOOD UREA NITROGEN 92.2 mg/dL (7-18); MAGNESIUM 2.6 mg/dL (1.8-2.4)
[2021-09-22 08:11] LABS: CREATININE 3.4 mg/dL (0.55-1.3)
[2021-09-22 08:13] LABS: BILIRUBIN,TOTAL 3.6 mg/dL (0.2-1); TOT PROT 6.6 g/dl (6.4-8.2)
[2021-09-22] MEDS: PANTOPRAZOLE 40 MG TABLET PO SCH (09:55)
[2021-09-22] MEDS: TAMSULOSIN HCL 0.4 MG CAP PO SCH (09:56)
[2021-09-22] MEDS: POTASSIUM CHLORIDE TABS 20 MEQ TABLET.ER (FP) PO SCH (09:56)
[2021-09-22] MEDS: FOLIC ACID 1 MG TABLET (FP) PO SCH (09:56)
[2021-09-22] MEDS: BISACODYL 5 MG TABLET.DR (FP) PO SCH (09:56)
[2021-09-22] MEDS: POLYETHYLENE GLYCOL (HEALTHYLAX) 3350 17 GM PACKET PO SCH (09:59)
[2021-09-22] MEDS: ATOVAQUONE 750 MG/5 ML (UNIT-DOSE PACKAGING) PO SCH ×2 (09:59→16:42)
[2021-09-22] MEDS: DOXYCYCLINE INJECTION 100 MG in DEXTROSE 5%-WATER 100 ML IVPB SCH ×2 (10:01→21:38)
[2021-09-22] MEDS ORDERED: ACETAMINOPHEN 325 MG TABLET (FP) PO PRN (10:35)
[2021-09-22] MEDS ORDERED: DIGOXIN 0.5 MG/2 ML AMPUL IVPUSH ONE ×2 (11:05→18:46)
[2021-09-22] MEDS: DEXMEDETOMIDINE IN 0.9 % NACL 400 MCG/100 ML VIAL IVPB SCH ×2 (11:19→21:37)
[2021-09-22 14:14] LABS: INR 1.74 (0.83-1.09); PROTHROMBIN TIME (PATIENT) 20.1 SEC (9.7-13.0)
[2021-09-22 14:16] LABS: ACTIVATED PTT 31.7 SECONDS (25.2-36.5)
[2021-09-22] MEDS: AZITHROMYCIN IVPB 500 MG/250 ML BAG IVPB SCH (16:41)
[2021-09-22] MEDS: APIXABAN 5 MG TABLET PO SCH (21:38)
[2021-09-22] MEDS: ATORVASTATIN CA 80 MG TABLET (FP) PO SCH (21:38)
[2021-09-23] MEDS: METOPROLOL TARTRATE 5 MG/5 ML VIAL IVPUSH SCH ×6 (00:35→20:51)
[2021-09-23 08:04] LABS: HEMATOCRIT 38.4 % (35.4-49); HEMOGLOBIN 13.2 GM/dL (11.7-16.9); MCHC 34.4 g/dl (32.0-35.9); MEAN CELL VOLUME 87.1 fl (80-96); MEAN PLT VOLUME 11.1 fl (7.5-11.1); PLATELET COUNT 62 10^3/uL (134-434); RDW 16.3 % (11.9-15.9); WHITE BLOOD COUNT 7.5 K/mm3 (4.0-10.0)
[2021-09-23 08:14] LABS: CHLORIDE 90 mmol/L (98-107); SODIUM 128 mmol/L (136-145)
[2021-09-23 08:16] LABS: ANION GAP 13 MMOL/L (8-16); CALCIUM 7.5 mg/dL (8.5-10.1); CO2 25 mmol/L (21-32); GLUCOSE,RANDOM 96 mg/dL (74-106); MAGNESIUM 2.6 mg/dL (1.8-2.4)
[2021-09-23 08:19] LABS: SGOT/AST 125 U/L (15-37); SGPT/ALT 60 U/L (13-61)
[2021-09-23 08:20] LABS: CREATININE 3.2 mg/dL (0.55-1.3)
[2021-09-23 08:21] LABS: BILIRUBIN,TOTAL 3.6 mg/dL (0.2-1); TOT PROT 6.7 g/dl (6.4-8.2)
[2021-09-23 08:22] LABS: ALK PHOS 158 U/L (45-117)
[2021-09-23 08:25] LABS: BLOOD UREA NITROGEN 106.9 mg/dL (7-18)
[2021-09-23] MEDS ORDERED: DOXYCYCLINE HYCLATE 100 MG VIAL ONE ×2 (09:12→20:59)
[2021-09-23] MEDS ORDERED: DEXTROSE 5%-WATER 100 ML IVPB ONE ×2 (09:12→20:59)
[2021-09-23] MEDS: ATOVAQUONE 750 MG/5 ML (UNIT-DOSE PACKAGING) PO SCH ×2 (09:18→16:56)
[2021-09-23] MEDS: TAMSULOSIN HCL 0.4 MG CAP PO SCH (09:19)
[2021-09-23] MEDS: POTASSIUM CHLORIDE TABS 20 MEQ TABLET.ER (FP) PO SCH (09:19)
[2021-09-23] MEDS: CLOPIDOGREL BISULFATE 75 MG TABLET (FP) PO SCH (09:19)
[2021-09-23] MEDS: APIXABAN 5 MG TABLET PO SCH ×2 (09:19→21:12)
[2021-09-23] MEDS: PANTOPRAZOLE 40 MG TABLET PO SCH (09:20)
[2021-09-23] MEDS: BISACODYL 5 MG TABLET.DR (FP) PO SCH (09:20)
[2021-09-23] MEDS: DOXYCYCLINE INJECTION 100 MG in DEXTROSE 5%-WATER 100 ML IVPB SCH ×2 (09:20→21:13)
[2021-09-23] MEDS: POLYETHYLENE GLYCOL (HEALTHYLAX) 3350 17 GM PACKET PO SCH (09:20)
[2021-09-23] MEDS: FOLIC ACID 1 MG TABLET (FP) PO SCH (09:20)
[2021-09-23] MEDS: SODIUM CHLORIDE 0.45% 1,000 ML IV SCH (10:21)
[2021-09-23 10:55] LABS: ANISOCYTOSIS 1+; MACROCYTOSIS 1+; OVALOCYTE 2+
[2021-09-23] MEDS: AZITHROMYCIN IVPB 500 MG/250 ML BAG IVPB SCH (16:55)
[2021-09-23] MEDS: DEXMEDETOMIDINE IN 0.9 % NACL 400 MCG/100 ML VIAL IVPB SCH (21:02)
[2021-09-23] MEDS: ATORVASTATIN CA 80 MG TABLET (FP) PO SCH (21:12)
[2021-09-24] MEDS: METOPROLOL TARTRATE 5 MG/5 ML VIAL IVPUSH SCH ×5 (00:45→21:01)
[2021-09-24] MEDS: SODIUM CHLORIDE 0.45% 1,000 ML IV SCH (00:47)
[2021-09-24] MEDS ORDERED: DEXTROSE 5%-WATER 100 ML IVPB ONE ×2 (07:38→20:07)
[2021-09-24] MEDS ORDERED: DOXYCYCLINE HYCLATE 100 MG VIAL ONE ×2 (07:38→20:07)
[2021-09-24] MEDS: ATOVAQUONE 750 MG/5 ML (UNIT-DOSE PACKAGING) PO SCH ×2 (08:02→17:21)
[2021-09-24] MEDS: TAMSULOSIN HCL 0.4 MG CAP PO SCH (08:02)
[2021-09-24 08:12] LABS: HEMATOCRIT 38.5 % (35.4-49); HEMOGLOBIN 13.3 GM/dL (11.7-16.9); MCH 29.6 pg (25.7-33.7); MCHC 34.5 g/dl (32.0-35.9); MEAN PLT VOLUME 10.3 fl (7.5-11.1); PLATELET COUNT 62 10^3/uL (134-434); RBC 4.47 M/mm3 (4.00-5.60); RDW 16.5 % (11.9-15.9); WHITE BLOOD COUNT 6.9 K/mm3 (4.0-10.0)
[2021-09-24 08:13] LABS: CHLORIDE 91 mmol/L (98-107); SODIUM 126 mmol/L (136-145)
[2021-09-24 08:22] LABS: ALBUMIN 1.9 g/dl (3.4-5.0); ANION GAP 13 MMOL/L (8-16); CALCIUM 7.6 mg/dL (8.5-10.1); CO2 22 mmol/L (21-32)
[2021-09-24 08:23] LABS: GLUCOSE,RANDOM 100 mg/dL (74-106); MAGNESIUM 2.7 mg/dL (1.8-2.4)
[2021-09-24 08:26] LABS: CREATININE 3.2 mg/dL (0.55-1.3); PHOSPHOROUS 5.5 mg/dL (2.5-4.9); SGOT/AST 113 U/L (15-37); SGPT/ALT 57 U/L (13-61)
[2021-09-24 08:27] LABS: BILIRUBIN,TOTAL 3.5 mg/dL (0.2-1); TOT PROT 6.7 g/dl (6.4-8.2)
[2021-09-24 08:28] LABS: ALK PHOS 175 U/L (45-117)
[2021-09-24 08:30] LABS: BLOOD UREA NITROGEN 114.4 mg/dL (7-18)
[2021-09-24] MEDS: POLYETHYLENE GLYCOL (HEALTHYLAX) 3350 17 GM PACKET PO SCH (09:08)
[2021-09-24] MEDS: PANTOPRAZOLE 40 MG TABLET PO SCH (09:08)
[2021-09-24] MEDS: FOLIC ACID 1 MG TABLET (FP) PO SCH (09:08)
[2021-09-24] MEDS: APIXABAN 5 MG TABLET PO SCH ×2 (09:08→21:04)
[2021-09-24] MEDS: BISACODYL 5 MG TABLET.DR (FP) PO SCH (09:08)
[2021-09-24] MEDS: POTASSIUM CHLORIDE TABS 20 MEQ TABLET.ER (FP) PO SCH (09:08)
[2021-09-24] MEDS: CLOPIDOGREL BISULFATE 75 MG TABLET (FP) PO SCH (09:08)
[2021-09-24] MEDS: DOXYCYCLINE INJECTION 100 MG in DEXTROSE 5%-WATER 100 ML IVPB SCH ×2 (09:13→21:05)
[2021-09-24 10:59] LABS: ANISOCYTOSIS 0; MACROCYTOSIS 0; PLATELET ESTIMATE DECREASED
[2021-09-24] MEDS: SODIUM CHLORIDE 1,000 ML IV SCH (13:08)
[2021-09-24 13:31] LABS: ANION GAP 13 MMOL/L (8-16); BLOOD UREA NITROGEN 120.9 mg/dL (7-18); CALCIUM 7.3 mg/dL (8.5-10.1); CHLORIDE 94 mmol/L (98-107); CO2 20 mmol/L (21-32); CREATININE 3.2 mg/dL (0.55-1.3); GLUCOSE,RANDOM 109 mg/dL (74-106); SODIUM 127 mmol/L (136-145)
[2021-09-24] MEDS: AZITHROMYCIN IVPB 500 MG/250 ML BAG IVPB SCH (16:30)
[2021-09-24] MEDS: ATORVASTATIN CA 80 MG TABLET (FP) PO SCH (21:04)
[2021-09-25 08:01] LABS: HEMATOCRIT 40.4 % (35.4-49); HEMOGLOBIN 13.9 GM/dL (11.7-16.9); MCH 29.5 pg (25.7-33.7); MCHC 34.4 g/dl (32.0-35.9); MEAN CELL VOLUME 85.7 fl (80-96); MEAN PLT VOLUME 10.4 fl (7.5-11.1); PLATELET COUNT 58 10^3/uL (134-434); RBC 4.71 M/mm3 (4.00-5.60); RDW 16.7 % (11.9-15.9); WHITE BLOOD COUNT 6.7 K/mm3 (4.0-10.0)
[2021-09-25 08:25] LABS: CHLORIDE 92 mmol/L (98-107); SODIUM 128 mmol/L (136-145)
[2021-09-25 08:27] LABS: CALCIUM 7.5 mg/dL (8.5-10.1)
[2021-09-25 08:28] LABS: ALBUMIN 1.8 g/dl (3.4-5.0); ANION GAP 12 MMOL/L (8-16); CO2 24 mmol/L (21-32); GLUCOSE,RANDOM 95 mg/dL (74-106)
[2021-09-25 08:30] LABS: SGPT/ALT 49 U/L (13-61)
[2021-09-25] MEDS: METOPROLOL TARTRATE 5 MG/5 ML VIAL IVPUSH SCH ×2 (08:30→20:07)
[2021-09-25 08:31] LABS: CREATININE 3.3 mg/dL (0.55-1.3); SGOT/AST 90 U/L (15-37)
[2021-09-25 08:32] LABS: BILIRUBIN,TOTAL 3.2 mg/dL (0.2-1); TOT PROT 6.7 g/dl (6.4-8.2)
[2021-09-25 08:33] LABS: ALK PHOS 181 U/L (45-117)
[2021-09-25 08:44] LABS: BLOOD UREA NITROGEN 110.3 mg/dL (7-18)
[2021-09-25] MEDS ORDERED: DOXYCYCLINE HYCLATE 100 MG VIAL ONE ×2 (08:54→21:47)
[2021-09-25] MEDS ORDERED: DEXTROSE 5%-WATER 100 ML IVPB ONE ×2 (08:54→21:47)
[2021-09-25] MEDS: TAMSULOSIN HCL 0.4 MG CAP PO SCH (09:00)
[2021-09-25] MEDS: ATOVAQUONE 750 MG/5 ML (UNIT-DOSE PACKAGING) PO SCH ×2 (09:00→16:32)
[2021-09-25] MEDS: PANTOPRAZOLE 40 MG TABLET PO SCH (09:00)
[2021-09-25] MEDS: DOXYCYCLINE INJECTION 100 MG in DEXTROSE 5%-WATER 100 ML IVPB SCH ×2 (09:01→21:56)
[2021-09-25] MEDS: APIXABAN 5 MG TABLET PO SCH ×2 (09:01→21:56)
[2021-09-25] MEDS: BISACODYL 5 MG TABLET.DR (FP) PO SCH (09:01)
[2021-09-25] MEDS: CLOPIDOGREL BISULFATE 75 MG TABLET (FP) PO SCH (09:01)
[2021-09-25] MEDS: FOLIC ACID 1 MG TABLET (FP) PO SCH (09:01)
[2021-09-25] MEDS: POLYETHYLENE GLYCOL (HEALTHYLAX) 3350 17 GM PACKET PO SCH (09:01)
[2021-09-25 09:15] LABS: ANISOCYTOSIS 0; HELMET CELLS 0; HOWELL-JOLLY BODIES 0; MACROCYTOSIS 0; OVALOCYTE 0; ROULEAU 0; SICKELED CELLS 0; TARGET CELLS 0; TEAR DROP CELLS 0; TOXIC GRANULATION 0
[2021-09-25 10:24] LABS: LDH 632 U/L (87-246)
[2021-09-25] MEDS: DIGOXIN 0.5 MG/2 ML AMPUL IVPUSH SCH ×3 (10:34→20:12)
[2021-09-25] MEDS: AZITHROMYCIN IVPB 500 MG/250 ML BAG IVPB SCH (16:32)
[2021-09-25] MEDS: SODIUM CHLORIDE 1,000 ML IV SCH (16:39)
[2021-09-25] MEDS: ATORVASTATIN CA 80 MG TABLET (FP) PO SCH (21:56)
[2021-09-26] MEDS: METOPROLOL TARTRATE 5 MG/5 ML VIAL IVPUSH SCH ×5 (00:30→08:24)
[2021-09-26] MEDS: DIGOXIN 0.5 MG/2 ML AMPUL IVPUSH SCH (02:22)
[2021-09-26] MEDS: TAMSULOSIN HCL 0.4 MG CAP PO SCH (09:50)
[2021-09-26] MEDS: ATOVAQUONE 750 MG/5 ML (UNIT-DOSE PACKAGING) PO SCH ×2 (09:51→18:16)
[2021-09-26] MEDS ORDERED: DOXYCYCLINE HYCLATE 100 MG VIAL ONE (09:52)
[2021-09-26] MEDS ORDERED: DEXTROSE 5%-WATER 100 ML IVPB ONE (09:53)
[2021-09-26] MEDS: BISACODYL 5 MG TABLET.DR (FP) PO SCH (09:55)
[2021-09-26] MEDS: POLYETHYLENE GLYCOL (HEALTHYLAX) 3350 17 GM PACKET PO SCH (09:55)
[2021-09-26] MEDS: APIXABAN 5 MG TABLET PO SCH ×2 (09:55→21:30)
[2021-09-26] MEDS: CLOPIDOGREL BISULFATE 75 MG TABLET (FP) PO SCH (09:56)
[2021-09-26] MEDS: DOXYCYCLINE INJECTION 100 MG in DEXTROSE 5%-WATER 100 ML IVPB SCH ×2 (09:56→21:31)
[2021-09-26] MEDS: FOLIC ACID 1 MG TABLET (FP) PO SCH (09:56)
[2021-09-26] MEDS: PANTOPRAZOLE 40 MG TABLET PO SCH (09:56)
[2021-09-26] MEDS: SODIUM CHLORIDE 1,000 ML IV SCH (10:23)
[2021-09-26 11:35] LABS: HEMATOCRIT 42.4 % (35.4-49); HEMOGLOBIN 14.4 GM/dL (11.7-16.9); MCH 29.4 pg (25.7-33.7); MEAN CELL VOLUME 86.6 fl (80-96); MEAN PLT VOLUME 10.6 fl (7.5-11.1); PLATELET COUNT 73 10^3/uL (134-434); WHITE BLOOD COUNT 6.4 K/mm3 (4.0-10.0)
[2021-09-26 11:57] LABS: CALCIUM 7.4 mg/dL (8.5-10.1); CO2 21 mmol/L (21-32); GLUCOSE,RANDOM 112 mg/dL (74-106)
[2021-09-26 11:58] LABS: ALBUMIN 1.8 g/dl (3.4-5.0)
[2021-09-26 12:00] LABS: CREATININE 3.2 mg/dL (0.55-1.3); SGPT/ALT 46 U/L (13-61)
[2021-09-26 12:01] LABS: SGOT/AST 75 U/L (15-37)
[2021-09-26 12:02] LABS: TOT PROT 6.4 g/dl (6.4-8.2)
[2021-09-26 12:03] LABS: ALK PHOS 179 U/L (45-117)
[2021-09-26 12:06] LABS: ANION GAP 12 MMOL/L (8-16); BLOOD UREA NITROGEN 129.4 mg/dL (7-18); CHLORIDE 96 mmol/L (98-107); SODIUM 129 mmol/L (136-145)
[2021-09-26 12:16] LABS: ANISOCYTOSIS 0; HELMET CELLS 0; HOWELL-JOLLY BODIES 0; MACROCYTOSIS 0; OVALOCYTE 0; ROULEAU 0; SICKELED CELLS 0; TARGET CELLS 0; TEAR DROP CELLS 0; TOXIC GRANULATION 0
[2021-09-26] MEDS: AZITHROMYCIN IVPB 500 MG/250 ML BAG IVPB SCH (16:31)
[2021-09-26] MEDS ORDERED: SODIUM CHLORIDE 1,000 ML IV SCH (19:15)
[2021-09-26] MEDS: ATORVASTATIN CA 80 MG TABLET (FP) PO SCH (21:30)
[2021-09-27 07:51] LABS: HEMATOCRIT 40.3 % (35.4-49); HEMOGLOBIN 13.8 GM/dL (11.7-16.9); MCH 29.7 pg (25.7-33.7); MCHC 34.3 g/dl (32.0-35.9); MEAN CELL VOLUME 86.7 fl (80-96); MEAN PLT VOLUME 10.2 fl (7.5-11.1); PLATELET COUNT 67 10^3/uL (134-434); RBC 4.65 M/mm3 (4.00-5.60); RDW 17.1 % (11.9-15.9); WHITE BLOOD COUNT 6.7 K/mm3 (4.0-10.0)
[2021-09-27 08:06] LABS: CHLORIDE 97 mmol/L (98-107); SODIUM 129 mmol/L (136-145)
[2021-09-27 08:07] LABS: CALCIUM 7.3 mg/dL (8.5-10.1)
[2021-09-27 08:08] LABS: ALBUMIN 1.7 g/dl (3.4-5.0); ANION GAP 13 MMOL/L (8-16); CO2 19 mmol/L (21-32); GLUCOSE,RANDOM 106 mg/dL (74-106)
[2021-09-27 08:11] LABS: CREATININE 3.5 mg/dL (0.55-1.3); SGOT/AST 70 U/L (15-37); SGPT/ALT 44 U/L (13-61)
[2021-09-27 08:12] LABS: BILIRUBIN,TOTAL 2.5 mg/dL (0.2-1); TOT PROT 5.9 g/dl (6.4-8.2)
[2021-09-27 08:14] LABS: ALK PHOS 190 U/L (45-117)
[2021-09-27 08:27] LABS: BLOOD UREA NITROGEN 136.5 mg/dL (7-18)
[2021-09-27] MEDS: TAMSULOSIN HCL 0.4 MG CAP PO SCH (08:46)
[2021-09-27] MEDS: ATOVAQUONE 750 MG/5 ML (UNIT-DOSE PACKAGING) PO SCH ×2 (08:46→18:23)
[2021-09-27] MEDS: APIXABAN 5 MG TABLET PO SCH ×2 (09:47→21:16)
[2021-09-27] MEDS: DOXYCYCLINE INJECTION 100 MG in DEXTROSE 5%-WATER 100 ML IVPB SCH ×2 (09:47→21:15)
[2021-09-27] MEDS: PANTOPRAZOLE 40 MG TABLET PO SCH (09:47)
[2021-09-27] MEDS: CLOPIDOGREL BISULFATE 75 MG TABLET (FP) PO SCH (09:47)
[2021-09-27] MEDS: FOLIC ACID 1 MG TABLET (FP) PO SCH (09:49)
[2021-09-27] MEDS: BISACODYL 5 MG TABLET.DR (FP) PO SCH (09:49)
[2021-09-27] MEDS: POLYETHYLENE GLYCOL (HEALTHYLAX) 3350 17 GM PACKET PO SCH (09:49)
[2021-09-27 09:50] LABS: EPI CELLS 5 /uL (0-25.1); HYALINE CASTS 4 /uL (0-3.1); PH,URINE 5.5 (5.0-8.0); URINE APPEARANCE CLEAR; URINE BACTERIA 5 /uL (0-1359); URINE BILIRUBIN NEGATIVE (NEGATIVE); URINE COLOR DK YELLOW; URINE GLUCOSE (UA) NEGATIVE (NEGATIVE); URINE KETONE NEGATIVE (NEGATIVE); URINE LEUK ESTERASE 1+ (NEGATIVE); URINE NITRITE NEGATIVE (NEGATIVE); URINE PROTEIN TRACE (NEGATIVE); URINE RBC 42 /uL (0-23.9); URINE WBC 32 /uL (0-25.8)
[2021-09-27 10:51] LABS: ANISOCYTOSIS 0; HELMET CELLS 0; HOWELL-JOLLY BODIES 0; MACROCYTOSIS 0; OVALOCYTE 0; ROULEAU 0; SICKELED CELLS 0; TARGET CELLS 0; TEAR DROP CELLS 0; TOXIC GRANULATION 0
[2021-09-27] MEDS ORDERED: SODIUM CHLORIDE 500 ML IV STA (10:55)
[2021-09-27] MEDS: SODIUM CHLORIDE 1,000 ML IV SCH (11:32)
[2021-09-27] MEDS: AZITHROMYCIN IVPB 500 MG/250 ML BAG IVPB SCH (17:32)
[2021-09-27] MEDS: ATORVASTATIN CA 80 MG TABLET (FP) PO SCH (21:16)
[2021-09-28 07:44] LABS: CHLORIDE 99 mmol/L (98-107); SODIUM 129 mmol/L (136-145)
[2021-09-28 07:49] LABS: CALCIUM 7.4 mg/dL (8.5-10.1)
[2021-09-28 07:50] LABS: ALBUMIN 1.9 g/dl (3.4-5.0); ANION GAP 11 MMOL/L (8-16); CO2 19 mmol/L (21-32); GLUCOSE,RANDOM 105 mg/dL (74-106)
[2021-09-28 07:53] LABS: CREATININE 3.5 mg/dL (0.55-1.3); SGOT/AST 68 U/L (15-37); SGPT/ALT 44 U/L (13-61)
[2021-09-28 07:55] LABS: BILIRUBIN,TOTAL 2.4 mg/dL (0.2-1); TOT PROT 6.4 g/dl (6.4-8.2)
[2021-09-28 07:56] LABS: ALK PHOS 189 U/L (45-117)
[2021-09-28 07:58] LABS: LDH 527 U/L (87-246)
[2021-09-28] MEDS: DOXYCYCLINE INJECTION 100 MG in DEXTROSE 5%-WATER 100 ML IVPB SCH ×2 (09:55→22:24)
[2021-09-28] MEDS: APIXABAN 5 MG TABLET PO SCH ×2 (09:56→22:18)
[2021-09-28] MEDS: BISACODYL 5 MG TABLET.DR (FP) PO SCH (09:56)
[2021-09-28] MEDS: SODIUM ZIRCONIUM CYCLOSILICATE (LOKELMA) 5 GM PACKET PO SCH (09:56)
[2021-09-28] MEDS: CLOPIDOGREL BISULFATE 75 MG TABLET (FP) PO SCH (09:56)
[2021-09-28] MEDS: FOLIC ACID 1 MG TABLET (FP) PO SCH (09:56)
[2021-09-28] MEDS: POLYETHYLENE GLYCOL (HEALTHYLAX) 3350 17 GM PACKET PO SCH (09:56)
[2021-09-28] MEDS: TAMSULOSIN HCL 0.4 MG CAP PO SCH (09:56)
[2021-09-28] MEDS: PANTOPRAZOLE 40 MG TABLET PO SCH (09:56)
[2021-09-28] MEDS: ATOVAQUONE 750 MG/5 ML (UNIT-DOSE PACKAGING) PO SCH ×2 (13:52→17:25)
[2021-09-28] MEDS: SODIUM CHLORIDE 1,000 ML IV SCH (13:52)
[2021-09-28 15:07] VITALS: BMI 43.8
[2021-09-28] MEDS: AZITHROMYCIN IVPB 500 MG/250 ML BAG IVPB SCH (17:25)
[2021-09-28] MEDS: ATORVASTATIN CA 80 MG TABLET (FP) PO SCH (22:18)
[2021-09-28] MEDS: NYSTATIN POWDER 100,000 UNITS/GM - 15 GM TOPICAL POWDER TP SCH (23:50)
[2021-09-29] MEDS: SODIUM ZIRCONIUM CYCLOSILICATE (LOKELMA) 5 GM PACKET PO SCH (09:05)
[2021-09-29] MEDS: POLYETHYLENE GLYCOL (HEALTHYLAX) 3350 17 GM PACKET PO SCH (09:05)
[2021-09-29] MEDS: TAMSULOSIN HCL 0.4 MG CAP PO SCH (09:06)
[2021-09-29] MEDS: ATOVAQUONE 750 MG/5 ML (UNIT-DOSE PACKAGING) PO SCH ×2 (09:06→17:51)
[2021-09-29] MEDS: APIXABAN 5 MG TABLET PO SCH ×2 (09:06→22:02)
[2021-09-29] MEDS: FOLIC ACID 1 MG TABLET (FP) PO SCH (09:06)
[2021-09-29] MEDS: BISACODYL 5 MG TABLET.DR (FP) PO SCH (09:06)
[2021-09-29] MEDS: PANTOPRAZOLE 40 MG TABLET PO SCH (09:06)
[2021-09-29] MEDS: NYSTATIN POWDER 100,000 UNITS/GM - 15 GM TOPICAL POWDER TP SCH ×2 (09:07→22:02)
[2021-09-29] MEDS: DOXYCYCLINE INJECTION 100 MG in DEXTROSE 5%-WATER 100 ML IVPB SCH (10:23)
[2021-09-29 12:25] LABS: HEMATOCRIT 40.9 % (35.4-49); HEMOGLOBIN 13.9 GM/dL (11.7-16.9); MCH 29.1 pg (25.7-33.7); MCHC 34.1 g/dl (32.0-35.9); MEAN CELL VOLUME 85.5 fl (80-96); MEAN PLT VOLUME 8.9 fl (7.5-11.1); PLATELET COUNT 85 10^3/uL (134-434); RBC 4.79 M/mm3 (4.00-5.60); RDW 17.2 % (11.9-15.9); WHITE BLOOD COUNT 7.5 K/mm3 (4.0-10.0)
[2021-09-29 12:41] LABS: ALK PHOS 185 U/L (45-117); ANION GAP 12 MMOL/L (8-16); BILIRUBIN,TOTAL 2.4 mg/dL (0.2-1); BLOOD UREA NITROGEN 120.8 mg/dL (7-18); CALCIUM 7.6 mg/dL (8.5-10.1); CHLORIDE 102 mmol/L (98-107); CO2 18 mmol/L (21-32); CREATININE 2.9 mg/dL (0.55-1.3); GLUCOSE,RANDOM 125 mg/dL (74-106); SGOT/AST 77 U/L (15-37); SGPT/ALT 48 U/L (13-61); SODIUM 132 mmol/L (136-145); TOT PROT 6.5 g/dl (6.4-8.2)
[2021-09-29 13:12] LABS: ANISOCYTOSIS 1+; MACROCYTOSIS 0; OVALOCYTE 2+; TOXIC GRANULATION 2+
[2021-09-29] MEDS ORDERED: SODIUM ZIRCONIUM CYCLOSILICATE (LOKELMA) 5 GM PACKET PO SCH (13:45)
[2021-09-29] MEDS: SODIUM CHLORIDE 1,000 ML IV SCH (14:20)
[2021-09-29 16:09] LABS: ATYPICAL pANCA <1:20 titer (Neg:<1:20); C-ANCA <1:20 titer (Neg:<1:20)
[2021-09-29 17:25] LABS: BASO % 0.4 % (0-2.0); EOS % 0.2 % (0-4.5); HEMATOCRIT 40.5 % (35.4-49); HEMOGLOBIN 13.6 GM/dL (11.7-16.9); LYMPH % 16.3 % (8-40); MCH 28.9 pg (25.7-33.7); MCHC 33.6 g/dl (32.0-35.9); MEAN CELL VOLUME 86.2 fl (80-96); MEAN PLT VOLUME 8.9 fl (7.5-11.1); MONO % 10.5 % (3.8-10.2); NEUT % 72.6 % (42.8-82.8); PLATELET COUNT 86 10^3/uL (134-434); RDW 17.5 % (11.9-15.9); WHITE BLOOD COUNT 8.1 K/mm3 (4.0-10.0)
[2021-09-29 17:40] LABS: CHLORIDE 101 mmol/L (98-107); SODIUM 132 mmol/L (136-145)
[2021-09-29 17:42] LABS: CALCIUM 7.6 mg/dL (8.5-10.1)
[2021-09-29 17:43] LABS: ANION GAP 9 MMOL/L (8-16); CO2 22 mmol/L (21-32); GLUCOSE,RANDOM 117 mg/dL (74-106)
[2021-09-29 17:46] LABS: CREATININE 2.8 mg/dL (0.55-1.3); SGOT/AST 65 U/L (15-37); SGPT/ALT 46 U/L (13-61)
[2021-09-29 17:47] LABS: BILIRUBIN,TOTAL 2.3 mg/dL (0.2-1); TOT PROT 6.3 g/dl (6.4-8.2)
[2021-09-29 17:49] LABS: ALK PHOS 178 U/L (45-117)
[2021-09-29] MEDS: DOXYCYCLINE HYCLATE 100 MG CAPSULE PO SCH (17:51)
[2021-09-29] MEDS: AZITHROMYCIN IVPB 500 MG/250 ML BAG IVPB SCH (17:52)
[2021-09-29 18:06] LABS: BLOOD UREA NITROGEN 119.7 mg/dL (7-18)
[2021-09-29 18:31] LABS: PLATELET ESTIMATE DECREASED
[2021-09-29] MEDS: ATORVASTATIN CA 80 MG TABLET (FP) PO SCH (22:02)
[2021-09-30] MEDS: BISACODYL 5 MG TABLET.DR (FP) PO SCH ×2 (09:48→10:00)
[2021-09-30] MEDS: TAMSULOSIN HCL 0.4 MG CAP PO SCH ×2 (09:48→10:00)
[2021-09-30] MEDS: PANTOPRAZOLE 40 MG TABLET PO SCH ×2 (09:48→10:00)
[2021-09-30] MEDS: DOXYCYCLINE HYCLATE 100 MG CAPSULE PO SCH (09:49)
[2021-09-30] MEDS: FOLIC ACID 1 MG TABLET (FP) PO SCH ×2 (09:49→10:00)
[2021-09-30] MEDS: APIXABAN 5 MG TABLET PO SCH ×3 (09:49→21:25)
[2021-09-30] MEDS: NYSTATIN POWDER 100,000 UNITS/GM - 15 GM TOPICAL POWDER TP SCH ×2 (09:50→21:25)
[2021-09-30] MEDS: POLYETHYLENE GLYCOL (HEALTHYLAX) 3350 17 GM PACKET PO SCH ×2 (09:50→10:00)
[2021-09-30] MEDS ORDERED: FUROSEMIDE 40 MG/4 ML INJECTABLE VIAL ONE (10:13)
[2021-09-30] MEDS ORDERED: FUROSEMIDE 40 MG/4 ML INJECTABLE VIAL IVPUSH ONE ×2 (12:00→22:14)
[2021-09-30 13:39] LABS: BASO % 1.1 % (0-2.0); EOS % 0.2 % (0-4.5); HEMATOCRIT 39.9 % (35.4-49); HEMOGLOBIN 13.3 GM/dL (11.7-16.9); MCH 28.5 pg (25.7-33.7); MCHC 33.3 g/dl (32.0-35.9); MEAN CELL VOLUME 85.6 fl (80-96); MEAN PLT VOLUME 8.6 fl (7.5-11.1); MONO % 11.3 % (3.8-10.2); NEUT % 67.4 % (42.8-82.8); PLATELET COUNT 85 10^3/uL (134-434); RBC 4.66 M/mm3 (4.00-5.60); RDW 17.4 % (11.9-15.9); WHITE BLOOD COUNT 9.1 K/mm3 (4.0-10.0)
[2021-09-30 14:04] LABS: CHLORIDE 102 mmol/L (98-107); SODIUM 134 mmol/L (136-145)
[2021-09-30 14:06] LABS: ALBUMIN 2.1 g/dl (3.4-5.0); ANION GAP 8 MMOL/L (8-16); CO2 24 mmol/L (21-32); GLUCOSE,RANDOM 100 mg/dL (74-106)
[2021-09-30 14:09] LABS: CREATININE 2.5 mg/dL (0.55-1.3); SGOT/AST 74 U/L (15-37)
[2021-09-30 14:10] LABS: SGPT/ALT 54 U/L (13-61)
[2021-09-30 14:11] LABS: BILIRUBIN,TOTAL 2.5 mg/dL (0.2-1); TOT PROT 6.8 g/dl (6.4-8.2)
[2021-09-30 14:12] LABS: ALK PHOS 186 U/L (45-117)
[2021-09-30 14:15] LABS: BLOOD UREA NITROGEN 110.4 mg/dL (7-18)
[2021-09-30] MEDS ORDERED: SODIUM ZIRCONIUM CYCLOSILICATE (LOKELMA) 5 GM PACKET PO SCH (15:30)
[2021-09-30] MEDS: SODIUM CHLORIDE 1,000 ML IV SCH ×2 (15:55)
[2021-09-30 16:11] LABS: ARTERIAL BLD GAS O2 SATURATION 94.9 % (95-98); ARTERIAL BLOOD GAS BASE EXCESS -9.3 mmol/L (-2-2); ARTERIAL BLOOD GAS PO2 85.5 mmHg (80-100); ARTERIAL BLOOD GAS pH 7.245 (7.350-7.450)
[2021-09-30 16:15] LABS: ALLENS TEST POSITIVE
[2021-09-30 16:16] LABS: PT'S TEMP 98.6
[2021-09-30] MEDS ORDERED: SODIUM BICARBONATE 8.4% 50 MEQ/50 ML DISP.SYRIN IVPUSH ONE (17:50)
[2021-09-30] MEDS ORDERED: INSULIN REGULAR HUMAN 100 UNITS/ML *VIAL IVPUSH ONE (17:50)
[2021-09-30] MEDS ORDERED: DEXTROSE 50%-WATER - 25 GM/50 ML VIAL IVPUSH ONE (17:50)
[2021-09-30] MEDS ORDERED: DEXTROSE 50%-WATER 25 GM/50 ML DISP.SYRIN ONE (18:39)
[2021-09-30] MEDS ORDERED: SODIUM BICARBONATE 8.4% - 50 ML ONE (18:47)
[2021-09-30] MEDS: DOXYCYCLINE INJECTION 100 MG in DEXTROSE 5%-WATER 100 ML IVPB SCH (21:25)
[2021-09-30] MEDS: ATORVASTATIN CA 80 MG TABLET (FP) PO SCH (21:25)
[2021-10-01 08:13] LABS: HEMATOCRIT 39.4 % (35.4-49); HEMOGLOBIN 13.4 GM/dL (11.7-16.9); MCH 29.2 pg (25.7-33.7); MCHC 33.9 g/dl (32.0-35.9); MEAN CELL VOLUME 86.2 fl (80-96); MEAN PLT VOLUME 8.3 fl (7.5-11.1); PLATELET COUNT 90 10^3/uL (134-434); RBC 4.58 M/mm3 (4.00-5.60); RDW 17.6 % (11.9-15.9); WHITE BLOOD COUNT 9.1 K/mm3 (4.0-10.0)
[2021-10-01 08:21] LABS: CHLORIDE 103 mmol/L (98-107); SODIUM 137 mmol/L (136-145)
[2021-10-01 08:23] LABS: ALBUMIN 2.2 g/dl (3.4-5.0); CALCIUM 8.3 mg/dL (8.5-10.1)
[2021-10-01 08:24] LABS: ANION GAP 8 MMOL/L (8-16); CO2 26 mmol/L (21-32); GLUCOSE,RANDOM 95 mg/dL (74-106)
[2021-10-01 08:27] LABS: CREATININE 2.3 mg/dL (0.55-1.3); SGOT/AST 72 U/L (15-37); SGPT/ALT 55 U/L (13-61)
[2021-10-01 08:28] LABS: BILIRUBIN,TOTAL 2.9 mg/dL (0.2-1)
[2021-10-01 08:29] LABS: TOT PROT 6.6 g/dl (6.4-8.2)
[2021-10-01 08:30] LABS: ALK PHOS 170 U/L (45-117)
[2021-10-01 08:32] LABS: BLOOD UREA NITROGEN 118.2 mg/dL (7-18)
[2021-10-01] MEDS: DOXYCYCLINE INJECTION 100 MG in DEXTROSE 5%-WATER 100 ML IVPB SCH ×2 (10:14→21:42)
[2021-10-01 10:23] LABS: ANISOCYTOSIS 0; HELMET CELLS 0; HOWELL-JOLLY BODIES 0; MACROCYTOSIS 0; OVALOCYTE 0; ROULEAU 0; SICKELED CELLS 0; TARGET CELLS 0; TEAR DROP CELLS 0; TOXIC GRANULATION 0
[2021-10-01] MEDS ORDERED: FUROSEMIDE 40 MG/4 ML INJECTABLE VIAL IVPUSH ONE (11:54)
[2021-10-01] MEDS: FOLIC ACID 1 MG TABLET (FP) PO SCH (14:11)
[2021-10-01] MEDS: PANTOPRAZOLE 40 MG TABLET PO SCH (14:12)
[2021-10-01] MEDS: APIXABAN 5 MG TABLET PO SCH ×2 (14:12→21:02)
[2021-10-01] MEDS: NYSTATIN POWDER 100,000 UNITS/GM - 15 GM TOPICAL POWDER TP SCH ×2 (14:18→21:41)
[2021-10-01] MEDS: POLYETHYLENE GLYCOL (HEALTHYLAX) 3350 17 GM PACKET PO SCH (14:18)
[2021-10-01] MEDS: BISACODYL 5 MG TABLET.DR (FP) PO SCH (15:26)
[2021-10-01] MEDS: TAMSULOSIN HCL 0.4 MG CAP PO SCH (15:26)
[2021-10-01] MEDS: ATORVASTATIN CA 80 MG TABLET (FP) PO SCH (21:02)
[2021-10-02] MEDS ORDERED: DOXYCYCLINE HYCLATE 100 MG CAPSULE PO ONE (03:27)
[2021-10-02] MEDS: POLYETHYLENE GLYCOL (HEALTHYLAX) 3350 17 GM PACKET PO SCH (09:22)
[2021-10-02] MEDS: ACETAMINOPHEN 325 MG TABLET (FP) PO PRN ×3 (09:23→21:44)
[2021-10-02] MEDS: PANTOPRAZOLE 40 MG TABLET PO SCH (09:23)
[2021-10-02] MEDS: BISACODYL 5 MG TABLET.DR (FP) PO SCH (09:23)
[2021-10-02] MEDS: FOLIC ACID 1 MG TABLET (FP) PO SCH (09:23)
[2021-10-02] MEDS: TAMSULOSIN HCL 0.4 MG CAP PO SCH (09:23)
[2021-10-02] MEDS: APIXABAN 5 MG TABLET PO SCH ×2 (09:23→21:44)
[2021-10-02 10:35] LABS: HEMATOCRIT 39.5 % (35.4-49); HEMOGLOBIN 13.3 GM/dL (11.7-16.9); MCH 29.1 pg (25.7-33.7); MCHC 33.8 g/dl (32.0-35.9); MEAN CELL VOLUME 86.1 fl (80-96); MEAN PLT VOLUME 8.2 fl (7.5-11.1); PLATELET COUNT 116 10^3/uL (134-434); RBC 4.59 M/mm3 (4.00-5.60); RDW 17.9 % (11.9-15.9); WHITE BLOOD COUNT 11.2 K/mm3 (4.0-10.0)
[2021-10-02 10:56] LABS: ANISOCYTOSIS 0; HELMET CELLS 0; HOWELL-JOLLY BODIES 0; MACROCYTOSIS 0; OVALOCYTE 0; ROULEAU 0; SICKELED CELLS 0; TARGET CELLS 0; TEAR DROP CELLS 0; TOXIC GRANULATION 0
[2021-10-02 11:05] LABS: ALBUMIN 2.2 g/dl (3.4-5.0)
[2021-10-02 11:06] LABS: BLOOD UREA NITROGEN 99.8 mg/dL (7-18)
[2021-10-02 11:07] LABS: CALCIUM 8.4 mg/dL (8.5-10.1)
[2021-10-02 11:08] LABS: PHOSPHOROUS 4.3 mg/dL (2.5-4.9)
[2021-10-02 11:10] LABS: BILIRUBIN,TOTAL 2.9 mg/dL (0.2-1); TOT PROT 6.7 g/dl (6.4-8.2)
[2021-10-02 11:12] LABS: CREATININE 1.9 mg/dL (0.55-1.3)
[2021-10-02] MEDS: ATORVASTATIN CA 80 MG TABLET (FP) PO SCH (21:43)
[2021-10-02] MEDS: NYSTATIN POWDER 100,000 UNITS/GM - 15 GM TOPICAL POWDER TP SCH (21:44)
[2021-10-02] MEDS: DOXYCYCLINE INJECTION 100 MG in DEXTROSE 5%-WATER 100 ML IVPB SCH (21:44)
[2021-10-03] MEDS: TAMSULOSIN HCL 0.4 MG CAP PO SCH (09:25)
[2021-10-03] MEDS: DOXYCYCLINE INJECTION 100 MG in DEXTROSE 5%-WATER 100 ML IVPB SCH ×3 (11:25→22:20)
[2021-10-03] MEDS: NYSTATIN POWDER 100,000 UNITS/GM - 15 GM TOPICAL POWDER TP SCH ×3 (11:25→22:21)
[2021-10-03] MEDS: FOLIC ACID 1 MG TABLET (FP) PO SCH (11:26)
[2021-10-03] MEDS: BISACODYL 5 MG TABLET.DR (FP) PO SCH (11:26)
[2021-10-03] MEDS: PANTOPRAZOLE 40 MG TABLET PO SCH (11:26)
[2021-10-03] MEDS: APIXABAN 5 MG TABLET PO SCH ×3 (11:26→22:28)
[2021-10-03] MEDS: POLYETHYLENE GLYCOL (HEALTHYLAX) 3350 17 GM PACKET PO SCH (11:26)
[2021-10-03] MEDS: ACETAMINOPHEN 325 MG TABLET (FP) PO PRN (14:54)
[2021-10-03] MEDS: ATORVASTATIN CA 80 MG TABLET (FP) PO SCH (22:21)
[2021-10-04 01:37] LABS: ARTERIAL BLD GAS O2 SATURATION 98.3 % (95-98); ARTERIAL BLOOD GAS BASE EXCESS -4.1 mmol/L (-2-2); ARTERIAL BLOOD GAS PO2 134.1 mmHg (80-100)
[2021-10-04 02:28] LABS: VENT MODE S/T; VENT RATE 18
[2021-10-04 07:58] LABS: CHLORIDE 112 mmol/L (98-107); SODIUM 146 mmol/L (136-145)
[2021-10-04 08:03] LABS: HEMATOCRIT 39.6 % (35.4-49); HEMOGLOBIN 13.3 GM/dL (11.7-16.9); MCH 29.3 pg (25.7-33.7); MCHC 33.6 g/dl (32.0-35.9); MEAN CELL VOLUME 87.2 fl (80-96); MEAN PLT VOLUME 8.3 fl (7.5-11.1); PLATELET COUNT 101 10^3/uL (134-434); RBC 4.53 M/mm3 (4.00-5.60); RDW 18.2 % (11.9-15.9); WHITE BLOOD COUNT 10.4 K/mm3 (4.0-10.0)
[2021-10-04 08:05] LABS: ANION GAP 7 MMOL/L (8-16); CALCIUM 8.7 mg/dL (8.5-10.1); CO2 26 mmol/L (21-32); GLUCOSE,RANDOM 104 mg/dL (74-106)
[2021-10-04 08:07] LABS: ALBUMIN 2.3 g/dl (3.4-5.0); SGPT/ALT 66 U/L (13-61)
[2021-10-04 08:09] LABS: BILIRUBIN,TOTAL 2.8 mg/dL (0.2-1); CREATININE 1.9 mg/dL (0.55-1.3); SGOT/AST 93 U/L (15-37); TOT PROT 6.9 g/dl (6.4-8.2)
[2021-10-04 08:11] LABS: ALK PHOS 144 U/L (45-117)
[2021-10-04 08:13] LABS: BLOOD UREA NITROGEN 106.1 mg/dL (7-18)
[2021-10-04] MEDS: APIXABAN 5 MG TABLET PO SCH ×2 (09:31→21:16)
[2021-10-04] MEDS: FOLIC ACID 1 MG TABLET (FP) PO SCH (09:31)
[2021-10-04] MEDS: TAMSULOSIN HCL 0.4 MG CAP PO SCH (09:31)
[2021-10-04] MEDS: BISACODYL 5 MG TABLET.DR (FP) PO SCH (09:31)
[2021-10-04] MEDS: NYSTATIN POWDER 100,000 UNITS/GM - 15 GM TOPICAL POWDER TP SCH ×2 (09:32→21:16)
[2021-10-04] MEDS: PANTOPRAZOLE 40 MG TABLET PO SCH (09:32)
[2021-10-04] MEDS: POLYETHYLENE GLYCOL (HEALTHYLAX) 3350 17 GM PACKET PO SCH (09:32)
[2021-10-04] MEDS: DOXYCYCLINE INJECTION 100 MG in DEXTROSE 5%-WATER 100 ML IVPB SCH ×2 (09:47→21:16)
[2021-10-04 10:23] LABS: ANISOCYTOSIS 0; HELMET CELLS 0; HOWELL-JOLLY BODIES 0; MACROCYTOSIS 0; OVALOCYTE 0; ROULEAU 0; SICKELED CELLS 0; TARGET CELLS 0; TEAR DROP CELLS 0; TOXIC GRANULATION 0
[2021-10-04] MEDS ORDERED: FUROSEMIDE 40 MG/4 ML INJECTABLE VIAL IVPUSH ONE (10:58)
[2021-10-04] MEDS ORDERED: SODIUM ZIRCONIUM CYCLOSILICATE (LOKELMA) 5 GM PACKET PO SCH (11:00)
[2021-10-04] MEDS ORDERED: AMINO ACIDS 4.25%/D5W 1,000 ML IV SCH (11:15)
[2021-10-04] MEDS: AMINO ACIDS 4.25%/D5W 1,000 ML IV SCH (13:00)
[2021-10-04] MEDS: ATORVASTATIN CA 80 MG TABLET (FP) PO SCH (21:16)
[2021-10-05 06:58] LABS: HEMATOCRIT 35.8 % (35.4-49); HEMOGLOBIN 12.2 GM/dL (11.7-16.9); MEAN CELL VOLUME 88.2 fl (80-96); MEAN PLT VOLUME 7.6 fl (7.5-11.1); PLATELET COUNT 93 10^3/uL (134-434); RBC 4.06 M/mm3 (4.00-5.60); RDW 17.7 % (11.9-15.9); WHITE BLOOD COUNT 9.7 K/mm3 (4.0-10.0)
[2021-10-05 07:11] LABS: CHLORIDE 114 mmol/L (98-107); SODIUM 148 mmol/L (136-145)
[2021-10-05 07:12] LABS: ALBUMIN 2.1 g/dl (3.4-5.0); ANION GAP 4 MMOL/L (8-16); CALCIUM 8.4 mg/dL (8.5-10.1); CO2 31 mmol/L (21-32); GLUCOSE,RANDOM 105 mg/dL (74-106)
[2021-10-05 07:15] LABS: CREATININE 1.7 mg/dL (0.55-1.3); SGOT/AST 119 U/L (15-37); SGPT/ALT 65 U/L (13-61)
[2021-10-05 07:17] LABS: BILIRUBIN,TOTAL 2.5 mg/dL (0.2-1); TOT PROT 6.3 g/dl (6.4-8.2)
[2021-10-05 07:18] LABS: ALK PHOS 123 U/L (45-117)
[2021-10-05 07:26] LABS: BLOOD UREA NITROGEN 108.6 mg/dL (7-18)
[2021-10-05] MEDS: TAMSULOSIN HCL 0.4 MG CAP PO SCH ×2 (08:16→10:42)
[2021-10-05] MEDS: BISACODYL 5 MG TABLET.DR (FP) PO SCH (10:42)
[2021-10-05] MEDS: FOLIC ACID 1 MG TABLET (FP) PO SCH (10:43)
[2021-10-05] MEDS: NYSTATIN POWDER 100,000 UNITS/GM - 15 GM TOPICAL POWDER TP SCH ×2 (10:43→21:36)
[2021-10-05] MEDS: DOXYCYCLINE INJECTION 100 MG in DEXTROSE 5%-WATER 100 ML IVPB SCH ×2 (10:43→21:35)
[2021-10-05] MEDS: PANTOPRAZOLE 40 MG TABLET PO SCH (10:43)
[2021-10-05] MEDS: POLYETHYLENE GLYCOL (HEALTHYLAX) 3350 17 GM PACKET PO SCH (10:43)
[2021-10-05] MEDS: AMINO ACIDS 4.25%/D5W 1,000 ML IV SCH (10:47)
[2021-10-05] MEDS: ATORVASTATIN CA 80 MG TABLET (FP) PO SCH (21:35)
[2021-10-06 06:46] LABS: CALCIUM 8.3 mg/dL (8.5-10.1)
[2021-10-06 06:47] LABS: ALBUMIN 2.1 g/dl (3.4-5.0); BLOOD UREA NITROGEN 96.5 mg/dL (7-18)
[2021-10-06 06:50] LABS: CREATININE 1.4 mg/dL (0.55-1.3)
[2021-10-06 06:51] LABS: BILIRUBIN,TOTAL 3.3 mg/dL (0.2-1); TOT PROT 6.3 g/dl (6.4-8.2)
[2021-10-06] MEDS ORDERED: AMINO ACIDS 4.25%/D5W 1,000 ML IV SCH (08:45)
[2021-10-06] MEDS: FOLIC ACID 1 MG TABLET (FP) PO SCH (09:38)
[2021-10-06] MEDS: BISACODYL 5 MG TABLET.DR (FP) PO SCH (09:38)
[2021-10-06] MEDS: POLYETHYLENE GLYCOL (HEALTHYLAX) 3350 17 GM PACKET PO SCH (09:38)
[2021-10-06] MEDS: PANTOPRAZOLE 40 MG TABLET PO SCH (09:39)
[2021-10-06] MEDS: DOXYCYCLINE INJECTION 100 MG in DEXTROSE 5%-WATER 100 ML IVPB SCH ×2 (09:57→21:28)
[2021-10-06] MEDS: NYSTATIN POWDER 100,000 UNITS/GM - 15 GM TOPICAL POWDER TP SCH ×2 (09:57→21:28)
[2021-10-06] MEDS ORDERED: FUROSEMIDE 40 MG TABLET (FP) PO ONE (15:30)
[2021-10-06] MEDS: APIXABAN 5 MG TABLET PO SCH ×2 (17:00→21:27)
[2021-10-06] MEDS: TAMSULOSIN HCL 0.4 MG CAP PO SCH (17:21)
[2021-10-06] MEDS: ATORVASTATIN CA 80 MG TABLET (FP) PO SCH (21:27)
[2021-10-07 08:04] LABS: HEMATOCRIT 32.8 % (35.4-49); MCH 29.8 pg (25.7-33.7); MCHC 33.6 g/dl (32.0-35.9); MEAN PLT VOLUME 8.7 fl (7.5-11.1); PLATELET COUNT 63 10^3/uL (134-434); RBC 3.69 M/mm3 (4.00-5.60); RDW 18.5 % (11.9-15.9); WHITE BLOOD COUNT 8.2 K/mm3 (4.0-10.0)
[2021-10-07 08:21] LABS: BLOOD UREA NITROGEN 97.9 mg/dL (7-18); CALCIUM 8.2 mg/dL (8.5-10.1)
[2021-10-07 08:22] LABS: ALBUMIN 2.1 g/dl (3.4-5.0)
[2021-10-07 08:25] LABS: CREATININE 1.5 mg/dL (0.55-1.3)
[2021-10-07 08:26] LABS: BILIRUBIN,TOTAL 2.6 mg/dL (0.2-1); TOT PROT 6.1 g/dl (6.4-8.2)
[2021-10-07] MEDS: DOXYCYCLINE INJECTION 100 MG in DEXTROSE 5%-WATER 100 ML IVPB SCH ×2 (10:38→21:11)
[2021-10-07] MEDS: BISACODYL 5 MG TABLET.DR (FP) PO SCH (10:38)
[2021-10-07] MEDS: POLYETHYLENE GLYCOL (HEALTHYLAX) 3350 17 GM PACKET PO SCH (10:38)
[2021-10-07] MEDS: NYSTATIN POWDER 100,000 UNITS/GM - 15 GM TOPICAL POWDER TP SCH ×2 (10:39→21:12)
[2021-10-07] MEDS: FOLIC ACID 1 MG TABLET (FP) PO SCH (10:39)
[2021-10-07] MEDS: PANTOPRAZOLE 40 MG TABLET PO SCH (10:39)
[2021-10-07] MEDS: TAMSULOSIN HCL 0.4 MG CAP PO SCH (10:39)
[2021-10-07] MEDS: APIXABAN 5 MG TABLET PO SCH ×2 (10:40→21:11)
[2021-10-07] MEDS: FUROSEMIDE 40 MG TABLET (FP) PO SCH (13:27)
[2021-10-07] MEDS: ATORVASTATIN CA 80 MG TABLET (FP) PO SCH (21:11)
[2021-10-08 07:48] LABS: HEMATOCRIT 32.2 % (35.4-49); HEMOGLOBIN 10.9 GM/dL (11.7-16.9); MCH 30.2 pg (25.7-33.7); MCHC 33.8 g/dl (32.0-35.9); MEAN CELL VOLUME 89.2 fl (80-96); MEAN PLT VOLUME 8.9 fl (7.5-11.1); PLATELET COUNT 51 10^3/uL (134-434); RBC 3.61 M/mm3 (4.00-5.60); RDW 17.7 % (11.9-15.9); WHITE BLOOD COUNT 6.1 K/mm3 (4.0-10.0)
[2021-10-08 08:08] LABS: BLOOD UREA NITROGEN 83.7 mg/dL (7-18); CALCIUM 8.1 mg/dL (8.5-10.1)
[2021-10-08 08:11] LABS: CREATININE 1.2 mg/dL (0.55-1.3)
[2021-10-08 08:16] LABS: BILIRUBIN,TOTAL 2.5 mg/dL (0.2-1)
[2021-10-08] MEDS: TAMSULOSIN HCL 0.4 MG CAP PO SCH (09:44)
[2021-10-08] MEDS ORDERED: guaiFENesin 200 MG/10 ML 10 ML UNIT-DOSE CUPS PO PRN (09:44)
[2021-10-08] MEDS: POLYETHYLENE GLYCOL (HEALTHYLAX) 3350 17 GM PACKET PO SCH (10:11)
[2021-10-08] MEDS: PANTOPRAZOLE 40 MG TABLET PO SCH (10:11)
[2021-10-08] MEDS: FUROSEMIDE 40 MG TABLET (FP) PO SCH (10:11)
[2021-10-08] MEDS: DOXYCYCLINE INJECTION 100 MG in DEXTROSE 5%-WATER 100 ML IVPB SCH ×2 (10:11→21:23)
[2021-10-08] MEDS: NYSTATIN POWDER 100,000 UNITS/GM - 15 GM TOPICAL POWDER TP SCH ×2 (10:11→21:24)
[2021-10-08] MEDS: BISACODYL 5 MG TABLET.DR (FP) PO SCH (10:12)
[2021-10-08] MEDS: FOLIC ACID 1 MG TABLET (FP) PO SCH (10:12)
[2021-10-08] MEDS: APIXABAN 5 MG TABLET PO SCH ×2 (10:12→21:24)
[2021-10-08 16:06] LABS: WEST NILE VIRUS AB SERUM,IGM Negative (Negative)
[2021-10-08] MEDS: ATORVASTATIN CA 80 MG TABLET (FP) PO SCH (21:24)
[2021-10-09 08:01] LABS: HEMATOCRIT 31.4 % (35.4-49); HEMOGLOBIN 10.5 GM/dL (11.7-16.9); MCH 29.9 pg (25.7-33.7); MCHC 33.4 g/dl (32.0-35.9); MEAN CELL VOLUME 89.4 fl (80-96); MEAN PLT VOLUME 9.7 fl (7.5-11.1); PLATELET COUNT 47 10^3/uL (134-434); RBC 3.52 M/mm3 (4.00-5.60); RDW 18.1 % (11.9-15.9); WHITE BLOOD COUNT 6.2 K/mm3 (4.0-10.0)
[2021-10-09 08:05] LABS: CALCIUM 8.1 mg/dL (8.5-10.1)
[2021-10-09 08:06] LABS: BLOOD UREA NITROGEN 64.1 mg/dL (7-18)
[2021-10-09 08:09] LABS: CREATININE 1.2 mg/dL (0.55-1.3)
[2021-10-09 08:10] LABS: BILIRUBIN,TOTAL 2.6 mg/dL (0.2-1)
[2021-10-09] MEDS: NYSTATIN POWDER 100,000 UNITS/GM - 15 GM TOPICAL POWDER TP SCH ×2 (09:15→21:28)
[2021-10-09] MEDS: APIXABAN 5 MG TABLET PO SCH ×2 (09:15→21:28)
[2021-10-09] MEDS: FUROSEMIDE 40 MG TABLET (FP) PO SCH (09:15)
[2021-10-09] MEDS: FOLIC ACID 1 MG TABLET (FP) PO SCH (09:15)
[2021-10-09] MEDS: TAMSULOSIN HCL 0.4 MG CAP PO SCH (09:15)
[2021-10-09] MEDS: POLYETHYLENE GLYCOL (HEALTHYLAX) 3350 17 GM PACKET PO SCH (09:15)
[2021-10-09] MEDS: DOXYCYCLINE INJECTION 100 MG in DEXTROSE 5%-WATER 100 ML IVPB SCH ×2 (09:15→21:27)
[2021-10-09] MEDS: BISACODYL 5 MG TABLET.DR (FP) PO SCH (09:15)
[2021-10-09] MEDS: PANTOPRAZOLE 40 MG TABLET PO SCH (09:15)
[2021-10-09] MEDS: ATORVASTATIN CA 80 MG TABLET (FP) PO SCH (21:28)
[2021-10-10 07:12] LABS: HEMATOCRIT 31.5 % (35.4-49); HEMOGLOBIN 10.7 GM/dL (11.7-16.9); MCH 30.4 pg (25.7-33.7); MCHC 33.9 g/dl (32.0-35.9); MEAN CELL VOLUME 89.5 fl (80-96); MEAN PLT VOLUME 9.8 fl (7.5-11.1); PLATELET COUNT 46 10^3/uL (134-434); RBC 3.52 M/mm3 (4.00-5.60); RDW 17.7 % (11.9-15.9); WHITE BLOOD COUNT 5.4 K/mm3 (4.0-10.0)
[2021-10-10 07:40] LABS: BLOOD UREA NITROGEN 55.5 mg/dL (7-18)
[2021-10-10 07:43] LABS: CREATININE 1.2 mg/dL (0.55-1.3)
[2021-10-10 07:45] LABS: BILIRUBIN,TOTAL 2.4 mg/dL (0.2-1); TOT PROT 6.2 g/dl (6.4-8.2)
[2021-10-10 07:49] LABS: N-TERMINAL BNP 4978.6 pg/ml (5-125)
[2021-10-10] MEDS: BISACODYL 5 MG TABLET.DR (FP) PO SCH (09:44)
[2021-10-10] MEDS: FUROSEMIDE 40 MG TABLET (FP) PO SCH (09:44)
[2021-10-10] MEDS: FOLIC ACID 1 MG TABLET (FP) PO SCH (09:44)
[2021-10-10] MEDS: APIXABAN 5 MG TABLET PO SCH ×2 (09:44→21:35)
[2021-10-10] MEDS: TAMSULOSIN HCL 0.4 MG CAP PO SCH (09:44)
[2021-10-10] MEDS: PANTOPRAZOLE 40 MG TABLET PO SCH (09:45)
[2021-10-10] MEDS: NYSTATIN POWDER 100,000 UNITS/GM - 15 GM TOPICAL POWDER TP SCH ×2 (09:45→21:35)
[2021-10-10] MEDS: DOXYCYCLINE INJECTION 100 MG in DEXTROSE 5%-WATER 100 ML IVPB SCH ×2 (09:45→21:35)
[2021-10-10] MEDS: POLYETHYLENE GLYCOL (HEALTHYLAX) 3350 17 GM PACKET PO SCH (09:45)
[2021-10-10] MEDS: ATORVASTATIN CA 80 MG TABLET (FP) PO SCH (21:35)
[2021-10-11 08:00] LABS: CALCIUM 8.1 mg/dL (8.5-10.1)
[2021-10-11 08:02] LABS: ALBUMIN 2.1 g/dl (3.4-5.0)
[2021-10-11 08:04] LABS: CREATININE 1.1 mg/dL (0.55-1.3)
[2021-10-11 08:05] LABS: BILIRUBIN,TOTAL 2.3 mg/dL (0.2-1)
[2021-10-11 08:06] LABS: TOT PROT 6.1 g/dl (6.4-8.2)
[2021-10-11 08:08] LABS: HEMATOCRIT 31.6 % (35.4-49); HEMOGLOBIN 10.6 GM/dL (11.7-16.9); MCH 30.2 pg (25.7-33.7); MCHC 33.6 g/dl (32.0-35.9); MEAN CELL VOLUME 89.8 fl (80-96); MEAN PLT VOLUME 9.9 fl (7.5-11.1); PLATELET COUNT 43 10^3/uL (134-434); RBC 3.52 M/mm3 (4.00-5.60); RDW 19.2 % (11.9-15.9)
[2021-10-11] MEDS: POLYETHYLENE GLYCOL (HEALTHYLAX) 3350 17 GM PACKET PO SCH (10:34)
[2021-10-11] MEDS: PANTOPRAZOLE 40 MG TABLET PO SCH (10:35)
[2021-10-11] MEDS: APIXABAN 5 MG TABLET PO SCH ×2 (10:35→21:31)
[2021-10-11] MEDS: TAMSULOSIN HCL 0.4 MG CAP PO SCH (10:35)
[2021-10-11] MEDS: FUROSEMIDE 40 MG TABLET (FP) PO SCH ×2 (10:35→21:31)
[2021-10-11] MEDS: FOLIC ACID 1 MG TABLET (FP) PO SCH (10:35)
[2021-10-11] MEDS: NYSTATIN POWDER 100,000 UNITS/GM - 15 GM TOPICAL POWDER TP SCH ×2 (10:36→21:31)
[2021-10-11] MEDS: BISACODYL 5 MG TABLET.DR (FP) PO SCH (10:36)
[2021-10-11] MEDS: ATORVASTATIN CA 80 MG TABLET (FP) PO SCH (21:31)
[2021-10-12 08:52] LABS: CALCIUM 7.9 mg/dL (8.5-10.1)
[2021-10-12 08:53] LABS: BLOOD UREA NITROGEN 41.9 mg/dL (7-18)
[2021-10-12 08:55] LABS: CREATININE 1.1 mg/dL (0.55-1.3)
[2021-10-12 08:56] LABS: HEMATOCRIT 29.6 % (35.4-49); HEMOGLOBIN 10.2 GM/dL (11.7-16.9); MCH 30.6 pg (25.7-33.7); MCHC 34.3 g/dl (32.0-35.9); MEAN CELL VOLUME 89.2 fl (80-96); MEAN PLT VOLUME 8.9 fl (7.5-11.1); PLATELET COUNT 39 10^3/uL (134-434); RBC 3.32 M/mm3 (4.00-5.60); RDW 20.6 % (11.9-15.9); WHITE BLOOD COUNT 4.8 K/mm3 (4.0-10.0)
[2021-10-12 08:57] LABS: BILIRUBIN,TOTAL 2.5 mg/dL (0.2-1); TOT PROT 5.9 g/dl (6.4-8.2)
[2021-10-12] MEDS: POLYETHYLENE GLYCOL (HEALTHYLAX) 3350 17 GM PACKET PO SCH (10:00)
[2021-10-12] MEDS: APIXABAN 5 MG TABLET PO SCH (10:00)
[2021-10-12] MEDS: BISACODYL 5 MG TABLET.DR (FP) PO SCH (10:00)
[2021-10-12] MEDS: FUROSEMIDE 40 MG TABLET (FP) PO SCH ×2 (10:00→21:15)
[2021-10-12] MEDS: FOLIC ACID 1 MG TABLET (FP) PO SCH (10:01)
[2021-10-12] MEDS: TAMSULOSIN HCL 0.4 MG CAP PO SCH (10:01)
[2021-10-12] MEDS: NYSTATIN POWDER 100,000 UNITS/GM - 15 GM TOPICAL POWDER TP SCH ×2 (10:01→21:15)
[2021-10-12] MEDS: PANTOPRAZOLE 40 MG TABLET PO SCH (10:01)
[2021-10-12] MEDS ORDERED: POLYETHYLENE GLYCOL (HEALTHYLAX) 3350 17 GM PACKET PO PRN (17:06)
[2021-10-12] MEDS: ATORVASTATIN CA 80 MG TABLET (FP) PO SCH (21:15)
[2021-10-13 07:54] LABS: HEMATOCRIT 28.7 % (35.4-49); HEMOGLOBIN 9.8 GM/dL (11.7-16.9); MCH 30.5 pg (25.7-33.7); MCHC 34.1 g/dl (32.0-35.9); MEAN CELL VOLUME 89.4 fl (80-96); MEAN PLT VOLUME 9.7 fl (7.5-11.1); PLATELET COUNT 45 10^3/uL (134-434); RBC 3.21 M/mm3 (4.00-5.60); WHITE BLOOD COUNT 4.4 K/mm3 (4.0-10.0)
[2021-10-13 08:21] LABS: BLOOD UREA NITROGEN 35.8 mg/dL (7-18); CALCIUM 7.8 mg/dL (8.5-10.1)
[2021-10-13 08:24] LABS: CREATININE 1.1 mg/dL (0.55-1.3)
[2021-10-13 08:25] LABS: TOT PROT 5.6 g/dl (6.4-8.2)
[2021-10-13 08:26] LABS: BILIRUBIN,TOTAL 2.4 mg/dL (0.2-1)
[2021-10-13] MEDS: TAMSULOSIN HCL 0.4 MG CAP PO SCH (09:11)
[2021-10-13] MEDS: PANTOPRAZOLE 40 MG TABLET PO SCH (09:12)
[2021-10-13] MEDS: FUROSEMIDE 40 MG TABLET (FP) PO SCH ×2 (09:12→15:07)
[2021-10-13] MEDS: APIXABAN 5 MG TABLET PO SCH ×2 (10:27→22:41)
[2021-10-13] MEDS: FOLIC ACID 1 MG TABLET (FP) PO SCH (10:27)
[2021-10-13] MEDS: NYSTATIN POWDER 100,000 UNITS/GM - 15 GM TOPICAL POWDER TP SCH ×2 (10:27→22:43)
[2021-10-13] MEDS: BISACODYL 5 MG TABLET.DR (FP) PO SCH (11:27)
[2021-10-13] MEDS ORDERED: POLYETHYLENE GLYCOL (HEALTHYLAX) 3350 17 GM PACKET PO PRN (12:36)
[2021-10-13] MEDS ORDERED: ACETAMINOPHEN 325 MG TABLET (FP) PO PRN (12:36)
[2021-10-13] MEDS ORDERED: guaiFENesin 200 MG/10 ML 10 ML UNIT-DOSE CUPS PO PRN (12:36)
[2021-10-13] MEDS ORDERED: POTASSIUM CHLORIDE TABS 10 MEQ TABLET.ER (FP) PO ONE (13:10)
[2021-10-13] MEDS: ATORVASTATIN CA 80 MG TABLET (FP) PO SCH (22:41)
[2021-10-14] MEDS: FUROSEMIDE 40 MG TABLET (FP) PO SCH ×2 (05:56→14:08)
[2021-10-14] MEDS: BISACODYL 5 MG TABLET.DR (FP) PO SCH (09:25)
[2021-10-14] MEDS: APIXABAN 5 MG TABLET PO SCH ×2 (09:25→22:08)
[2021-10-14] MEDS: NYSTATIN POWDER 100,000 UNITS/GM - 15 GM TOPICAL POWDER TP SCH ×2 (09:25→22:51)
[2021-10-14] MEDS: FOLIC ACID 1 MG TABLET (FP) PO SCH (09:25)
[2021-10-14] MEDS: TAMSULOSIN HCL 0.4 MG CAP PO SCH (09:25)
[2021-10-14] MEDS: PANTOPRAZOLE 40 MG TABLET PO SCH (09:26)
[2021-10-14 09:32] LABS: HEMATOCRIT 29.5 % (35.4-49); MCH 30.5 pg (25.7-33.7); MCHC 33.7 g/dl (32.0-35.9); MEAN CELL VOLUME 90.5 fl (80-96); MEAN PLT VOLUME 9.6 fl (7.5-11.1); PLATELET COUNT 52 10^3/uL (134-434); RBC 3.26 M/mm3 (4.00-5.60); WHITE BLOOD COUNT 4.1 K/mm3 (4.0-10.0)
[2021-10-14 09:51] LABS: CALCIUM 7.8 mg/dL (8.5-10.1)
[2021-10-14 09:53] LABS: CREATININE 1.1 mg/dL (0.55-1.3)
[2021-10-14 09:55] LABS: BILIRUBIN,TOTAL 2.7 mg/dL (0.2-1); TOT PROT 5.9 g/dl (6.4-8.2)
[2021-10-14] MEDS ORDERED: SPIRONOLACTONE 25 MG TABLET PO SCH (10:00)
[2021-10-14] MEDS ORDERED: POTASSIUM CHLORIDE TABS 20 MEQ TABLET.ER (FP) PO ONE (14:00)
[2021-10-14] MEDS: ATORVASTATIN CA 80 MG TABLET (FP) PO SCH (22:08)
[2021-10-15] MEDS: FUROSEMIDE 40 MG TABLET (FP) PO SCH (06:17)
[2021-10-15 06:30] LABS: ARTERIAL BLD GAS O2 SATURATION 96.9 % (95-98); ARTERIAL BLOOD GAS BASE EXCESS 11.6 mmol/L (-2-2); ARTERIAL BLOOD GAS pH 7.471 (7.350-7.450)
[2021-10-15 06:31] LABS: ALLENS TEST POSITIVE
[2021-10-15 08:28] LABS: HEMATOCRIT 27.7 % (35.4-49); HEMOGLOBIN 9.5 GM/dL (11.7-16.9); MCH 30.8 pg (25.7-33.7); MCHC 34.4 g/dl (32.0-35.9); MEAN CELL VOLUME 89.6 fl (80-96); MEAN PLT VOLUME 8.9 fl (7.5-11.1); PLATELET COUNT 63 10^3/uL (134-434); RDW 23.5 % (11.9-15.9); WHITE BLOOD COUNT 4.6 K/mm3 (4.0-10.0)
[2021-10-15 08:48] LABS: CALCIUM 7.9 mg/dL (8.5-10.1)
[2021-10-15 08:49] LABS: BLOOD UREA NITROGEN 24.3 mg/dL (7-18)
[2021-10-15 08:54] LABS: BILIRUBIN,TOTAL 2.4 mg/dL (0.2-1); TOT PROT 5.9 g/dl (6.4-8.2)
[2021-10-15] MEDS: TAMSULOSIN HCL 0.4 MG CAP PO SCH (09:32)
[2021-10-15] MEDS: PANTOPRAZOLE 40 MG TABLET PO SCH (09:32)
[2021-10-15] MEDS: BISACODYL 5 MG TABLET.DR (FP) PO SCH (09:32)
[2021-10-15] MEDS: FOLIC ACID 1 MG TABLET (FP) PO SCH (09:33)
[2021-10-15] MEDS: NYSTATIN POWDER 100,000 UNITS/GM - 15 GM TOPICAL POWDER TP SCH ×2 (09:33→21:47)
[2021-10-15] MEDS: APIXABAN 5 MG TABLET PO SCH ×2 (09:33→21:46)
[2021-10-15] MEDS ORDERED: POTASSIUM CHLORIDE TABS 20 MEQ TABLET.ER (FP) PO ONE ×2 (13:07→15:30)
[2021-10-15] MEDS: ATORVASTATIN CA 80 MG TABLET (FP) PO SCH (21:46)
[2021-10-16] MEDS: PANTOPRAZOLE 40 MG TABLET PO SCH (09:22)
[2021-10-16] MEDS: APIXABAN 5 MG TABLET PO SCH (09:22)
[2021-10-16] MEDS: BISACODYL 5 MG TABLET.DR (FP) PO SCH (09:22)
[2021-10-16] MEDS: TAMSULOSIN HCL 0.4 MG CAP PO SCH (09:23)
[2021-10-16] MEDS: FOLIC ACID 1 MG TABLET (FP) PO SCH (09:23)
[2021-10-16] MEDS: NYSTATIN POWDER 100,000 UNITS/GM - 15 GM TOPICAL POWDER TP SCH (09:23)
[2021-10-16] MEDS ORDERED: FUROSEMIDE 40 MG TABLET (FP) PO SCH ×2 (10:00→14:16)
[2021-10-16 10:30] LABS: HEMATOCRIT 29.3 % (35.4-49); HEMOGLOBIN 9.8 GM/dL (11.7-16.9); MCH 30.8 pg (25.7-33.7); MCHC 33.6 g/dl (32.0-35.9); MEAN CELL VOLUME 91.6 fl (80-96); MEAN PLT VOLUME 9.7 fl (7.5-11.1); PLATELET COUNT 84 10^3/uL (134-434); RBC 3.19 M/mm3 (4.00-5.60); WHITE BLOOD COUNT 4.2 K/mm3 (4.0-10.0)
[2021-10-16 10:38] LABS: ALBUMIN 2.2 g/dl (3.4-5.0); CALCIUM 8.1 mg/dL (8.5-10.1)
[2021-10-16 10:39] LABS: BLOOD UREA NITROGEN 18.6 mg/dL (7-18); MAGNESIUM 1.7 mg/dL (1.8-2.4)
[2021-10-16 10:41] LABS: CREATININE 0.9 mg/dL (0.55-1.3)
[2021-10-16 10:43] LABS: BILIRUBIN,TOTAL 2.6 mg/dL (0.2-1); TOT PROT 6.5 g/dl (6.4-8.2)
[2021-10-16] MEDS ORDERED: MAGNESIUM OXIDE 400 MG TABLET (FP) PO ONE (14:16)
[2021-10-16] MEDS ORDERED: POTASSIUM CHLORIDE TABS 20 MEQ TABLET.ER (FP) PO ONE (14:16)
[2021-10-16 17:03] VITALS: BP 126/71; PULSE 79; RESP 20; TEMP 97.6
== END 2021-10-16 17:45 | DRG 867 ==
LOC: JER 23:04 → JERBED 23:39 → J4W 09-16 22:39 → JICU 09-21 23:48 → J2W 09-25 21:55 → UNDODISIN 09-29 00:03 → J7W 10-13 12:59
PROVIDERS: ADMIT Internal Medicine; ATTEND Internal Medicine
DX: B60.09 Other babesiosis (principal); G93.41 Metabolic encephalopathy; I50.23 Acute on chronic systolic (congestive) heart failure; Z68.41 Body mass index [BMI] 40.0-44.9, adult; N17.9 Acute kidney failure, unspecified; I11.0 Hypertensive heart disease with heart failure; I25.10 Atherosclerotic heart disease of native coronary artery without angina pectoris; K21.9 Gastro-esophageal reflux disease without esophagitis; K59.00 Constipation, unspecified; I48.0 Paroxysmal atrial fibrillation; F10.10 Alcohol abuse, uncomplicated; E78.5 Hyperlipidemia, unspecified; D36.7 Benign neoplasm of other specified sites; D69.6 Thrombocytopenia, unspecified; F41.9 Anxiety disorder, unspecified; R50.9 Fever, unspecified; R68.0 Hypothermia, not associated with low environmental temperature; R41.82 Altered mental status, unspecified; I08.1 Rheumatic disorders of both mitral and tricuspid valves; E66.01 Morbid (severe) obesity due to excess calories; R16.2 Hepatomegaly with splenomegaly, not elsewhere classified; R41.0 Disorientation, unspecified; I27.20 Pulmonary hypertension, unspecified; Z86.73 Personal history of transient ischemic attack (TIA), and cerebral infarction without residual deficits; H50.89 Other specified strabismus; Z87.11 Personal history of peptic ulcer disease; Z95.810 Presence of automatic (implantable) cardiac defibrillator; Z95.1 Presence of aortocoronary bypass graft
CPT/HCPCS: 0241U-QW; 36415; 36600; 70450-TC; 71045-TC-FY; 76700-TC; 76856-TC; 80048; 80053; 80076; 80162; 81003; 82140; 82248; 82436; 82533; 82550; 82570; 82607; 82747; 82803; 82930; 82962; 83010; 83520; 83605; 83615; 83735; 83880; 84100; 84133; 84300; 84443; 84484; 85014; 85025; 85027; 85045; 85379; 85384; 85610; 85730; 86038; 86140; 86160; 86225; 86256; 86618; 86788; 86789; 86880; 87040; 87086; 87207; 87798; 87899; 88300-TC; 93005; 93010; 93306-TC; 93971; 94660; 97116-GP; 97161-GP; 99291; C9803-CS; U0003; U0005

== ENCOUNTER 2022-01-07 19:44 | Inpatient (IN) | payer OTHER ==
[2022-01-07] MEDS ORDERED: morphine CARPU-JECT 4 MG/1 ML DISP.SYRIN IVPUSH ONE (20:29)
[2022-01-07] MEDS ORDERED: MAG HYDROX/AL HYDROX/SIMETH -MYLANTA- ORAL SUSPENSION PO ONE (20:43)
[2022-01-07] MEDS ORDERED: FAMOTIDINE 20 MG/50 ML IVPB 20 MG/50 ML MG IVPB ONE ×2 (20:43→21:04)
[2022-01-07 20:51] LABS: BASO % 0.5 % (0-2.0); EOS % 0.7 % (0-4.5); HEMATOCRIT 43.9 % (35.4-49); HEMOGLOBIN 14.8 GM/dL (11.7-16.9); LYMPH % 18.9 % (8-40); MCH 31.1 pg (25.7-33.7); MCHC 33.6 g/dl (32.0-35.9); MEAN CELL VOLUME 92.5 fl (80-96); MEAN PLT VOLUME 7.8 fl (7.5-11.1); MONO % 11.1 % (3.8-10.2); NEUT % 68.8 % (42.8-82.8); PLATELET COUNT 174 10^3/uL (134-434); RBC 4.75 M/mm3 (4.00-5.60); RDW 13.4 % (11.9-15.9); WHITE BLOOD COUNT 8.3 K/mm3 (4.0-10.0)
[2022-01-07 20:58] LABS: INR 1.58 (0.83-1.09); PROTHROMBIN TIME (PATIENT) 18.3 SEC (9.7-13.0)
[2022-01-07] MEDS ORDERED: MAG HYDROX/AL HYDROX/SIMETH 30 ML UNIT-DOSE CUP ONE (21:04)
[2022-01-07] MEDS ORDERED: morphine SULFATE 4 MG/ML VIAL ONE (21:04)
[2022-01-07 21:06] LABS: ACTIVATED PTT 38.6 SECONDS (25.2-36.5)
[2022-01-07 21:18] LABS: ALBUMIN 3.5 g/dl (3.4-5.0); BLOOD UREA NITROGEN 19.6 mg/dL (7-18); CALCIUM 8.5 mg/dL (8.5-10.1); MAGNESIUM 2.2 mg/dL (1.8-2.4)
[2022-01-07 21:21] LABS: CREATININE 1.4 mg/dL (0.55-1.3)
[2022-01-07 21:23] LABS: BILIRUBIN,TOTAL 1.1 mg/dL (0.2-1); TOT PROT 7.7 g/dl (6.4-8.2)
[2022-01-07 21:26] LABS: N-TERMINAL BNP 1718.2 pg/ml (5-125)
[2022-01-07] MEDS ORDERED: FUROSEMIDE 40 MG/4 ML INJECTABLE VIAL IVPUSH ONE (23:23)
[2022-01-07] MEDS ORDERED: FUROSEMIDE 40 MG/4 ML INJECTABLE VIAL ONE (23:33)
[2022-01-07] MEDS ORDERED: ACETAMINOPHEN 1000 MG/100 ML BAG IVPB PRN (23:57)
[2022-01-07] MEDS ORDERED: POLYETHYLENE GLYCOL (HEALTHYLAX) 3350 17 GM PACKET PO PRN (23:58)
[2022-01-08 01:19] LABS: URINE APPEARANCE CLEAR; URINE BILIRUBIN NEGATIVE (NEGATIVE); URINE COLOR YELLOW; URINE GLUCOSE (UA) NEGATIVE (NEGATIVE); URINE KETONE NEGATIVE (NEGATIVE); URINE LEUK ESTERASE NEGATIVE (NEGATIVE); URINE NITRITE NEGATIVE (NEGATIVE); URINE PROTEIN TRACE (NEGATIVE); URINE UROBILINOGEN 0.2 mg/dL (0.2-1.0)
[2022-01-08] MEDS ORDERED: MAG HYDROX/AL HYDROX/SIMETH 30 ML UNIT-DOSE CUP PO PRN (02:11)
[2022-01-08] MEDS ORDERED: FUROSEMIDE 40 MG TABLET (FP) PO SCH (06:00)
[2022-01-08] MEDS ORDERED: FUROSEMIDE 40 MG TABLET (FP) ONE (06:31)
[2022-01-08 07:34] LABS: BASO % 0.3 % (0-2.0); EOS % 0.4 % (0-4.5); HEMATOCRIT 40.1 % (35.4-49); LYMPH % 18.5 % (8-40); MCH 31.6 pg (25.7-33.7); MCHC 34.8 g/dl (32.0-35.9); MEAN PLT VOLUME 7.9 fl (7.5-11.1); MONO % 14.1 % (3.8-10.2); NEUT % 66.7 % (42.8-82.8); PLATELET COUNT 167 10^3/uL (134-434); RBC 4.41 M/mm3 (4.00-5.60); RDW 13.2 % (11.9-15.9); WHITE BLOOD COUNT 8.2 K/mm3 (4.0-10.0)
[2022-01-08 07:52] LABS: CALCIUM 8.7 mg/dL (8.5-10.1)
[2022-01-08 07:53] LABS: BLOOD UREA NITROGEN 17.7 mg/dL (7-18)
[2022-01-08 07:56] LABS: CREATININE 0.9 mg/dL (0.55-1.3)
[2022-01-08] MEDS ORDERED: APIXABAN 5 MG TABLET ONE ×2 (09:51→21:02)
[2022-01-08] MEDS ORDERED: FOLIC ACID 1 MG TABLET (FP) ONE (09:51)
[2022-01-08] MEDS ORDERED: SPIRONOLACTONE 25 MG TABLET ONE (09:51)
[2022-01-08] MEDS ORDERED: LOSARTAN POTASSIUM 25 MG TABLET ONE (09:51)
[2022-01-08] MEDS ORDERED: TAMSULOSIN HCL 0.4 MG CAP ONE (09:51)
[2022-01-08] MEDS ORDERED: PANTOPRAZOLE 40 MG TABLET PO ONE (09:51)
[2022-01-08] MEDS ORDERED: PATIENT'S OWN MEDICATION (NON-FORMULARY) (Linaclotide [Linzess] 145 MCG Capsule) PO SCH (10:00)
[2022-01-08] MEDS: LOSARTAN POTASSIUM 25 MG TABLET PO SCH (10:04)
[2022-01-08] MEDS: APIXABAN 5 MG TABLET PO SCH ×2 (10:04→21:07)
[2022-01-08] MEDS: FOLIC ACID 1 MG TABLET (FP) PO SCH (10:04)
[2022-01-08] MEDS: TAMSULOSIN HCL 0.4 MG CAP PO SCH (10:04)
[2022-01-08] MEDS: PANTOPRAZOLE 40 MG TABLET PO SCH (10:04)
[2022-01-08] MEDS: SPIRONOLACTONE 25 MG TABLET PO SCH (10:05)
[2022-01-08] MEDS: FINASTERIDE 5 MG TABLET (FP) PO SCH (11:15)
[2022-01-08] MEDS: BISACODYL 5 MG TABLET.DR (FP) PO SCH (11:15)
[2022-01-08] MEDS ORDERED: FUROSEMIDE 40 MG/4 ML INJECTABLE VIAL ONE (12:30)
[2022-01-08] MEDS: FUROSEMIDE 40 MG/4 ML INJECTABLE VIAL IVPUSH SCH (12:32)
[2022-01-08] MEDS ORDERED: ATORVASTATIN CA 40 MG TABLET (FP) ONE (21:02)
[2022-01-08] MEDS: ATORVASTATIN CA 40 MG TABLET (FP) PO SCH (21:07)
[2022-01-08] MEDS ORDERED: ACETAMINOPHEN 325 MG TABLET (FP) PO PRN (23:48)
[2022-01-09 02:24] VITALS: BMI 40.6
[2022-01-09] MEDS: FUROSEMIDE 40 MG/4 ML INJECTABLE VIAL IVPUSH SCH ×2 (06:30→13:59)
[2022-01-09] MEDS: TAMSULOSIN HCL 0.4 MG CAP PO SCH (08:00)
[2022-01-09 08:05] VITALS: RESP 18
[2022-01-09] MEDS: PANTOPRAZOLE 40 MG TABLET PO SCH (09:25)
[2022-01-09] MEDS: LOSARTAN POTASSIUM 25 MG TABLET PO SCH (09:25)
[2022-01-09] MEDS: CEFTRIAXONE 1 GM in DEXTROSE 5%-WATER - 50 ML IVPB SCH (09:25)
[2022-01-09] MEDS: SPIRONOLACTONE 25 MG TABLET PO SCH (09:25)
[2022-01-09] MEDS: APIXABAN 5 MG TABLET PO SCH ×2 (09:25→21:42)
[2022-01-09] MEDS: AZITHROMYCIN 250 MG TABLET PO SCH (09:25)
[2022-01-09] MEDS: FINASTERIDE 5 MG TABLET (FP) PO SCH (09:25)
[2022-01-09] MEDS: FOLIC ACID 1 MG TABLET (FP) PO SCH (09:28)
[2022-01-09] MEDS ORDERED: PNEUMOC 20-VAL CONJ-DIP CRM/PF 0.5 ML SYRINGE IM ONE (10:00)
[2022-01-09] MEDS ORDERED: FLU VACC QS2022-23(6MOS UP)/PF 60 MCG/0.5 ML SYRINGE IM ONE (10:00)
[2022-01-09] MEDS: BISACODYL 5 MG TABLET.DR (FP) PO SCH (10:28)
[2022-01-09] MEDS: ATORVASTATIN CA 40 MG TABLET (FP) PO SCH (21:42)
[2022-01-10] MEDS: FUROSEMIDE 40 MG/4 ML INJECTABLE VIAL IVPUSH SCH ×2 (06:44→14:48)
[2022-01-10] MEDS: TAMSULOSIN HCL 0.4 MG CAP PO SCH (08:04)
[2022-01-10] MEDS: CEFTRIAXONE 1 GM in DEXTROSE 5%-WATER - 50 ML IVPB SCH (09:38)
[2022-01-10] MEDS: PANTOPRAZOLE 40 MG TABLET PO SCH (09:39)
[2022-01-10] MEDS: FINASTERIDE 5 MG TABLET (FP) PO SCH (09:39)
[2022-01-10] MEDS: BISACODYL 5 MG TABLET.DR (FP) PO SCH (09:39)
[2022-01-10] MEDS: APIXABAN 5 MG TABLET PO SCH ×2 (09:39→21:33)
[2022-01-10] MEDS: FOLIC ACID 1 MG TABLET (FP) PO SCH (09:39)
[2022-01-10] MEDS: AZITHROMYCIN 250 MG TABLET PO SCH (09:39)
[2022-01-10] MEDS: SPIRONOLACTONE 25 MG TABLET PO SCH (09:40)
[2022-01-10] MEDS: LOSARTAN POTASSIUM 25 MG TABLET PO SCH (10:44)
[2022-01-10] MEDS: ATORVASTATIN CA 40 MG TABLET (FP) PO SCH (21:33)
[2022-01-11] MEDS: FUROSEMIDE 40 MG/4 ML INJECTABLE VIAL IVPUSH SCH ×2 (06:29→15:30)
[2022-01-11 08:03] LABS: HEMATOCRIT 42.2 % (35.4-49); HEMOGLOBIN 14.1 GM/dL (11.7-16.9); MCH 30.2 pg (25.7-33.7); MCHC 33.5 g/dl (32.0-35.9); MEAN CELL VOLUME 90.1 fl (80-96); MEAN PLT VOLUME 8.3 fl (7.5-11.1); PLATELET COUNT 205 10^3/uL (134-434); RBC 4.68 M/mm3 (4.00-5.60); RDW 13.5 % (11.9-15.9); WHITE BLOOD COUNT 5.7 K/mm3 (4.0-10.0)
[2022-01-11 08:35] LABS: ALBUMIN 3.3 g/dl (3.4-5.0); BLOOD UREA NITROGEN 28.2 mg/dL (7-18); CALCIUM 8.9 mg/dL (8.5-10.1)
[2022-01-11 08:40] LABS: TOT PROT 7.3 g/dl (6.4-8.2)
[2022-01-11] MEDS ORDERED: POTASSIUM CHLORIDE TABS 20 MEQ TABLET.ER (FP) PO ONE (08:45)
[2022-01-11] MEDS: FINASTERIDE 5 MG TABLET (FP) PO SCH (09:26)
[2022-01-11] MEDS: PANTOPRAZOLE 40 MG TABLET PO SCH (09:26)
[2022-01-11] MEDS: LOSARTAN POTASSIUM 25 MG TABLET PO SCH (09:26)
[2022-01-11] MEDS: AZITHROMYCIN 250 MG TABLET PO SCH (09:26)
[2022-01-11] MEDS: CEFTRIAXONE 1 GM in DEXTROSE 5%-WATER - 50 ML IVPB SCH (09:26)
[2022-01-11] MEDS: BISACODYL 5 MG TABLET.DR (FP) PO SCH (09:26)
[2022-01-11] MEDS: FOLIC ACID 1 MG TABLET (FP) PO SCH (09:26)
[2022-01-11] MEDS: SPIRONOLACTONE 25 MG TABLET PO SCH (09:26)
[2022-01-11] MEDS: APIXABAN 5 MG TABLET PO SCH (09:26)
[2022-01-11] MEDS: TAMSULOSIN HCL 0.4 MG CAP PO SCH (09:27)
[2022-01-11 15:27] VITALS: BP 114/67; PULSE 88; TEMP 98.1
== END 2022-01-11 16:16 | disposition home or self-care (01) | DRG 292 ==
LOC: JER 19:44 → JERBED 23:08 → J4W 01-09 00:24
PROVIDERS: ADMIT Internal Medicine; ATTEND Internal Medicine
DX: I50.23 Acute on chronic systolic (congestive) heart failure (principal); J90 Pleural effusion, not elsewhere classified; N17.9 Acute kidney failure, unspecified; Z68.41 Body mass index [BMI] 40.0-44.9, adult; E78.5 Hyperlipidemia, unspecified; K21.9 Gastro-esophageal reflux disease without esophagitis; I25.10 Atherosclerotic heart disease of native coronary artery without angina pectoris; Z95.1 Presence of aortocoronary bypass graft; E66.9 Obesity, unspecified
CPT/HCPCS: 0241U-QW; 36415; 71045-TC-FY; 71046-TC-FY; 71250-TC; 74177-TC; 80048; 80053; 81003; 83605; 83690; 83735; 83880; 84484; 85025; 85027; 85610; 85730; 86850; 86900; 86901; 87086; 90677; 93005; 93010; 99285-25; Q2036

== ENCOUNTER 2022-01-19 22:42 | Inpatient (IN) | payer OTHER ==
[2022-01-19 22:45] VITALS: BMI 22.9
[2022-01-19] MEDS ORDERED: FUROSEMIDE 40 MG/4 ML INJECTABLE VIAL IVPUSH ONE (23:07)
[2022-01-19] MEDS ORDERED: FUROSEMIDE 40 MG/4 ML INJECTABLE VIAL ONE (23:21)
[2022-01-19 23:47] LABS: BASO % 0.4 % (0-2.0); EOS % 0.4 % (0-4.5); HEMATOCRIT 45.2 % (35.4-49); HEMOGLOBIN 15.1 GM/dL (11.7-16.9); LYMPH % 18.5 % (8-40); MCH 30.2 pg (25.7-33.7); MCHC 33.5 g/dl (32.0-35.9); MEAN CELL VOLUME 90.2 fl (80-96); MEAN PLT VOLUME 8.5 fl (7.5-11.1); MONO % 11.2 % (3.8-10.2); NEUT % 69.5 % (42.8-82.8); PLATELET COUNT 217 10^3/uL (134-434); RBC 5.01 M/mm3 (4.00-5.60); RDW 13.8 % (11.9-15.9); WHITE BLOOD COUNT 8.3 K/mm3 (4.0-10.0)
[2022-01-19 23:49] LABS: VENOUS BASE EXCESS 2.3 mmol/L (-2-2); VENOUS O2 SATURATION 92.7 % (70-80); VENOUS PCO2 44.5 mmHg (38-52); VENOUS PH 7.408 (7.310-7.410)
[2022-01-19 23:57] LABS: INR 1.73 (0.83-1.09)
[2022-01-20 00:31] LABS: BLOOD UREA NITROGEN 25.7 mg/dL (7-18); CALCIUM 9.2 mg/dL (8.5-10.1)
[2022-01-20 00:32] LABS: ALBUMIN 3.8 g/dl (3.4-5.0)
[2022-01-20] MEDS ORDERED: DEXAMETHASONE SOD PHOSPHATE 10 MG/1 ML VIAL IVPUSH ONE (00:34)
[2022-01-20 00:35] LABS: CREATININE 1.3 mg/dL (0.55-1.3)
[2022-01-20 00:36] LABS: BILIRUBIN,TOTAL 1.2 mg/dL (0.2-1); TOT PROT 8.1 g/dl (6.4-8.2)
[2022-01-20] MEDS ORDERED: DEXAMETHASONE SOD PHOSPHATE 10 MG/1 ML VIAL ONE (00:39)
[2022-01-20] MEDS ORDERED: AZITHROMYCIN IVPB 500 MG in DEXTROSE 5%-WATER - 250 ML IVPB ONE (01:07)
[2022-01-20 01:09] LABS: URINE APPEARANCE CLEAR; URINE BILIRUBIN NEGATIVE (NEGATIVE); URINE COLOR YELLOW; URINE GLUCOSE (UA) NEGATIVE (NEGATIVE); URINE KETONE NEGATIVE (NEGATIVE); URINE LEUK ESTERASE NEGATIVE (NEGATIVE); URINE NITRITE NEGATIVE (NEGATIVE); URINE PROTEIN NEGATIVE (NEGATIVE); URINE UROBILINOGEN 0.2 mg/dL (0.2-1.0)
[2022-01-20] MEDS ORDERED: AZITHROMYCIN IVPB 500 MG/250 ML BAG IVPB ONE (01:17)
[2022-01-20 02:11] LABS: N-TERMINAL BNP 1504.1 pg/ml (5-125)
[2022-01-20] MEDS ORDERED: ALBUTEROL SO4 2.5/IPRATROPIUM 0.5 INH SOL 3 ML VIAL.NEB. NEB ONE ×2 (05:46→14:12)
[2022-01-20] MEDS ORDERED: CEFTRIAXONE 1 GM/50 ML BAG ONE (05:46)
[2022-01-20] MEDS: ALBUTEROL SO4 2.5/IPRATROPIUM 0.5 INH SOL 3 ML VIAL.NEB. NEB SCH ×4 (05:53→16:49)
[2022-01-20] MEDS: CEFTRIAXONE 1 GM in DEXTROSE 5%-WATER - 50 ML IVPB SCH (05:53)
[2022-01-20] MEDS ORDERED: REMDESIVIR 200 MG in SODIUM CHLORIDE 250 ML IVPB ONE (06:00)
[2022-01-20] MEDS ORDERED: FUROSEMIDE 40 MG/4 ML INJECTABLE VIAL ONE ×2 (06:49→14:12)
[2022-01-20] MEDS: FUROSEMIDE 40 MG/4 ML INJECTABLE VIAL IVPUSH SCH ×2 (06:53→14:18)
[2022-01-20 07:06] LABS: BASO % 0.2 % (0-2.0); HEMATOCRIT 42.6 % (35.4-49); HEMOGLOBIN 14.3 GM/dL (11.7-16.9); LYMPH % 9.8 % (8-40); MCHC 33.5 g/dl (32.0-35.9); MEAN CELL VOLUME 89.5 fl (80-96); MEAN PLT VOLUME 8.1 fl (7.5-11.1); MONO % 1.7 % (3.8-10.2); NEUT % 88.3 % (42.8-82.8); PLATELET COUNT 190 10^3/uL (134-434); RBC 4.76 M/mm3 (4.00-5.60); RDW 13.9 % (11.9-15.9); WHITE BLOOD COUNT 7.7 K/mm3 (4.0-10.0)
[2022-01-20 07:23] LABS: CALCIUM 9.1 mg/dL (8.5-10.1)
[2022-01-20 07:24] LABS: ALBUMIN 3.7 g/dl (3.4-5.0); BLOOD UREA NITROGEN 23.8 mg/dL (7-18)
[2022-01-20 07:27] LABS: CREATININE 1.1 mg/dL (0.55-1.3); PHOSPHOROUS 3.9 mg/dL (2.5-4.9)
[2022-01-20 07:28] LABS: TOT PROT 7.9 g/dl (6.4-8.2)
[2022-01-20 07:29] LABS: BILIRUBIN,TOTAL 1.7 mg/dL (0.2-1)
[2022-01-20 08:35] LABS: ARTERIAL BLOOD GAS BASE EXCESS 4.5 mmol/L (-2-2); ARTERIAL BLOOD GAS PO2 107.1 mmHg (80-100); ARTERIAL BLOOD GAS pH 7.427 (7.350-7.450)
[2022-01-20 08:36] LABS: ALLENS TEST POSITIVE
[2022-01-20] MEDS ORDERED: PANTOPRAZOLE 40 MG TABLET PO ONE (09:02)
[2022-01-20] MEDS ORDERED: FOLIC ACID 1 MG TABLET (FP) ONE (09:02)
[2022-01-20] MEDS ORDERED: DEXAMETHASONE SOD PHOSPHATE 10 MG/1 ML VIAL IVPUSH SCH (10:00)
[2022-01-20] MEDS: BISACODYL 5 MG TABLET.DR (FP) PO SCH (10:25)
[2022-01-20] MEDS: SPIRONOLACTONE 25 MG TABLET PO SCH (10:25)
[2022-01-20] MEDS: FOLIC ACID 1 MG TABLET (FP) PO SCH (10:25)
[2022-01-20] MEDS: APIXABAN 5 MG TABLET PO SCH ×2 (10:25→21:57)
[2022-01-20] MEDS: LOSARTAN POTASSIUM 25 MG TABLET PO SCH (10:25)
[2022-01-20] MEDS: TAMSULOSIN HCL 0.4 MG CAP PO SCH (10:25)
[2022-01-20] MEDS: POLYETHYLENE GLYCOL (HEALTHYLAX) 3350 17 GM PACKET PO SCH (10:25)
[2022-01-20] MEDS: FINASTERIDE 5 MG TABLET (FP) PO SCH (10:25)
[2022-01-20] MEDS: PANTOPRAZOLE 40 MG TABLET PO SCH (10:26)
[2022-01-20] MEDS ORDERED: ATORVASTATIN CA 40 MG TABLET (FP) ONE (20:19)
[2022-01-20] MEDS ORDERED: APIXABAN 5 MG TABLET ONE (20:19)
[2022-01-20] MEDS: ATORVASTATIN CA 40 MG TABLET (FP) PO SCH (21:57)
[2022-01-21] MEDS ORDERED: FUROSEMIDE 40 MG/4 ML INJECTABLE VIAL ONE ×2 (03:47→14:11)
[2022-01-21] MEDS: FUROSEMIDE 40 MG/4 ML INJECTABLE VIAL IVPUSH SCH ×2 (05:14→14:23)
[2022-01-21] MEDS: ALBUTEROL SO4 2.5/IPRATROPIUM 0.5 INH SOL 3 ML VIAL.NEB. NEB SCH ×7 (07:43→20:41)
[2022-01-21] MEDS ORDERED: DEXAMETHASONE SOD PHOSPHATE 4 MG/1 ML VIAL ONE (08:07)
[2022-01-21] MEDS ORDERED: APIXABAN 5 MG TABLET ONE ×2 (08:07→22:23)
[2022-01-21] MEDS ORDERED: ALBUTEROL SO4 2.5/IPRATROPIUM 0.5 INH SOL 3 ML VIAL.NEB. NEB ONE ×3 (08:07→15:23)
[2022-01-21] MEDS ORDERED: PANTOPRAZOLE 40 MG TABLET PO ONE (08:07)
[2022-01-21] MEDS ORDERED: POLYETHYLENE GLYCOL (HEALTHYLAX) 3350 17 GM PACKET ONE (08:07)
[2022-01-21] MEDS ORDERED: LOSARTAN POTASSIUM 25 MG TABLET ONE (08:07)
[2022-01-21] MEDS ORDERED: FOLIC ACID 1 MG TABLET (FP) ONE (08:07)
[2022-01-21] MEDS ORDERED: TAMSULOSIN HCL 0.4 MG CAP ONE (08:08)
[2022-01-21] MEDS ORDERED: SPIRONOLACTONE 25 MG TABLET ONE (08:08)
[2022-01-21] MEDS ORDERED: CEFTRIAXONE 1 GM/50 ML BAG ONE (08:08)
[2022-01-21] MEDS: CEFTRIAXONE 1 GM in DEXTROSE 5%-WATER - 50 ML IVPB SCH (09:15)
[2022-01-21] MEDS: SPIRONOLACTONE 25 MG TABLET PO SCH (09:15)
[2022-01-21] MEDS: TAMSULOSIN HCL 0.4 MG CAP PO SCH (09:15)
[2022-01-21] MEDS: APIXABAN 5 MG TABLET PO SCH ×2 (09:16→22:31)
[2022-01-21] MEDS: PANTOPRAZOLE 40 MG TABLET PO SCH (09:16)
[2022-01-21] MEDS: POLYETHYLENE GLYCOL (HEALTHYLAX) 3350 17 GM PACKET PO SCH (09:16)
[2022-01-21] MEDS: FINASTERIDE 5 MG TABLET (FP) PO SCH (09:16)
[2022-01-21] MEDS: DEXAMETHASONE SOD PHOSPHATE 10 MG/1 ML VIAL IVPUSH SCH (09:16)
[2022-01-21] MEDS: BISACODYL 5 MG TABLET.DR (FP) PO SCH (09:16)
[2022-01-21] MEDS: LOSARTAN POTASSIUM 25 MG TABLET PO SCH (09:16)
[2022-01-21] MEDS: FOLIC ACID 1 MG TABLET (FP) PO SCH (09:16)
[2022-01-21] MEDS: REMDESIVIR 100 MG in SODIUM CHLORIDE 250 ML IVPB SCH (11:56)
[2022-01-21] MEDS ORDERED: ATORVASTATIN CA 40 MG TABLET (FP) ONE (22:23)
[2022-01-21] MEDS: ATORVASTATIN CA 40 MG TABLET (FP) PO SCH (22:31)
[2022-01-22] MEDS: ALBUTEROL SO4 2.5/IPRATROPIUM 0.5 INH SOL 3 ML VIAL.NEB. NEB SCH ×5 (00:10→20:05)
[2022-01-22] MEDS ORDERED: FUROSEMIDE 40 MG/4 ML INJECTABLE VIAL ONE (04:25)
[2022-01-22] MEDS: FUROSEMIDE 40 MG/4 ML INJECTABLE VIAL IVPUSH SCH ×2 (05:31→15:24)
[2022-01-22] MEDS: TAMSULOSIN HCL 0.4 MG CAP PO SCH (08:50)
[2022-01-22] MEDS ORDERED: ALBUTEROL SO4 2.5/IPRATROPIUM 0.5 INH SOL 3 ML VIAL.NEB. NEB ONE (08:54)
[2022-01-22] MEDS ORDERED: TAMSULOSIN HCL 0.4 MG CAP ONE (08:54)
[2022-01-22] MEDS: LOSARTAN POTASSIUM 25 MG TABLET PO SCH (12:00)
[2022-01-22] MEDS: SPIRONOLACTONE 25 MG TABLET PO SCH (12:00)
[2022-01-22] MEDS: POLYETHYLENE GLYCOL (HEALTHYLAX) 3350 17 GM PACKET PO SCH (12:00)
[2022-01-22] MEDS: DEXAMETHASONE SOD PHOSPHATE 10 MG/1 ML VIAL IVPUSH SCH (12:00)
[2022-01-22] MEDS: APIXABAN 5 MG TABLET PO SCH ×2 (12:00→21:58)
[2022-01-22] MEDS: FOLIC ACID 1 MG TABLET (FP) PO SCH (12:00)
[2022-01-22] MEDS: BISACODYL 5 MG TABLET.DR (FP) PO SCH (12:00)
[2022-01-22] MEDS: FINASTERIDE 5 MG TABLET (FP) PO SCH (12:00)
[2022-01-22] MEDS: PANTOPRAZOLE 40 MG TABLET PO SCH (12:00)
[2022-01-22] MEDS ORDERED: FOLIC ACID 1 MG TABLET (FP) ONE (12:03)
[2022-01-22] MEDS ORDERED: PANTOPRAZOLE 40 MG TABLET PO ONE (12:03)
[2022-01-22] MEDS ORDERED: LOSARTAN POTASSIUM 25 MG TABLET ONE (12:03)
[2022-01-22] MEDS ORDERED: DEXAMETHASONE SOD PHOSPHATE 10 MG/1 ML VIAL ONE (12:03)
[2022-01-22] MEDS ORDERED: POLYETHYLENE GLYCOL (HEALTHYLAX) 3350 17 GM PACKET ONE (12:03)
[2022-01-22] MEDS ORDERED: APIXABAN 5 MG TABLET ONE (12:03)
[2022-01-22] MEDS ORDERED: SPIRONOLACTONE 25 MG TABLET ONE (12:04)
[2022-01-22] MEDS: REMDESIVIR 100 MG in SODIUM CHLORIDE 250 ML IVPB SCH (12:10)
[2022-01-22] MEDS ORDERED: CEFTRIAXONE 1 GM/50 ML BAG ONE (13:40)
[2022-01-22] MEDS: CEFTRIAXONE 1 GM in DEXTROSE 5%-WATER - 50 ML IVPB SCH (13:43)
[2022-01-22] MEDS: ATORVASTATIN CA 40 MG TABLET (FP) PO SCH (21:58)
[2022-01-23] MEDS: ALBUTEROL SO4 2.5/IPRATROPIUM 0.5 INH SOL 3 ML VIAL.NEB. NEB SCH ×7 (04:00→23:20)
[2022-01-23] MEDS: FUROSEMIDE 40 MG/4 ML INJECTABLE VIAL IVPUSH SCH ×2 (05:45→13:40)
[2022-01-23 07:17] LABS: BASO % 0.1 % (0-2.0); HEMATOCRIT 44.4 % (35.4-49); HEMOGLOBIN 14.6 GM/dL (11.7-16.9); LYMPH % 12.6 % (8-40); MCH 29.6 pg (25.7-33.7); MEAN CELL VOLUME 89.9 fl (80-96); MEAN PLT VOLUME 8.2 fl (7.5-11.1); MONO % 9.7 % (3.8-10.2); NEUT % 77.6 % (42.8-82.8); PLATELET COUNT 193 10^3/uL (134-434); RBC 4.94 M/mm3 (4.00-5.60); RDW 14.1 % (11.9-15.9); WHITE BLOOD COUNT 8.8 K/mm3 (4.0-10.0)
[2022-01-23 07:42] LABS: CALCIUM 8.6 mg/dL (8.5-10.1)
[2022-01-23 07:43] LABS: ALBUMIN 3.2 g/dl (3.4-5.0); BLOOD UREA NITROGEN 37.9 mg/dL (7-18)
[2022-01-23 07:47] LABS: BILIRUBIN,TOTAL 1.2 mg/dL (0.2-1); TOT PROT 7.2 g/dl (6.4-8.2)
[2022-01-23] MEDS: LOSARTAN POTASSIUM 25 MG TABLET PO SCH (09:55)
[2022-01-23] MEDS: APIXABAN 5 MG TABLET PO SCH ×2 (09:55→22:04)
[2022-01-23] MEDS: FINASTERIDE 5 MG TABLET (FP) PO SCH (09:55)
[2022-01-23] MEDS: DEXAMETHASONE SOD PHOSPHATE 10 MG/1 ML VIAL IVPUSH SCH (09:55)
[2022-01-23] MEDS: FOLIC ACID 1 MG TABLET (FP) PO SCH (09:55)
[2022-01-23] MEDS: PANTOPRAZOLE 40 MG TABLET PO SCH (09:55)
[2022-01-23] MEDS: TAMSULOSIN HCL 0.4 MG CAP PO SCH (09:55)
[2022-01-23] MEDS: SPIRONOLACTONE 25 MG TABLET PO SCH (09:55)
[2022-01-23] MEDS: BISACODYL 5 MG TABLET.DR (FP) PO SCH (09:55)
[2022-01-23] MEDS: POLYETHYLENE GLYCOL (HEALTHYLAX) 3350 17 GM PACKET PO SCH (09:56)
[2022-01-23] MEDS: REMDESIVIR 100 MG in SODIUM CHLORIDE 250 ML IVPB SCH (09:56)
[2022-01-23] MEDS: CEFTRIAXONE 1 GM in DEXTROSE 5%-WATER - 50 ML IVPB SCH (09:56)
[2022-01-23 14:54] VITALS: RESP 20
[2022-01-23] MEDS: ATORVASTATIN CA 40 MG TABLET (FP) PO SCH (22:04)
[2022-01-24] MEDS: ALBUTEROL SO4 2.5/IPRATROPIUM 0.5 INH SOL 3 ML VIAL.NEB. NEB SCH ×5 (05:05→20:05)
[2022-01-24] MEDS: FUROSEMIDE 40 MG/4 ML INJECTABLE VIAL IVPUSH SCH ×2 (06:23→14:45)
[2022-01-24 08:32] LABS: HEMATOCRIT 44.9 % (35.4-49); HEMOGLOBIN 15.1 GM/dL (11.7-16.9); MCH 29.7 pg (25.7-33.7); MCHC 33.6 g/dl (32.0-35.9); MEAN CELL VOLUME 88.4 fl (80-96); MEAN PLT VOLUME 8.2 fl (7.5-11.1); PLATELET COUNT 196 10^3/uL (134-434); RBC 5.08 M/mm3 (4.00-5.60); RDW 14.3 % (11.9-15.9); WHITE BLOOD COUNT 8.7 K/mm3 (4.0-10.0)
[2022-01-24 08:41] LABS: ALBUMIN 3.2 g/dl (3.4-5.0); BLOOD UREA NITROGEN 34.4 mg/dL (7-18); CALCIUM 8.5 mg/dL (8.5-10.1)
[2022-01-24 08:44] LABS: CREATININE 0.9 mg/dL (0.55-1.3)
[2022-01-24 08:46] LABS: BILIRUBIN,TOTAL 0.9 mg/dL (0.2-1); TOT PROT 7.3 g/dl (6.4-8.2)
[2022-01-24] MEDS: FINASTERIDE 5 MG TABLET (FP) PO SCH (10:41)
[2022-01-24] MEDS: TAMSULOSIN HCL 0.4 MG CAP PO SCH (10:41)
[2022-01-24] MEDS: CEFTRIAXONE 1 GM in DEXTROSE 5%-WATER - 50 ML IVPB SCH (10:42)
[2022-01-24] MEDS: APIXABAN 5 MG TABLET PO SCH ×2 (10:42→21:40)
[2022-01-24] MEDS: SPIRONOLACTONE 25 MG TABLET PO SCH (10:42)
[2022-01-24] MEDS: BISACODYL 5 MG TABLET.DR (FP) PO SCH (10:42)
[2022-01-24] MEDS: PANTOPRAZOLE 40 MG TABLET PO SCH (10:42)
[2022-01-24] MEDS: FOLIC ACID 1 MG TABLET (FP) PO SCH (10:42)
[2022-01-24] MEDS: DEXAMETHASONE SOD PHOSPHATE 10 MG/1 ML VIAL IVPUSH SCH (10:42)
[2022-01-24] MEDS: REMDESIVIR 100 MG in SODIUM CHLORIDE 250 ML IVPB SCH (10:44)
[2022-01-24] MEDS: POLYETHYLENE GLYCOL (HEALTHYLAX) 3350 17 GM PACKET PO SCH (10:45)
[2022-01-24] MEDS: ATORVASTATIN CA 40 MG TABLET (FP) PO SCH (21:40)
[2022-01-24] MEDS: SACUBITRIL/VALSARTAN 24 MG-26 MG TABLET PO SCH (21:42)
[2022-01-25] MEDS: ALBUTEROL SO4 2.5/IPRATROPIUM 0.5 INH SOL 3 ML VIAL.NEB. NEB SCH ×2 (00:09→04:00)
[2022-01-25] MEDS: FUROSEMIDE 40 MG/4 ML INJECTABLE VIAL IVPUSH SCH ×2 (06:39→13:51)
[2022-01-25 08:52] LABS: BLOOD UREA NITROGEN 35.5 mg/dL (7-18); CALCIUM 8.8 mg/dL (8.5-10.1)
[2022-01-25] MEDS: CEFTRIAXONE 1 GM in DEXTROSE 5%-WATER - 50 ML IVPB SCH (09:50)
[2022-01-25] MEDS: PANTOPRAZOLE 40 MG TABLET PO SCH (09:51)
[2022-01-25] MEDS: FINASTERIDE 5 MG TABLET (FP) PO SCH (09:51)
[2022-01-25] MEDS: SPIRONOLACTONE 25 MG TABLET PO SCH (09:51)
[2022-01-25] MEDS: APIXABAN 5 MG TABLET PO SCH (09:51)
[2022-01-25] MEDS: SACUBITRIL/VALSARTAN 24 MG-26 MG TABLET PO SCH (09:51)
[2022-01-25] MEDS: BISACODYL 5 MG TABLET.DR (FP) PO SCH (09:51)
[2022-01-25] MEDS: TAMSULOSIN HCL 0.4 MG CAP PO SCH (09:51)
[2022-01-25] MEDS: FOLIC ACID 1 MG TABLET (FP) PO SCH (09:51)
[2022-01-25] MEDS: DEXAMETHASONE SOD PHOSPHATE 10 MG/1 ML VIAL IVPUSH SCH (09:52)
[2022-01-25] MEDS: POLYETHYLENE GLYCOL (HEALTHYLAX) 3350 17 GM PACKET PO SCH (09:52)
[2022-01-25 13:52] VITALS: PULSE 87
[2022-01-25 15:37] VITALS: BP 125/80; TEMP 98.4
== END 2022-01-25 18:32 | disposition home or self-care (01) | DRG 177 ==
LOC: JER 22:42 → JERBED 01-20 01:13 → J4W 01-22 14:44
PROVIDERS: ADMIT Internal Medicine; ATTEND Internal Medicine
PROC: XW033E5 Introduction of Remdesivir Anti-infective into Peripheral Vein, Percutaneous Approach, New Technology Group 5 (ICD-10-PCS; principal; 2022-01-19)
DX: U07.1 COVID-19 (principal); I50.23 Acute on chronic systolic (congestive) heart failure; J96.01 Acute respiratory failure with hypoxia; E78.5 Hyperlipidemia, unspecified; I48.91 Unspecified atrial fibrillation; Z95.0 Presence of cardiac pacemaker; I25.10 Atherosclerotic heart disease of native coronary artery without angina pectoris; Z95.1 Presence of aortocoronary bypass graft; I11.0 Hypertensive heart disease with heart failure; E66.9 Obesity, unspecified; Z68.34 Body mass index [BMI] 34.0-34.9, adult; K21.9 Gastro-esophageal reflux disease without esophagitis
CPT/HCPCS: 0241U-QW; 36415; 36600; 71045-TC-FY; 71250-TC; 80048; 80053; 81003; 82728; 82803; 83036; 83605; 83735; 83880; 84100; 84484; 85025; 85027; 85610; 86140; 87040; 87086; 93005; 93010; 94640; 99285-25; C9399; J1100

== ENCOUNTER 2024-06-19 09:13 | Inpatient (IN) | payer OTHER ==
[2024-06-19 09:28] VITALS: BMI 44.4
[2024-06-19 10:02] LABS: ABSOLUTE IMMATURE GRANULOCYTES 0.07 x10^3/uL (0.0-0.031); BASOPHILS # 0.08 x10^3/uL (0.01-0.08); EOSINOPHIL % 0.8 % (0.8-7.0); EOSINOPHILS # 0.08 x10^3/uL (0.04-0.54); HEMATOCRIT 51.5 % (40.1-51.0); HEMOGLOBIN 17.4 g/dL (13.7-17.5); MCHC 33.8 g/dl (32.3-36.5); MEAN CELL VOLUME 89.7 fl (79.0-92.2); MEAN PLT VOLUME 9.3 fl (9.4-12.4); MONOCYTE # 1.34 x10^3/uL (0.30-0.82); MONOCYTE % 13.7 % (5.3-12.2); PLATELET COUNT 257 x10^3/uL (163-337); RDW 14.2 % (12.2-16.4)
[2024-06-19 10:05] LABS: VENOUS BASE EXCESS -4.7 mmol/L (-2-2); VENOUS O2 SATURATION 65.1 % (70-80); VENOUS PCO2 39.7 mmHg (38-52); VENOUS PH 7.335 (7.310-7.410)
[2024-06-19 10:09] LABS: INR 1.35 (0.83-1.09); PROTHROMBIN TIME (PATIENT) 14.7 SEC (9.7-13.0)
[2024-06-19 10:27] LABS: CALCIUM 9.1 mg/dL (8.5-10.1)
[2024-06-19 10:28] LABS: ALBUMIN 3.6 g/dl (3.4-5.0); BLOOD UREA NITROGEN 16.6 mg/dL (7-18)
[2024-06-19 10:31] LABS: CREATININE 1.1 mg/dL (0.55-1.3)
[2024-06-19 10:32] LABS: BILIRUBIN,TOTAL 1.5 mg/dL (0.2-1)
[2024-06-19 10:33] LABS: TOT PROT 7.4 g/dl (6.4-8.2)
[2024-06-19 10:36] LABS: N-TERMINAL BNP 2420.4 pg/ml (5-125)
[2024-06-19] MEDS ORDERED: FUROSEMIDE 40 MG/4 ML INJECTABLE VIAL ONE (11:09)
[2024-06-19] MEDS: FUROSEMIDE 40 MG/4 ML INJECTABLE VIAL IVPUSH ONE (11:13)
[2024-06-19 14:27] LABS: MAGNESIUM 2.1 mg/dL (1.8-2.4)
[2024-06-19 14:31] LABS: PHOSPHOROUS 4.5 mg/dL (2.5-4.9)
[2024-06-19] MEDS: FUROSEMIDE 40 MG/4 ML INJECTABLE VIAL IVPUSH SCH (15:06)
[2024-06-19] MEDS ORDERED: LORazepam 2 MG/ML SDV VIAL IVPUSH PRN (19:00)
[2024-06-19] MEDS: ROSUVASTATIN CA 10 MG TABLET PO SCH (22:19)
[2024-06-19] MEDS: SACUBITRIL/VALSARTAN 24 MG-26 MG TABLET PO SCH (22:19)
[2024-06-19] MEDS: APIXABAN 5 MG TABLET PO SCH (22:19)
[2024-06-19] MEDS: ALBUTEROL SO4 2.5/IPRATROPIUM 0.5 INH SOL 3 ML VIAL.NEB. NEB ONE ×2 (23:19→23:23)
[2024-06-20] MEDS: EMPAGLIFLOZIN (JARDIANCE) 10 MG TABLET PO SCH (06:17)
[2024-06-20 07:38] LABS: ABSOLUTE IMMATURE GRANULOCYTES 0.02 x10^3/uL (0.0-0.031); BASOPHILS # 0.04 x10^3/uL (0.01-0.08); EOSINOPHILS # 0.09 x10^3/uL (0.04-0.54); HEMATOCRIT 47.3 % (40.1-51.0); HEMOGLOBIN 15.8 g/dL (13.7-17.5); MCHC 33.4 g/dl (32.3-36.5); MEAN CELL VOLUME 89.8 fl (79.0-92.2); MEAN PLT VOLUME 9.6 fl (9.4-12.4); MONOCYTE # 1.28 x10^3/uL (0.30-0.82); MONOCYTE % 14.3 % (5.3-12.2); PLATELET COUNT 210 x10^3/uL (163-337); RDW 14.3 % (12.2-16.4)
[2024-06-20 08:03] LABS: POTASSIUM 3.2 mmol/L (3.5-5.1)
[2024-06-20 08:06] LABS: CALCIUM 8.6 mg/dL (8.5-10.1)
[2024-06-20 08:07] LABS: ALBUMIN 3.3 g/dl (3.4-5.0); BLOOD UREA NITROGEN 17.7 mg/dL (7-18)
[2024-06-20 08:10] LABS: PHOSPHOROUS 3.7 mg/dL (2.5-4.9)
[2024-06-20 08:11] LABS: BILIRUBIN,TOTAL 2.8 mg/dL (0.2-1); TOT PROT 6.5 g/dl (6.4-8.2)
[2024-06-20] MEDS: TAMSULOSIN HCL 0.4 MG CAP PO SCH (08:11)
[2024-06-20] MEDS: ACETAMINOPHEN 325 MG TABLET (FP) PO ONE (09:58)
[2024-06-20] MEDS: FOLIC ACID 1 MG TABLET (FP) PO SCH (10:01)
[2024-06-20] MEDS: FINASTERIDE 5 MG TABLET (FP) PO SCH (10:02)
[2024-06-20] MEDS: PANTOPRAZOLE 40 MG TABLET PO SCH (10:02)
[2024-06-20] MEDS: POTASSIUM CHLORIDE ORAL LIQUID 20 MEQ/15 ML PO ONE (10:02)
[2024-06-20] MEDS: THIAMINE 100 MG TABLET PO SCH (10:02)
[2024-06-20] MEDS: BACITRACIN ZINC 15 GM TUBE TOPICAL OINTMENT TP SCH (13:07)
[2024-06-20 14:03] LABS: EPI CELLS 4 /uL (0-25.1); HYALINE CASTS 0 /uL (0-3.1); PH,URINE 5.5 (5.0-8.0); URINE APPEARANCE CLEAR; URINE BACTERIA 4 /uL (0-1359); URINE BILIRUBIN NEGATIVE (NEGATIVE); URINE COLOR YELLOW; URINE GLUCOSE (UA) 2+ (NEGATIVE); URINE KETONE NEGATIVE (NEGATIVE); URINE LEUK ESTERASE NEGATIVE (NEGATIVE); URINE NITRITE NEGATIVE (NEGATIVE); URINE PROTEIN NEGATIVE (NEGATIVE); URINE RBC 26 /uL (0-23.9)
[2024-06-20] MEDS: POLYETHYLENE GLYCOL (HEALTHYLAX) 3350 17 GM PACKET PO SCH (14:19)
[2024-06-20] MEDS: NYSTATIN 100,000 UNIT/GM TOPICAL CREAM 15 GM TUBE TP SCH (14:38)
[2024-06-21 07:39] LABS: HEMATOCRIT 47.2 % (40.1-51.0); HEMOGLOBIN 15.9 g/dL (13.7-17.5); MCHC 33.7 g/dl (32.3-36.5); MEAN CELL VOLUME 91.3 fl (79.0-92.2); MEAN PLT VOLUME 9.5 fl (9.4-12.4); PLATELET COUNT 187 x10^3/uL (163-337); RDW 14.2 % (12.2-16.4)
[2024-06-21 07:57] LABS: POTASSIUM 3.2 mmol/L (3.5-5.1)
[2024-06-21 08:06] LABS: ALBUMIN 3.2 g/dl (3.4-5.0); BLOOD UREA NITROGEN 19.3 mg/dL (7-18)
[2024-06-21 08:07] LABS: BILIRUBIN,TOTAL 2.1 mg/dL (0.2-1); TOT PROT 6.6 g/dl (6.4-8.2)
[2024-06-21 08:09] LABS: BILIRUBIN,DIRECT 0.7 mg/dL (0.0-0.2)
[2024-06-21] MEDS: ASPIRIN COATED 81 MG TABLET.EC PO SCH (09:24)
[2024-06-21] MEDS: POTASSIUM CHLORIDE TABS 20 MEQ TABLET.ER (FP) PO SCH (12:32)
[2024-06-22 07:08] LABS: POTASSIUM 3.5 mmol/L (3.5-5.1)
[2024-06-22 07:12] LABS: BLOOD UREA NITROGEN 20.1 mg/dL (7-18); CALCIUM 9.3 mg/dL (8.5-10.1)
[2024-06-22 07:14] LABS: MAGNESIUM 2.2 mg/dL (1.8-2.4)
[2024-06-22 07:16] LABS: CREATININE 1.1 mg/dL (0.55-1.3)
[2024-06-22 14:49] VITALS: BP 118/78; PULSE 62; RESP 17; TEMP 98.7
== END 2024-06-22 16:15 | disposition home or self-care (01) | DRG 291 ==
LOC: JER 09:13 → JERBED 11:58 → OBSVTOIN 12:42 → J4W 14:42
PROVIDERS: ADMIT Student in an Organized Health Care Education/Training Program; ATTEND Student in an Organized Health Care Education/Training Program
DX: I11.0 Hypertensive heart disease with heart failure (principal); I50.43 Acute on chronic combined systolic (congestive) and diastolic (congestive) heart failure; E80.6 Other disorders of bilirubin metabolism; Z79.01 Long term (current) use of anticoagulants; I25.10 Atherosclerotic heart disease of native coronary artery without angina pectoris; I73.9 Peripheral vascular disease, unspecified; Z86.73 Personal history of transient ischemic attack (TIA), and cerebral infarction without residual deficits; R31.29 Other microscopic hematuria; K59.00 Constipation, unspecified; F10.10 Alcohol abuse, uncomplicated; I48.0 Paroxysmal atrial fibrillation; E87.6 Hypokalemia; N40.0 Benign prostatic hyperplasia without lower urinary tract symptoms; B35.3 Tinea pedis
CPT/HCPCS: 0241U-QW; 36415; 71045-TC-FY; 80048; 80053; 81003; 82248; 82803; 82962; 83605; 83735; 83880; 84100; 84484; 85025; 85027; 85610; 85730; 86850; 86900; 86901; 93005; 93010; 94640; 94660; 94761; 97116-GP; 97161-GP; 99291; G0378